=== PATIENT | female | born 1940 | race Two or more races ===

== ENCOUNTER 2016-03-09 19:15 | Inpatient (IN) | payer MEDICARE, OTHER ==
[~2016-03-09] VITALS: Ht 149.9 cm; Wt 59.0 kg
[~2016-03-09 19:15] MED LIST: ATORVASTATIN CA10 MG ORAL; BONIVA150 MG ORAL; CALCIUM500 M2 PO; CATAPRES0.1 MG ORAL; FERROUS SULFAT500 G1 MC; GLIPIZIDE10 MG PO; GLUCOPHAGE500 MG ORAL; HYZAAR 100-12.1 EACH ORAL; JANUVIA25 MG ORAL; NEXIUM40 MG ORAL; POTASSIUM99 M3 PO; SYNTHROID137 MCG ORAL
[2016-03-09 20:59] LABS: BASOPHILS % (AUTO) 1.2 % (0.0-2.0); EOSINOPHILS % (AUTO) 1.8 % (0.0-3.0); LYMPHOCYTES % (AUTO) 18.9 % (20.0-45.0); MEAN CORPUSCULAR HEMOGLOBIN 31.7 PG (27.0-31.0); MEAN CORPUSCULAR HGB CONC 33.2 G/DL (32.0-36.0); MEAN CORPUSCULAR VOLUME 96 FL (80-99); MEAN PLATELET VOLUME 6.5 FL (6.5-10.1); MONOCYTES % (AUTO) 6.5 % (1.0-10.0); NEUTROPHILS % (AUTO) 71.7 % (45.0-75.0); PLATELET COUNT 204 K/UL (150-450); RED BLOOD COUNT 3.67 M/UL (4.20-5.40); RED CELL DISTRIBUTION WIDTH 12.1 % (11.6-14.8); WHITE BLOOD COUNT 8.5 K/UL (4.8-10.8)
[2016-03-09 21:00] LABS: APPEARANCE,URINE CLEAR; KETONES,URINE NEGATIVE (NEGATIVE); LEUKOCYTE ESTERASE ,URINE 1+ (NEGATIVE); NITRITE,URINE NEGATIVE (NEGATIVE); PH,URINE 5 (4.5-8.0); PROTEIN,URINE 2+ (NEGATIVE); UROBILINOGEN,URINE 1 MG/DL (0.0-1.0)
[2016-03-09 21:11] LABS: PROTHROMBIN TIME 10.5 SEC (9.30-11.50)
[2016-03-09 21:12] LABS: ICTOTEST NEGATIVE
[2016-03-09 21:18] LABS: RBC,URINE 0-2 /HPF (0 - 2)
[2016-03-09 21:19] LABS: ALANINE AMINOTRANSFERASE 8 U/L (3-33); ALBUMIN/GLOBULIN RATIO 1.2 (1.0-2.7); ANION GAP 16 (5-15); ASPARTATE AMINO TRANSFERASE 15 U/L (5-40); CALCIUM 9.2 mg/dL (8.6-10.2); CARBON DIOXIDE 25 mEQ/L (20-30); CHLORIDE 99 mEQ/L (98-107); CREATININE 1.5 mg/dL (0.5-0.9); HEMOLYSIS 27; LIPASE 34 U/L (< 60); POTASSIUM 4.3 mEQ/L (3.4-4.9); SODIUM 140 mEQ/L (135-145); TOTAL PROTEIN 6.7 g/dL (6.6-8.7)
[2016-03-09 21:19] LABS: BACTERIA,URINE FEW /HPF; SQUAMOUS EPITHELIAL CELL,UR OCCASIONAL /LPF (NONE/OCC)
[2016-03-09 21:53] VITALS: BP 130/70
[2016-03-09 23:04] VITALS: BP 130/59
--- NOTE | 2016-03-09 23:12 | Emergency Room Report ---
History of Present Illness General Chief Complaint: Gastrointestinal Bleed Source: Patient Present Illness HPI 75-year-old female presents ED complaining of rectal bleeding. States symptoms started today. Noted bright red blood in the toilet. Denies any abdominal pain. Denies any fevers or chills. No aggravating relieving factors. Patient states she has history of diverticulosis. PMD is Dr. De La Torre. Denies any other associated symptoms Allergies: Coded Allergies: PENICILLINS (Verified Allergy, Mild, swelling, 02/28/13) ACETAMINOPHEN (Verified Allergy, Unknown, 03/09/16) CODEINE (Verified Allergy, Unknown, 03/09/16) HYDROCODONE (Verified Allergy, Unknown, 03/09/16) SULFA (SULFONAMIDE ANTIBIOTICS) (Verified Allergy, Unknown, 03/09/16) THIAMINE (VITAMIN B1) (Verified Adverse Reaction, Mild, syncope, 03/09/16) Uncoded Allergies: CODEINA (Allergy, Intermediate, 03/09/16) PROLANZA (Allergy, Intermediate, 03/09/16) SULFA (Allergy, Intermediate, 03/09/16) VICODINE (Allergy, Intermediate, 03/09/16) Patient History Past Medical History: DM, HTN, asthma, other - diverticulitis Past Surgical History: none Pertinent Family History: none Last Menstrual Period: N/A Now: No : 1 Para: 0 Immunizations: UTD Reviewed Nursing Documentation: PMH: Agreed, PSxH: Agreed Nursing Documentation-PMH Hx Cardiac Problems: Yes Hx Hypertension: Yes Hx Asthma: Yes Hx Diabetes: Yes Hx Cancer: No Hx Gastrointestinal Problems: Yes - Rectal Bleeding Hx Neurological Problems: Yes - Peripheral Neuropathy Hx Syncope: Yes Review of Systems All Other Systems: negative except mentioned in HPI Physical Exam Vital Signs Date Time Temp Pulse Resp B/P Pulse Ox O2 Delivery O2 Flow Rate FiO2 03/09/16 19:51 97.9 108 20 149/67 96 Room Air Sp02 EP Interpretation: reviewed, normal General Appearance: no apparent distress, alert, GCS 15, non-toxic Head: normocephalic, atraumatic Eyes: bilateral eye PERRL, bilateral eye normal inspection ENT: hearing grossly normal, normal pharynx, no angioedema, normal voice Neck: full range of motion, supple/symm/no masses Respiratory: chest non-tender, lungs clear, normal breath sounds, speaking full sentences Cardiovascular #1: regular rate, rhythm, no edema Cardiovascular #2: 2+ carotid (R), 2+ carotid (L), 2+ radial (R), 2+ radial (L) , 2+ dorsalis pedis (R), 2+ dorsalis pedis (L) Gastrointestinal: normal bowel sounds, non tender, soft, non-distended, no guarding, no rebound Rectal: deferred Genitourinary: normal inspection, no CVA tenderness Musculoskeletal: back normal, gait/station normal, normal range of motion, non- tender Neurologic: alert, oriented x3, responsive, motor strength/tone normal, sensory intact, speech normal Psychiatric: judgement/insight normal, memory normal, mood/affect normal, no suicidal/homicidal ideation Reflexes: 3+ bicep (R), 3+ bicep (L), 3+ tricep (R), 3+ tricep (L), 3+ knee (R) , 3+ knee (L) Skin: normal color, no rash, warm/dry, well hydrated Lymphatic: no adenopathy Medical Decision Making Diagnostic Impression: Primary Impression: Diverticulosis Qualified Codes: K57.31 - Diverticulosis of large intestine without perforation or abscess with bleeding Additional Impressions: LGI bleed ARF (acute renal failure) Qualified Codes: N17.9 - Acute kidney failure, unspecified ER Course Hospital Course 75-year-old female presents to ED with rectal bleeding. Differential diagnoses include: appendicitis, diverticulitis, SBO, gastroenteritis Clinical course Patient placed on stretcher. surveyor geodetic. After initial history and physical I ordered labs, IV fluids, CT scan Labs - no leukocytosis, Hb/Hct stable. BUN/Cr elevated CT abdomen and pelvis - diverticulosis, no diverticulitis Case discussed with Dr De La Torre and he agreed to accept the patient to his service for further care and support I feel this is a highly complex case requiring extensive working including EKG/ Rhythm strip, Xray/CT/US, Blood/urine lab work, repeat exams while in ED, and administration of strong opiates/narcotics for pain control, admission to hospital or close patient follow up. Diagnosis - divertculosis, LGIB, ARF Patient admitted to floor in serious condition Labs Test 03/09/16 20:10 03/09/16 20:36 White Blood Count 8.5 K/UL (4.8-10.8) Red Blood Count 3.67 M/UL (4.20-5.40) Hemoglobin 11.6 G/DL (12.0-16.0) Hematocrit 35.1 % (37.0-47.0) Mean Corpuscular Volume 96 FL (80-99) Mean Corpuscular Hemoglobin 31.7 PG (27.0-31.0) Mean Corpuscular Hemoglobin Concent 33.2 G/DL (32.0-36.0) Red Cell Distribution Width 12.1 % (11.6-14.8) Platelet Count 204 K/UL (150-450) Mean Platelet Volume 6.5 FL (6.5-10.1) Neutrophils (%) (Auto) 71.7 % (45.0-75.0) Lymphocytes (%) (Auto) 18.9 % (20.0-45.0) Monocytes (%) (Auto) 6.5 % (1.0-10.0) Eosinophils (%) (Auto) 1.8 % (0.0-3.0) Basophils (%) (Auto) 1.2 % (0.0-2.0) Prothrombin Time 10.5 SEC (9.30-11.50) Prothromb Time International Ratio 1.0 (0.9-1.1) Activated Partial Thromboplast Time 25 SEC (23-33) Sodium Level 140 mEQ/L (135-145) Potassium Level 4.3 mEQ/L (3.4-4.9) Chloride Level 99 mEQ/L (98-107) Carbon Dioxide Level 25 mEQ/L (20-30) Anion Gap 16 (5-15) Blood Urea Nitrogen 30 mg/dL (7-23) Creatinine 1.5 mg/dL (0.5-0.9) Estimat Glomerular Filtration Rate mL/min (>60) Glucose Level 279 mg/dL (74-106) Calcium Level 9.2 mg/dL (8.6-10.2) Total Bilirubin 0.3 mg/dL (0.0-1.2) Aspartate Amino Transf (AST/SGOT) 15 U/L (5-40) Alanine Aminotransferase (ALT/SGPT) 8 U/L (3-33) Alkaline Phosphatase 86 U/L (35-104) Total Protein 6.7 g/dL (6.6-8.7) Albumin 3.7 g/dL (3.5-5.2) Globulin 3.0 g/dL Albumin/Globulin Ratio 1.2 (1.0-2.7) Lipase 34 U/L (< 60) Urine Color Yellow Urine Appearance Clear Urine pH 5 (4.5-8.0) Urine Specific [place] 1.015 (1.005-1.035) Urine Protein 2+ (NEGATIVE) Urine Glucose (UA) 3+ (NEGATIVE) Urine Ketones Negative (NEGATIVE) Urine Occult Blood 4+ (NEGATIVE) Urine Nitrite Negative (NEGATIVE) Urine Bilirubin 2+ (NEGATIVE) Urine Ictotest Negative Urine Urobilinogen 1 MG/DL (0.0-1.0) Urine Leukocyte Esterase 1+ (NEGATIVE) Urine RBC 0-2 /HPF (0 - 2) Urine WBC 2-4 /HPF (0 - 2) Urine Squamous Epithelial Cells Occasional /LPF Urine Bacteria Few /HPF (NONE) CT/MRI/US Diagnostic Results CT/MRI/US Diagnostic Results : Imaging Test Ordered: CT A/P Impression diverticulosis of sigmoid colon, no diverticulitis Last Vital Signs Date Time Temp Pulse Resp B/P Pulse Ox O2 Delivery O2 Flow Rate FiO2 03/09/16 23:04 97.6 90 20 130/59 97 Room Air Status: improved Disposition: ADMITTED INPATIENT Condition: Serious Referrals: ARIANNA DE LA TORRE (PCP) PAMELA JACKSON M.D. Mar 09, 2016 23:12
[2016-03-09 23:54] VITALS: BP 128/63
[2016-03-10 00:20] VITALS: BP 145/72
[2016-03-10 04:00] VITALS: BP 153/66
[2016-03-10] MEDS ORDERED: NovoLOG Insulin Flexpen SUBQ SCH (06:30)
[2016-03-10 06:42] LABS: BASOPHILS % (AUTO) 1.2 % (0.0-2.0); EOSINOPHILS % (AUTO) 2.2 % (0.0-3.0); LYMPHOCYTES % (AUTO) 20.5 % (20.0-45.0); MEAN CORPUSCULAR HEMOGLOBIN 31.8 PG (27.0-31.0); MEAN CORPUSCULAR HGB CONC 32.8 G/DL (32.0-36.0); MEAN CORPUSCULAR VOLUME 97 FL (80-99); MEAN PLATELET VOLUME 6.7 FL (6.5-10.1); MONOCYTES % (AUTO) 7.1 % (1.0-10.0); NEUTROPHILS % (AUTO) 69.1 % (45.0-75.0); PLATELET COUNT 165 K/UL (150-450); RED BLOOD COUNT 2.84 M/UL (4.20-5.40); RED CELL DISTRIBUTION WIDTH 11.7 % (11.6-14.8); WHITE BLOOD COUNT 7.7 K/UL (4.8-10.8)
[2016-03-10 06:50] LABS: ALANINE AMINOTRANSFERASE 6 U/L (3-33); ALBUMIN/GLOBULIN RATIO 1.3 (1.0-2.7); ANION GAP 12 (5-15); ASPARTATE AMINO TRANSFERASE 12 U/L (5-40); CALCIUM 8.2 mg/dL (8.6-10.2); CARBON DIOXIDE 27 mEQ/L (20-30); CHLORIDE 103 mEQ/L (98-107); CREATININE 1.3 mg/dL (0.5-0.9); HEMOLYSIS 1; POTASSIUM 4.1 mEQ/L (3.4-4.9); SODIUM 142 mEQ/L (135-145); TOTAL PROTEIN 5.3 g/dL (6.6-8.7)
[2016-03-10 07:16] LABS: HEMOLYSIS 5; IRON 47 ug/dL (37-145); TOTAL IRON BINDING CAPACITY 193 ug/dL (250-400)
[2016-03-10 08:00] VITALS: BP 160/59
--- NOTE | 2016-03-10 08:48 | Diagnostic Imaging Report ---
Indication: ABD PAIN abdominal pain, rectal bleeding, history of diverticulitis Technique: Spiral acquisitions obtained through the abdomen and pelvis. No oral contrast utilized, per emergency room physician request No IV contrast utilized, per referring physician request.. Multiplanar reconstructions were generated. Total dose length product 688 mGycm. CTDIvol(s) 13 mGy Comparison: 07/18/2015 Findings: The appendix is normal. There is extensive colonic diverticulosis. No findings to suggest acute appendicitis are evident. No small bowel distention. No free or loculated intraperitoneal air or fluid is demonstrated. Distal esophagus, stomach, duodenum are unremarkable. Lack of IV contrast limits assessment of the solid organs. The liver, gallbladder, bile ducts., pancreas, spleen, adrenals, kidneys are all unremarkable. There is a 9 x 11 mm artery aneurysm again demonstrated. There is minimal bilateral perinephric fat stranding which is stable. No mesenteric or retroperitoneal mass or adenopathy. The uterus contains multiple calcifications, consistent with old degenerated fibroids. No adnexal mass is demonstrated. The included lung bases demonstrate minimal scarring in the inferior left upper lobe. The bones demonstrate degenerative spondylosis changes. There is no significant interim change Impression: No definite acute abnormality Diverticulosis. 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 High The CT scanner at [facility] is accredited by the [employer] and the scans are performed using protocols designed to limit radiation exposure to as low as reasonably achievable to attain images of sufficient resolution adequate for diagnostic evaluation.
[2016-03-10] MEDS ORDERED: Nulytely 4L ORAL ONE (10:00)
[2016-03-10] MEDS: NovoLOG Insulin Flexpen SUBQ SCH ×3 (11:30→20:52)
--- NOTE | 2016-03-10 11:38 | Consultation ---
DATE OF CONSULTATION: 03/10/2016 GASTROLOGY CONSULTATION: CHIEF COMPLAINT: I was asked to see this patient by Dr. Dex De La Torre for evaluation of lower gastrointestinal bleeding. HISTORY OF PRESENT ILLNESS: The patient is a pleasant 75-year-old woman, who was in her usual state of health until yesterday when she started noticing dark red bowel movements. She has had gastrointestinal bleeding in the past and new pattern and therefore came to the emergency room and was admitted. She has had several bowel movements overnight with the same color. She has had no nausea, vomiting, or abdominal pain. She has had endoscopy or colonoscopy before several times. She thinks the last time was about a year or so at [facility] showing diverticular bleeding. PAST MEDICAL HISTORY: History of hypertension, history of qnm-gkocvkn-fzbysurxh diabetes mellitus, history of hypercholesterolemia, history diverticulosis, and diverticular bleeding. FAMILY HISTORY: Positive for a gastric cancer. SOCIAL HISTORY: The patient does not smoke, drink alcohol, or use drugs. She used . REVIEW OF SYSTEMS: Otherwise negative. PHYSICAL EXAMINATION: GENERAL: This is a pleasant woman seen in her room. HEENT: Normocephalic and atraumatic. Sclerae anicteric. Oropharynx clear. NECK: Supple. CHEST: Clear to auscultation. CARDIOVASCULAR: Revealed a regular rate. ABDOMEN: Soft, nontender, and nondistended. Good bowel sounds. There is no organomegaly. EXTREMITIES: Revealed no edema. NEUROLOGIC: Nonfocal. LABORATORY DATA: Noted. ASSESSMENT: This patient presents with acute gastrointestinal bleeding, which is likely lower in nature. Given the previous history of diverticulosis, diverticular bleeding other possibilities just ulcers would be less likely. The patient has had a significant drop in hematocrit overnight and therefore I will repeat the CBC again today to see if she needs a blood transfusion. the patient should receive GoLYTELY to clear out the colon. She is somewhat reluctant about having another colonoscopy since she has had several times and was told not to have a renewal. However, can be reevaluated once the repeat administered. RECOMMENDATIONS: 1. NPO except medications. 2. Iron pills. 3. Serial CBC. 4. GoLYTELY today. 5. Check outside records. Thank you for asking me to participate in the care of this patient. Gabino Sen M.D. DR: ROSA JOB#: [id number] CC:
[2016-03-10 12:00] VITALS: BP 162/68
[2016-03-10 13:42] LABS: BASOPHILS % (AUTO) 0.9 % (0.0-2.0); EOSINOPHILS % (AUTO) 0.9 % (0.0-3.0); LYMPHOCYTES % (AUTO) 19.1 % (20.0-45.0); MEAN CORPUSCULAR HEMOGLOBIN 31.5 PG (27.0-31.0); MEAN CORPUSCULAR HGB CONC 33.3 G/DL (32.0-36.0); MEAN CORPUSCULAR VOLUME 95 FL (80-99); MEAN PLATELET VOLUME 7.3 FL (6.5-10.1); MONOCYTES % (AUTO) 5.8 % (1.0-10.0); NEUTROPHILS % (AUTO) 73.3 % (45.0-75.0); PLATELET COUNT 197 K/UL (150-450); RED BLOOD COUNT 2.98 M/UL (4.20-5.40); WHITE BLOOD COUNT 8.4 K/UL (4.8-10.8)
--- NOTE | 2016-03-10 15:17 | History and Physical Report ---
DATE OF ADMISSION: 03/09/2016 REASON FOR ADMISSION: Gastrointestinal bleeding. HISTORY OF PRESENT ILLNESS: This is a 75-year-old female with a known history of diverticulosis. She has had prior diverticular bleeds for the past two years on three prior occasions and has been hospitalized. A colonoscopy done approximately 18 months ago confirmed the diagnosis. The patient has required transfusions. She has not required any surgical intervention. In between the episodes, she is symptom free. There is no prior history of diverticulitis. The patient has not had any abdominal pain, nausea, vomiting, fevers, or chills. After eating this afternoon, the patient had an episode of bright red blood per rectum. It was painless. Approximately an hour later, a second episode occurred. A large amounts of blood was in the toilet, the patient came to the emergency room based on her prior history. PAST MEDICAL HISTORY: Degenerative disk disease, lumbosacral radiculopathy, lxl-vzdkuyh-nnplahita diabetes mellitus, diabetic neuropathy, hypertension with hypertensive heart disease, hyperlipidemia. MEDICATIONS: Prior to admission, reviewed and reconciled. ALLERGIES: Multiple and include acetaminophen, codeine, penicillin, sulfa, and thiamine as well as hydrocodone. FAMILY HISTORY: Noncontributory. SOCIAL HISTORY: Negative for smoking, alcohol, or substance abuse. She lives with her . REVIEW OF SYSTEMS: No fevers or chills. No history of retinopathy. No dysuria or frequency. She does have chronic back pain. She has had epidural injections in the past. There is no history of stroke. There is no history of myocardial infarction. Her most recent echocardiogram revealed normal ejection fraction with concentric hypertrophy. There is no history of asthma or blood clots in the legs. Her diabetes is managed with oral therapy. Her most recent A1c was 8.3. She is on anti-lipid therapy. There is no history of thyroid impairment. PHYSICAL EXAMINATION: GENERAL: The patient is well developed, well nourished, no acute distress. VITAL SIGNS: Blood pressure 149/67, pulse 108, respiratory rate 20, afebrile, oxygen saturation 96% on room air. HEENT: Conjunctivae are pink. Sclerae are anicteric. Oropharynx clear. NECK: Supple. Jugular venous pressure normal. LUNGS: Clear. CARDIAC: Regular rhythm and rate. Normal S1 and S2 with a fourth heart sound. ABDOMEN: Soft and nontender. No guarding. No rebound. EXTREMITIES: Good pulses. No edema. NEUROLOGIC: Nonfocal. LABORATORY AND DIAGNOSTIC DATA: White count 8.5, hemoglobin 11.6, BUN 30, creatinine 1.5. Potassium 4.3. Albumin 3.7. Glucose 279. IMPRESSION: 1. Gastrointestinal bleeding likely diverticular. 2. Acute on chronic renal failure due to hypovolemia and possibly acute tubular necrosis. 3. Type 2 diabetes mellitus. 4. Hypertensive heart disease secondary to sinus tachycardia due to acute blood loss. PLAN: NPO. Intravenous fluid, insulin coverage by sliding scale. Serial hemoglobin transfuse if less than 8.5 grams. No anti-platelet therapy or anticoagulants at this time. Check iron panel. Dex De La Torre M.D. DR: Sebastian JOB#: [id number] CC:
[2016-03-10 15:56] LABS: BASOPHILS % (AUTO) 1.2 % (0.0-2.0); EOSINOPHILS % (AUTO) 1.1 % (0.0-3.0); LYMPHOCYTES % (AUTO) 17.5 % (20.0-45.0); MEAN CORPUSCULAR HEMOGLOBIN 31.5 PG (27.0-31.0); MEAN CORPUSCULAR HGB CONC 32.6 G/DL (32.0-36.0); MEAN CORPUSCULAR VOLUME 96 FL (80-99); MEAN PLATELET VOLUME 7.1 FL (6.5-10.1); MONOCYTES % (AUTO) 6.3 % (1.0-10.0); NEUTROPHILS % (AUTO) 73.9 % (45.0-75.0); PLATELET COUNT 172 K/UL (150-450); RED BLOOD COUNT 2.59 M/UL (4.20-5.40); RED CELL DISTRIBUTION WIDTH 12.2 % (11.6-14.8); WHITE BLOOD COUNT 6.3 K/UL (4.8-10.8)
[2016-03-10 16:00] VITALS: BP 162/79
[2016-03-10 20:00] VITALS: BP 132/66
[2016-03-11] VITALS: BP 152/73
[2016-03-11 04:00] VITALS: BP 157/72
[2016-03-11] MEDS: NovoLOG Insulin Flexpen SUBQ SCH ×4 (06:08→21:36)
[2016-03-11 07:16] LABS: MEAN CORPUSCULAR HEMOGLOBIN 32.5 PG (27.0-31.0); MEAN CORPUSCULAR HGB CONC 34.3 G/DL (32.0-36.0); MEAN CORPUSCULAR VOLUME 95 FL (80-99); MEAN PLATELET VOLUME 6.4 FL (6.5-10.1); PLATELET COUNT 158 K/UL (150-450); RED BLOOD COUNT 2.32 M/UL (4.20-5.40); RED CELL DISTRIBUTION WIDTH 12.2 % (11.6-14.8); WHITE BLOOD COUNT 5.7 K/UL (4.8-10.8)
[2016-03-11 07:21] LABS: ANION GAP 11 (5-15); CALCIUM 7.9 mg/dL (8.6-10.2); CARBON DIOXIDE 25 mEQ/L (20-30); CHLORIDE 106 mEQ/L (98-107); HEMOLYSIS 2; POTASSIUM 3.7 mEQ/L (3.4-4.9); SODIUM 142 mEQ/L (135-145)
[2016-03-11 08:09] LABS: INR 1.1 (0.9-1.1); PROTHROMBIN TIME 10.8 SEC (9.30-11.50)
[2016-03-11 08:37] VITALS: BP 188/87
[2016-03-11 09:51] LABS: BAND NEUTROPHILS % (MANUAL) 0 % (0-8); BASOPHILS % (MANUAL) 0 % (0-2); EOSINOPHILS % (MANUAL) 0 % (0-3); HYPOCHROMASIA 1+; LYMPHOCYTES % (MANUAL) 32 % (20-45); NEUTROPHILS % (MANUAL) 64 % (45-75); PLATELET ESTIMATE ADEQUATE; PLATELET MORPHOLOGY NORMAL; TOTAL CELLS COUNTED 100
[2016-03-11 11:45] VITALS: BP 147/76
--- NOTE | 2016-03-11 13:24 | General Progress Note ---
Assessment/Plan Problem List: (1) LGI bleed ICD Codes: K92.2 - Gastrointestinal hemorrhage, unspecified SNOMED: 36158525 (2) Diverticulosis ICD Codes: K57.90 - Diverticulosis of intestine, part unspecified, without perforation or abscess without bleeding SNOMED: 259270639 Qualifiers: Qualified Codes: K57.31 - Diverticulosis of large intestine without perforation or abscess with bleeding (3) hypertension Assessment/Plan transfuse clears fu labs patient rock not want any procedures at this time Subjective ROS Limited/Unobtainable: Yes Allergies: Coded Allergies: PENICILLINS (Verified Allergy, Mild, swelling, 02/28/13) ACETAMINOPHEN (Verified Allergy, Unknown, 03/09/16) CODEINE (Verified Allergy, Unknown, 03/09/16) HYDROCODONE (Verified Allergy, Unknown, 03/09/16) SULFA (SULFONAMIDE ANTIBIOTICS) (Verified Allergy, Unknown, 03/09/16) THIAMINE (VITAMIN B1) (Verified Adverse Reaction, Mild, syncope, 03/09/16) Uncoded Allergies: CODEINA (Allergy, Intermediate, 03/09/16) PROLANZA (Allergy, Intermediate, 03/09/16) SULFA (Allergy, Intermediate, 03/09/16) VICODINE (Allergy, Intermediate, 03/09/16) Subjective no recurrent GIB Objective Last 24 Hour Vital Signs Date Time Temp Pulse Resp B/P Pulse Ox O2 Delivery O2 Flow Rate FiO2 03/11/16 11:45 97.7 81 20 147/76 97 Room Air 03/11/16 08:47 188/87 03/11/16 08:37 97.9 80 20 188/87 96 Room Air 03/11/16 04:00 98.1 89 18 157/72 97 Nasal Cannula 2.0 03/11/16 00:00 97.0 83 20 152/73 97 Nasal Cannula 2.0 03/10/16 20:00 98.8 83 18 132/66 95 Room Air 03/10/16 16:15 162/79 03/10/16 16:00 98.4 89 18 162/79 97 Room Air Intake and Output 03/10/16 03/11/16 19:00 07:00 Intake Total 1150 ml 1100 ml Balance 1150 ml 1100 ml Intake Oral 150 ml IV Total 1000 ml 1100 ml # Voids 4 # Bowel Movements 1 Laboratory Tests 03/10/16 15:14: White Blood Count 6.3, Red Blood Count 2.59L, Hemoglobin 8.2L, Hematocrit 25.0L , Mean Corpuscular Volume 96, Mean Corpuscular Hemoglobin 31.5H, Mean Corpuscular Hemoglobin Concent 32.6, Red Cell Distribution Width 12.2, Platelet Count 172, Mean Platelet Volume 7.1, Neutrophils (%) (Auto) 73.9, Lymphocytes (% ) (Auto) 17.5L, Monocytes (%) (Auto) 6.3, Eosinophils (%) (Auto) 1.1, Basophils (%) (Auto) 1.2 03/11/16 05:30: White Blood Count 5.7, Red Blood Count 2.32L, Hemoglobin 7.5L, Hematocrit 21.9L , Mean Corpuscular Volume 95, Mean Corpuscular Hemoglobin 32.5H, Mean Corpuscular Hemoglobin Concent 34.3, Red Cell Distribution Width 12.2, Platelet Count 158, Mean Platelet Volume 6.4L, Neutrophils (%) (Auto) , Lymphocytes (%) ( Auto) , Monocytes (%) (Auto) , Eosinophils (%) (Auto) , Basophils (%) (Auto) , Differential Total Cells Counted 100, Neutrophils % (Manual) 64, Lymphocytes % ( Manual) 32, Monocytes % (Manual) 4, Eosinophils % (Manual) 0, Basophils % ( Manual) 0, Band Neutrophils 0, Platelet Estimate Adequate, Platelet Morphology Normal, Hypochromasia 1+, Prothrombin Time 10.8, Prothromb Time International Ratio 1.1, Sodium Level 142, Potassium Level 3.7, Chloride Level 106, Carbon Dioxide Level 25, Anion Gap 11, Blood Urea Nitrogen 23, Creatinine 1.0H, Estimat Glomerular Filtration Rate , Glucose Level 208H, Calcium Level 7.9L Height (Feet): 4 Height (Inches): 11.00 Weight (Pounds): 130 General Appearance: alert EENT: normal ENT inspection Neck: supple Cardiovascular: normal rate Respiratory/Chest: decreased breath sounds Abdomen: normal bowel sounds, non tender Extremities: non-tender BONIFACIO BURNETTE Mar 11, 2016 13:24
[2016-03-11 15:48] VITALS: BP 150/75
[2016-03-11 20:00] VITALS: BP 137/71
[2016-03-12] VITALS (7 sets, daily range): BP systolic 135–195; BP diastolic 71–90
--- NOTE | 2016-03-12 01:38 | Progress Note ---
DATE: 03/10/2016 INTERNAL MEDICINE PROGRESS NOTE Late entry for 03/10/2016. SUBJECTIVE: The patient has no pain or abdominal discomfort. No nausea or vomiting. She did have a couple more episodes of bloody stools last evening and this morning. OBJECTIVE: VITAL SIGNS: Blood pressure is 160/59, pulse 80, and respirations 18. NECK: Supple. LUNGS: Clear. CARDIAC: Regular. Normal S1, S2. ABDOMEN: Soft and nontender. No edema. LABORATORY AND DIAGNOSTIC DATA: Hemoglobin is 9 and hematocrit 27.4. Potassium 4.1, BUN 38, and creatinine 1.3. Albumin 3. Iron panel was consistent with chronic disease. IMPRESSION: 1. Lower gastrointestinal bleeding, likely diverticular. 2. Acute on chronic renal insufficiency with prerenal azotemia due to hypoperfusion. 3. Mild protein-calorie malnutrition. 4. Hypertensive heart disease with accelerated blood pressure. 5. Insulin-requiring diabetes mellitus with complications. PLAN: 1. NPO. 2. Intravenous fluids. 3. Titrate antihypertensives. 4. Serial hemoglobin, transfuse if less than 8 g. 5. Consideration for repeat colonoscopy to follow. Dex De La Torre M.D. DR: REJI JOB#: [id number] CC:
--- NOTE | 2016-03-12 01:47 | Progress Note ---
DATE: 03/11/2016 INTERNAL MEDICINE PROGRESS NOTE SUBJECTIVE: The patient has not had any new bleeding. Her hemoglobin has been dropped to 7.6. She denies chest pain or shortness of breath. No abdominal pain noted. OBJECTIVE: VITAL SIGNS: Blood pressure up to 171/93 at time. LUNGS: Bilateral breath sounds. HEART: Regular rhythm and rate. Normal S1, S2. ABDOMEN: Soft. EXTREMITIES: Without edema. LABORATORY RESULTS: Potassium 3.7, BUN 23, and creatinine 1.0. White count 5.7 and hemoglobin 7.5. IMPRESSION: 1. Acute lower gastrointestinal bleeding, presumed diverticular. 2. Anemia due to acute blood loss. 3. Hypertension with hypertensive heart disease and rising blood pressure trend. 4. Insulin-requiring diabetes with complications. PLAN: 1. Transfuse one unit of packed red blood cells. 2. Intravenous Venofer. 3. Continue NPO and close monitoring of gastrointestinal parameters. 4. Maintenance of intravenous fluids. 5. Sublingual clonidine for blood pressure control on a p.r.n. basis for now. 6. Insulin coverage by sliding scale. Dex De La Torre M.D. DR: REJI JOB#: [id number] CC:
[2016-03-12] MEDS: NovoLOG Insulin Flexpen SUBQ SCH ×4 (06:13→21:01)
[2016-03-12 07:20] LABS: BASOPHILS % (AUTO) 1.6 % (0.0-2.0); EOSINOPHILS % (AUTO) 3.1 % (0.0-3.0); LYMPHOCYTES % (AUTO) 23.1 % (20.0-45.0); MEAN CORPUSCULAR HEMOGLOBIN 33.3 PG (27.0-31.0); MEAN CORPUSCULAR HGB CONC 34.4 G/DL (32.0-36.0); MEAN CORPUSCULAR VOLUME 97 FL (80-99); MEAN PLATELET VOLUME 6.8 FL (6.5-10.1); MONOCYTES % (AUTO) 9.4 % (1.0-10.0); NEUTROPHILS % (AUTO) 62.9 % (45.0-75.0); PLATELET COUNT 139 K/UL (150-450); RED BLOOD COUNT 2.73 M/UL (4.20-5.40); RED CELL DISTRIBUTION WIDTH 11.8 % (11.6-14.8); WHITE BLOOD COUNT 6.4 K/UL (4.8-10.8)
--- NOTE | 2016-03-12 11:48 | General Progress Note ---
Assessment/Plan Problem List: (1) LGI bleed ICD Codes: K92.2 - Gastrointestinal hemorrhage, unspecified SNOMED: 01439734 (2) Diverticulosis ICD Codes: K57.90 - Diverticulosis of intestine, part unspecified, without perforation or abscess without bleeding SNOMED: 845292926 Qualifiers: Qualified Codes: K57.31 - Diverticulosis of large intestine without perforation or abscess with bleeding (3) hypertension Assessment/Plan s/p blood transfusion advance diet fu labs patient rock not want any procedures at this time Subjective ROS Limited/Unobtainable: Yes Allergies: Coded Allergies: PENICILLINS (Verified Allergy, Mild, swelling, 02/28/13) ACETAMINOPHEN (Verified Allergy, Unknown, 03/09/16) CODEINE (Verified Allergy, Unknown, 03/09/16) HYDROCODONE (Verified Allergy, Unknown, 03/09/16) SULFA (SULFONAMIDE ANTIBIOTICS) (Verified Allergy, Unknown, 03/09/16) THIAMINE (VITAMIN B1) (Verified Adverse Reaction, Mild, syncope, 03/09/16) Uncoded Allergies: CODEINA (Allergy, Intermediate, 03/09/16) PROLANZA (Allergy, Intermediate, 03/09/16) SULFA (Allergy, Intermediate, 03/09/16) VICODINE (Allergy, Intermediate, 03/09/16) Subjective no recurrent GIB Objective Last 24 Hour Vital Signs Date Time Temp Pulse Resp B/P Pulse Ox O2 Delivery O2 Flow Rate FiO2 03/12/16 08:00 96.2 72 18 153/86 94 Room Air 03/12/16 05:08 192/80 03/12/16 04:45 155/80 03/12/16 04:00 98.2 90 18 192/80 95 Room Air 03/12/16 00:00 97.7 72 18 158/81 96 03/11/16 20:00 97.9 68 18 137/71 98 Room Air 03/11/16 17:39 199/99 03/11/16 15:48 97.9 78 20 150/75 94 Room Air Intake and Output 03/11/16 03/12/16 19:00 07:00 Intake Total 1390 ml 855 ml Balance 1390 ml 855 ml Intake Oral 890 ml IV Total 500 ml 855 ml # Voids 3 Laboratory Tests 03/12/16 04:45: White Blood Count 6.4, Red Blood Count 2.73L, Hemoglobin 9.1L, Hematocrit 26.5L , Mean Corpuscular Volume 97, Mean Corpuscular Hemoglobin 33.3H, Mean Corpuscular Hemoglobin Concent 34.4, Red Cell Distribution Width 11.8, Platelet Count 139L, Mean Platelet Volume 6.8, Neutrophils (%) (Auto) 62.9, Lymphocytes ( %) (Auto) 23.1, Monocytes (%) (Auto) 9.4, Eosinophils (%) (Auto) 3.1H, Basophils (%) (Auto) 1.6 Height (Feet): 4 Height (Inches): 11.00 Weight (Pounds): 130 General Appearance: alert EENT: normal ENT inspection Neck: supple Cardiovascular: normal rate Respiratory/Chest: decreased breath sounds Abdomen: normal bowel sounds, non tender, soft Extremities: non-tender BONIFACIO BURNETTE Mar 12, 2016 11:48
[2016-03-12] MEDS ORDERED: Tubing IV Secondary IV ONE (17:48)
[2016-03-13] VITALS: BP 155/65
[2016-03-13 04:00] VITALS: BP 155/65
[2016-03-13 04:42] LABS: BASOPHILS % (AUTO) 1.1 % (0.0-2.0); EOSINOPHILS % (AUTO) 3.1 % (0.0-3.0); LYMPHOCYTES % (AUTO) 21.1 % (20.0-45.0); MEAN CORPUSCULAR HEMOGLOBIN 31.7 PG (27.0-31.0); MEAN CORPUSCULAR HGB CONC 32.9 G/DL (32.0-36.0); MEAN CORPUSCULAR VOLUME 96 FL (80-99); MEAN PLATELET VOLUME 6.4 FL (6.5-10.1); MONOCYTES % (AUTO) 7.8 % (1.0-10.0); PLATELET COUNT 147 K/UL (150-450); RED BLOOD COUNT 2.89 M/UL (4.20-5.40); RED CELL DISTRIBUTION WIDTH 11.6 % (11.6-14.8); WHITE BLOOD COUNT 6.5 K/UL (4.8-10.8)
[2016-03-13] MEDS: metFORMIN 500mg tab ORAL SCH ×2 (06:30→11:38)
[2016-03-13] MEDS: NovoLOG Insulin Flexpen SUBQ SCH ×2 (06:30→11:42)
--- NOTE | 2016-03-13 06:47 | Progress Note ---
DATE: 03/12/2016 INTERNAL MEDICINE PROGRESS NOTE SUBJECTIVE: The patient has not had any bowel movement for several days. No signs of bleeding noted. No nausea or vomiting. The patient received packed red blood cell transfusion yesterday. OBJECTIVE: VITAL SIGNS: Blood pressure 153/86 to 195/90, heart rate 70, respiratory rate 18, and afebrile. NECK: Supple. LUNGS: Clear. CARDIAC: Regular. Normal S1 and S2 with a fourth heart sound. ABDOMEN: Soft. No tenderness. EXTREMITIES: No edema. LABORATORY DATA: White count 6.4 and hemoglobin 9.1. IMPRESSION: 1. Diverticulosis with gastrointestinal bleeding. 2. Anemia, status post transfusion. 3. Acute on chronic renal failure, recovering. 4. Hypertensive heart disease with accelerated blood pressure. 5. Vwx-poztubk-pjekssiua diabetes mellitus with elevated blood glucose. PLAN: Restart metformin. Advance diet. Adjust IV fluids. Titrate antihypertensives. Serial hemoglobin. Transfuse for hemoglobin less than 8 g. Dex De La Torre M.D. DR: Ryland JOB#: [id number] CC:
[2016-03-13 07:03] LABS: CARBON DIOXIDE 23 mEQ/L (20-30); CREATININE 0.8 mg/dL (0.5-0.9)
[2016-03-13 07:04] LABS: ALANINE AMINOTRANSFERASE 7 U/L (3-33); ALBUMIN/GLOBULIN RATIO 1.2 (1.0-2.7); ANION GAP 15 (5-15); ASPARTATE AMINO TRANSFERASE 19 U/L (5-40); CALCIUM 8.4 mg/dL (8.6-10.2); CHLORIDE 106 mEQ/L (98-107); HEMOLYSIS 3; MAGNESIUM 1.1 mg/dL (1.7-2.5); POTASSIUM 3.3 mEQ/L (3.4-4.9); SODIUM 144 mEQ/L (135-145); TOTAL PROTEIN 5.4 g/dL (6.6-8.7)
[2016-03-13 08:00] VITALS: BP 160/83
[2016-03-13 12:00] VITALS: BP 139/78
--- NOTE | 2016-03-14 00:25 | General Progress Note ---
Assessment/Plan Assessment/Plan Assessment - LGIB - diverticulosis - presumed diverticular bleed - anemia - declined EGD/Colon Recommendations - push po - follow labs - monitor CBC - d/c planning - outpatient f/u Subjective Allergies: Coded Allergies: PENICILLINS (Verified Allergy, Mild, swelling, 02/28/13) ACETAMINOPHEN (Verified Allergy, Unknown, 03/09/16) CODEINE (Verified Allergy, Unknown, 03/09/16) HYDROCODONE (Verified Allergy, Unknown, 03/09/16) SULFA (SULFONAMIDE ANTIBIOTICS) (Verified Allergy, Unknown, 03/09/16) THIAMINE (VITAMIN B1) (Verified Adverse Reaction, Mild, syncope, 03/09/16) Uncoded Allergies: CODEINA (Allergy, Intermediate, 03/09/16) PROLANZA (Allergy, Intermediate, 03/09/16) SULFA (Allergy, Intermediate, 03/09/16) VICODINE (Allergy, Intermediate, 03/09/16) Subjective patient seen earlier today (ie am of 03/13) progress note entered after midnight timestamp patient still declines GI w/u just wants to go home advised to f/u with me as outpt has my card Objective Last 24 Hour Vital Signs Date Time Temp Pulse Resp B/P Pulse Ox O2 Delivery O2 Flow Rate FiO2 03/13/16 12:00 98.5 74 19 139/78 92 Room Air 03/13/16 10:16 160/83 03/13/16 08:00 97.7 92 18 160/83 96 Room Air 03/13/16 04:00 97.9 68 18 155/65 96 Room Air Intake and Output 03/13/16 03/14/16 19:00 07:00 Intake Total 300 ml Balance 300 ml IV Total 300 ml Laboratory Tests 03/13/16 03:15: White Blood Count 6.5, Red Blood Count 2.89L, Hemoglobin 9.2L, Hematocrit 27.9L , Mean Corpuscular Volume 96, Mean Corpuscular Hemoglobin 31.7H, Mean Corpuscular Hemoglobin Concent 32.9, Red Cell Distribution Width 11.6, Platelet Count 147L, Mean Platelet Volume 6.4L, Neutrophils (%) (Auto) 67.0, Lymphocytes (%) (Auto) 21.1, Monocytes (%) (Auto) 7.8, Eosinophils (%) (Auto) 3.1H, Basophils (%) (Auto) 1.1, Sodium Level 144, Potassium Level 3.3L, Chloride Level 106, Carbon Dioxide Level 23, Anion Gap 15, Blood Urea Nitrogen 9, Creatinine 0.8, Estimat Glomerular Filtration Rate , Glucose Level 115H, Calcium Level 8.4L, Magnesium Level 1.1L, Total Bilirubin 0.3, Aspartate Amino Transf (AST/SGOT) 19, Alanine Aminotransferase (ALT/SGPT) 7, Alkaline Phosphatase 58, Total Protein 5.4L, Albumin 3.0L, Globulin 2.4, Albumin/ Globulin Ratio 1.2 Height (Feet): 4 Height (Inches): 11.00 Weight (Pounds): 130 Objective WDWN LW NCAT supple CTA RRR Soft ND NT no edema non focal EFREN COTA Mar 14, 2016 00:25
[2016-03-14 12:29] LABS: OTHERS PATHOLOGIST COMMENT
--- NOTE | 2016-03-14 14:45 | Discharge Summary ---
Discharge Summary Hospital Course Date of Admission Mar 09, 2016 at 20:48 Date of Discharge Mar 13, 2016 at 14:20 Admitting Diagnosis LGIB Reason for Hospitalization: rectal bleeding x 2 HPI Radha Evans is a 75 year old female who was admitted on Mar 09, 2016 at 20:48 for Lower Gastrointestinal Bleed 75-year-old female with a known history of diverticulosis, prior diverticular bleeding in the last 2 years on 3 prior occasions with hospitalization. A colonoscopy done approximately 18 months ago and confirmed the diagnosis. The patient had required transfusions. No surgical interventions, No evidecne of diverticulitis, symptom free between epsidoes. denies abdominal pain, nausea, vomiting, fevers, or chills. prior to presentation to ER had an episode of painless bright red blood per rectum. An hour later, a second episode with a large amounts of blood the patient came to the emergency room for further evaluation in ER afebrile, no leucocytosis, evidence of acute renal failure with creat of 1.5, anemic Consultations GI -dr Sen Hospital Course patient admitted for further management GI followed patient declined EGD and colon ( last done about 18 months ago) per GI - lower GI bleeding presumed to be of diverticular bleeding HH monitored s/p 1 u PRBC, no further bleeding GI prophylaxis IVF renal parameters improved at baseline, creat down to 1.0 BP management with current regimen BS management with oral antiglycemic and SS of insulin , may need further optimization of antiglycemic regimen as outpatient DVT prophylaxis s/p Venofer, on oral iron supplement at home bowel regimen stable for discharge , GI cleared for dc home, fup with PMD and GI as outpatient Discharge Condition Upon Discharge: improving, stable Discharge Disposition Patient was discharged to Home (01) Discharge Diagnoses: (1) Lower GI bleed (2) Diverticulosis (3) History of GI diverticular bleed (4) Eaxcu-hh-ylpiygy renal failure (5) Accelerated hypertension (6) 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 (7) Anemia Discharge Instructions Discharge Instructions Follow up with: PMD Call MD/Return to Hospital if: blood in stool or emesis, dizziness, weakness, SOB, chest pain Services Upon Discharge: day care - blood in stool or emesis Diet: diabetic calorie control, cardiac 2 GM Na, low fat Activity: resume normal activities, as tolerated Special Instructions I have been assigned to complete a D/C Summary on this account. I was not involved in the patient management Radha Barr NP ([place]te[place]) Mar 14, 2016 14:45
== END 2016-03-13 14:20 | disposition home or self-care (01) | DRG 377 ==
LOC: ENRESERVTM → ENRESERVDT → EMR 20:45 → 4W 20:48 → EDBEDREQ 03-10 00:10 → 4W 03-10 01:10
PROC: 30233N1 Transfusion of Nonautologous Red Blood Cells into Peripheral Vein, Percutaneous Approach (ICD-10-PCS; principal; 2016-03-11)
DX: K57.91 Diverticulosis of intestine, part unspecified, without perforation or abscess with bleeding (principal); N17.0 Acute kidney failure with tubular necrosis; G62.9 Polyneuropathy, unspecified; D62 Acute posthemorrhagic anemia; E11.40 Type 2 diabetes mellitus with diabetic neuropathy, unspecified; E44.1 Mild protein-calorie malnutrition; I13.10 Hypertensive heart and chronic kidney disease without heart failure, with stage 1 through stage 4 chronic kidney disease, or unspecified chronic kidney disease; N18.9 Chronic kidney disease, unspecified; M51.17 Intervertebral disc disorders with radiculopathy, lumbosacral region; E86.1 Hypovolemia; Z88.6 Allergy status to analgesic agent; Z88.0 Allergy status to penicillin; Z88.2 Allergy status to sulfonamides; Z88.8 Allergy status to other drugs, medicaments and biological substances
CPT/HCPCS: 36415; 74176; 80048; 80053; 81003; 82962; 83540; 83550; 83690; 83735; 85007; 85025; 85610; 85730; 86850; 86900; 86901; 86920; J1815; J8499

== ENCOUNTER 2017-01-19 14:30 | Outpatient (RCR) | payer MEDICARE, OTHER | END 2017-02-01 | disposition home or self-care (01) | LOC: PTY 14:30 | DX: M48.061 Spinal stenosis, lumbar region without neurogenic claudication (principal); M54.16 Radiculopathy, lumbar region; E11.40 Type 2 diabetes mellitus with diabetic neuropathy, unspecified | CPT/HCPCS: 97110; 97162; G0283; G8981; G8982 ==

== ENCOUNTER 2017-03-15 17:02 | Emergency (ER) | payer MEDICARE, OTHER ==
[~2017-03-15] VITALS: Ht 149.9 cm; Wt 58.1 kg
[2017-03-15 17:20] VITALS: BP 177/76
--- NOTE | 2017-03-15 19:11 | Emergency Room Report ---
History of Present Illness General Chief Complaint: Upper Extremity Injury Source: Medical Record (Maria Dolores Lambert) Present Illness HPI 76-year-old female presents to the emergency department complaining of 10 out of 10 in severity right elbow and right shoulder pain status post mechanical trip and fall at approximately 3 PM this afternoon. Patient states that she felt into a wall. Patient denies hitting her head she denies loss of consciousness. Patient denies taking blood thinning medications her past medical history is only pertinent for high-pressure. She reports pain exacerbation upon palpation and movement of the affected extremity.Denies numbness tingling or loss of sensation or gross motor movements of the extremities, incontinence of bowel or bladder. Denies CP, Palpitations, LOC, AMS , dizziness, Changes in Vision, Sensation, paresthesias, or a sudden severe headache. (Maria Dolores Lambert) Allergies: Coded Allergies: PENICILLINS (Verified Allergy, Mild, swelling, 02/28/13) ACETAMINOPHEN (Verified Allergy, Unknown, 03/09/16) CODEINE (Verified Allergy, Unknown, 03/09/16) HYDROCODONE (Verified Allergy, Unknown, 03/09/16) SULFA (SULFONAMIDE ANTIBIOTICS) (Verified Allergy, Unknown, 03/09/16) THIAMINE (VITAMIN B1) (Verified Adverse Reaction, Mild, syncope, 03/09/16) Patient History Past Medical History: see triage record Past Surgical History: none Pertinent Family History: none Immunizations: UTD Reviewed Nursing Documentation: PMH: Agreed, PSxH: Agreed (Maria Dolores Lambert) Nursing Documentation-PMH Past Medical History: No History, Except For Hx Cardiac Problems: Yes Hx Hypertension: Yes Hx Asthma: Yes Hx Diabetes: Yes Hx Cancer: No Hx Gastrointestinal Problems: Yes - Rectal Bleeding Hx Neurological Problems: Yes Hx Peripheral Neuropathy: Yes Hx Dizziness: Yes Hx Syncope: Yes Hx Weakness: Yes (Maria Dolores Lambert) Review of Systems All Other Systems: negative except mentioned in HPI (Maria Dolores Lambert) Physical Exam Vital Signs Date Time Temp Pulse Resp B/P (MAP) Pulse Ox O2 Delivery O2 Flow Rate FiO2 03/15/17 17:13 97.9 76 18 177/76 99 Room Air Sp02 EP Interpretation: reviewed, normal General Appearance: no apparent distress, alert, GCS 15, non-toxic Head: normocephalic, atraumatic Eyes: bilateral eye normal inspection, bilateral eye PERRL ENT: hearing grossly normal, normal voice Neck: full range of motion Respiratory: chest non-tender, lungs clear, normal breath sounds, speaking full sentences Cardiovascular #1: regular rate, rhythm Gastrointestinal: normal bowel sounds, non tender, soft Rectal: deferred Genitourinary: normal inspection Musculoskeletal: back normal, gait/station normal, normal range of motion, tender - TTP to the lateral and posterior right elbow, unable to ROM due to pain , ttp to the lateral right shoulder unable to ROM due to pain, pt is NVI. some swelling noted to the right elbow, no obvious deformities otherwise, no bruises or open wounds. Neurologic: alert, oriented x3, responsive, motor strength/tone normal, sensory intact, speech normal, grossly normal Psychiatric: judgement/insight normal Skin: normal color, no rash, warm/dry, well hydrated, other - no bruises or open wounds. Lymphatic: no adenopathy (Maria Dolores Lambert) Medical Decision Making PA Attestation Dr. conrad is my supervising Physician whom patient management has been discussed with. (Maria Dolores Lambert.A.) Medicare Attestation The history of Radha Evans has been reviewed and management options for her have been examined and discussed by Maico Barraza. I have personally examined and interviewed the patient. (MAICO BARRAZA M.D.) Diagnostic Impression: Primary Impression: Elbow fracture, right Qualified Codes: S42.401A - Unspecified fracture of lower end of right humerus , initial encounter for closed fracture Additional Impressions: Shoulder contusion Qualified Codes: S40.011A - Contusion of right shoulder, initial encounter Fall Qualified Codes: W19.XXXA - Unspecified fall, initial encounter ER Course 76-year-old female presents to the emergency department complaining of 10 out of 10 in severity right elbow and right shoulder pain status post mechanical trip and fall at approximately 3 PM this afternoon. Patient states that she felt into a wall. Patient denies hitting her head she denies loss of consciousness. Patient denies taking blood thinning medications her past medical history is only pertinent for high-pressure. She reports pain exacerbation upon palpation and movement of the affected extremity.Denies numbness tingling or loss of sensation or gross motor movements of the extremities, incontinence of bowel or bladder. Denies CP, Palpitations, LOC, AMS , dizziness, Changes in Vision, Sensation, paresthesias, or a sudden severe headache. Ddx considered but are not limited to Fracture, dislocation, contusion, Sprain/ Strain/Spasm, head injury just to name a few. Vital signs: are WNL, pt. is afebrile H&PE are most consistent with musculoskeletal injury will perform imaging to r/ o fractures/dislocations. ORDERS: - X-ray s :Patient was noted to have anterior and posterior fat pads displayed on x-ray although therefore we'll treat as positive for fracture. Degenerative changes and osteophytes noted on shoulder x-ray I do not identify obvious acute fracture at this time will splint patient, and contact her if radiologist impression is different from prelim ED read. ED INTERVENTIONS: - Motrin PO ( pt. reports pain medication naive and declines strong opiates ) - long arm Splint applied by non destructive evaluation technician. Pt. remains neurovascularly intact. - Right arm Sling applied by non destructive evaluation technician. Pt. remains neurovascularly intact. DISCHARGE: At this time pt. is stable for d/c to home. Will provide printed patient care instructions, and any necessary prescriptions. Care plan and follow up instructions have been discussed with the patient prior to discharge. (Maria Dolores Lambert) Other X-Ray Diagnostic Results Other X-Ray Diagnostic Results #1: X-Ray ordered: Right Elbow # of Views/Limited Vs Complete: 3 View Indication: Pain EP Interpretation: Yes PA Xray: Interpretation reviewed, by supervising MD, and agrees with findings. Interpretation: no dislocation, no soft tissue swelling, no fractures, nonspecific bowel gas Impression: Other - anterior and posterior fat pads displayed on x-ray although therefore we'll treat as positive for fracture. Electronically Signed by: Maria Dolores Lambert PA-C Other X-Ray Diagnostic Results #2: X-Ray ordered: Right Shoulder # of Views/Limited Vs Complete: 3 View Indication: Pain EP Interpretation: Yes PA Xray: Interpretation reviewed, by supervising MD, and agrees with findings. Interpretation: no dislocation, no soft tissue swelling, no fractures Impression: Other - Degenerative changes and osteophytes noted on shoulder x -ray I do not identify obvious acute fracture at this time will splint patient (Maria Dolores Lambert) Last Vital Signs Date Time Temp Pulse Resp B/P (MAP) Pulse Ox O2 Delivery O2 Flow Rate FiO2 03/15/17 17:20 97.9 18 177/76 99 Room Air 03/15/17 17:13 76 (Maria Dolores Lambert) Disposition: HOME, SELF-CARE Condition: Stable Scripts Ibuprofen* (MOTRIN*) 600 Mg Tablet 600 MG ORAL THREE TIMES A DAY, #30 TAB 0 Refills Prov: Maria Dolores Lambert 03/15/17 Referrals: ARIANNA MARTINEZ (PCP) Patient Instructions: Contusion, Shoulder Pain, [id number] Additional Instructions: Take medications as directed. Follow up with a Primary Care Provider in 3-5 days for [facility] referral/eval, even if your symptoms have resolved. --Please review list of primary care clinics, if you do not already have a primary care provider Return sooner to ED if new symptoms occur, or current symptoms become worse. - Please note that this Emergency Department Report was dictated using [employer] technology software, occasionally this can lead to erroneous entry secondary to interpretation by the dictation equipment. Maria Dolores Lambert Mar 15, 2017 19:11 MAICO BARRAZA M.D. Mar 25, 2017 06:57
[2017-03-15 19:14] VITALS: BP 156/59
[2017-03-15] MEDS ORDERED: IBUPROFEN600 MG ORAL (19:14)
[2017-03-15 19:36] VITALS: BP 156/59
--- NOTE | 2017-03-16 12:01 | Diagnostic Imaging Report ---
Indication: Pain status post full Technique: XRAY Shoulder Compl R Comparison: None Findings: There is an acute, mildly displaced fracture through the greater tuberosity of the humerus. There is mild degenerative change of the AC joint. Right lung is clear. No radiopaque foreign body seen. Impression: Acute, mildly displaced fracture through the greater tuberosity This is discrepant from the preliminary interpretation by the treating ER clinician as documented in the electronic medical record. Findings discussed with Dr. Cline in the ER on 11:50 AM on 03/16/2017.
--- NOTE | 2017-03-16 12:05 | Diagnostic Imaging Report ---
Indication: Pain status post injury Technique: XRAY Elbow Min 3v R Comparison: None Findings: Limited evaluation due to suboptimal positioning. No definite fracture identified. There may be a small elbow joint effusion anteriorly. No radiopaque foreign body seen. Impression: Limited exam due to suboptimal positioning. Question small elbow joint effusion anteriorly. This raises concern for radiographically occult radial head fracture. Repeat exam recommended for better evaluation as clinically indicated.
== END 2017-03-15 19:36 | disposition home or self-care (01) ==
LOC: EMR 17:50
DX: S42.251A Displaced fracture of greater tuberosity of right humerus, initial encounter for closed fracture (principal); S40.011A Contusion of right shoulder, initial encounter; W01.0XXA Fall on same level from slipping, tripping and stumbling without subsequent striking against object, initial encounter; Y92.89 Other specified places as the place of occurrence of the external cause; Z88.0 Allergy status to penicillin; Z88.6 Allergy status to analgesic agent; Z88.2 Allergy status to sulfonamides; I10 Essential (primary) hypertension; E11.9 Type 2 diabetes mellitus without complications; J45.909 Unspecified asthma, uncomplicated
CPT/HCPCS: 99284

== ENCOUNTER 2017-08-14 11:32 | Inpatient (IN) | payer MEDICARE, OTHER ==
[~2017-08-14] VITALS: Ht 132.1 cm; Wt 54.1 kg
[~2017-08-14 11:32] MED LIST changes: +IBUPROFEN600 MG ORAL
--- NOTE | 2017-08-14 12:16 | Emergency Room Report ---
History of Present Illness General Chief Complaint: General Complaint Source: Patient Present Illness HPI [id number] with 4x bloody/melanotic stool since last night. No associated abd pain, nausea/vomiting, diarrhea. Per PMD, history of diverticulosis. patient not sure when last colonscopuy was. She is unsure if she requred transfusion previously. Otherwise denies chest pain, shortness of breath, urinary complaints , headache, fevers or chills. Allergies: Coded Allergies: PENICILLINS (Verified Allergy, Unknown, 08/14/17) Patient History Past Medical History: none Past Surgical History: none Pertinent Family History: none Social History: Denies: smoking, alcohol use, drug use Last Menstrual Period: n Now: No Immunizations: UTD Reviewed Nursing Documentation: PMH: Agreed; PSxH: Agreed Nursing Documentation-PMH Hx Hypertension: Yes Review of Systems All Other Systems: negative except mentioned in HPI Physical Exam Vital Signs Date Time Temp Pulse Resp B/P (MAP) Pulse Ox O2 Delivery O2 Flow Rate FiO2 08/14/17 11:37 97.9 115 16 143/76 96 Room Air 97.9 Sp02 EP Interpretation: reviewed, normal General Appearance: normal inspection, well appearing, no apparent distress, alert, GCS 15, non-toxic Head: normocephalic, atraumatic Eyes: bilateral eye PERRL, bilateral eye EOMI ENT: normal ENT inspection, hearing grossly normal, normal pharynx, no angioedema, normal voice, TMs + canals normal, uvula midline, moist mucus membranes Neck: normal inspection, full range of motion, supple, thyroid normal, no meningismus, no bony tend Respiratory: normal inspection, lungs clear, normal breath sounds, no rhonchi, no respiratory distress, no retraction, no accessory muscle use, no wheezing, speaking full sentences Cardiovascular #1: regular rate, rhythm, no edema, no JVD, normal capillary refill Gastrointestinal: normal inspection, normal bowel sounds, non tender, soft, no mass, no peritonitis, non-distended, no guarding, no hernia, no pulsatile mass Genitourinary: no CVA tenderness Musculoskeletal: normal inspection, back normal, normal range of motion, no calf tenderness, pelvis stable, Kanwal's Sign negative Neurologic: normal inspection, alert, oriented x3, responsive, furniture rental consultant III-XII nml as tested, motor strength/tone normal, cerebellar normal, normal gait, speech normal Psychiatric: normal inspection, judgement/insight normal, mood/affect normal, no suicidal/homicidal ideation, no delusions Skin: normal inspection, normal color, no rash Lymphatic: normal inspection, no adenopathy Medical Decision Making Diagnostic Impression: Primary Impression: Rectal bleed Additional Impressions: CKD (chronic kidney disease) Qualified Codes: N18.9 - Chronic kidney disease, unspecified Hyperglycemia ER Course VSS, afebrile Hemodynamically stable Abdomen non-focal H&H stable No leukocytosis to suggest infectious process CT: apparent wall thicking onf hepatic flexure of colon, ?mass I reached out to Dr. De La Torre, recommends admission to covering Dr Gonzalez I consutled Dr Hernandez from general surgery for possibility of mass Endorsed at 145pm admission med/surg bed EKG Diagnostic Results Rate: normal Rhythm: NSR ST Segments: no acute changes ASA given to the pt in ED: No Rhythm Strip Diag. Results EP Interpretation: yes Rate: 90 Rhythm: NSR, no PVC's, no ectopy Last Vital Signs Date Time Temp Pulse Resp B/P (MAP) Pulse Ox O2 Delivery O2 Flow Rate FiO2 08/14/17 11:37 97.9 115 16 143/76 96 Room Air 97.9 Status: improved Disposition: ADMITTED INPATIENT ELIDA LAUREN M.D. Aug 14, 2017 12:16
[2017-08-14] MEDS ORDERED: Isovue-300 100ml vial INJ PRN (12:30)
[2017-08-14 12:32] LABS: ANION GAP 9 mmol/L (5-15); BLOOD UREA NITROGEN 27 mg/dL (7-18); CALCIUM 9.2 MG/DL (8.5-10.1); CARBON DIOXIDE 27 MMOL/L (21-32); CHLORIDE 103 MMOL/L (98-107); CREATININE 1.5 MG/DL (0.55-1.30); POTASSIUM 3.8 MMOL/L (3.5-5.1); SODIUM 139 MMOL/L (136-145)
[2017-08-14 12:35] LABS: BASOPHILS % (AUTO) 1.3 % (0.0-2.0); EOSINOPHILS % (AUTO) 3.1 % (0.0-3.0); HEMATOCRIT 33.5 % (37.0-47.0); HEMOGLOBIN 11.5 G/DL (12.0-16.0); LYMPHOCYTES % (AUTO) 23.2 % (20.0-45.0); MEAN CORPUSCULAR VOLUME 92 FL (80-99); MONOCYTES % (AUTO) 5.2 % (1.0-10.0); NEUTROPHILS % (AUTO) 67.1 % (45.0-75.0); PLATELET COUNT 225 K/UL (150-450); RED BLOOD COUNT 3.64 M/UL (4.20-5.40); RED CELL DISTRIBUTION WIDTH 11.3 % (11.6-14.8); WHITE BLOOD COUNT 7.5 K/UL (4.8-10.8)
[2017-08-14 12:39] LABS: ALANINE AMINOTRANSFERASE 13 U/L (12-78); ALBUMIN 3.4 G/DL (3.4-5.0); ALKALINE PHOSPHATASE 90 U/L (46-116); ASPARTATE AMINO TRANSFERASE 18 U/L (15-37); BILIRUBIN,TOTAL 0.5 MG/DL (0.2-1.0)
[2017-08-14 12:40] VITALS: BP_SYST 113; BP_SYST 150; BP_DIAS 69; BP_DIAS 70
[2017-08-14] MEDS ORDERED: UNOBMED (13:05)
--- NOTE | 2017-08-14 13:39 | Diagnostic Imaging Report ---
Indication: 77-year-old female with 4 episodes of bloody melanotic stools since last night Technique: Spiral acquisitions obtained through the abdomen and pelvis. No oral contrast utilized, per emergency room physician request No IV contrast utilized, per referring physician request.. Multiplanar reconstructions were generated. Total dose length product 565.77 mGycm. CTDIvol(s) 11.19 mGy. Dose reduction achieved using automated exposure control Comparison: None Findings: Lack of enteric contrast limits assessment of the GI tract. The appendix is normal. In the region of the hepatic flexure of the colon, there is a fairly long segment where no luminal contents are visible, and this could indicate wall thickening. No inflammation of the surrounding fat demonstrated. There is fairly extensive colonic diverticulosis. No evidence of diverticulitis. No small bowel distention. No free or loculated intraperitoneal air or fluid. The distal esophagus, stomach, duodenum are all unremarkable. Lack of IV contrast limits assessment of the solid organs. The liver, gallbladder, bile ducts, pancreas are unremarkable. The spleen demonstrates a subcentimeter upper pole low-attenuation lesion. There is a small accessory splenule. 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 The adrenals are unremarkable. The kidneys are somewhat atrophic, otherwise unremarkable. No retroperitoneal or mesenteric mass or adenopathy. The uterus demonstrates multiple calcifications. No pelvic adenopathy. The included lung bases demonstrate some atelectasis, as well as reticulonodular changes in the inferior right middle lobe. The heart is mildly enlarged. There is a small amount of pericardial thickening or fluid. The bones demonstrate degenerative spondylosis changes and mild lumbar scoliotic performed Impression: Apparent wall thickening of the hepatic flexure of the colon. This could be artifactual, but if real could indicate the presence of a mass, and colonoscopy should be considered, particularly in view of the stated clinical history of GI bleeding. 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 Uterine calcifications, presumably old calcified fibroids Mild cardiomegaly Minimal pericardial thickening or fluid Subcentimeter splenic lesion, probably a small cyst Other findings as noted, including degenerative spondylosis, scoliosis, basilar pulmonary atelectatic changes and reticular nodular opacities The CT scanner at [facility] is accredited by the [employer] and the scans are performed using protocols designed to limit radiation exposure to as low as reasonably achievable to attain images of sufficient resolution adequate for diagnostic evaluation.
[2017-08-14] MEDS ORDERED: Pantoprazole Inj IVP ONE (14:00)
[2017-08-14 14:30] VITALS: BP 153/95
[2017-08-14 15:25] VITALS: BP 147/79
[2017-08-14 16:19] VITALS: BP 126/58
--- NOTE | 2017-08-14 18:21 | General Progress Note ---
Assessment/Plan Assessment/Plan Assessment - GIB - Anemia - DM - HTN - Hypercholesterolemia Recommendations - NPO - IVF - GI prep - EGD/Colon in am Thank you Gabino Sen MD Subjective Allergies: Coded Allergies: PENICILLINS (Verified Allergy, Unknown, 08/14/17) Objective Last 24 Hour Vital Signs Date Time Temp Pulse Resp B/P (MAP) Pulse Ox O2 Delivery O2 Flow Rate FiO2 08/14/17 16:19 97.5 92 18 126/58 96 Room Air 97.5 08/14/17 15:55 97.9 85 23 153/95 98 Room Air 97.9 08/14/17 15:25 97.9 84 16 147/79 97 Room Air 97.9 08/14/17 14:30 97.9 85 23 153/95 98 Room Air 97.9 08/14/17 12:40 97.9 77 16 150/69 97 Room Air 97.9 08/14/17 11:37 97.9 115 16 143/76 96 Room Air 97.9 Laboratory Tests 08/14/17 12:02: White Blood Count 7.5, Red Blood Count 3.64L, Hemoglobin 11.5L, Hematocrit 33.5L , Mean Corpuscular Volume 92, Mean Corpuscular Hemoglobin 31.6H, Mean Corpuscular Hemoglobin Concent 34.4, Red Cell Distribution Width 11.3L, Platelet Count 225, Mean Platelet Volume 6.8, Neutrophils (%) (Auto) 67.1, Lymphocytes (%) (Auto) 23.2, Monocytes (%) (Auto) 5.2, Eosinophils (%) (Auto) 3.1H, Basophils (%) (Auto) 1.3, Prothrombin Time 10.4, Prothromb Time International Ratio 1.0, Sodium Level 139, Potassium Level 3.8, Chloride Level 103, Carbon Dioxide Level 27, Anion Gap 9, Blood Urea Nitrogen 27H, Creatinine 1.5H, Estimat Glomerular Filtration Rate , Glucose Level 217H, Calcium Level 9.2 , Total Bilirubin 0.5, Aspartate Amino Transf (AST/SGOT) 18, Alanine Aminotransferase (ALT/SGPT) 13, Alkaline Phosphatase 90, Total Protein 6.9, Albumin 3.4, Globulin 3.5, Albumin/Globulin Ratio 1.0, Lipase 80 Height (Feet): 4 Height (Inches): 11.00 Weight (Pounds): 120 Gabino Sen MD Aug 14, 2017 18:21
[2017-08-14] MEDS ORDERED: Nulytely 4L ORAL ONE (19:30)
[2017-08-14] MEDS ORDERED: Bisacodyl EC 5mg tab ORAL ONE (19:30)
[2017-08-14] MEDS: D5NS 1,000 ML IV SCH (20:33)
[2017-08-14 21:00] VITALS: BP 157/85
[2017-08-14 21:59] LABS: BASOPHILS % (AUTO) 0.8 % (0.0-2.0); HEMATOCRIT 28.1 % (37.0-47.0); HEMOGLOBIN 9.6 G/DL (12.0-16.0); LYMPHOCYTES % (AUTO) 23.4 % (20.0-45.0); MEAN CORPUSCULAR VOLUME 91 FL (80-99); MONOCYTES % (AUTO) 6.8 % (1.0-10.0); PLATELET COUNT 186 K/UL (150-450); RED BLOOD COUNT 3.07 M/UL (4.20-5.40); RED CELL DISTRIBUTION WIDTH 11.2 % (11.6-14.8)
--- NOTE | 2017-08-14 23:15 | Consultation ---
DATE OF CONSULTATION: 08/14/2017 GASTROENTEROLOGY CONSULTATION CONSULTING PHYSICIAN: Gabino Sen M.D. CHIEF COMPLAINT: I was asked to see this patient by Dr. Ariel Gonzalez for evaluation of gastrointestinal bleeding. HISTORY OF PRESENT ILLNESS: The patient is a pleasant 77-year-old woman, who comes to the hospital with a 1-day history of dark red bleeding. The patient states that she has had endoscopy and colonoscopies before, although she thinks the last one may have been at least two years ago by Dr. Oz Dickerson. No records are available at this hospital. A CT scan of the abdomen and pelvis was done in the emergency room showing the possible narrowing in the hepatic flexure. The patient has complained of some mild abdominal discomfort, but there has been no nausea or vomiting. PAST MEDICAL HISTORY: History of diabetes, hypercholesterolemia, hypertension, and degenerative joint disease. PAST SURGICAL HISTORY: Status post right shoulder surgery and breast lumpectomy. MEDICATIONS: See the chart list for details. FAMILY HISTORY: Positive for colon cancer. SOCIAL HISTORY: The patient does not smoke or drink alcohol. REVIEW OF SYSTEMS: Otherwise, negative. PHYSICAL EXAMINATION: GENERAL: A pleasant woman, seen in her room with her at bedside. HEENT: Normocephalic and atraumatic. Sclerae anicteric. Oropharynx clear. NECK: Supple. CHEST: Clear to auscultation. CARDIOVASCULAR: Revealed a regular rate. ABDOMEN: Soft. Good bowel sounds. There is no organomegaly. EXTREMITIES: Revealed no edema. LABORATORY AND DIAGNOSTIC DATA: Laboratory data were noted. ASSESSMENT: This patient presents with a gastrointestinal bleeding of unclear etiology. The patient describes the bleeding as dark stools, perhaps dark red stools. Etiology could be either upper or lower, but perhaps more likely lower. The finding of the narrowing in hepatic flexure is concerning. It should be evaluated during colonoscopy. The indications, risks, alternatives, and possible complications of endoscopy and colonoscopy were explained to the patient and informed consent was obtained. RECOMMENDATIONS: 1. Keep the patient NPO. 2. IV fluids. 3. GI tract preparation. 4. Endoscopy and colonoscopy tomorrow. Thank you for asking me to participate in the care of this patient. Gabino Sen M.D. DR: VENTURA JOB#: [id number] CC:
[2017-08-15] VITALS (18 sets, daily range): BP systolic 107–213; BP diastolic 56–114
--- NOTE | 2017-08-15 04:45 | Consultation ---
DATE OF CONSULTATION: 08/14/2017 CARDIOLOGY CONSULT CONSULTING PHYSICIAN: Dex De La Torre M.D. REQUESTING PHYSICIAN: Ariel Gonzalez M.D. REASON FOR CONSULTATION: Cardiovascular evaluation for panendoscopy. HISTORY OF PRESENT ILLNESS: This 77-year-old female has a known history of diverticulosis and has had 3 or 4 hospitalizations with GI bleeding over the past few years. All have been managed conservatively. She has had 2 prior colonoscopies, most recently 3 years ago at [facility] with no significant findings either than diverticulosis. The patient came to the emergency room today with recurring gastrointestinal bleeding consistent with her prior episodes of diverticulosis. She has no abdominal pain and denied dizziness or chest pain. She did have a CAT scan in the emergency room that was notable for some narrowing at the hepatic flexure. The patient is admitted for further care and panendoscopy planned. PAST MEDICAL HISTORY: Hypertension with hypertensive heart disease, osteoarthritis, degenerative disk disease, lumbosacral stenosis, type 2 diabetes mellitus, vitamin D deficiency, hyperlipidemia, history of retinopathy, and status post benign breast biopsy. MEDICATIONS: Reviewed and reconciled. FAMILY HISTORY: Notable for colon cancer. SOCIAL HISTORY: Negative for smoking, alcohol, or substance abuse. REVIEW OF SYSTEMS: An outpatient echocardiogram revealed normal ejection fraction, concentric hypertrophy, and no significant valve disease. There is no history of blood clotting. There is no history of asthma or DVT. There is no history of flow-limiting coronary disease. Prior myocardial perfusion scan has been negative for flow-limiting coronary disease. There is no history of cardiac arrhythmias. Her diabetes treatment is with oral therapy. She is on anti-lipid drugs. There is no history of seizure, stroke, or thyroid impairment. PHYSICAL EXAMINATION: VITAL SIGNS: Blood pressure 157/85, heart rate 96, respiratory rate 17, and afebrile. HEENT: Normocephalic and atraumatic. Conjunctivae pink. Sclerae are anicteric. Oropharynx clear. Mucous membranes moist. NECK: Supple. Jugular venous pressure normal. No bruits. LUNGS: Clear. No breast masses. CARDIAC: Regular rhythm and rate. Normal S1, S2 with no murmur, rub, or gallop. ABDOMEN: Soft, doughy, and nontender. No guarding or rebound. EXTREMITIES: Good pulses. No edema. NEUROLOGIC: Nonfocal. LABORATORY DATA: Reviewed. EKG pending. IMPRESSION: 1. Acute gastrointestinal bleeding likely due to diverticulosis. 2. Possible colon stricture at the region of the hepatic flexure. 3. Type 2 diabetes mellitus. 4. Hypertensive heart disease with labile blood pressure. 5. Degenerative disk disease. 6. Anemia. PLAN: 1. NPO. 2. No anti-platelet therapy. 3. Hydration by IV route. 4. Serial hemoglobin. 5. Proceed with panendoscopy without anticipated increase in perioperative cardiovascular risk. 6. Optimization of blood pressure control will follow over the next 12 hours during bowel prep with topical and sublingual antihypertensive drugs. Dex De La Torre M.D. DR: WILLARD JOB#: [id number] CC:
[2017-08-15] MEDS: D5NS 1,000 ML IV SCH ×2 (06:32→20:34)
--- NOTE | 2017-08-15 06:55 | Anethesia Preoperative Eval ---
Anesthesia Pre-op PMH/ROS General Date of Evaluation: Aug 15, 2017 Time of Evaluation: 06:52 Anesthesiologist: caitlyn ASA Score: ASA 4 Mallampati Score Class I : Soft palate, uvula, fauces, pillars visible Class II: Soft palate, uvula, fauces visible Class III: Soft palate, base of uvula visible Class IV: Only hard plate visible Mallampati Classification: Class II Surgeon: dalia Diagnosis: gi bleed Surgical Procedure: egd/colonoscopy Anesthesia History: none Family History: no anesthesia problems Allergies: Coded Allergies: PENICILLINS (Verified Allergy, Unknown, 08/14/17) Medications: see eMAR Past Medical History Cardiovascular: Reports: HTN Gastrointestinal/Genitourinary: Reports: CRI, other - rectal bleed, Neurologic/Psychiatric: Reports: depression/anxiety Endocrine: Reports: DM Anesthesia Pre-op Phys. Exam Physician Exam Last Vital Signs Date Time Temp Pulse Resp B/P (MAP) Pulse Ox O2 Delivery O2 Flow Rate FiO2 08/15/17 05:21 84 168/82 08/15/17 03:59 96.8 18 95 Room Air 96.8 Constitutional: NAD Neurologic: CN 2-12 intact Cardiovascular: RRR Respiratory: CTA Gastrointestinal: S/NT/ND Airway Exam Mallampati Score: Class II MO: limited Neck: short TMD: 2fb ROM: limited Anesthesia Pre-op A/P Labs Hematology Test 08/14/17 12:02 08/14/17 21:32 White Blood Count 7.5 K/UL (4.8-10.8) 9.0 K/UL (4.8-10.8) Red Blood Count 3.64 M/UL (4.20-5.40) L 3.07 M/UL (4.20-5.40) L Hemoglobin 11.5 G/DL (12.0-16.0) L 9.6 G/DL (12.0-16.0) L Hematocrit 33.5 % (37.0-47.0) L 28.1 % (37.0-47.0) L Mean Corpuscular Volume 92 FL (80-99) 91 FL (80-99) Mean Corpuscular Hemoglobin 31.6 PG (27.0-31.0) H 31.3 PG (27.0-31.0) H Mean Corpuscular Hemoglobin Concent 34.4 G/DL (32.0-36.0) 34.3 G/DL (32.0-36.0) Red Cell Distribution Width 11.3 % (11.6-14.8) L 11.2 % (11.6-14.8) L Platelet Count 225 K/UL (150-450) 186 K/UL (150-450) Mean Platelet Volume 6.8 FL (6.5-10.1) 5.2 FL (6.5-10.1) L Neutrophils (%) (Auto) 67.1 % (45.0-75.0) 67.0 % (45.0-75.0) Lymphocytes (%) (Auto) 23.2 % (20.0-45.0) 23.4 % (20.0-45.0) Monocytes (%) (Auto) 5.2 % (1.0-10.0) 6.8 % (1.0-10.0) Eosinophils (%) (Auto) 3.1 % (0.0-3.0) H 2.0 % (0.0-3.0) Basophils (%) (Auto) 1.3 % (0.0-2.0) 0.8 % (0.0-2.0) Coagulation Test 08/14/17 12:02 Prothrombin Time 10.4 SEC (9.30-11.50) Prothromb Time International Ratio 1.0 (0.9-1.1) Chemistry Test 08/14/17 12:02 Sodium Level 139 MMOL/L (136-145) Potassium Level 3.8 MMOL/L (3.5-5.1) Chloride Level 103 MMOL/L (98-107) Carbon Dioxide Level 27 MMOL/L (21-32) Anion Gap 9 mmol/L (5-15) Blood Urea Nitrogen 27 mg/dL (7-18) H Creatinine 1.5 MG/DL (0.55-1.30) H Estimat Glomerular Filtration Rate mL/min (>60) Glucose Level 217 MG/DL (74-106) H Calcium Level 9.2 MG/DL (8.5-10.1) Total Bilirubin 0.5 MG/DL (0.2-1.0) Aspartate Amino Transf (AST/SGOT) 18 U/L (15-37) Alanine Aminotransferase (ALT/SGPT) 13 U/L (12-78) Alkaline Phosphatase 90 U/L (46-116) Total Protein 6.9 G/DL (6.4-8.2) Albumin 3.4 G/DL (3.4-5.0) Globulin 3.5 g/dL Albumin/Globulin Ratio 1.0 (1.0-2.7) Lipase 80 U/L (73-393) Risk Assessment & Plan Assessment: [email or web address] Plan: mac Status Change Before Surgery: No Pre-Antibiotics Drug: Britany Junior MD Aug 15, 2017 06:55
[2017-08-15] MEDS ORDERED: Atropine Inj 1mg/10ml Syr IV PRN (07:00)
[2017-08-15] MEDS ORDERED: DiphenhydrAMINE 50mg/ml Inj IVP PRN (07:00)
[2017-08-15] MEDS ORDERED: Midazolam 2mg/2ml Inj IVP PRN (07:00)
[2017-08-15] MEDS ORDERED: fentaNYL 100 mcg/2 mL IV PRN (07:00)
[2017-08-15] MEDS ORDERED: Midazolam 2mg/2ml Inj ONE (08:00)
[2017-08-15] MEDS ORDERED: Propofol 200mg/20ml IV ONE (08:00)
[2017-08-15] MEDS ORDERED: Lidocaine 1% MPF 10mg/ml 5ml ONE (08:00)
[2017-08-15] MEDS ORDERED: Labetalol 5mg/ml 20ml vial IV ONE (08:00)
[2017-08-15] MEDS ORDERED: NS 500ML IVPB ONE (08:20)
--- NOTE | 2017-08-15 08:33 | Pre-Procedure Note/Attestation ---
Pre-Procedure Note/Attestation Complete Prior to Procedure Planned Procedure: not applicable Procedure Narrative: EGD/Colon Indications for Procedure Pre-Operative Diagnosis: GIB Attestation I attest that I discussed the nature of the procedure; its benefits; risks and complications; and alternatives (and the risks and benefits of such alternatives ), prior to the procedure, with the patient (or the patient's legal car sales representative). I attest that, if there was a reasonable possibility of needing a blood transfusion, the patient (or the patient's legal car sales representative) was given the [facility] standardized written summary, pursuant to the Rayray Bronson Blood Safety Act ([place] Health and Safety Code # 1645, as amended). I attest that I re-evaluated the patient just prior to the surgery and that there has been no change in the patient's H&P, except as documented below: Gabino Sen MD Aug 15, 2017 08:33
--- NOTE | 2017-08-15 08:38 | General Progress Note ---
Assessment/Plan Assessment/Plan Assessment - GIB - ? hepatic flexure narrowing in colon, seen on CT - Anemia - DM - HTN - Hypercholesterolemia Recommendations - NPO - IVF - BP control - EGD/Colon today - colonoscopy visualization may be limited Subjective Allergies: Coded Allergies: PENICILLINS (Verified Allergy, Unknown, 08/14/17) Subjective Patient seen on floor and subsequently in GI lab BP high - 220/113 advised can proceed with procedure if BP is somewhat better controlled d/w anesthesia - BP better after some labetolol and versed - 168/85 (++) rectal bleeding overnight patient only took 1/3 of golytely prescribed Objective Last 24 Hour Vital Signs Date Time Temp Pulse Resp B/P (MAP) Pulse Ox O2 Delivery O2 Flow Rate FiO2 08/15/17 05:21 84 168/82 08/15/17 03:59 96.8 82 18 194/114 95 Room Air 96.8 08/15/17 02:08 80 153/72 97 Room Air 08/15/17 01:18 170/98 08/15/17 00:17 97.5 95 19 171/100 94 Room Air 97.5 08/14/17 23:41 Room Air 08/14/17 21:00 98.2 96 17 157/85 94 98.2 08/14/17 16:19 97.5 92 18 126/58 96 Room Air 97.5 08/14/17 15:55 97.9 85 23 153/95 98 Room Air 97.9 08/14/17 15:25 97.9 84 16 147/79 97 Room Air 97.9 08/14/17 14:30 97.9 85 23 153/95 98 Room Air 97.9 08/14/17 12:40 97.9 77 16 150/69 97 Room Air 97.9 08/14/17 11:37 97.9 115 16 143/76 96 Room Air 97.9 Intake and Output 08/14/17 08/15/17 19:00 07:00 Intake Total 750 ml Balance 750 ml Intake IV Total 750 ml # Voids 5 # Bowel Movements 3 Laboratory Tests 08/14/17 12:02: White Blood Count 7.5, Red Blood Count 3.64L, Hemoglobin 11.5L, Hematocrit 33.5L , Mean Corpuscular Volume 92, Mean Corpuscular Hemoglobin 31.6H, Mean Corpuscular Hemoglobin Concent 34.4, Red Cell Distribution Width 11.3L, Platelet Count 225, Mean Platelet Volume 6.8, Neutrophils (%) (Auto) 67.1, Lymphocytes (%) (Auto) 23.2, Monocytes (%) (Auto) 5.2, Eosinophils (%) (Auto) 3.1H, Basophils (%) (Auto) 1.3, Prothrombin Time 10.4, Prothromb Time International Ratio 1.0, Sodium Level 139, Potassium Level 3.8, Chloride Level 103, Carbon Dioxide Level 27, Anion Gap 9, Blood Urea Nitrogen 27H, Creatinine 1.5H, Estimat Glomerular Filtration Rate , Glucose Level 217H, Calcium Level 9.2 , Total Bilirubin 0.5, Aspartate Amino Transf (AST/SGOT) 18, Alanine Aminotransferase (ALT/SGPT) 13, Alkaline Phosphatase 90, Total Protein 6.9, Albumin 3.4, Globulin 3.5, Albumin/Globulin Ratio 1.0, Lipase 80 08/14/17 21:32: White Blood Count 9.0, Red Blood Count 3.07L, Hemoglobin 9.6L, Hematocrit 28.1L , Mean Corpuscular Volume 91, Mean Corpuscular Hemoglobin 31.3H, Mean Corpuscular Hemoglobin Concent 34.3, Red Cell Distribution Width 11.2L, Platelet Count 186, Mean Platelet Volume 5.2L, Neutrophils (%) (Auto) 67.0, Lymphocytes (%) (Auto) 23.4, Monocytes (%) (Auto) 6.8, Eosinophils (%) (Auto) 2.0, Basophils (%) (Auto) 0.8 Height (Feet): 4 Height (Inches): 4.00 Weight (Pounds): 119 Objective WDWN LW NCAT supple CTA RRR Soft ND NT no edema non focal Gabino Sen MD Aug 15, 2017 08:38
--- NOTE | 2017-08-15 08:50 | Endoscopy Procedure Note ---
Endoscopy Procedure Note General Indication for Procedure: GIB Procedures Performed: EGD, colonoscopy, other - gastric snare polypectomy, gastric endoclip Operative Findings/Diagnosis: 1 cm semi-ped gastric polyp, 3 large sessile colon polyp, tics, rhoids Specimen: yes Pt Tolerated Procedure Well: Yes Estimated Blood Loss: none Anesthesia Anesthesiologist: Radha Anesthesia: MAC Medications Medication Given: see anesthesia record Inserted Devices Implant(s) used?: No Quality Quality of Bowel Preparation: Good Did scope reach the cecum?: Yes Was there any complications?: No GI Core Measures 50 yrs or older w/o bx or poly: No 10yrs. F/U not recommended: No If not recommended, why?: Above average risk 10 yrs. F/U needed: No Gabino Sen MD Aug 15, 2017 08:50
[2017-08-15 08:55] LABS: BASOPHILS % (AUTO) 1.3 % (0.0-2.0); EOSINOPHILS % (AUTO) 2.3 % (0.0-3.0); HEMATOCRIT 29.7 % (37.0-47.0); HEMOGLOBIN 10.1 G/DL (12.0-16.0); LYMPHOCYTES % (AUTO) 25.7 % (20.0-45.0); MEAN CORPUSCULAR VOLUME 93 FL (80-99); MONOCYTES % (AUTO) 7.3 % (1.0-10.0); NEUTROPHILS % (AUTO) 63.4 % (45.0-75.0); PLATELET COUNT 197 K/UL (150-450); RED CELL DISTRIBUTION WIDTH 11.9 % (11.6-14.8); WHITE BLOOD COUNT 8.4 K/UL (4.8-10.8)
--- NOTE | 2017-08-15 09:41 | Brief Operative Note ---
Immediate Post Operative Note Operative Note Chief Complaint: GIB Pre-op Diagnosis: GIB Procedure: egd/snare colon/ Bx Post-op Diagnosis: gastric polyp Tics, polyps Surgeon: dalia Anesthesiologist: Elijah Amin Anesthesia: moderate sedation Specimen: yes Complications: none Condition: stable Fluids: Recorded Estimated Blood Loss: none Drains: none Implant(s) used?: No Gabino Sen MD Aug 15, 2017 09:41
[2017-08-15 09:42] LABS: ALANINE AMINOTRANSFERASE 15 U/L (12-78); ALBUMIN 3.4 G/DL (3.4-5.0); ALKALINE PHOSPHATASE 84 U/L (46-116); ANION GAP 12 mmol/L (5-15); ASPARTATE AMINO TRANSFERASE 22 U/L (15-37); BILIRUBIN,TOTAL 0.5 MG/DL (0.2-1.0); BLOOD UREA NITROGEN 23 mg/dL (7-18); CALCIUM 9.2 MG/DL (8.5-10.1); CARBON DIOXIDE 25 MMOL/L (21-32); CHLORIDE 104 MMOL/L (98-107); CREATININE 1.3 MG/DL (0.55-1.30); POTASSIUM 3.5 MMOL/L (3.5-5.1); SODIUM 141 MMOL/L (136-145)
--- NOTE | 2017-08-15 10:07 | Immediate Post-Op Evaluation ---
Immediate Post-Op Evalulation Immediate Post-Op Evalulation Procedure: egd/colonoscopy/bx Date of Evaluation: Aug 15, 2017 Time of Evaluation: 09:55 IV Fluids: 250ml 0.9ns Blood Products: none Estimated Blood Loss: negligible Blood Pressure Systolic: 212 Blood Pressure Diastolic: 95 Pulse Rate: 79 Respiratory Rate: 18 O2 Sat by Pulse Oximetry: 100 Temperature (Fahrenheit): 98.3 Pain Score (1-10): 0 Nausea: No Vomiting: No Complications none Patient Status: awake, reacts, patent Hydration Status: adequate Drug: Britany Junior MD Aug 15, 2017 10:07
--- NOTE | 2017-08-15 10:10 | 48 Hour Post Anesthesia Eval ---
Post Anesthesia Evaluation Procedure: egd/colonoscopy/bx Date of Evaluation: Aug 15, 2017 Time of Evaluation: 10:08 Blood Pressure Systolic: 170 0: 83 Pulse Rate: 79 Respiratory Rate: 18 Temperature (Fahrenheit): 98.3 O2 Sat by Pulse Oximetry: 97 Airway: patent Nausea: No Vomiting: No Pain Intensity: 0 Hydration Status: adequate Cardiopulmonary Status: stable Mental Status/LOC: patient returned to baseline Post-Anesthesia Complications: none Follow-up care needed: N/A Britany Mendez MD Aug 15, 2017 10:10
--- NOTE | 2017-08-15 10:15 | History and Physical Report ---
DATE OF ADMISSION: 08/14/2017 CHIEF COMPLAINT: GI bleed. HISTORY OF PRESENT ILLNESS: The patient is a pleasant 77-year-old female. She has a prior history of GI bleed secondary to diverticulosis. She presented with complaints of bright red blood per rectum for several days. She denies any abdominal pain. She has had no fevers or chills. Denies any melena. On evaluation in the emergency room, the patient's hemoglobin was 11.5, platelets were normal. Coags were also normal. The patient is now admitted secondary to GI bleed. She is otherwise without complaints. PAST MEDICAL HISTORY: As above and includes a history of hypertensive heart disease, osteoarthritis, chronic lower back pain, diabetes, vitamin D deficiency, hyperlipidemia, and history of diabetic retinopathy. CURRENT MEDICATIONS: Reconciled and reviewed. ALLERGIES: None. FAMILY HISTORY: None. SOCIAL HISTORY: Negative for tobacco, ethanol, or drugs. REVIEW OF SYSTEMS: GENERAL: No fevers or chills. HEENT: No headaches or visual changes. CARDIOPULMONARY: No chest pain or shortness of breath. GASTROINTESTINAL: Positive bright red blood per rectum. No melena. No hematemesis. GENITOURINARY: No urgency or frequency. MUSCULOSKELETAL: No joint pain or swelling. NEUROLOGIC: No evidence of seizures. PHYSICAL EXAMINATION: VITAL SIGNS: Temperature 96.8, pulse 82, respirations 18, and blood pressure 116/82. GENERAL: The patient is well-developed female, in no apparent distress. NECK: Supple. There is no jugular venous distention. HEART: Regular rate and rhythm. LUNGS: Clear. ABDOMEN: Soft, nontender, and nondistended. EXTREMITIES: Without clubbing, cyanosis, or edema. LABORATORY DATA: White count 7, hemoglobin 11, platelet count of 225. Coags normal. Sodium 139, BUN 27, and creatinine 1.5. ASSESSMENT: This is a pleasant female with a history of hypertensive heart disease, diabetes, diverticulosis, chronic lower back pain admitted with gastrointestinal bleed suspect secondary to diverticulosis. PLAN: IV hydration and p.o. IV proton pump inhibitor. GI consultation. Cardiology clearance. Continue outpatient cardiac and diabetic regimen. We will monitor the patient's blood sugars. Ariel Uomoto, M.D. DR: TD JOB#: [id number] CC:
[2017-08-15] MEDS: Pantoprazole Inj IVP SCH (12:00)
[2017-08-15 15:53] LABS: BASOPHILS % (AUTO) 0.6 % (0.0-2.0); EOSINOPHILS % (AUTO) 0.3 % (0.0-3.0); HEMATOCRIT 27.4 % (37.0-47.0); MEAN CORPUSCULAR VOLUME 93 FL (80-99); MONOCYTES % (AUTO) 5.5 % (1.0-10.0); NEUTROPHILS % (AUTO) 84.6 % (45.0-75.0); PLATELET COUNT 194 K/UL (150-450); RED BLOOD COUNT 2.93 M/UL (4.20-5.40); WHITE BLOOD COUNT 9.2 K/UL (4.8-10.8)
--- NOTE | 2017-08-15 16:57 | Consultation ---
History of Present Illness General Date patient seen: Aug 15, 2017 Chief Complaint: General Complaint Reason for Consultation: gi bleed Present Illness HPI 77F with multiple medical comorbidities as noted below presented to ED with complaints of bleeding with BM's. states she was okay and day of admission noted some blood with her stools. otherwise well. had similar episodes a few years ago and had colonoscopy but cannot recall findings. no n/v/f/c. in ED had CT scan which demonstrated possible hepatic flexure mass. patient admitted and surgery called to evaluate for possible mass. patient seen, chart reviewed , patient examined currently no bleeding noted Allergies: Coded Allergies: PENICILLINS (Verified Allergy, Mild, swelling, 02/28/13) ACETAMINOPHEN (Verified Allergy, Unknown, 03/09/16) CODEINE (Verified Allergy, Unknown, 03/09/16) HYDROCODONE (Verified Allergy, Unknown, 03/09/16) SULFA (SULFONAMIDE ANTIBIOTICS) (Verified Allergy, Unknown, 03/09/16) THIAMINE (VITAMIN B1) (Verified Adverse Reaction, Mild, syncope, 03/09/16) Medication History Scheduled Atorvastatin Calcium* (Lipitor*), 20 MG ORAL BEDTIME, (Reported) Clonidine Hcl* (Catapres*), 0.1 MG ORAL EVERY 8 HOURS, (Reported) Esomeprazole Magnesium (Nexium), 40 MG ORAL DAILY, (Reported) Glipizide (Glipizide), 5 MG PO DAILY, (Reported) Ibandronate (Boniva), 150 MG ORAL Q30D, (Reported) Ibuprofen* (Motrin*), 600 MG ORAL THREE TIMES A DAY Levothyroxine Sodium (Synthroid), 88 MCG ORAL DAILY, (Reported) Losartan/Hydrochlorothiazide 100-12.5 Tablet (Hyzaar 100-12.5 Tablet), 1 TAB ORAL DAILY, (Reported) Metformin Hcl* (Glucophage*), 1,000 MG ORAL DAILY, (Reported) Sitagliptin* (Januvia*), 25 MG ORAL DAILY, (Reported) Scheduled PRN Potassium Gluconate (Potassium), 8 MG PO for Nausea & Vomiting, (Reported) Miscellaneous Medications Calcium Carbonate (Calcium), 500 MG PO, (Reported) Ferrous Sulfate, Dried (Ferrous Sulfate), 325 GM MC, (Reported) Unable to Obtain Medications (Unable To Obtain Meds), (Reported) Patient History History Provided By: Patient, Family Member, Medical Record Healthcare decision maker Resuscitation status Full Code Advanced Directive on File No Past Medical/Surgical History Past Medical/Surgical History: (1) Gastrointestinal hemorrhage (2) hypertension (3) Anemia (4) Diverticulosis (5) Lower GI bleed (6) Accelerated hypertension (7) Gtnyt-lv-owdiuvi renal failure (8) History of GI diverticular bleed (9) 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 (10) Hyperglycemia (11) CKD (chronic kidney disease) (12) Rectal bleed (13) GI bleed Review of Systems All Other Systems: negative except mentioned in HPI Physical Exam General Appearance: no apparent distress Lines, tubes and drains: peripheral HEENT: normocephalic Neck: supple Respiratory/Chest: lungs clear, normal breath sounds, no respiratory distress, no accessory muscle use Cardiovascular/Chest: normal peripheral pulses Abdomen: normal bowel sounds, non tender, soft, no organomegaly, no mass Skin Exam: normal pigmentation Neurologic: alert, oriented x 3 Last 24 Hour Vital Signs Date Time Temp Pulse Resp B/P (MAP) Pulse Ox O2 Delivery O2 Flow Rate FiO2 08/15/17 16:00 97.0 84 19 149/80 98 Room Air 97.0 08/15/17 12:00 98.2 93 20 138/70 100 Room Air 98.2 08/15/17 10:43 98.6 77 18 113/56 98 Room Air 98.6 08/15/17 10:37 73 18 107/61 98 Room Air 08/15/17 10:22 70 18 138/68 98 Room Air 08/15/17 10:15 83 18 170/83 100 Simple Mask 5 08/15/17 10:10 208.9 79 18 97 08/15/17 10:07 208.9 79 18 100 08/15/17 10:04 79 18 193/87 100 Simple Mask 5 08/15/17 10:01 212/95 08/15/17 10:00 78 18 212/95 100 Simple Mask 5 08/15/17 09:53 79 18 201/97 100 Simple Mask 5 08/15/17 09:48 76 18 206/97 100 Simple Mask 5 08/15/17 09:43 98.3 79 18 212/95 Simple Mask 5 98.3 08/15/17 08:00 98.7 102 18 213/100 98.7 08/15/17 05:21 84 168/82 08/15/17 03:59 96.8 82 18 194/114 95 Room Air 96.8 08/15/17 02:08 80 153/72 97 Room Air 08/15/17 01:18 170/98 08/15/17 00:17 97.5 95 19 171/100 94 Room Air 97.5 08/14/17 23:41 Room Air 08/14/17 21:00 98.2 96 17 157/85 94 98.2 Intake and Output 08/14/17 08/15/17 19:00 07:00 Intake Total 750 ml Balance 750 ml Intake IV Total 750 ml # Voids 5 # Bowel Movements 3 Laboratory Tests Test 08/14/17 21:32 08/15/17 08:15 08/15/17 14:20 White Blood Count 9.0 K/UL (4.8-10.8) 8.4 K/UL (4.8-10.8) 9.2 K/UL (4.8-10.8) Red Blood Count 3.07 M/UL (4.20-5.40) L 3.20 M/UL (4.20-5.40) L 2.93 M/UL (4.20-5.40) L Hemoglobin 9.6 G/DL (12.0-16.0) L 10.1 G/DL (12.0-16.0) L 9.0 G/DL (12.0-16.0) L Hematocrit 28.1 % (37.0-47.0) L 29.7 % (37.0-47.0) L 27.4 % (37.0-47.0) L Mean Corpuscular Volume 91 FL (80-99) 93 FL (80-99) 93 FL (80-99) Mean Corpuscular Hemoglobin 31.3 PG (27.0-31.0) H 31.4 PG (27.0-31.0) H 30.9 PG (27.0-31.0) Mean Corpuscular Hemoglobin Concent 34.3 G/DL (32.0-36.0) 33.8 G/DL (32.0-36.0) 33.0 G/DL (32.0-36.0) Red Cell Distribution Width 11.2 % (11.6-14.8) L 11.9 % (11.6-14.8) 12.0 % (11.6-14.8) Platelet Count 186 K/UL (150-450) 197 K/UL (150-450) 194 K/UL (150-450) Mean Platelet Volume 5.2 FL (6.5-10.1) L 5.8 FL (6.5-10.1) L 7.1 FL (6.5-10.1) Neutrophils (%) (Auto) 67.0 % (45.0-75.0) 63.4 % (45.0-75.0) 84.6 % (45.0-75.0) H Lymphocytes (%) (Auto) 23.4 % (20.0-45.0) 25.7 % (20.0-45.0) 9.0 % (20.0-45.0) L Monocytes (%) (Auto) 6.8 % (1.0-10.0) 7.3 % (1.0-10.0) 5.5 % (1.0-10.0) Eosinophils (%) (Auto) 2.0 % (0.0-3.0) 2.3 % (0.0-3.0) 0.3 % (0.0-3.0) Basophils (%) (Auto) 0.8 % (0.0-2.0) 1.3 % (0.0-2.0) 0.6 % (0.0-2.0) Sodium Level 141 MMOL/L (136-145) Potassium Level 3.5 MMOL/L (3.5-5.1) Chloride Level 104 MMOL/L (98-107) Carbon Dioxide Level 25 MMOL/L (21-32) Anion Gap 12 mmol/L (5-15) Blood Urea Nitrogen 23 mg/dL (7-18) H Creatinine 1.3 MG/DL (0.55-1.30) Estimat Glomerular Filtration Rate mL/min (>60) Glucose Level 230 MG/DL (74-106) H Calcium Level 9.2 MG/DL (8.5-10.1) Total Bilirubin 0.5 MG/DL (0.2-1.0) Aspartate Amino Transf (AST/SGOT) 22 U/L (15-37) Alanine Aminotransferase (ALT/SGPT) 15 U/L (12-78) Alkaline Phosphatase 84 U/L (46-116) Total Protein 6.8 G/DL (6.4-8.2) Albumin 3.4 G/DL (3.4-5.0) Globulin 3.4 g/dL Albumin/Globulin Ratio 1.0 (1.0-2.7) Height (Feet): 4 Height (Inches): 4.00 Weight (Pounds): 119 Medications Current Medications Medications (Trade) Dose Ordered Sig/Geena Route PRN Reason Start Time Stop Time Status Last Admin Dose Admin Dextrose/Sodium Chloride 1,000 ml @ 75 mls/hr [id number] IV 08/14/17 17:45 09/13/17 17:44 08/14/17 20:33 Iopamidol (Isovue-300 100ml) 100 ml NOW PRN INJ Radiology Procedure 08/14/17 12:30 Pantoprazole (Protonix) 40 mg DAILY IVP 08/15/17 09:00 09/14/17 08:59 08/15/17 12:00 Shaquille Cheatham Aug 15, 2017 16:57
[2017-08-15] MEDS: NovoLOG Insulin Flexpen SUBQ SCH (20:35)
--- NOTE | 2017-08-15 21:00 | Procedure Note ---
DATE OF PROCEDURE: 08/15/2017 GASTROENTEROLOGY PROCEDURE PROCEDURE: Upper gastrointestinal endoscopy with snare polypectomy and Endoclip placement as well as colonoscopy with biopsy and Ale ink injection. SURGEON: Gabino Sen M.D. ANESTHESIA: Please see the separate anesthesiologist notes for details. PRE-ENDOSCOPIC DIAGNOSIS: Acute gastrointestinal bleeding. POST-ENDOSCOPIC DIAGNOSES: 1. Pedunculated gastric polyp measuring close to 1 cm, status post hot snare polypectomy followed by Endoclip placement for prophylaxis measure, even bleeding. 2. Severe sigmoid diverticulosis and mild colonic diverticulosis elsewhere extending to near the cecum. 3. No active bleeding was seen either in the upper or the lower gastrointestinal tract including 10 cm terminal ileum. 4. Diminutive polyp in the cecum, which was biopsied. 5. Three elongated flat polyps seen measuring approximately 2 to 3 cm in length and about 1 cm in width. These were identified, two in the ascending colon and one in the rectum. All were biopsied, but none were removed at this time due to the diagnosis of acute gastrointestinal bleeding. 6. Status post Ale ink injection in the distal ascending colon distal to the site of the two ascending colon polyps, which were not removed. DESCRIPTION OF PROCEDURE: The procedure, its risks, indications, alternatives, and possible complications including, but not limited to bleeding, infection, perforation, , and anesthesia complications were explained to the patient and informed consent was obtained. The patient was then sedated in the left lateral decubitus position. A diagnostic upper endoscope was introduced through the oropharynx and advanced to the duodenum. It was then gradually withdrawn and then the colonoscope was introduced through the rectum and advanced to the terminal ileum. It was then gradually withdrawn. Findings and procedures were all listed above. No narrowing was seen to correspond with the CT finding in the hepatic flexure. Retroflexed view of the rectum also showed some mild internal hemorrhoids. The colonoscope was removed and the patient was sent to recovery in good condition. COMPLICATIONS: None. ASSESSMENT: This patient's gastrointestinal bleeding is presumed to be diverticular in nature and it has resolved. Treatment for that will be conservative at this time. Oral diet will be restarted and the patient will be observed. Due to the size and the nature of the flat polyp seen, they were not removed during this session since the patient is admitted for acute gastrointestinal bleeding and is at risk for recurrence. Once the patient is stabilized, she can have another colonoscopy as an outpatient in the next few months to have these 3 remaining large flat polyps removed. This could be arranged at [facility]. Thank you for asking me to participate in the care of this patient. Gabino Sen M.D. DR: JONI JOB#: [id number] CC:
[2017-08-15 22:14] LABS: BASOPHILS % (AUTO) 0.7 % (0.0-2.0); EOSINOPHILS % (AUTO) 1.4 % (0.0-3.0); HEMATOCRIT 27.7 % (37.0-47.0); HEMOGLOBIN 9.1 G/DL (12.0-16.0); LYMPHOCYTES % (AUTO) 17.6 % (20.0-45.0); MEAN CORPUSCULAR VOLUME 93 FL (80-99); MONOCYTES % (AUTO) 6.9 % (1.0-10.0); NEUTROPHILS % (AUTO) 73.4 % (45.0-75.0); PLATELET COUNT 183 K/UL (150-450); RED BLOOD COUNT 2.99 M/UL (4.20-5.40); RED CELL DISTRIBUTION WIDTH 11.9 % (11.6-14.8); WHITE BLOOD COUNT 9.8 K/UL (4.8-10.8)
--- NOTE | 2017-08-15 22:59 | Progress Note ---
DATE: 08/15/2017 CARDIOLOGY PROGRESS NOTE SUBJECTIVE: The patient is status post colonoscopy. Findings including polyps, no obstructing mass seen. The patient has not had any new bleeding. PHYSICAL EXAMINATION: VITAL SIGNS: Blood pressure 139/80, pulse 84, respiratory rate 19. NECK: Supple. LUNGS: Clear. CARDIAC: Regular. Normal S1 and S2. ABDOMEN: Soft, slightly distended. No tenderness or edema. IMPRESSION: 1. Diverticular bleed. 2. Colon polyps. 3. Hypertensive heart disease. 4. Non-insulin requiring diabetes mellitus. 5. Diastolic dysfunction with no signs of acute congestive heart failure. PLAN: 1. Advance diet. 2. Monitor hemoglobin. 3. Monitor for recurrent bleeding. 4. Titrate antihypertensives. 5. Insulin coverage by sliding scale. 6. No current plans for surgery indicated. Dex De La Torre M.D. DR: Sebastian JOB#: [id number] CC:
[2017-08-16] VITALS (8 sets, daily range): BP systolic 124–164; BP diastolic 61–104
[2017-08-16] MEDS: NovoLOG Insulin Flexpen SUBQ SCH ×4 (06:07→20:51)
--- NOTE | 2017-08-16 07:16 | General Progress Note ---
Assessment/Plan Problem List: (1) Hyperglycemia ICD Codes: R73.9 - Hyperglycemia, unspecified SNOMED: 70375318 (2) CKD (chronic kidney disease) ICD Codes: N18.9 - Chronic kidney disease, unspecified SNOMED: 936101868 Qualifiers: (3) Rectal bleed ICD Codes: K62.5 - Hemorrhage of anus and rectum SNOMED: 23392931 (4) Gastrointestinal hemorrhage ICD Codes: K92.2 - Gastrointestinal hemorrhage, unspecified SNOMED: 93598258 (5) Anemia ICD Codes: D64.9 - Anemia, unspecified SNOMED: 486892799 (6) Diverticulosis ICD Codes: K57.90 - Diverticulosis of intestine, part unspecified, without perforation or abscess without bleeding SNOMED: 498436619 (7) GI bleed ICD Codes: K92.2 - Gastrointestinal hemorrhage, unspecified SNOMED: 80961933 (8) Lower GI bleed ICD Codes: K92.2 - Gastrointestinal hemorrhage, unspecified SNOMED: 24797733 (9) Accelerated hypertension ICD Codes: I10 - Essential (primary) hypertension SNOMED: 23133526 (10) Wulyj-go-iwxscnq renal failure ICD Codes: N17.9 - Acute kidney failure, unspecified; N18.9 - Chronic kidney disease, unspecified SNOMED: 809491454 Status: stable, progressing Assessment/Plan follow up labs mobilize pt/ot eval Subjective ROS Limited/Unobtainable: No Constitutional: Reports: malaise, weakness HEENT: Reports: no symptoms Cardiovascular: Reports: no symptoms Respiratory: Reports: no symptoms Gastrointestinal/Abdominal: Reports: abdominal pain Genitourinary: Reports: no symptoms Neurologic/Psychiatric: Reports: no symptoms Endocrine: Reports: no symptoms Hematologic/Lymphatic: Reports: anemia Allergies: Coded Allergies: PENICILLINS (Verified Allergy, Mild, swelling, 02/28/13) ACETAMINOPHEN (Verified Allergy, Unknown, 03/09/16) CODEINE (Verified Allergy, Unknown, 03/09/16) HYDROCODONE (Verified Allergy, Unknown, 03/09/16) SULFA (SULFONAMIDE ANTIBIOTICS) (Verified Allergy, Unknown, 03/09/16) THIAMINE (VITAMIN B1) (Verified Adverse Reaction, Mild, syncope, 03/09/16) All Systems: reviewed and negative except above Subjective c/o abd pain and feeling "weak." no fever or chills. no chest pain no sob. did not sleep well. Objective Last 24 Hour Vital Signs Date Time Temp Pulse Resp B/P (MAP) Pulse Ox O2 Delivery O2 Flow Rate FiO2 08/16/17 04:00 98.3 80 20 138/82 98 Room Air 98.3 08/16/17 01:16 Room Air 08/16/17 00:59 99.1 88 18 124/61 98 Room Air 99.1 08/15/17 20:00 Room Air 08/15/17 20:00 98.9 84 20 131/77 95 Room Air 98.9 08/15/17 16:00 97.0 84 19 149/80 98 Room Air 97.0 08/15/17 12:00 98.2 93 20 138/70 100 Room Air 98.2 08/15/17 10:43 98.6 77 18 113/56 98 Room Air 98.6 08/15/17 10:37 73 18 107/61 98 Room Air 08/15/17 10:22 70 18 138/68 98 Room Air 08/15/17 10:15 83 18 170/83 100 Simple Mask 5 08/15/17 10:10 208.9 79 18 97 08/15/17 10:07 208.9 79 18 100 08/15/17 10:04 79 18 193/87 100 Simple Mask 5 08/15/17 10:01 212/95 08/15/17 10:00 78 18 212/95 100 Simple Mask 5 08/15/17 09:53 79 18 201/97 100 Simple Mask 5 08/15/17 09:48 76 18 206/97 100 Simple Mask 5 08/15/17 09:43 98.3 79 18 212/95 Simple Mask 5 98.3 08/15/17 08:00 98.7 102 18 213/100 98.7 Intake and Output 08/15/17 08/16/17 19:00 07:00 Intake Total 425 ml 990 ml Balance 425 ml 990 ml Intake Oral 240 ml IV Total 425 ml 750 ml # Voids 2 4 # Bowel Movements 1 Laboratory Tests 08/15/17 08:15: White Blood Count 8.4, Red Blood Count 3.20L, Hemoglobin 10.1L, Hematocrit 29.7L , Mean Corpuscular Volume 93, Mean Corpuscular Hemoglobin 31.4H, Mean Corpuscular Hemoglobin Concent 33.8, Red Cell Distribution Width 11.9, Platelet Count 197, Mean Platelet Volume 5.8L, Neutrophils (%) (Auto) 63.4, Lymphocytes ( %) (Auto) 25.7, Monocytes (%) (Auto) 7.3, Eosinophils (%) (Auto) 2.3, Basophils (%) (Auto) 1.3, Sodium Level 141, Potassium Level 3.5, Chloride Level 104, Carbon Dioxide Level 25, Anion Gap 12, Blood Urea Nitrogen 23H, Creatinine 1.3, Estimat Glomerular Filtration Rate , Glucose Level 230H, Calcium Level 9.2, Total Bilirubin 0.5, Aspartate Amino Transf (AST/SGOT) 22, Alanine Aminotransferase (ALT/SGPT) 15, Alkaline Phosphatase 84, Total Protein 6.8, Albumin 3.4, Globulin 3.4, Albumin/Globulin Ratio 1.0 08/15/17 14:20: White Blood Count 9.2, Red Blood Count 2.93L, Hemoglobin 9.0L, Hematocrit 27.4L , Mean Corpuscular Volume 93, Mean Corpuscular Hemoglobin 30.9, Mean Corpuscular Hemoglobin Concent 33.0, Red Cell Distribution Width 12.0, Platelet Count 194, Mean Platelet Volume 7.1, Neutrophils (%) (Auto) 84.6H, Lymphocytes ( %) (Auto) 9.0L, Monocytes (%) (Auto) 5.5, Eosinophils (%) (Auto) 0.3, Basophils (%) (Auto) 0.6 08/15/17 21:55: White Blood Count 9.8, Red Blood Count 2.99L, Hemoglobin 9.1L, Hematocrit 27.7L , Mean Corpuscular Volume 93, Mean Corpuscular Hemoglobin 30.4, Mean Corpuscular Hemoglobin Concent 32.8, Red Cell Distribution Width 11.9, Platelet Count 183, Mean Platelet Volume 6.4L, Neutrophils (%) (Auto) 73.4, Lymphocytes ( %) (Auto) 17.6L, Monocytes (%) (Auto) 6.9, Eosinophils (%) (Auto) 1.4, Basophils (%) (Auto) 0.7 Height (Feet): 4 Height (Inches): 4.00 Weight (Pounds): 119 General Appearance: WD/WN, alert Neck: supple Cardiovascular: normal peripheral pulses, normal rate, regular rhythm Respiratory/Chest: chest wall non-tender, lungs clear, normal breath sounds, no respiratory distress Abdomen: normal bowel sounds, non tender, soft, no organomegaly Edema: no edema noted Arm (L), no edema noted Arm (R), no edema noted Leg (L), no edema noted Leg (R), no edema noted Pedal (L), no edema noted Pedal (R), no edema noted 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
[2017-08-16] MEDS: Pantoprazole Inj IVP SCH (09:00)
[2017-08-16 09:11] LABS: BASOPHILS % (AUTO) 0.8 % (0.0-2.0); EOSINOPHILS % (AUTO) 1.8 % (0.0-3.0); HEMATOCRIT 28.4 % (37.0-47.0); HEMOGLOBIN 9.3 G/DL (12.0-16.0); LYMPHOCYTES % (AUTO) 18.8 % (20.0-45.0); MEAN CORPUSCULAR VOLUME 93 FL (80-99); MONOCYTES % (AUTO) 9.7 % (1.0-10.0); PLATELET COUNT 207 K/UL (150-450); RED BLOOD COUNT 3.06 M/UL (4.20-5.40); RED CELL DISTRIBUTION WIDTH 11.6 % (11.6-14.8)
[2017-08-16] MEDS: D5NS 1,000 ML IV SCH ×2 (09:45→19:53)
[2017-08-16] MEDS: Hyzaar 12.5mg/50mg tab ORAL SCH (09:51)
--- NOTE | 2017-08-16 10:51 | General Surgery Progress Note ---
General Surgery-Progress Note Subjective Additional Comments no acute events. no active bleeding. doing well. Objective Last 24 Hour Vital Signs Date Time Temp Pulse Resp B/P (MAP) Pulse Ox O2 Delivery O2 Flow Rate FiO2 08/16/17 09:51 164/104 08/16/17 09:51 164/104 08/16/17 09:49 98.2 93 20 164/104 100 Room Air 98.2 08/16/17 04:00 98.3 80 20 138/82 98 Room Air 98.3 08/16/17 01:16 Room Air 08/16/17 00:59 99.1 88 18 124/61 98 Room Air 99.1 08/15/17 20:00 Room Air 08/15/17 20:00 98.9 84 20 131/77 95 Room Air 98.9 08/15/17 16:00 97.0 84 19 149/80 98 Room Air 97.0 08/15/17 12:00 98.2 93 20 138/70 100 Room Air 98.2 I&O Intake and Output 08/15/17 08/16/17 19:00 07:00 Intake Total 425 ml 990 ml Balance 425 ml 990 ml Intake Oral 240 ml IV Total 425 ml 750 ml # Voids 2 4 # Bowel Movements 1 Drains: none Cardiovascular: RSR Respiratory: clear Abdomen: soft, flat, non-tender, other Extremities: no edema, no tenderness, no cyanosis Laboratory Tests Test 08/15/17 14:20 08/15/17 21:55 08/16/17 08:50 White Blood Count 9.2 K/UL (4.8-10.8) 9.8 K/UL (4.8-10.8) 10.0 K/UL (4.8-10.8) Red Blood Count 2.93 M/UL (4.20-5.40) L 2.99 M/UL (4.20-5.40) L 3.06 M/UL (4.20-5.40) L Hemoglobin 9.0 G/DL (12.0-16.0) L 9.1 G/DL (12.0-16.0) L 9.3 G/DL (12.0-16.0) L Hematocrit 27.4 % (37.0-47.0) L 27.7 % (37.0-47.0) L 28.4 % (37.0-47.0) L Mean Corpuscular Volume 93 FL (80-99) 93 FL (80-99) 93 FL (80-99) Mean Corpuscular Hemoglobin 30.9 PG (27.0-31.0) 30.4 PG (27.0-31.0) 30.5 PG (27.0-31.0) Mean Corpuscular Hemoglobin Concent 33.0 G/DL (32.0-36.0) 32.8 G/DL (32.0-36.0) 32.8 G/DL (32.0-36.0) Red Cell Distribution Width 12.0 % (11.6-14.8) 11.9 % (11.6-14.8) 11.6 % (11.6-14.8) Platelet Count 194 K/UL (150-450) 183 K/UL (150-450) 207 K/UL (150-450) Mean Platelet Volume 7.1 FL (6.5-10.1) 6.4 FL (6.5-10.1) L 7.0 FL (6.5-10.1) Neutrophils (%) (Auto) 84.6 % (45.0-75.0) H 73.4 % (45.0-75.0) 69.0 % (45.0-75.0) Lymphocytes (%) (Auto) 9.0 % (20.0-45.0) L 17.6 % (20.0-45.0) L 18.8 % (20.0-45.0) L Monocytes (%) (Auto) 5.5 % (1.0-10.0) 6.9 % (1.0-10.0) 9.7 % (1.0-10.0) Eosinophils (%) (Auto) 0.3 % (0.0-3.0) 1.4 % (0.0-3.0) 1.8 % (0.0-3.0) Basophils (%) (Auto) 0.6 % (0.0-2.0) 0.7 % (0.0-2.0) 0.8 % (0.0-2.0) Plan Problems: (1) Lower GI bleed Assessment & Plan: 77F lower GI bleed. Colonoscopy with polyps but no mass which was considered given CT findings. currently stable and well no acute surgical intervention indicated at this time will follow with recs thank you Shaquille Cheatham Aug 16, 2017 10:51
--- NOTE | 2017-08-16 15:16 | Cardiology Report ---
APPROVED REPORT EKG Measurement Heart [id number] Normal sinus rhythm Right superior axis deviation Abnormal ECG
--- NOTE | 2017-08-16 20:10 | General Progress Note ---
Assessment/Plan Assessment/Plan Assessment - GIB - diverticular and resolved - no e/o hepatic flexure narrowing on colonoscopy exam - 3 large colon polyps still need removal - Anemia - DM - HTN - Hypercholesterolemia Recommendations - po as tolerated - f/u path - patient to arrange for completion colonoscopy at [facility] Subjective Allergies: Coded Allergies: PENICILLINS (Verified Allergy, Mild, swelling, 02/28/13) ACETAMINOPHEN (Verified Allergy, Unknown, 03/09/16) CODEINE (Verified Allergy, Unknown, 03/09/16) HYDROCODONE (Verified Allergy, Unknown, 03/09/16) SULFA (SULFONAMIDE ANTIBIOTICS) (Verified Allergy, Unknown, 03/09/16) THIAMINE (VITAMIN B1) (Verified Adverse Reaction, Mild, syncope, 03/09/16) Subjective feels OK no further rectal bleeding d/w patient re 3 large polyps in situ advised she needs repeat colon for completion polypectomy advised it is her responsibility to schedule this with the advanced endoscopy team at [facility] advised re indication to remove colonic polyps Objective Last 24 Hour Vital Signs Date Time Temp Pulse Resp B/P (MAP) Pulse Ox O2 Delivery O2 Flow Rate FiO2 08/16/17 16:00 98.1 87 18 143/72 98 Room Air 98.1 08/16/17 12:00 98.7 95 20 155/84 95 Room Air 98.7 08/16/17 10:20 149/77 08/16/17 09:51 164/104 08/16/17 09:51 164/104 08/16/17 09:49 98.2 93 20 164/104 100 Room Air 98.2 08/16/17 08:00 98.3 90 20 142/86 99 Room Air 98.3 08/16/17 04:00 98.3 80 20 138/82 98 Room Air 98.3 08/16/17 01:16 Room Air 08/16/17 00:59 99.1 88 18 124/61 98 Room Air 99.1 Intake and Output 08/15/17 08/16/17 19:00 07:00 Intake Total 425 ml 990 ml Balance 425 ml 990 ml Intake Oral 240 ml IV Total 425 ml 750 ml # Voids 2 4 # Bowel Movements 1 Laboratory Tests 08/15/17 21:55: White Blood Count 9.8, Red Blood Count 2.99L, Hemoglobin 9.1L, Hematocrit 27.7L , Mean Corpuscular Volume 93, Mean Corpuscular Hemoglobin 30.4, Mean Corpuscular Hemoglobin Concent 32.8, Red Cell Distribution Width 11.9, Platelet Count 183, Mean Platelet Volume 6.4L, Neutrophils (%) (Auto) 73.4, Lymphocytes ( %) (Auto) 17.6L, Monocytes (%) (Auto) 6.9, Eosinophils (%) (Auto) 1.4, Basophils (%) (Auto) 0.7 08/16/17 08:50: White Blood Count 10.0, Red Blood Count 3.06L, Hemoglobin 9.3L, Hematocrit 28.4L , Mean Corpuscular Volume 93, Mean Corpuscular Hemoglobin 30.5, Mean Corpuscular Hemoglobin Concent 32.8, Red Cell Distribution Width 11.6, Platelet Count 207, Mean Platelet Volume 7.0, Neutrophils (%) (Auto) 69.0, Lymphocytes (% ) (Auto) 18.8L, Monocytes (%) (Auto) 9.7, Eosinophils (%) (Auto) 1.8, Basophils (%) (Auto) 0.8 Height (Feet): 4 Height (Inches): 4.00 Weight (Pounds): 119 Objective WDWN LW NCAT supple CTA RRR Soft ND NT no edema non focal Gabino Sen MD Aug 16, 2017 20:10
[2017-08-17] VITALS (7 sets, daily range): BP systolic 135–199; BP diastolic 63–88
[2017-08-17] MEDS: NovoLOG Insulin Flexpen SUBQ SCH ×4 (06:51→21:11)
[2017-08-17] MEDS: Hyzaar 12.5mg/50mg tab ORAL SCH (09:00)
[2017-08-17] MEDS: Pantoprazole Inj IVP SCH (09:01)
--- NOTE | 2017-08-17 09:22 | General Progress Note ---
Assessment/Plan Problem List: (1) Hyperglycemia ICD Codes: R73.9 - Hyperglycemia, unspecified SNOMED: 77822352 (2) CKD (chronic kidney disease) ICD Codes: N18.9 - Chronic kidney disease, unspecified SNOMED: 845216279 Qualifiers: (3) Rectal bleed ICD Codes: K62.5 - Hemorrhage of anus and rectum SNOMED: 18600743 (4) Gastrointestinal hemorrhage ICD Codes: K92.2 - Gastrointestinal hemorrhage, unspecified SNOMED: 21123264 (5) Anemia ICD Codes: D64.9 - Anemia, unspecified SNOMED: 642578048 (6) Diverticulosis ICD Codes: K57.90 - Diverticulosis of intestine, part unspecified, without perforation or abscess without bleeding SNOMED: 330072457 (7) GI bleed ICD Codes: K92.2 - Gastrointestinal hemorrhage, unspecified SNOMED: 60082723 (8) Lower GI bleed ICD Codes: K92.2 - Gastrointestinal hemorrhage, unspecified SNOMED: 82854572 (9) Accelerated hypertension ICD Codes: I10 - Essential (primary) hypertension SNOMED: 07038439 (10) [id number] renal failure ICD Codes: N17.9 - Acute kidney failure, unspecified; N18.9 - Chronic kidney disease, unspecified SNOMED: 459942029 Status: stable Assessment/Plan follow up labs mobilize pt/ot eval refer to snf Subjective ROS Limited/Unobtainable: No Constitutional: Reports: malaise, weakness HEENT: Reports: no symptoms Cardiovascular: Reports: no symptoms Respiratory: Reports: no symptoms Gastrointestinal/Abdominal: Reports: blood in stool Genitourinary: Reports: no symptoms Neurologic/Psychiatric: Reports: no symptoms Endocrine: Reports: no symptoms Hematologic/Lymphatic: Reports: anemia Allergies: Coded Allergies: PENICILLINS (Verified Allergy, Mild, swelling, 02/28/13) ACETAMINOPHEN (Verified Allergy, Unknown, 03/09/16) CODEINE (Verified Allergy, Unknown, 03/09/16) HYDROCODONE (Verified Allergy, Unknown, 03/09/16) SULFA (SULFONAMIDE ANTIBIOTICS) (Verified Allergy, Unknown, 03/09/16) THIAMINE (VITAMIN B1) (Verified Adverse Reaction, Mild, syncope, 03/09/16) All Systems: reviewed and negative except above Subjective feels weak. no cp/sob. too weak to go home. no bleeding. Objective Last 24 Hour Vital Signs Date Time Temp Pulse Resp B/P (MAP) Pulse Ox O2 Delivery O2 Flow Rate FiO2 08/17/17 09:00 135/70 08/17/17 08:13 97.9 83 18 135/70 96 97.9 08/17/17 04:33 199/81 08/17/17 04:00 98.5 73 20 199/81 96 Room Air 98.5 08/17/17 00:00 98.8 20 150/68 98 Room Air 98.8 08/16/17 20:00 98.6 90 20 137/76 98 Room Air 98.6 08/16/17 16:00 98.1 87 18 143/72 98 Room Air 98.1 08/16/17 12:00 98.7 95 20 155/84 95 Room Air 98.7 08/16/17 10:20 149/77 08/16/17 09:51 164/104 08/16/17 09:51 164/104 08/16/17 09:49 98.2 93 20 164/104 100 Room Air 98.2 Intake and Output 08/16/17 08/17/17 19:00 07:00 Intake Total 75 ml 870 ml Balance 75 ml 870 ml Intake Oral 120 ml IV Total 75 ml 750 ml # Voids 6 2 Height (Feet): 4 Height (Inches): 4.00 Weight (Pounds): 119 Objective General Appearance: WD/WN, alert Neck: supple Cardiovascular: normal peripheral pulses, normal rate, regular rhythm Respiratory/Chest: chest wall non-tender, lungs clear, normal breath sounds, no respiratory distress Abdomen: normal bowel sounds, non tender, soft, no organomegaly Edema: no edema noted Arm (L), no edema noted Arm (R), no edema noted Leg (L), no edema noted Leg (R), no edema noted Pedal (L), no edema noted Pedal (R), no edema noted Generalized Neurologic: [employer] athletic [employer] II-XII grossly normal, alert, oriented x 3 Ariel Gonzalez MD Aug 17, 2017 09:22
[2017-08-17] MEDS ORDERED: Isovue-300 100ml vial INJ PRN (10:15)
[2017-08-17] MEDS: D5NS 1,000 ML IV SCH (11:00)
--- NOTE | 2017-08-17 12:11 | General Surgery Progress Note ---
General Surgery-Progress Note Subjective Symptoms: improved, tolerating diet, passing flatus Objective Last 24 Hour Vital Signs Date Time Temp Pulse Resp B/P (MAP) Pulse Ox O2 Delivery O2 Flow Rate FiO2 08/17/17 11:30 97.9 70 18 148/63 98 97.9 08/17/17 09:00 135/70 08/17/17 08:13 97.9 83 18 135/70 96 97.9 08/17/17 04:33 199/81 08/17/17 04:00 98.5 73 20 199/81 96 Room Air 98.5 08/17/17 00:00 98.8 20 150/68 98 Room Air 98.8 08/16/17 20:00 98.6 90 20 137/76 98 Room Air 98.6 08/16/17 16:00 98.1 87 18 143/72 98 Room Air 98.1 I&O Intake and Output 08/16/17 08/17/17 19:00 07:00 Intake Total 75 ml 870 ml Balance 75 ml 870 ml Intake Oral 120 ml IV Total 75 ml 750 ml # Voids 6 2 Cardiovascular: RSR Respiratory: clear Abdomen: soft, flat, non-tender, present bowel sounds Extremities: no edema, no tenderness Plan Problems: (1) Lower GI bleed Assessment & Plan: 77F lower GI bleed. Colonoscopy with polyps but no mass which was considered given CT findings. currently stable and well no acute surgical intervention indicated at this time okay to d/c from surgical standpoint will follow with recs thank you Shaquille Cheatham Aug 17, 2017 12:11
--- NOTE | 2017-08-17 19:38 | General Progress Note ---
Assessment/Plan Assessment/Plan Assessment - GIB - diverticular and resolved - no e/o hepatic flexure narrowing on colonoscopy exam - 3 large colon polyps still need removal - Anemia - DM - HTN - Hypercholesterolemia Recommendations - po as tolerated - f/u path - patient to arrange for completion colonoscopy at [facility] Subjective Allergies: Coded Allergies: PENICILLINS (Verified Allergy, Mild, swelling, 02/28/13) ACETAMINOPHEN (Verified Allergy, Unknown, 03/09/16) CODEINE (Verified Allergy, Unknown, 03/09/16) HYDROCODONE (Verified Allergy, Unknown, 03/09/16) SULFA (SULFONAMIDE ANTIBIOTICS) (Verified Allergy, Unknown, 03/09/16) THIAMINE (VITAMIN B1) (Verified Adverse Reaction, Mild, syncope, 03/09/16) Subjective feels OK no further rectal bleeding again, d/w patient re 3 large polyps in situ advised she needs repeat colon for completion polypectomy advised it is her responsibility to schedule this with the advanced endoscopy team at [facility] advised re indication to remove colonic polyps Objective Last 24 Hour Vital Signs Date Time Temp Pulse Resp B/P (MAP) Pulse Ox O2 Delivery O2 Flow Rate FiO2 08/17/17 17:55 85 155/88 08/17/17 16:58 160/73 08/17/17 15:56 97.6 73 20 160/73 95 97.6 08/17/17 11:30 97.9 70 18 148/63 98 97.9 08/17/17 09:00 135/70 08/17/17 08:13 97.9 83 18 135/70 96 97.9 08/17/17 04:33 199/81 08/17/17 04:00 98.5 73 20 199/81 96 Room Air 98.5 08/17/17 00:00 98.8 20 150/68 98 Room Air 98.8 08/16/17 20:00 98.6 90 20 137/76 98 Room Air 98.6 Intake and Output 08/16/17 08/17/17 19:00 07:00 Intake Total 75 ml 870 ml Balance 75 ml 870 ml Intake Oral 120 ml IV Total 75 ml 750 ml # Voids 6 2 Height (Feet): 4 Height (Inches): 4.00 Weight (Pounds): 119 Objective WDWN LW NCAT supple CTA RRR Soft ND NT no edema non focal Gabino Sen MD Aug 17, 2017 19:38
[2017-08-18] VITALS: BP 132/65
[2017-08-18] MEDS: D5NS 1,000 ML IV SCH ×2 (00:20→13:40)
[2017-08-18 04:00] VITALS: BP 134/68
[2017-08-18] MEDS: NovoLOG Insulin Flexpen SUBQ SCH ×3 (08:11→17:11)
[2017-08-18 08:32] VITALS: BP 167/69
[2017-08-18] MEDS: Hyzaar 12.5mg/50mg tab ORAL SCH (08:39)
[2017-08-18] MEDS ORDERED: Pantoprazole Inj IVP SCH (09:00)
--- NOTE | 2017-08-18 09:29 | Diagnostic Imaging Report ---
EXAM: XR Left Hip With Pelvis When Performed, 1 View CLINICAL HISTORY: PAIN TECHNIQUE: Frontal view of the left hip, with pelvis when performed. COMPARISON: CT abdomen and pelvis 03/09/16 FINDINGS: Bones/joints: Osteopenic. No acute fracture. No dislocation. Soft tissues: Calcification adjacent to the superior iliac wing likely the buttocks soft tissue calcification seen on CT. Vasculature: Atherosclerotic vascular disease. IMPRESSION: No acute fracture or malalignment.
[2017-08-18 12:00] VITALS: BP 162/79
--- NOTE | 2017-08-18 12:56 | General Progress Note ---
Assessment/Plan Assessment/Plan Assessment - GIB - diverticular and resolved - no e/o hepatic flexure narrowing on colonoscopy exam - 3 large colon polyps still need removal (5 tubular adenomas on path) - Anemia - DM - HTN - Hypercholesterolemia Recommendations - po as tolerated - f/u path - patient to arrange for completion colonoscopy at [facility] Subjective Allergies: Coded Allergies: PENICILLINS (Verified Allergy, Mild, swelling, 02/28/13) ACETAMINOPHEN (Verified Allergy, Unknown, 03/09/16) CODEINE (Verified Allergy, Unknown, 03/09/16) HYDROCODONE (Verified Allergy, Unknown, 03/09/16) SULFA (SULFONAMIDE ANTIBIOTICS) (Verified Allergy, Unknown, 03/09/16) THIAMINE (VITAMIN B1) (Verified Adverse Reaction, Mild, syncope, 03/09/16) Subjective feels OK no further rectal bleeding No BM yet Objective Last 24 Hour Vital Signs Date Time Temp Pulse Resp B/P (MAP) Pulse Ox O2 Delivery O2 Flow Rate FiO2 08/18/17 08:39 167/69 08/18/17 08:32 97.3 76 18 167/69 99 Room Air 97.3 08/18/17 04:00 97.9 83 17 134/68 98 Room Air 97.9 08/18/17 00:00 98.1 71 18 132/65 98 Room Air 98.1 08/17/17 20:00 98.6 75 19 156/67 95 Room Air 98.6 08/17/17 17:55 85 155/88 08/17/17 16:58 160/73 08/17/17 15:56 97.6 73 20 160/73 95 97.6 Intake and Output 08/17/17 08/18/17 19:00 07:00 Intake Total 720 ml 750 ml Balance 720 ml 750 ml Intake Oral 720 ml IV Total 750 ml # Voids 3 4 Height (Feet): 4 Height (Inches): 4.00 Weight (Pounds): 119 Objective WDWN LW NCAT supple CTA RRR Soft ND NT no edema non focal Gabino Sen MD Aug 18, 2017 12:56
--- NOTE | 2017-08-18 12:56 | General Surgery Progress Note ---
General Surgery-Progress Note Subjective Symptoms: improved, pain absent, tolerating diet, passing flatus, BM Objective Last 24 Hour Vital Signs Date Time Temp Pulse Resp B/P (MAP) Pulse Ox O2 Delivery O2 Flow Rate FiO2 08/18/17 08:39 167/69 08/18/17 08:32 97.3 76 18 167/69 99 Room Air 97.3 08/18/17 04:00 97.9 83 17 134/68 98 Room Air 97.9 08/18/17 00:00 98.1 71 18 132/65 98 Room Air 98.1 08/17/17 20:00 98.6 75 19 156/67 95 Room Air 98.6 08/17/17 17:55 85 155/88 08/17/17 16:58 160/73 08/17/17 15:56 97.6 73 20 160/73 95 97.6 I&O Intake and Output 08/17/17 08/18/17 19:00 07:00 Intake Total 720 ml 750 ml Balance 720 ml 750 ml Intake Oral 720 ml IV Total 750 ml # Voids 3 4 Cardiovascular: RSR Respiratory: clear Abdomen: soft, flat, non-tender, present bowel sounds Extremities: no edema, no tenderness Plan Problems: (1) Lower GI bleed Assessment & Plan: 77F lower GI bleed. Colonoscopy with polyps but no mass which was considered given CT findings. currently stable and well no acute surgical intervention indicated at this time okay to d/c from surgical standpoint will follow with recs thank you Shaquille Cheatham Aug 18, 2017 12:56
[2017-08-18] MEDS ORDERED: HYZAAR 50-12.51 EACH ORAL (14:53)
[2017-08-18] MEDS ORDERED: PANTOPRAZOLE SO20 MG ORAL (14:54)
[2017-08-18] MEDS ORDERED: CATAPRES0.1 MG ORAL (14:56)
[2017-08-18 16:00] VITALS: BP 122/82
--- NOTE | 2017-08-18 16:45 | Discharge Summary ---
DATE OF ADMISSION: 08/14/2017 DATE OF DISCHARGE: 08/18/2017 ADMISSION DIAGNOSES: 1. GI bleed. 2. Hypertension. 3. Chronic lower back pain. 4. Diabetes. DISCHARGE DIAGNOSES: 1. GI bleed. 2. Hypertension. 3. Chronic lower back pain. 4. Diabetes. HOSPITAL COURSE: The patient is a pleasant female admitted with complaints of GI bleed. Her hemoglobin remained relatively stable. She underwent endoscopy that was unremarkable except for diverticulosis. She has had prior episodes of diverticular bleed. It was felt that most likely this was the source. The patient on discharge was stable, was too weak to go home and requested a short-term assisted facility. She was discharged there in stable condition and she will be followed up there. DISCHARGE MEDICATIONS: Please see discharge medication list for discharge medications. DIET: Cardiac diet. ACTIVITIES: Ad-nika. FOLLOWUP: The patient will follow up in one to two days at assisted facility. Ariel Gonzalez M.D. DR: Enio JOB#: [id number] CC:
== END 2017-08-18 19:38 | DRG 378 ==
LOC: EMR 12:43 → 4W 13:12 → MERGE 13:12 → EDBEDREQ 15:05
PROC: 0DBK8ZX Excision of Ascending Colon, Via Natural or Artificial Opening Endoscopic, Diagnostic (ICD-10-PCS; principal; 2017-08-15 08:39)
PROC: 0W3P8ZZ Control Bleeding in Gastrointestinal Tract, Via Natural or Artificial Opening Endoscopic (ICD-10-PCS; principal; 2017-08-15 08:39)
PROC: 0DBP8ZX Excision of Rectum, Via Natural or Artificial Opening Endoscopic, Diagnostic (ICD-10-PCS; principal; 2017-08-15 08:39)
PROC: 0DBH8ZX Excision of Cecum, Via Natural or Artificial Opening Endoscopic, Diagnostic (ICD-10-PCS; principal; 2017-08-15 08:39)
PROC: 0DB68ZZ Excision of Stomach, Via Natural or Artificial Opening Endoscopic (ICD-10-PCS; principal; 2017-08-15 08:39)
DX: K57.31 Diverticulosis of large intestine without perforation or abscess with bleeding (principal); I50.32 Chronic diastolic (congestive) heart failure; N17.9 Acute kidney failure, unspecified; I13.0 Hypertensive heart and chronic kidney disease with heart failure and stage 1 through stage 4 chronic kidney disease, or unspecified chronic kidney disease; K63.5 Polyp of colon; D64.9 Anemia, unspecified; N18.9 Chronic kidney disease, unspecified; G89.29 Other chronic pain; M54.9 Dorsalgia, unspecified; E78.00 Pure hypercholesterolemia, unspecified; Z88.6 Allergy status to analgesic agent; Z88.0 Allergy status to penicillin; Z88.2 Allergy status to sulfonamides; Z88.8 Allergy status to other drugs, medicaments and biological substances; K31.7 Polyp of stomach and duodenum; E11.65 Type 2 diabetes mellitus with hyperglycemia; E11.22 Type 2 diabetes mellitus with diabetic chronic kidney disease
CPT/HCPCS: 36415; 73502; 74176; 80053; 82962; 83690; 85025; 85610; 86850; 86900; 86901; 93005; 94003; 94150; 99285; J1815; J2250

== ENCOUNTER 2017-10-29 20:51 | Emergency (ER) | payer MEDICARE, OTHER ==
[~2017-10-29] VITALS: Ht 152.4 cm; Wt 61.2 kg
[~2017-10-29 20:51] MED LIST changes: +HYZAAR 50-12.51 EACH ORAL; +PANTOPRAZOLE SO20 MG ORAL; +UNOBMED
--- NOTE | 2017-10-29 21:25 | Emergency Room Report ---
History of Present Illness General Chief Complaint: Multiple Trauma/Fall Source: Patient, Medical Record Present Illness HPI Patient presents with complaints of pain to the left side of her head left elbow and shoulder Patient reports that she was being treated by physical therapist She reports that she did not feel be strap around her was placed And essentially had a fall to her left side Denies any lapse of consciousness Denies any chest pain denies any back or neck pain Denies any abdominal pain Patient has extensive recent history of tendon and right upper arm surgery Otherwise denies any neuropathy Allergies: Coded Allergies: PENICILLINS (Verified Allergy, Mild, swelling, 02/28/13) ACETAMINOPHEN (Verified Allergy, Unknown, 03/09/16) CODEINE (Verified Allergy, Unknown, 03/09/16) HYDROCODONE (Verified Allergy, Unknown, 03/09/16) SULFA (SULFONAMIDE ANTIBIOTICS) (Verified Allergy, Unknown, 03/09/16) THIAMINE (VITAMIN B1) (Verified Adverse Reaction, Mild, syncope, 03/09/16) Patient History Past Medical History: see triage record Pertinent Family History: none Reviewed Nursing Documentation: PMH: Agreed; PSxH: Agreed Nursing Documentation-PMH Hx Cardiac Problems: Yes Hx Hypertension: Yes Hx Asthma: Yes Hx Diabetes: Yes Hx Cancer: No Hx Gastrointestinal Problems: Yes - Rectal Bleeding Hx Neurological Problems: Yes Hx Peripheral Neuropathy: Yes Hx Dizziness: Yes Hx Syncope: Yes Hx Weakness: Yes Review of Systems All Other Systems: negative except mentioned in HPI Physical Exam Vital Signs Date Time Temp Pulse Resp B/P (MAP) Pulse Ox O2 Delivery O2 Flow Rate FiO2 10/29/17 20:45 97.8 88 16 133/97 95 Room Air 97.9 Sp02 EP Interpretation: reviewed, normal General Appearance: well appearing, no apparent distress Head: normocephalic, atraumatic - I cannot appreciate any obvious hematoma Eyes: bilateral eye PERRL, bilateral eye EOMI ENT: normal pharynx Neck: supple Respiratory: lungs clear, normal breath sounds Cardiovascular #1: regular rate, rhythm, no edema Gastrointestinal: non tender, soft Genitourinary: no CVA tenderness Musculoskeletal: other - Patient has discomfort on palpation of the left proximal humerus, there was a small area of bruise noted, elbow is freely mobile the left side, no limitation no obvious swelling, pelvic rock showed some mild discomfort, CT and L spines were nontender Neurologic: alert, oriented x3, responsive Skin: other - As above, patient also has small abrasion contusion to the left knee anteriorly just at the proximal anterior tibial region Lymphatic: no adenopathy Medical Decision Making Diagnostic Impression: Primary Impression: Fall Additional Impressions: Contusion Abrasion ER Course Patient's imaging studies did not reveal any obvious acute fractures With shoulder injuries ligamental pathology cannot be fully ruled out Otherwise patient resting comfortably throughout her stay in the ER On repeat evaluation case was discussed with primary physician Patient was discussed regarding her disposition, and was given option of being observed overnight given the multiple complaints However reports that she feels better and would like to go back to the nursing facility EKG Diagnostic Results Rate: normal Rhythm: NSR ST Segments: no acute changes Rhythm Strip Diag. Results Rate: 67 Rhythm: NSR, no PVC's, no ectopy Chest X-Ray Diagnostic Results Chest X-Ray Diagnostic Results : Chest X-Ray Ordered: Yes # of Views/Limited/Complete: 1 View Indication: Chest Pain EP Interpretation: Yes Interpretation: no consolidation, no effusion, no pneumothorax Impression: No acute disease Electronically Signed by: Eduardo Martinez DO Other X-Ray Diagnostic Results Other X-Ray Diagnostic Results #1: X-Ray ordered: Left shoulder # of Views/Limited Vs Complete: 3 View Indication: Pain EP Interpretation: Yes Interpretation: no dislocation, no soft tissue swelling, no fractures Impression: No acute disease Electronically Signed by: Eduardo Martinez DO Other X-Ray Diagnostic Results #2: X-Ray ordered: Left knee # of Views/Limited Vs Complete: 3 View Indication: Pain EP Interpretation: Yes Interpretation: no dislocation, no soft tissue swelling, no fractures Impression: No acute disease Electronically Signed by: Eduardo Martinez DO CT/MRI/US Diagnostic Results CT/MRI/US Diagnostic Results : Impression CT head no acute disease CT pelvic no acute disease Last Vital Signs Date Time Temp Pulse Resp B/P (MAP) Pulse Ox O2 Delivery O2 Flow Rate FiO2 10/29/17 20:45 97.8 88 16 133/97 95 Room Air 97.9 Status: improved Disposition: XFER SNF Condition: Improved Referrals: Dex De La Torre MD (PCP) Additional Instructions: Patient is provided with the discharge instructions notified to follow up with primary doctor in the next 2-3 days otherwise return to the er with any worsening symptoms. Please note that this report is being documented using [employer] technology. This can lead to erroneous entry secondary to incorrect interpretation by the dictating instrument. Eduardo Martinez DO Oct 29, 2017 21:25
[2017-10-29] MEDS ORDERED: TRAMADOL HCL50 MG ORAL (21:33)
[2017-10-29] MEDS ORDERED: NOVOLOG100 UNIT/3 SUBQ (21:33)
[2017-10-29] MEDS ORDERED: PROCHLORPERAZINE5 MG ORAL (21:33)
[2017-10-29 23:15] VITALS: BP 122/77
--- NOTE | 2017-10-30 12:11 | Diagnostic Imaging Report ---
Indication: Head pain, status post fall, hit head Technique: spiral acquisitions obtained through the brain. Angled axial and coronal 5 x 5 mm slices were reconstructed. No IV contrast utilized. Radiation dose was minimized using automated exposure control Total dose length product 1404.24 mGycm. CTDIvol(s) 70.38 mGy Comparison: MRI brain dated 06/17/2014 FINDINGS: No acute hemorrhage or edema. No mass effect or midline shift. There is age-related enlargement of the ventricles and extra axial CSF spaces. There is periventricular deep white matter ischemic change. Normal arenas-white differentiation. Visualized orbits are unremarkable. Visualized sinuses are unremarkable. Intact calvarium. IMPRESSION: Chronic and age-related changes. Negative for acute intracranial bleed or mass effect The CT scanner at [facility] is accredited by the [employer] and the scans are performed using protocols designed to limit radiation exposure to as low as reasonably achievable to attain images of sufficient resolution adequate for diagnostic evaluation
--- NOTE | 2017-10-30 12:12 | Diagnostic Imaging Report ---
Indication: Trauma, pain, status post fall Technique: 3 views of the left knee Comparison: None Findings: No acute fractures. No dislocations. No suprapatellar effusion. The joint spaces are preserved. There are vascular calcifications. The bones are osteoporotic Impression: No acute process
--- NOTE | 2017-10-30 12:13 | Diagnostic Imaging Report ---
Indication: Trauma, pain, status post fall Technique: 3 views of the left shoulder Comparison: none Findings: No acute fractures. No dislocations. The joint spaces are preserved Impression: Negative
--- NOTE | 2017-10-30 12:15 | Diagnostic Imaging Report ---
Indication: Chest pain, trauma Technique: One view of the chest Comparison: 02/28/2013 Findings: Interim right shoulder reverse arthroplasty. Lungs and pleural spaces are clear. The heart is borderline enlarged with a left ventricular hypertrophy configuration. Aorta is tortuous and calcified. Impression: No acute process
--- NOTE | 2017-10-30 12:18 | Diagnostic Imaging Report ---
Indication: Trauma, pain, status post fall Technique: Noncontrast spiral acquisitions obtained through the pelvis. Multiplanar reconstructions generated. Total dose length product 407.73 mGycm. CTDIvol(s) 13.45 mGy. Dose reduction achieved using automated exposure control Comparison: none Findings: There is slight skin thickening and infiltration of the subcutaneous fat of the left hip region, could represent posttraumatic soft tissue contusion. No acute fractures. No dislocations. There are degenerative changes of the sacroiliac joints. There are mild degenerative proliferative changes of the bilateral hips. Calcifications within the uterus presumably represent old degenerated fibroids. There are extensive colonic diverticula. There are degenerative changes of the lumbosacral junction. Impression: No acute bony trauma Possible mild left hip soft tissue contusion Mild degenerative changes, as described Other findings as noted, including colonic diverticulosis, old degenerated calcified uterine fibroids The CT scanner at [facility] is accredited by the [employer] and the scans are performed using protocols designed to limit radiation exposure to as low as reasonably achievable to attain images of sufficient resolution adequate for diagnostic evaluation.
== END 2017-10-29 23:12 ==
LOC: EDBD 20:51 → EMR 21:19
DX: S50.02XA Contusion of left elbow, initial encounter (principal); W18.39XA Other fall on same level, initial encounter; Y93.89 Activity, other specified; Y92.89 Other specified places as the place of occurrence of the external cause; S80.212A Abrasion, left knee, initial encounter; S80.211A Abrasion, right knee, initial encounter; E11.9 Type 2 diabetes mellitus without complications; I10 Essential (primary) hypertension; J45.909 Unspecified asthma, uncomplicated; Z86.79 Personal history of other diseases of the circulatory system; Z88.0 Allergy status to penicillin; Z88.6 Allergy status to analgesic agent; Z88.2 Allergy status to sulfonamides; Z88.8 Allergy status to other drugs, medicaments and biological substances
CPT/HCPCS: 70450; 71045; 72192; 99284

== ENCOUNTER 2019-03-06 05:44 | Inpatient (IN) | payer MEDICARE, OTHER ==
[~2019-03-06] VITALS: Ht 157.5 cm; Wt 60.3 kg
[2019-03-06] VITALS (8 sets, daily range): BP systolic 110–173; BP diastolic 56–87
[~2019-03-06 05:44] MED LIST changes: +NOVOLOG100 UNIT/3 SUBQ; +PROCHLORPERAZINE5 MG ORAL; +TRAMADOL HCL50 MG ORAL
[2019-03-06 06:25] LABS: EOSINOPHILS % (AUTO) 3.5 % (0.0-3.0); HEMATOCRIT 29.7 % (37.0-47.0); HEMOGLOBIN 9.9 G/DL (12.0-16.0); LYMPHOCYTES % (AUTO) 23.9 % (20.0-45.0); MEAN CORPUSCULAR VOLUME 96 FL (80-99); MONOCYTES % (AUTO) 7.5 % (1.0-10.0); PLATELET COUNT 229 K/UL (150-450); RED BLOOD COUNT 3.09 M/UL (4.20-5.40); RED CELL DISTRIBUTION WIDTH 11.4 % (11.6-14.8); WHITE BLOOD COUNT 7.7 K/UL (4.8-10.8)
--- NOTE | 2019-03-06 06:29 | Emergency Room Report ---
History of Present Illness General Chief Complaint: Gastrointestinal Bleed Source: Patient Present Illness HPI Disclaimer: Please note that this report is being documented using DRAGON technology. This can lead to erroneous entry secondary to incorrect interpretation by the dictating instrument. HPI: 78-year-old female history of diverticulitis and colon polyps presents for evaluation of rectal bleeding. Bright red bleeding per rectum reported since last night. She is able to sleep through the night however this morning woke up with gross hematochezia while having a bowel movement. She also reports loose stools. Denies abdominal pain, discomfort, nausea, vomiting, fever, chills, chest pain, shortness of breath. She denies lightheadedness, dizziness or syncope. States she has had rectal bleeding before from diverticulosis and has had multiple polyps removed. Has not had any rectal bleeding in several years. She takes aspirin but no other anticoagulants or other antiplatelets. PMH: Hypertension, hyperlipidemia, diabetes, CKD, diverticulosis, colon polyps PSH: Polypectomy Allergies: Codeine, hydrocodone, penicillins, sulfa, Tylenol reported Social Hx: Denies alcohol, tobacco or drug abuse Allergies: Coded Allergies: PENICILLINS (Verified Allergy, Mild, swelling, 02/28/13) ACETAMINOPHEN (Verified Allergy, Unknown, 03/09/16) CODEINE (Verified Allergy, Unknown, 03/09/16) HYDROCODONE (Verified Allergy, Unknown, 03/09/16) SULFA (SULFONAMIDE ANTIBIOTICS) (Verified Allergy, Unknown, 03/09/16) THIAMINE (VITAMIN B1) (Verified Adverse Reaction, Mild, syncope, 03/09/16) Nursing Documentation-PMH Hx Cardiac Problems: Yes Hx Hypertension: Yes Hx Asthma: Yes Hx Diabetes: Yes Hx Cancer: No Hx Gastrointestinal Problems: Yes - Rectal Bleeding Hx Neurological Problems: Yes Hx Peripheral Neuropathy: Yes Hx Dizziness: Yes Hx Syncope: Yes Hx Weakness: Yes Review of Systems All Other Systems: negative except mentioned in HPI Physical Exam Vital Signs Date Time Temp Pulse Resp B/P (MAP) Pulse Ox O2 Delivery O2 Flow Rate FiO2 03/06/19 05:50 97.9 95 18 132/87 (102) 97 Room Air General: Awake and alert, no acute distress HEENT: NC/AT. EOMI. Cardiovascular: RRR. S1 and S2 normal. No murmur appreciated Resp: Normal work of breathing. No cough, wheezing or crackles appreciated Abdomen: Abdomen is soft, nondistended. Nontender, no rebound, no masses Rectal: No external or internal hemorrhoids palpable. Melena and bright red blood in rectal vault. No masses palpable. Skin: Intact. No abrasions, laceration or rash over the exposed skin MSK: Normal tone and bulk. Moving all extremities. No obvious deformity. Neuro: Awake and alert. Mentating appropriately. Medical Decision Making Diagnostic Impression: Primary Impression: GI bleed Additional Impression: [id number] renal failure ER Course Is a 78-year-old female with a history of polyps and diverticulosis presenting for evaluation of bright red blood per rectum. Differential includes was not limited to polyps, diverticular bleed, anal fissure, hemorrhoid, perforation, abscess, inflammatory bowel disease, colon/rectal mass. Given the patient's history of diverticulosis and polyps these are the most likely culprits. She arrives with stable vital signs, denies abdominal pain otherwise well- appearing. Will check CBC, screening labs, send type and screen in preparation for possible transfusion if needed. Laboratory Tests Test 03/06/19 06:00 White Blood Count 7.7 K/UL (4.8-10.8) Red Blood Count 3.09 M/UL (4.20-5.40) L Hemoglobin 9.9 G/DL (12.0-16.0) L Hematocrit 29.7 % (37.0-47.0) L Mean Corpuscular Volume 96 FL (80-99) Mean Corpuscular Hemoglobin 32.1 PG (27.0-31.0) H Mean Corpuscular Hemoglobin Concent 33.4 G/DL (32.0-36.0) Red Cell Distribution Width 11.4 % (11.6-14.8) L Platelet Count 229 K/UL (150-450) Mean Platelet Volume 5.8 FL (6.5-10.1) L Neutrophils (%) (Auto) 64.0 % (45.0-75.0) Lymphocytes (%) (Auto) 23.9 % (20.0-45.0) Monocytes (%) (Auto) 7.5 % (1.0-10.0) Eosinophils (%) (Auto) 3.5 % (0.0-3.0) H Basophils (%) (Auto) 1.0 % (0.0-2.0) Prothrombin Time 10.3 SEC (9.30-11.50) Prothrombin Time INR 1.0 (0.9-1.1) PTT 27 SEC (23-33) Sodium Level 142 MMOL/L (136-145) Potassium Level 4.5 MMOL/L (3.5-5.1) Chloride Level 106 MMOL/L (98-107) Carbon Dioxide Level 23 MMOL/L (21-32) Anion Gap 13 mmol/L (5-15) Blood Urea Nitrogen 65 mg/dL (7-18) H Creatinine 2.1 MG/DL (0.55-1.30) H Estimate Glomerular Filtration Rate mL/min (>60) Glucose Level 173 MG/DL (74-106) H Calcium Level 8.3 MG/DL (8.5-10.1) L Total Bilirubin 0.2 MG/DL (0.2-1.0) Aspartate Amino Transferase (AST) 14 U/L (15-37) L Alanine Aminotransferase (ALT) 14 U/L (12-78) Alkaline Phosphatase 95 U/L (46-116) Total Protein 6.6 G/DL (6.4-8.2) Albumin 3.2 G/DL (3.4-5.0) L Globulin 3.4 g/dL Albumin/Globulin Ratio 0.9 (1.0-2.7) L Reevaluation Time: 06:57 Last Vital Signs Date Time Temp Pulse Resp B/P (MAP) Pulse Ox O2 Delivery O2 Flow Rate FiO2 03/06/19 06:07 97.9 95 18 132/87 97 Room Air Reevaluation Impression Patient's labs do show anemia with a hemoglobin 9.9 that was within the patient' s previous laboratory results. Does not require transfusion at this time. BUN and creatinine are elevated at 68 and 2.1 respectively which is outside of the patient's normal show an acute kidney injury. Receiving IV fluids. Patient will be admitted for further work-up of GI bleed and acute kidney injury. Will admit to Dr. De La Torre who is her primary physician Disposition: ADMITTED INPATIENT Condition: Serious Referrals: Dex De La Torre MD (PCP) David Mixon MD Mar 06, 2019 06:29
[2019-03-06 06:49] LABS: ANION GAP 13 mmol/L (5-15); BLOOD UREA NITROGEN 65 mg/dL (7-18); CALCIUM 8.3 MG/DL (8.5-10.1); CARBON DIOXIDE 23 MMOL/L (21-32); CHLORIDE 106 MMOL/L (98-107); CREATININE 2.1 MG/DL (0.55-1.30); POTASSIUM 4.5 MMOL/L (3.5-5.1); SODIUM 142 MMOL/L (136-145)
[2019-03-06 06:54] LABS: ALANINE AMINOTRANSFERASE 14 U/L (12-78); ALBUMIN 3.2 G/DL (3.4-5.0); ALBUMIN/GLOBULIN RATIO 0.9 (1.0-2.7); ALKALINE PHOSPHATASE 95 U/L (46-116); ASPARTATE AMINO TRANSFERASE 14 U/L (15-37); BILIRUBIN,TOTAL 0.2 MG/DL (0.2-1.0)
--- NOTE | 2019-03-06 12:10 | General Progress Note ---
Assessment/Plan Assessment/Plan: GI CONSULT Assessment - Rectal bleeding overnight, likely recurrent diverticular bleeding - s/p EGD/Colon 08/20 --> severe diverticulosis and few colon polyps (not yet removed) - failed to f/u with me, despite in-house and outpatient reminders - current bleeding seems limited - no plans for repeat colonoscopy, unless continues to bleed Recommendations - clears - PO laxatives to clear old blood - monitor CBC and rectal bleeding - outpatient evaluation for colonoscopy with polypectomy Thank you P MD Mckinley Subjective Allergies: Coded Allergies: PENICILLINS (Verified Allergy, Mild, swelling, 02/28/13) ACETAMINOPHEN (Verified Allergy, Unknown, 03/09/16) CODEINE (Verified Allergy, Unknown, 03/09/16) HYDROCODONE (Verified Allergy, Unknown, 03/09/16) SULFA (SULFONAMIDE ANTIBIOTICS) (Verified Allergy, Unknown, 03/09/16) THIAMINE (VITAMIN B1) (Verified Adverse Reaction, Mild, syncope, 03/09/16) Objective Last 24 Hour Vital Signs Date Time Temp Pulse Resp B/P (MAP) Pulse Ox O2 Delivery O2 Flow Rate FiO2 03/06/19 10:38 Room Air 03/06/19 10:09 98.0 58 16 100/60 98 Room Air 03/06/19 09:57 16 110/60 98 Room Air 03/06/19 07:40 69 15 123/56 98 Room Air 03/06/19 06:07 97.9 95 18 132/87 97 Room Air 03/06/19 06:00 95 18 Room Air 03/06/19 05:50 97.9 95 18 132/87 (102) 97 Room Air Laboratory Tests 03/06/19 06:00: White Blood Count 7.7, Red Blood Count 3.09L, Hemoglobin 9.9L, Hematocrit 29.7L , Mean Corpuscular Volume 96, Mean Corpuscular Hemoglobin 32.1H, Mean Corpuscular Hemoglobin Concent 33.4, Red Cell Distribution Width 11.4L, Platelet Count 229, Mean Platelet Volume 5.8L, Neutrophils (%) (Auto) 64.0, Lymphocytes (%) (Auto) 23.9, Monocytes (%) (Auto) 7.5, Eosinophils (%) (Auto) 3.5H, Basophils (%) (Auto) 1.0, Prothrombin Time 10.3, Prothromb Time International Ratio 1.0, Activated Partial Thromboplast Time 27, Sodium Level 142, Potassium Level 4.5, Chloride Level 106, Carbon Dioxide Level 23, Anion Gap 13, Blood Urea Nitrogen 65H, Creatinine 2.1H, Estimat Glomerular Filtration Rate , Glucose Level 173H, Calcium Level 8.3L, Total Bilirubin 0.2, Aspartate Amino Transf (AST/SGOT) 14L, Alanine Aminotransferase (ALT/SGPT) 14, Alkaline Phosphatase 95, Total Protein 6.6, Albumin 3.2L, Globulin 3.4, Albumin/Globulin Ratio 0.9L Height (Feet): 5 Height (Inches): 2.00 Weight (Pounds): 134 Gabino Sen MD Mar 06, 2019 12:10
[2019-03-06] MEDS ORDERED: Sorbitol Solution UD 30ml ORAL SCH (12:15)
[2019-03-06] MEDS: Pantoprazole Inj IVP SCH ×2 (12:54→21:15)
[2019-03-06 17:15] LABS: BASOPHILS % (AUTO) 0.9 % (0.0-2.0); EOSINOPHILS % (AUTO) 3.1 % (0.0-3.0); LYMPHOCYTES % (AUTO) 27.7 % (20.0-45.0); MEAN CORPUSCULAR VOLUME 94 FL (80-99); MONOCYTES % (AUTO) 6.9 % (1.0-10.0); NEUTROPHILS % (AUTO) 61.4 % (45.0-75.0); PLATELET COUNT 252 K/UL (150-450); RED BLOOD COUNT 3.09 M/UL (4.20-5.40); RED CELL DISTRIBUTION WIDTH 10.2 % (11.6-14.8); WHITE BLOOD COUNT 8.3 K/UL (4.8-10.8)
[2019-03-06] MEDS: Tums 500mg ORAL SCH (17:34)
[2019-03-06] MEDS: Atorvastatin 20mg tab ORAL SCH (21:15)
[2019-03-07] VITALS: BP 119/58
[2019-03-07 04:00] VITALS: BP 134/67
[2019-03-07 06:25] LABS: HEMATOCRIT 23.6 % (37.0-47.0); HEMOGLOBIN 7.9 G/DL (12.0-16.0); MEAN CORPUSCULAR VOLUME 96 FL (80-99); PLATELET COUNT 188 K/UL (150-450); RED BLOOD COUNT 2.46 M/UL (4.20-5.40); RED CELL DISTRIBUTION WIDTH 11.4 % (11.6-14.8)
--- NOTE | 2019-03-07 07:10 | General Progress Note ---
Assessment/Plan Problem List: (1) CKD (chronic kidney disease) stage 2, GFR 60-89 ml/min ICD Codes: N18.2 - Chronic kidney disease, stage 2 (mild) SNOMED: 119937509 (2) Gastrointestinal hemorrhage ICD Codes: K92.2 - Gastrointestinal hemorrhage, unspecified SNOMED: 24337187 Status: stable Assessment/Plan: transfuse PPI renal eval hold aspirin Subjective ROS Limited/Unobtainable: No Constitutional: Reports: malaise, weakness HEENT: Reports: no symptoms Cardiovascular: Reports: no symptoms Respiratory: Reports: no symptoms Gastrointestinal/Abdominal: Reports: rectal bleeding Genitourinary: Reports: no symptoms Neurologic/Psychiatric: Reports: no symptoms Endocrine: Reports: no symptoms Hematologic/Lymphatic: Reports: anemia Allergies: Coded Allergies: PENICILLINS (Verified Allergy, Mild, swelling, 02/28/13) ACETAMINOPHEN (Verified Allergy, Unknown, 03/09/16) CODEINE (Verified Allergy, Unknown, 03/09/16) HYDROCODONE (Verified Allergy, Unknown, 03/09/16) SULFA (SULFONAMIDE ANTIBIOTICS) (Verified Allergy, Unknown, 03/09/16) THIAMINE (VITAMIN B1) (Verified Adverse Reaction, Mild, syncope, 03/09/16) All Systems: reviewed and negative except above Subjective decreased rectal bleeding. last episode last night. no cp/sob. Objective Last 24 Hour Vital Signs Date Time Temp Pulse Resp B/P (MAP) Pulse Ox O2 Delivery O2 Flow Rate FiO2 03/07/19 05:39 134/67 03/07/19 04:00 98.4 67 16 134/67 (89) 96 03/07/19 00:00 97.7 60 14 119/58 (78) 95 03/06/19 22:06 150/69 03/06/19 21:00 Room Air 03/06/19 20:00 97.6 74 16 150/69 (96) 96 03/06/19 20:00 97.6 74 16 150/69 (96) 96 03/06/19 18:44 78 151/75 (100) 03/06/19 17:34 173/76 03/06/19 16:00 97.7 74 20 173/76 (108) 97 03/06/19 13:55 151/68 03/06/19 13:53 97.7 75 20 151/68 (95) 98 03/06/19 10:38 Room Air 03/06/19 10:30 97.8 67 18 159/73 (101) 95 03/06/19 10:09 98.0 58 16 100/60 98 Room Air 03/06/19 09:57 16 110/60 98 Room Air 03/06/19 07:40 69 15 123/56 98 Room Air Intake and Output 03/06/19 03/07/19 19:00 07:00 Intake Total 750 ml 1405 ml Balance 750 ml 1405 ml Intake Oral 300 ml 580 ml IV Total 450 ml 825 ml # Voids 2 # Bowel Movements 3 Laboratory Tests 03/06/19 17:00: White Blood Count 8.3, Red Blood Count 3.09L, Hemoglobin 10.0L, Hematocrit 29.0L , Mean Corpuscular Volume 94, Mean Corpuscular Hemoglobin 32.2H, Mean Corpuscular Hemoglobin Concent 34.4, Red Cell Distribution Width 10.2L, Platelet Count 252, Mean Platelet Volume 5.6L, Neutrophils (%) (Auto) 61.4, Lymphocytes (%) (Auto) 27.7, Monocytes (%) (Auto) 6.9, Eosinophils (%) (Auto) 3.1H, Basophils (%) (Auto) 0.9 03/07/19 05:30: White Blood Count 5.0, Red Blood Count 2.46L, Hemoglobin 7.9L, Hematocrit 23.6L , Mean Corpuscular Volume 96, Mean Corpuscular Hemoglobin 32.2H, Mean Corpuscular Hemoglobin Concent 33.4, Red Cell Distribution Width 11.4L, Platelet Count 188, Mean Platelet Volume 5.6L, Neutrophils (%) (Auto) , Lymphocytes (%) (Auto) , Monocytes (%) (Auto) , Eosinophils (%) (Auto) , Basophils (%) (Auto) , Neutrophils % (Manual) [Pending], Lymphocytes % (Manual) [Pending], Platelet Estimate [Pending], Platelet Morphology [Pending] Height (Feet): 5 Height (Inches): 2.00 Weight (Pounds): 134 General Appearance: WD/WN, alert Neck: supple Cardiovascular: normal rate, regular rhythm Respiratory/Chest: chest wall non-tender, lungs clear, normal breath sounds Abdomen: normal bowel sounds, non tender, soft, no organomegaly Edema: no edema noted Arm (L), no edema noted Arm (R), no edema noted Leg (L), no edema noted Leg (R), no edema noted Pedal (L), no edema noted Pedal (R), no edema noted Generalized Neurologic: chairman and ceo II-XII grossly normal, no motor/sensory deficits, alert Ariel Gonzalez MD Mar 07, 2019 07:10
[2019-03-07 08:00] VITALS: BP 128/56
[2019-03-07] MEDS ORDERED: metFORMIN 500mg tab ORAL SCH (09:00)
[2019-03-07] MEDS: Pantoprazole Inj IVP SCH ×2 (09:09→21:55)
[2019-03-07] MEDS: sitaGLIPtin 25mg tab ORAL SCH (09:09)
[2019-03-07] MEDS: Tums 500mg ORAL SCH ×2 (09:09→18:01)
[2019-03-07] MEDS: Hyzaar 50-12.5mg tab ORAL SCH (09:09)
[2019-03-07 12:00] VITALS: BP 130/61
--- NOTE | 2019-03-07 14:45 | History and Physical Report ---
DATE OF ADMISSION: 03/06/2019 CHIEF COMPLAINT: Rectal bleeding. HISTORY OF PRESENT ILLNESS: The patient is a pleasant 78-year-old female. She has a history of hypertension, diabetes, osteoarthritis, hypothyroidism. She has a prior history of diverticulosis and GI bleed. She presented with complaints of 1 day of progressive for bright red blood per rectum. According to the patient, the day prior to admission, she had an episode of large volume bright red blood per rectum. She denies any abdominal pain or dizziness. She does take aspirin twice a day. She had a second episode late in the evening that prompted her to come to the emergency room. On evaluation there, her vital signs were stable. Hemoglobin was 10. In light of the bleeding, she is now admitted for further evaluation and care. PAST MEDICAL HISTORY: As above. PAST SURGICAL HISTORY: None. CURRENT MEDICATIONS: Reconciled and reviewed. ALLERGIES: Include Tylenol, codeine, hydrocodone, penicillin, sulfa, thiamine. FAMILY HISTORY: Noncontributory. SOCIAL HISTORY: Negative for tobacco, ethanol, or drugs. REVIEW OF SYSTEMS: GENERAL: No fevers or chills. HEENT: No headaches or visual changes. CARDIOPULMONARY: No chest pain or shortness of breath. GASTROINTESTINAL: Positive bright red blood per rectum. GENITOURINARY: No urgency or frequency. MUSCULOSKELETAL: No joint pain or swelling. NEUROLOGIC: No evidence of any seizures. PHYSICAL EXAMINATION: VITAL SIGNS: Temperature 98 degrees, pulse 58, respirations 16, blood pressure 100/60. GENERAL: The patient is well developed, no apparent distress. HEART: Regular rate and rhythm. LUNGS: Clear. ABDOMEN: Soft, nontender, and nondistended. EXTREMITIES: Without clubbing, cyanosis, or edema. PERTINENT DATA: Hemoglobin 9.9. Creatinine 2. Coags were normal. ASSESSMENT: This is a pleasant female with history of diverticulosis, hypertension, diabetes, osteoarthritis, hypothyroidism admitted with complaints of rectal bleeding secondary to diverticulosis. PLAN: 1. Admit to medical-surgical bed. 2. Serial CBCs will be drawn. 3. The patient will be kept on a clear liquid diet. 4. She will receive IV proton pump inhibitors. 5. Cardiology and GI consultations will be obtained. Ariel Gonzalez M.D. DR: PRAVIN JOB#: [id number] CC:
--- NOTE | 2019-03-07 15:00 | Consultation ---
DATE OF CONSULTATION: 03/06/2019 GASTROENTEROLOGY CONSULTATION CONSULTING PHYSICIAN: Gabino Sen M.D. CHIEF COMPLAINT: I was asked to see this patient by Dr. Ariel Gonzalez for evaluation of gastrointestinal bleeding. HISTORY OF PRESENT ILLNESS: The patient is a pleasant 78-year-old woman, who comes into the hospital due to rectal bleeding. She states that she had 1 bowel movement that had a large amount of blood in the toilet, but subsequent bowel movement only had a streak of blood. The patient had a previous admission in August of 2017 where she was admitted with one-day history of dark red blood bleeding. She was evaluated and subsequently underwent an endoscopy and colonoscopy. The endoscopy showed a gastric polyp, which was removed with a snare polypectomy and gastric Endoclip was placed. The colonoscopy showed 3 large sessile polyps in the colon in the ascending side as well as diverticulosis and hemorrhoids. The diverticulosis was pretty severe and the cause of the bleeding. Because of acute bleeding, the colonic polyps were not removed, but the patient was advised that she should follow up as an outpatient for the colonoscopy with mucosal resection. This advice was followed up with an outpatient phone call, which was documented in September where the patient was called and once again advised to follow up with GI as an outpatient for set up of a colonoscopy. However, the patient did not show and was lost to followup until today. At this point, the patient denies any abdominal pain. Has had no further rectal bleeding since admission. She denies any vomiting. PAST MEDICAL HISTORY: Remarkable for history of diabetes, hypercholesterolemia, hypertension, degenerative joint disease. PAST SURGICAL HISTORY: Status post right shoulder surgery as well as breast lumpectomy. MEDICATIONS: See the chart list for details. FAMILY HISTORY: Positive for colon cancer. SOCIAL HISTORY: The patient does not smoke or drink alcohol. REVIEW OF SYSTEMS: Otherwise negative. PHYSICAL EXAMINATION: GENERAL: This is a pleasant woman, seen in her room. HEENT: Normocephalic and atraumatic. Sclerae anicteric. Oropharynx clear. NECK: Supple. CHEST: Clear to auscultation. CARDIOVASCULAR: Revealed a regular rate. ABDOMEN: Soft. Good bowel sounds. There is no organomegaly. EXTREMITIES: Revealed no edema. LABORATORY DATA: Noted. ASSESSMENT: This patient presents with recurrent rectal bleeding, which is likely due to recurrent diverticular bleeding. The patient's magnitude of bleeding appears to be small and self-limited and possibly resolved by now. As such, repeat colonoscopy is not likely to add much information. She does however have a known history of colonic polyps, which would not be ideally removed under these circumstances, but later in a month or so once the bleeding is resolved. The patient was once again strongly advised to follow up with me as an outpatient after the current discharge to be scheduled for elective outpatient colonoscopy with endoscopic mucosal resection of the colonic polyps. RECOMMENDATIONS: 1. Clear liquid diet. 2. Follow up CBC. 3. Laxative to lavage old blood out. 4. Outpatient colonoscopy. The patient was given my card. Thank you for asking me to participate in the care of this patient. Gabino Sen M.D. DR: ANIKET JOB#: [id number] CC:
[2019-03-07 16:00] VITALS: BP 124/57
--- NOTE | 2019-03-07 17:37 | General Progress Note ---
Assessment/Plan Status: stable Assessment/Plan: Assessment - Rectal bleeding, likely recurrent diverticular bleeding - appears to be resolving - s/p EGD/Colon 08/20 --> severe diverticulosis and few colon polyps (not yet removed) - current bleeding seems limited - no plans for repeat colonoscopy, unless continues to bleed Recommendations - clears - PO laxatives to clear old blood - monitor CBC and rectal bleeding - outpatient colonoscopy with polypectomy - monitor H&H Subjective Allergies: Coded Allergies: PENICILLINS (Verified Allergy, Mild, swelling, 02/28/13) ACETAMINOPHEN (Verified Allergy, Unknown, 03/09/16) CODEINE (Verified Allergy, Unknown, 03/09/16) HYDROCODONE (Verified Allergy, Unknown, 03/09/16) SULFA (SULFONAMIDE ANTIBIOTICS) (Verified Allergy, Unknown, 03/09/16) THIAMINE (VITAMIN B1) (Verified Adverse Reaction, Mild, syncope, 03/09/16) Subjective above noted had 3 BM last night no BM during the day H&H lower Objective Last 24 Hour Vital Signs Date Time Temp Pulse Resp B/P (MAP) Pulse Ox O2 Delivery O2 Flow Rate FiO2 03/07/19 16:00 97.9 59 14 124/57 (79) 94 03/07/19 14:27 147/72 03/07/19 12:00 98.2 62 14 130/61 (84) 92 03/07/19 09:09 128/56 03/07/19 09:00 Room Air 03/07/19 08:00 98.4 60 15 128/56 (80) 96 03/07/19 05:39 134/67 03/07/19 04:00 98.4 67 16 134/67 (89) 96 03/07/19 00:00 97.7 60 14 119/58 (78) 95 03/06/19 22:06 150/69 03/06/19 21:00 Room Air 03/06/19 20:00 97.6 74 16 150/69 (96) 96 03/06/19 20:00 97.6 74 16 150/69 (96) 96 03/06/19 18:44 78 151/75 (100) Intake and Output 03/06/19 03/07/19 19:00 07:00 Intake Total 750 ml 1480 ml Balance 750 ml 1480 ml Intake Oral 300 ml 580 ml IV Total 450 ml 900 ml # Voids 2 # Bowel Movements 3 Laboratory Tests 03/07/19 05:30: White Blood Count 5.0, Red Blood Count 2.46L, Hemoglobin 7.9L, Hematocrit 23.6L , Mean Corpuscular Volume 96, Mean Corpuscular Hemoglobin 32.2H, Mean Corpuscular Hemoglobin Concent 33.4, Red Cell Distribution Width 11.4L, Platelet Count 188, Mean Platelet Volume 5.6L, Neutrophils (%) (Auto) , Lymphocytes (%) (Auto) , Monocytes (%) (Auto) , Eosinophils (%) (Auto) , Basophils (%) (Auto) , Differential Total Cells Counted 100, Neutrophils % ( Manual) 73, Lymphocytes % (Manual) 17L, Monocytes % (Manual) 7, Eosinophils % ( Manual) 3, Basophils % (Manual) 0, Band Neutrophils 0, Platelet Estimate Adequate, Platelet Morphology Normal, Hypochromasia 1+ Height (Feet): 5 Height (Inches): 2.00 Weight (Pounds): 134 Gabino Sen MD Mar 07, 2019 17:37
[2019-03-07] MEDS ORDERED: Sorbitol Solution UD 30ml ORAL SCH (17:45)
[2019-03-07 19:30] LABS: BASOPHILS % (AUTO) 1.5 % (0.0-2.0); HEMATOCRIT 30.3 % (37.0-47.0); HEMOGLOBIN 10.6 G/DL (12.0-16.0); LYMPHOCYTES % (AUTO) 21.9 % (20.0-45.0); MEAN CORPUSCULAR VOLUME 93 FL (80-99); MONOCYTES % (AUTO) 6.9 % (1.0-10.0); NEUTROPHILS % (AUTO) 65.6 % (45.0-75.0); PLATELET COUNT 178 K/UL (150-450); RED BLOOD COUNT 3.25 M/UL (4.20-5.40); RED CELL DISTRIBUTION WIDTH 10.3 % (11.6-14.8); WHITE BLOOD COUNT 6.5 K/UL (4.8-10.8)
[2019-03-07 20:00] VITALS: BP 172/82
[2019-03-07] MEDS ORDERED: Tubing IV Blood Pump IV ONE (21:23)
[2019-03-07] MEDS ORDERED: NS 275ml ONE (21:23)
[2019-03-07] MEDS: Atorvastatin 20mg tab ORAL SCH (21:54)
[2019-03-08] VITALS (7 sets, daily range): BP systolic 121–180; BP diastolic 68–85
[2019-03-08 05:50] LABS: BASOPHILS % (AUTO) 1.3 % (0.0-2.0); EOSINOPHILS % (AUTO) 5.4 % (0.0-3.0); HEMATOCRIT 29.5 % (37.0-47.0); HEMOGLOBIN 9.9 G/DL (12.0-16.0); LYMPHOCYTES % (AUTO) 28.2 % (20.0-45.0); MEAN CORPUSCULAR VOLUME 94 FL (80-99); MONOCYTES % (AUTO) 8.3 % (1.0-10.0); NEUTROPHILS % (AUTO) 56.8 % (45.0-75.0); PLATELET COUNT 186 K/UL (150-450); RED BLOOD COUNT 3.13 M/UL (4.20-5.40); RED CELL DISTRIBUTION WIDTH 11.7 % (11.6-14.8); WHITE BLOOD COUNT 5.6 K/UL (4.8-10.8)
[2019-03-08] MEDS: sitaGLIPtin 25mg tab ORAL SCH (10:04)
[2019-03-08] MEDS: Tums 500mg ORAL SCH ×2 (10:04→17:37)
[2019-03-08] MEDS: Hyzaar 50-12.5mg tab ORAL SCH (10:04)
[2019-03-08] MEDS: Pantoprazole Inj IVP SCH ×2 (10:05→20:59)
--- NOTE | 2019-03-08 15:18 | General Progress Note ---
Assessment/Plan Problem List: (1) CKD (chronic kidney disease) stage 2, GFR 60-89 ml/min ICD Codes: N18.2 - Chronic kidney disease, stage 2 (mild) SNOMED: 705546029 (2) Gastrointestinal hemorrhage ICD Codes: K92.2 - Gastrointestinal hemorrhage, unspecified SNOMED: 32747767 Status: stable Assessment/Plan: transfuse prn PPI renal eval hold aspirin gi follow up Subjective ROS Limited/Unobtainable: No Constitutional: Reports: malaise, weakness HEENT: Reports: no symptoms Cardiovascular: Reports: no symptoms Respiratory: Reports: no symptoms Gastrointestinal/Abdominal: Reports: rectal bleeding Genitourinary: Reports: no symptoms Neurologic/Psychiatric: Reports: no symptoms Endocrine: Reports: no symptoms Hematologic/Lymphatic: Reports: anemia Allergies: Coded Allergies: PENICILLINS (Verified Allergy, Mild, swelling, 02/28/13) ACETAMINOPHEN (Verified Allergy, Unknown, 03/09/16) CODEINE (Verified Allergy, Unknown, 03/09/16) HYDROCODONE (Verified Allergy, Unknown, 03/09/16) SULFA (SULFONAMIDE ANTIBIOTICS) (Verified Allergy, Unknown, 03/09/16) THIAMINE (VITAMIN B1) (Verified Adverse Reaction, Mild, syncope, 03/09/16) All Systems: reviewed and negative except above Subjective decreased rectal bleeding. last episode last night. no cp/sob. s/p 1 unit. bp up. labs reviewed Objective Last 24 Hour Vital Signs Date Time Temp Pulse Resp B/P (MAP) Pulse Ox O2 Delivery O2 Flow Rate FiO2 03/08/19 13:46 163/83 03/08/19 11:51 97.6 62 20 180/80 (113) 97 62 03/08/19 10:04 132/71 03/08/19 09:00 Room Air 03/08/19 08:00 98.7 73 21 121/82 (95) 95 73 03/08/19 06:00 135/68 (90) 03/08/19 05:31 168/78 03/08/19 04:00 96.8 68 14 168/78 (108) 97 03/08/19 00:00 98.2 62 14 155/71 (99) 97 03/07/19 21:55 172/82 03/07/19 21:00 Room Air 03/07/19 20:00 98.2 64 16 172/82 (112) 97 03/07/19 16:00 97.9 59 14 124/57 (79) 94 Intake and Output 03/07/19 03/08/19 19:00 07:00 Intake Total 375 ml 1500 ml Balance 375 ml 1500 ml Intake Oral 600 ml IV Total 375 ml 900 ml # Voids 3 2 # Bowel Movements 5 Laboratory Tests 03/07/19 18:20: White Blood Count 6.5, Red Blood Count 3.25L, Hemoglobin 10.6#L, Hematocrit 30.3L, Mean Corpuscular Volume 93, Mean Corpuscular Hemoglobin 32.7H, Mean Corpuscular Hemoglobin Concent 35.0, Red Cell Distribution Width 10.3L, Platelet Count 178, Mean Platelet Volume 6.0L, Neutrophils (%) (Auto) 65.6, Lymphocytes (%) (Auto) 21.9, Monocytes (%) (Auto) 6.9, Eosinophils (%) (Auto) 4.0H, Basophils (%) (Auto) 1.5 03/08/19 05:10: White Blood Count 5.6, Red Blood Count 3.13L, Hemoglobin 9.9L, Hematocrit 29.5L , Mean Corpuscular Volume 94, Mean Corpuscular Hemoglobin 31.7H, Mean Corpuscular Hemoglobin Concent 33.6, Red Cell Distribution Width 11.7, Platelet Count 186, Mean Platelet Volume 5.3L, Neutrophils (%) (Auto) 56.8, Lymphocytes ( %) (Auto) 28.2, Monocytes (%) (Auto) 8.3, Eosinophils (%) (Auto) 5.4H, Basophils (%) (Auto) 1.3 Height (Feet): 5 Height (Inches): 2.00 Weight (Pounds): 134 General Appearance: WD/WN, alert Neck: supple Cardiovascular: normal peripheral pulses, normal rate, regular rhythm Respiratory/Chest: chest wall non-tender, lungs clear, normal breath sounds, no respiratory distress, no accessory muscle use, respiratory distress Edema: no edema noted Arm (L), no edema noted Arm (R), no edema noted Leg (L), no edema noted Leg (R), no edema noted Pedal (L), no edema noted Pedal (R), no edema noted Generalized Neurologic: alert, oriented x 3, responsive Uomoto,Ariel M. MD Mar 08, 2019 15:18
[2019-03-08] MEDS: Atorvastatin 20mg tab ORAL SCH (20:38)
--- NOTE | 2019-03-08 20:43 | General Progress Note ---
Assessment/Plan Status: stable Assessment/Plan: Assessment - Rectal bleeding, likely recurrent diverticular bleeding - resolved - s/p EGD/Colon 08/20 --> severe diverticulosis and few colon polyps (not yet removed) - current bleeding seems limited - no plans for repeat colonoscopy, unless continues to bleed Recommendations - advance diet - monitor for rectal bleeding - outpatient colonoscopy with polypectomy - monitor H&H Subjective Allergies: Coded Allergies: PENICILLINS (Verified Allergy, Mild, swelling, 02/28/13) ACETAMINOPHEN (Verified Allergy, Unknown, 03/09/16) CODEINE (Verified Allergy, Unknown, 03/09/16) HYDROCODONE (Verified Allergy, Unknown, 03/09/16) SULFA (SULFONAMIDE ANTIBIOTICS) (Verified Allergy, Unknown, 03/09/16) THIAMINE (VITAMIN B1) (Verified Adverse Reaction, Mild, syncope, 03/09/16) Subjective above noted some loose, non bloody BM wants to advance diet Objective Last 24 Hour Vital Signs Date Time Temp Pulse Resp B/P (MAP) Pulse Ox O2 Delivery O2 Flow Rate FiO2 03/08/19 20:00 98.7 59 20 165/73 (103) 95 59 03/08/19 16:00 99.3 85 20 136/85 (102) 95 85 03/08/19 13:46 163/83 03/08/19 11:51 97.6 62 20 180/80 (113) 97 62 03/08/19 10:04 132/71 03/08/19 09:00 Room Air 03/08/19 08:00 98.7 73 21 121/82 (95) 95 73 03/08/19 06:00 135/68 (90) 03/08/19 05:31 168/78 03/08/19 04:00 96.8 68 14 168/78 (108) 97 03/08/19 00:00 98.2 62 14 155/71 (99) 97 03/07/19 21:55 172/82 03/07/19 21:00 Room Air Intake and Output 03/07/19 03/08/19 19:00 07:00 Intake Total 375 ml 1500 ml Balance 375 ml 1500 ml Intake Oral 600 ml IV Total 375 ml 900 ml # Voids 3 2 # Bowel Movements 5 Laboratory Tests 03/08/19 05:10: White Blood Count 5.6, Red Blood Count 3.13L, Hemoglobin 9.9L, Hematocrit 29.5L , Mean Corpuscular Volume 94, Mean Corpuscular Hemoglobin 31.7H, Mean Corpuscular Hemoglobin Concent 33.6, Red Cell Distribution Width 11.7, Platelet Count 186, Mean Platelet Volume 5.3L, Neutrophils (%) (Auto) 56.8, Lymphocytes ( %) (Auto) 28.2, Monocytes (%) (Auto) 8.3, Eosinophils (%) (Auto) 5.4H, Basophils (%) (Auto) 1.3 Height (Feet): 5 Height (Inches): 2.00 Weight (Pounds): 134 Gabino Sen MD Mar 08, 2019 20:43
[2019-03-09] VITALS: BP 174/70
[2019-03-09 04:00] VITALS: BP 179/74
[2019-03-09 05:58] LABS: BASOPHILS % (AUTO) 1.1 % (0.0-2.0); EOSINOPHILS % (AUTO) 5.2 % (0.0-3.0); HEMATOCRIT 27.4 % (37.0-47.0); HEMOGLOBIN 9.3 G/DL (12.0-16.0); LYMPHOCYTES % (AUTO) 27.7 % (20.0-45.0); MEAN CORPUSCULAR VOLUME 95 FL (80-99); MONOCYTES % (AUTO) 10.1 % (1.0-10.0); PLATELET COUNT 174 K/UL (150-450); RED BLOOD COUNT 2.89 M/UL (4.20-5.40); RED CELL DISTRIBUTION WIDTH 11.4 % (11.6-14.8); WHITE BLOOD COUNT 5.7 K/UL (4.8-10.8)
[2019-03-09 08:00] VITALS: BP 155/68
[2019-03-09] MEDS: Pantoprazole Inj IVP SCH ×2 (08:53→21:01)
[2019-03-09] MEDS: Hyzaar 50-12.5mg tab ORAL SCH (08:53)
[2019-03-09] MEDS: sitaGLIPtin 25mg tab ORAL SCH (08:53)
[2019-03-09] MEDS: Tums 500mg ORAL SCH ×2 (08:53→18:13)
--- NOTE | 2019-03-09 09:02 | General Progress Note ---
Assessment/Plan Problem List: (1) CKD (chronic kidney disease) stage 2, GFR 60-89 ml/min ICD Codes: N18.2 - Chronic kidney disease, stage 2 (mild) SNOMED: 258598228 (2) Gastrointestinal hemorrhage ICD Codes: K92.2 - Gastrointestinal hemorrhage, unspecified SNOMED: 86367830 Status: stable Assessment/Plan: transfuse prn PPI hold aspirin monitor labs added norvasc gi follow up Subjective ROS Limited/Unobtainable: No Constitutional: Reports: malaise, weakness HEENT: Reports: no symptoms Cardiovascular: Reports: no symptoms Respiratory: Reports: no symptoms Gastrointestinal/Abdominal: Reports: abdominal pain, blood in stool Genitourinary: Reports: no symptoms Neurologic/Psychiatric: Reports: no symptoms Endocrine: Reports: no symptoms Hematologic/Lymphatic: Reports: anemia Allergies: Coded Allergies: PENICILLINS (Verified Allergy, Mild, swelling, 02/28/13) ACETAMINOPHEN (Verified Allergy, Unknown, 03/09/16) CODEINE (Verified Allergy, Unknown, 03/09/16) HYDROCODONE (Verified Allergy, Unknown, 03/09/16) SULFA (SULFONAMIDE ANTIBIOTICS) (Verified Allergy, Unknown, 03/09/16) THIAMINE (VITAMIN B1) (Verified Adverse Reaction, Mild, syncope, 03/09/16) All Systems: reviewed and negative except above Subjective no gross bleeding. c/o abd pain and anorexia. Objective Last 24 Hour Vital Signs Date Time Temp Pulse Resp B/P (MAP) Pulse Ox O2 Delivery O2 Flow Rate FiO2 03/09/19 08:53 155/75 03/09/19 05:36 179/74 03/09/19 04:00 98.3 62 19 179/74 (109) 95 62 03/09/19 00:00 98.4 56 20 174/70 (104) 96 56 03/08/19 22:16 190/75 03/08/19 21:00 Room Air 03/08/19 20:00 98.7 59 20 165/73 (103) 95 59 03/08/19 16:00 99.3 85 20 136/85 (102) 95 85 03/08/19 13:46 163/83 03/08/19 11:51 97.6 62 20 180/80 (113) 97 62 03/08/19 10:04 132/71 Intake and Output 03/08/19 03/09/19 19:00 07:00 Intake Total 1635 ml 1005 ml Balance 1635 ml 1005 ml Intake Oral 960 ml 480 ml IV Total 675 ml 525 ml # Voids 5 3 # Bowel Movements 2 Laboratory Tests 03/09/19 05:10: White Blood Count 5.7, Red Blood Count 2.89L, Hemoglobin 9.3L, Hematocrit 27.4L , Mean Corpuscular Volume 95, Mean Corpuscular Hemoglobin 32.3H, Mean Corpuscular Hemoglobin Concent 34.1, Red Cell Distribution Width 11.4L, Platelet Count 174, Mean Platelet Volume 5.8L, Neutrophils (%) (Auto) 56.0, Lymphocytes (%) (Auto) 27.7, Monocytes (%) (Auto) 10.1H, Eosinophils (%) (Auto) 5.2H, Basophils (%) (Auto) 1.1 Height (Feet): 5 Height (Inches): 2.00 Weight (Pounds): 134 Objective General Appearance: WD/WN, alert Neck: supple Cardiovascular: normal peripheral pulses, normal rate, regular rhythm Respiratory/Chest: chest wall non-tender, lungs clear, normal breath sounds, no respiratory distress, no accessory muscle use, respiratory distress Edema: no edema noted Arm (L), no edema noted Arm (R), no edema noted Leg (L), no edema noted Leg (R), no edema noted Pedal (L), no edema noted Pedal (R), no edema noted Generalized Neurologic: alert, oriented x 3, responsive Ariel Gonzalez MD Mar 09, 2019 09:02
[2019-03-09 12:00] VITALS: BP 163/83
--- NOTE | 2019-03-09 15:44 | General Progress Note ---
Assessment/Plan Status: stable Assessment/Plan: Assessment - Rectal bleeding, likely recurrent diverticular bleeding - resolved - s/p EGD/Colon 08/20 --> severe diverticulosis and few colon polyps (not yet removed) - current bleeding seems limited - no plans for repeat colonoscopy, unless continues to bleed Recommendations - solids PO - monitor for rectal bleeding - outpatient colonoscopy with polypectomy - monitor H&H - possible d/c tomorrow if stable Subjective Allergies: Coded Allergies: PENICILLINS (Verified Allergy, Mild, swelling, 02/28/13) ACETAMINOPHEN (Verified Allergy, Unknown, 03/09/16) CODEINE (Verified Allergy, Unknown, 03/09/16) HYDROCODONE (Verified Allergy, Unknown, 03/09/16) SULFA (SULFONAMIDE ANTIBIOTICS) (Verified Allergy, Unknown, 03/09/16) THIAMINE (VITAMIN B1) (Verified Adverse Reaction, Mild, syncope, 03/09/16) Subjective above noted no further rectal bleeding H&H noted Objective Last 24 Hour Vital Signs Date Time Temp Pulse Resp B/P (MAP) Pulse Ox O2 Delivery O2 Flow Rate FiO2 03/09/19 13:14 169/85 03/09/19 12:00 98.2 85 16 163/83 (109) 97 03/09/19 12:00 98.1 85 18 163/83 (109) 99 85 03/09/19 10:39 81 155/71 03/09/19 09:00 Room Air 03/09/19 08:53 155/75 03/09/19 08:00 98.2 85 16 155/68 (97) 99 03/09/19 05:36 179/74 03/09/19 04:00 98.3 62 19 179/74 (109) 95 62 03/09/19 00:00 98.4 56 20 174/70 (104) 96 56 03/08/19 22:16 190/75 03/08/19 21:00 Room Air 03/08/19 20:00 98.7 59 20 165/73 (103) 95 59 03/08/19 16:00 99.3 85 20 136/85 (102) 95 85 Intake and Output 03/08/19 03/09/19 19:00 07:00 Intake Total 1635 ml 1005 ml Balance 1635 ml 1005 ml Intake Oral 960 ml 480 ml IV Total 675 ml 525 ml # Voids 5 3 # Bowel Movements 2 Laboratory Tests 03/09/19 05:10: White Blood Count 5.7, Red Blood Count 2.89L, Hemoglobin 9.3L, Hematocrit 27.4L , Mean Corpuscular Volume 95, Mean Corpuscular Hemoglobin 32.3H, Mean Corpuscular Hemoglobin Concent 34.1, Red Cell Distribution Width 11.4L, Platelet Count 174, Mean Platelet Volume 5.8L, Neutrophils (%) (Auto) 56.0, Lymphocytes (%) (Auto) 27.7, Monocytes (%) (Auto) 10.1H, Eosinophils (%) (Auto) 5.2H, Basophils (%) (Auto) 1.1 Height (Feet): 5 Height (Inches): 2.00 Weight (Pounds): 134 Gabino Sen MD Mar 09, 2019 15:44
[2019-03-09 16:00] VITALS: BP 144/74
[2019-03-09 20:00] VITALS: BP 152/78
[2019-03-09 20:34] LABS: APPEARANCE,URINE CLEAR; BILIRUBIN, URINE NEGATIVE (NEGATIVE); COLOR,URINE PALE YELLOW; GLUCOSE, URINE (UA) 4+ (NEGATIVE); KETONES,URINE NEGATIVE (NEGATIVE); LEUKOCYTE ESTERASE ,URINE NEGATIVE (NEGATIVE); NITRITE,URINE NEGATIVE (NEGATIVE); PH,URINE 6 (4.5-8.0); PROTEIN,URINE 1+ (NEGATIVE); UROBILINOGEN,URINE NORMAL MG/DL (0.0-1.0)
[2019-03-09] MEDS: Atorvastatin 20mg tab ORAL SCH (21:02)
[2019-03-10 00:59] VITALS: BP 175/76
--- NOTE | 2019-03-10 03:15 | Progress Note ---
DATE: 03/09/2019 CARDIOLOGY PROGRESS NOTE SUBJECTIVE: The patient has no chest pain or shortness of breath. No new bleeding from GI tract noted. She has not had a packed red blood cell transfusion since 03/07/2019. OBJECTIVE: VITAL SIGNS: Blood pressure remains elevated at 179/74, heart rate 62, respiratory rate 19, afebrile. NECK: Supple. Jugular venous pressure normal. LUNGS: Clear. CARDIAC: Regular. Normal S1, S2 with a fourth heart sound. ABDOMEN: Soft. EXTREMITIES: Trace edema. LABORATORY DATA: White count 5.7, hemoglobin 9.3. IMPRESSION: 1. GI bleed, likely diverticular. 2. Hypertensive heart disease with rising blood pressure trend. 3. Type 2 diabetes mellitus with complications. 4. Acute on chronic kidney injury. PLAN: 1. Continue hydration. 2. Recheck chemistry panel. 3. Agree with addition of amlodipine. 4. Avoid anti-platelet and anticoagulant. 5. Continue clonidine p.r.n. for blood pressure spikes. 6. Discontinue thiazide diuretic for now. Dex De La Torre M.D. DR: ALBA JOB#: [id number] CC:
--- NOTE | 2019-03-10 03:15 | Consultation ---
DATE OF CONSULTATION: 03/08/2019 CARDIOLOGY CONSULTATION CONSULTING PHYSICIAN: Dex De La Torre M.D. REFERRING PHYSICIAN: Ariel Gonzalez M.D. REASON FOR CONSULTATION: Uncontrolled hypertension. HISTORY OF PRESENT ILLNESS: This is a 78-year-old female. She was admitted to the hospital on March 06 with rectal bleeding, which has subsided since she has been on a liquid diet. She has not had any chest pain or shortness of breath. Her blood pressure parameters have been labile. PAST MEDICAL HISTORY: Hypertension, degenerative disk disease, lumbosacral stenosis, osteoarthritis, type 2 diabetes mellitus, chronic kidney disease, diabetic neuropathy, diverticulosis, colonic polyposis, and hypothyroidism. ALLERGIES: Include codeine, penicillin, sulfa, hydrocodone, and acetaminophen. FAMILY HISTORY: Noncontributory. SOCIAL HISTORY: Negative for smoking, alcohol, or substance abuse. MEDICATIONS: Prior to admission, reviewed and reconciled. REVIEW OF SYSTEMS: An outpatient echocardiogram revealed normal ejection fraction, concentric hypertrophy, diastolic relaxation abnormality, no significant valvular pathology, and mild degenerative valve disease. There is no history of flow-limiting coronary artery disease. There is no history of abnormal blood clotting. There is no history of COPD or positive PPD. PHYSICAL EXAMINATION: VITAL SIGNS: Blood pressure ranging from 121/82 to 190/75, heart rate 59 to 85, and respiratory rate 20. Afebrile. NECK: Jugular venous pressure normal. LUNGS: Clear. CARDIAC: Regular, normal S1, S2 with a fourth heart sound. ABDOMEN: Soft and nontender. EXTREMITIES: No clubbing, cyanosis, or edema. NEUROLOGIC: Nonfocal. LABORATORY DATA: Hemoglobin today 9.9 following transfusion. BUN 65, creatinine 2.1 on admission. Urinalysis with 4+ glucose, otherwise 1+ protein. IMPRESSION: 1. Gastrointestinal bleeding, likely diverticular. 2. Anemia, status post transfusion. 3. Hypertensive heart disease with labile blood pressure. 4. Type 2 diabetes mellitus with hyperglycemia. 5. Acute on chronic kidney injury. PLAN: 1. Monitor hemoglobin. 2. Cautiously hydrate. 3. P.r.n. antihypertensives. 4. Continue additional antihypertensives for consistently elevated blood pressure readings. 5. DVT prophylaxis with SCDs. 6. No anti-platelet or anticoagulation therapy at this time. Dex De La Torre M.D. DR: ELENA JOB#: [id number] CC:
[2019-03-10 04:59] VITALS: BP 177/93
[2019-03-10 06:11] LABS: ALANINE AMINOTRANSFERASE 16 U/L (12-78); ALBUMIN 2.7 G/DL (3.4-5.0); ALBUMIN/GLOBULIN RATIO 0.8 (1.0-2.7); ALKALINE PHOSPHATASE 102 U/L (46-116); ANION GAP 5 mmol/L (5-15); ASPARTATE AMINO TRANSFERASE 19 U/L (15-37); BILIRUBIN,TOTAL 0.4 MG/DL (0.2-1.0); BLOOD UREA NITROGEN 16 mg/dL (7-18); CALCIUM 8.4 MG/DL (8.5-10.1); CARBON DIOXIDE 31 MMOL/L (21-32); CHLORIDE 108 MMOL/L (98-107); CREATININE 1.3 MG/DL (0.55-1.30); POTASSIUM 3.9 MMOL/L (3.5-5.1); SODIUM 144 MMOL/L (136-145)
[2019-03-10 06:12] LABS: BASOPHILS % (AUTO) 1.2 % (0.0-2.0); EOSINOPHILS % (AUTO) 4.8 % (0.0-3.0); HEMATOCRIT 29.2 % (37.0-47.0); HEMOGLOBIN 9.8 G/DL (12.0-16.0); LYMPHOCYTES % (AUTO) 19.2 % (20.0-45.0); MEAN CORPUSCULAR VOLUME 94 FL (80-99); MONOCYTES % (AUTO) 8.8 % (1.0-10.0); NEUTROPHILS % (AUTO) 65.9 % (45.0-75.0); PLATELET COUNT 168 K/UL (150-450); RED BLOOD COUNT 3.09 M/UL (4.20-5.40); RED CELL DISTRIBUTION WIDTH 11.5 % (11.6-14.8); WHITE BLOOD COUNT 6.8 K/UL (4.8-10.8)
[2019-03-10 08:00] VITALS: BP 185/82
[2019-03-10] MEDS: Losartan 50mg tab ORAL SCH (08:49)
[2019-03-10] MEDS: sitaGLIPtin 25mg tab ORAL SCH (08:49)
[2019-03-10] MEDS: Tums 500mg ORAL SCH ×2 (08:49→17:08)
[2019-03-10] MEDS: Pantoprazole Inj IVP SCH ×2 (08:50→21:22)
[2019-03-10 12:00] VITALS: BP 194/86
[2019-03-10 16:00] VITALS: BP 136/62
[2019-03-10] MEDS: HydrALAZINE 50mg tab ORAL SCH (17:09)
--- NOTE | 2019-03-10 17:17 | General Progress Note ---
Assessment/Plan Problem List: (1) CKD (chronic kidney disease) stage 2, GFR 60-89 ml/min ICD Codes: N18.2 - Chronic kidney disease, stage 2 (mild) SNOMED: 814936889 (2) Gastrointestinal hemorrhage ICD Codes: K92.2 - Gastrointestinal hemorrhage, unspecified SNOMED: 67270817 Status: stable Assessment/Plan: transfuse prn PPI hold aspirin monitor labs titrate bp rx gi follow up replace lytes Subjective ROS Limited/Unobtainable: No Constitutional: Reports: malaise, weakness HEENT: Reports: no symptoms Cardiovascular: Reports: no symptoms Respiratory: Reports: no symptoms Gastrointestinal/Abdominal: Reports: blood in stool Genitourinary: Reports: no symptoms Neurologic/Psychiatric: Reports: no symptoms Endocrine: Reports: no symptoms Hematologic/Lymphatic: Reports: no symptoms Allergies: Coded Allergies: PENICILLINS (Verified Allergy, Mild, swelling, 02/28/13) ACETAMINOPHEN (Verified Allergy, Unknown, 03/09/16) CODEINE (Verified Allergy, Unknown, 03/09/16) HYDROCODONE (Verified Allergy, Unknown, 03/09/16) SULFA (SULFONAMIDE ANTIBIOTICS) (Verified Allergy, Unknown, 03/09/16) THIAMINE (VITAMIN B1) (Verified Adverse Reaction, Mild, syncope, 03/09/16) All Systems: reviewed and negative except above Subjective no gross bleeding. c/o abd pain and anorexia. h/h stable Objective Last 24 Hour Vital Signs Date Time Temp Pulse Resp B/P (MAP) Pulse Ox O2 Delivery O2 Flow Rate FiO2 03/10/19 17:09 134/62 03/10/19 17:09 63 134/62 03/10/19 16:00 98.0 60 15 136/62 (86) 95 03/10/19 12:00 98.2 59 15 194/86 (122) 95 03/10/19 11:19 194/86 03/10/19 09:00 Room Air 03/10/19 08:49 185/82 03/10/19 08:49 64 185/82 03/10/19 08:00 98.4 64 14 185/82 (116) 95 03/10/19 05:38 177/93 03/10/19 04:59 98.7 75 16 177/93 (121) 96 03/10/19 01:05 175/76 03/10/19 00:59 98.9 62 17 175/76 (109) 96 03/09/19 21:02 152/78 03/09/19 21:00 Room Air 03/09/19 20:00 98.8 64 16 152/78 (102) 94 Intake and Output 03/09/19 03/10/19 19:00 07:00 Intake Total 240 ml 400 ml Balance 240 ml 400 ml Intake Oral 240 ml 400 ml # Voids 5 Laboratory Tests 03/09/19 19:30: Urine Color Pale yellow, Urine Appearance Clear, Urine pH 6, Urine Specific [place] 1.005, Urine Protein 1+H, Urine Glucose (UA) 4+H, Urine Ketones Negative , Urine Blood Negative, Urine Nitrite Negative, Urine Bilirubin Negative, Urine Urobilinogen Normal, Urine Leukocyte Esterase Negative, Urine RBC 0, Urine WBC 0 -2, Urine Squamous Epithelial Cells Few, Urine Bacteria Occasional, Urine Mucus FewH, Urine Random Creatinine [Pending], Urine Random Microalbumin [Pending], Urine Microalbumin/Creatinine Ratio [Pending] 03/10/19 05:15: White Blood Count 6.8, Red Blood Count 3.09L, Hemoglobin 9.8L, Hematocrit 29.2L , Mean Corpuscular Volume 94, Mean Corpuscular Hemoglobin 31.7H, Mean Corpuscular Hemoglobin Concent 33.5, Red Cell Distribution Width 11.5L, Platelet Count 168, Mean Platelet Volume 5.7L, Neutrophils (%) (Auto) 65.9, Lymphocytes (%) (Auto) 19.2L, Monocytes (%) (Auto) 8.8, Eosinophils (%) (Auto) 4.8H, Basophils (%) (Auto) 1.2, Sodium Level 144, Potassium Level 3.9, Chloride Level 108H, Carbon Dioxide Level 31, Anion Gap 5, Blood Urea Nitrogen 16, Creatinine 1.3, Estimat Glomerular Filtration Rate , Glucose Level 278H, Calcium Level 8.4L, Magnesium Level 1.4L, Total Bilirubin 0.4, Aspartate Amino Transf (AST/SGOT) 19, Alanine Aminotransferase (ALT/SGPT) 16, Alkaline Phosphatase 102, Total Protein 6.1L, Albumin 2.7L, Globulin 3.4, Albumin/ Globulin Ratio 0.8L Height (Feet): 5 Height (Inches): 2.00 Weight (Pounds): 134 Objective General Appearance: WD/WN, alert Neck: supple Cardiovascular: normal peripheral pulses, normal rate, regular rhythm Respiratory/Chest: chest wall non-tender, lungs clear, normal breath sounds, no respiratory distress, no accessory muscle use, respiratory distress Edema: no edema noted Arm (L), no edema noted Arm (R), no edema noted Leg (L), no edema noted Leg (R), no edema noted Pedal (L), no edema noted Pedal (R), no edema noted Generalized Neurologic: alert, oriented x 3, responsive Ariel Gonzalez MD Mar 10, 2019 17:17
--- NOTE | 2019-03-10 19:15 | Consultation ---
DATE OF CONSULTATION: 03/10/2019 NEPHROLOGY CONSULTATION CONSULTING PHYSICIAN: Steve Mitchell M.D. REFERRING PHYSICIAN: Ariel Gonzalez M.D. REASON FOR CONSULTATION: Abnormal renal function, acute kidney injury. HISTORY OF PRESENT ILLNESS: The patient presented on 03/06/2019 with rectal bleeding. She has had this apparently in the past and had history of polypectomies and diverticular disease. There was no abdominal pain. The patient has a long history of diabetes more than 20 years. No definite history of diabetic retinopathy or neuropathy. On 03/06/2018, she presented with a BUN of 65 and creatinine 2.1 and normal electrolytes. Her albumin is 3.2. She has now had GI evaluation during this admission and polypectomy. ALLERGIES: Questionable to Tylenol, codeine, hydrocodone, penicillin, sulfa, and thiamine. MEDICATIONS: Reviewed on the computer and include atorvastatin, calcium carbonate, clonidine, Nexium, ferrous sulfate, glipizide, Boniva, ibuprofen, Synthroid, losartan, hydrochlorothiazide, metformin, Protonix, potassium, prochlorperazine, tramadol, Januvia. SURGERIES: Only for colonic polyps. Rectum. HABITS: She is a nondrinker and nonsmoker. SYSTEM REVIEW: HEAD, EYES, EARS, NOSE, AND THROAT: She wears eye glasses. No known diabetic retinopathy. Hearing is good. ENDOCRINE: Long-standing diabetes. PULMONARY: No asthma or TB. CARDIAC: No angina or MO. There is a history of hypertension. GASTROINTESTINAL: GI bleeding evaluation on this admission. GENITOURINARY: No dysuria, hematuria, or kidney stones. MUSCULOSKELETAL: She has some mild generalized arthritis. NEUROLOGIC: No CVA or syncope. PHYSICAL EXAMINATION: VITAL SIGNS: Blood pressure 194/86, repeat 136/62, temperature 98.2, pulse 59. HEAD, EYES, EARS, NOSE, AND THROAT: Sclerae are nonicteric. Ocular motions intact in all directions. Oral mucosa is moist. NECK: No adenopathy or thyroid enlargement. LUNGS: Clear. HEART: Regular rhythm. No murmur. ABDOMEN: Soft without organomegaly or masses. EXTREMITIES: No edema, cyanosis, or clubbing. PERTINENT LABORATORIES: Repeat BUN 16 and creatinine 1.3 after hydration. Albumin is 2.7 after hydration. Urinalysis showed 1+ protein on admission. Microalbumin is pending. IMPRESSION: 1. Acute kidney injury secondary to dehydration. 2. Mild proteinuria, likely diabetic nephropathy. 3. Blood pressure, poorly controlled. PLAN: I would continue on ERIKA and ARB and titrate blood pressure gradually and at this time, I increased her amlodipine from 5 to 10 mg daily and possibly addition of hydralazine. We will watch her closely in view of her comorbidities. Thank you so much for allowing me to participate in the care of this patient. Steve Mitchell M.D. DR: CELESTINO JOB#: [id number] CC:
[2019-03-10 20:00] VITALS: BP 134/64
--- NOTE | 2019-03-10 20:50 | General Progress Note ---
Assessment/Plan Status: stable Assessment/Plan: Assessment - Rectal bleeding, likely recurrent diverticular bleeding - resolved - s/p EGD/Colon 08/20 --> severe diverticulosis and few colon polyps (not yet removed) - current bleeding seems limited - no plans for repeat colonoscopy, unless continues to bleed Recommendations - solids PO - monitor for rectal bleeding - outpatient colonoscopy with polypectomy - monitor H&H - d/c planning Subjective Allergies: Coded Allergies: PENICILLINS (Verified Allergy, Mild, swelling, 02/28/13) ACETAMINOPHEN (Verified Allergy, Unknown, 03/09/16) CODEINE (Verified Allergy, Unknown, 03/09/16) HYDROCODONE (Verified Allergy, Unknown, 03/09/16) SULFA (SULFONAMIDE ANTIBIOTICS) (Verified Allergy, Unknown, 03/09/16) THIAMINE (VITAMIN B1) (Verified Adverse Reaction, Mild, syncope, 03/09/16) Subjective above noted no further rectal bleeding H&H noted tolerating PO Objective Last 24 Hour Vital Signs Date Time Temp Pulse Resp B/P (MAP) Pulse Ox O2 Delivery O2 Flow Rate FiO2 03/10/19 17:09 134/62 03/10/19 17:09 63 134/62 03/10/19 16:00 98.0 60 15 136/62 (86) 95 03/10/19 12:00 98.2 59 15 194/86 (122) 95 03/10/19 11:19 194/86 03/10/19 09:00 Room Air 03/10/19 08:49 185/82 03/10/19 08:49 64 185/82 03/10/19 08:00 98.4 64 14 185/82 (116) 95 03/10/19 05:38 177/93 03/10/19 04:59 98.7 75 16 177/93 (121) 96 03/10/19 01:05 175/76 03/10/19 00:59 98.9 62 17 175/76 (109) 96 03/09/19 21:02 152/78 03/09/19 21:00 Room Air Intake and Output 03/09/19 03/10/19 19:00 07:00 Intake Total 240 ml 400 ml Balance 240 ml 400 ml Intake Oral 240 ml 400 ml # Voids 5 Laboratory Tests 03/10/19 05:15: White Blood Count 6.8, Red Blood Count 3.09L, Hemoglobin 9.8L, Hematocrit 29.2L , Mean Corpuscular Volume 94, Mean Corpuscular Hemoglobin 31.7H, Mean Corpuscular Hemoglobin Concent 33.5, Red Cell Distribution Width 11.5L, Platelet Count 168, Mean Platelet Volume 5.7L, Neutrophils (%) (Auto) 65.9, Lymphocytes (%) (Auto) 19.2L, Monocytes (%) (Auto) 8.8, Eosinophils (%) (Auto) 4.8H, Basophils (%) (Auto) 1.2, Sodium Level 144, Potassium Level 3.9, Chloride Level 108H, Carbon Dioxide Level 31, Anion Gap 5, Blood Urea Nitrogen 16, Creatinine 1.3, Estimat Glomerular Filtration Rate , Glucose Level 278H, Calcium Level 8.4L, Magnesium Level 1.4L, Total Bilirubin 0.4, Aspartate Amino Transf (AST/SGOT) 19, Alanine Aminotransferase (ALT/SGPT) 16, Alkaline Phosphatase 102, Total Protein 6.1L, Albumin 2.7L, Globulin 3.4, Albumin/ Globulin Ratio 0.8L Height (Feet): 5 Height (Inches): 2.00 Weight (Pounds): 134 Gabino Sen MD Mar 10, 2019 20:50
[2019-03-10] MEDS: Atorvastatin 20mg tab ORAL SCH (21:21)
--- NOTE | 2019-03-10 21:45 | Progress Note ---
DATE: 03/10/2019 CARDIOLOGY PROGRESS NOTE SUBJECTIVE: Feeling better now. Renal function has improved. No new bleeding. OBJECTIVE: VITAL SIGNS: Blood pressure 194/86, now 136/62, pulse 60, , afebrile. LUNGS: Clear. CARDIAC: Regular. Normal S1, S2 with a fourth heart sound. ABDOMEN: Soft. EXTREMITIES: No edema. LABORATORY DATA: White count 6.8, hemoglobin 9.8. Potassium 3.9, magnesium 1.4. BUN 16, creatinine 1.3. Albumin 2.7. IMPRESSION: 1. GI bleeding, likely diverticular. 2. Anemia, status post transfusion, now stable. 3. Hypomagnesemia. 4. Type 2 diabetes mellitus with hyperglycemia. 5. Hypertensive heart disease with labile blood pressure. PLAN: 1. IV magnesium. 2. Serial hemoglobin. 3. No anti-platelet drugs. 4. Titrate antihypertensives. 5. thiazide diuretic. 6. Advance diabetic regimen. Dex De La Torre M.D. DR: WILVER JOB#: [id number] CC:
[2019-03-11] VITALS (7 sets, daily range): BP systolic 112–132; BP diastolic 52–64
[2019-03-11 05:51] LABS: EOSINOPHILS % (AUTO) 4.2 % (0.0-3.0); HEMATOCRIT 27.9 % (37.0-47.0); HEMOGLOBIN 9.7 G/DL (12.0-16.0); MEAN CORPUSCULAR VOLUME 94 FL (80-99); MONOCYTES % (AUTO) 8.7 % (1.0-10.0); PLATELET COUNT 195 K/UL (150-450); RED BLOOD COUNT 2.97 M/UL (4.20-5.40); WHITE BLOOD COUNT 6.8 K/UL (4.8-10.8)
[2019-03-11] MEDS: metFORMIN 500mg tab ORAL SCH ×2 (05:52→11:35)
[2019-03-11 06:18] LABS: ANION GAP 7 mmol/L (5-15); BLOOD UREA NITROGEN 29 mg/dL (7-18); CALCIUM 8.4 MG/DL (8.5-10.1); CARBON DIOXIDE 28 MMOL/L (21-32); CHLORIDE 104 MMOL/L (98-107); CREATININE 1.5 MG/DL (0.55-1.30); POTASSIUM 3.8 MMOL/L (3.5-5.1); SODIUM 139 MMOL/L (136-145)
--- NOTE | 2019-03-11 06:58 | General Progress Note ---
Assessment/Plan Problem List: (1) CKD (chronic kidney disease) stage 2, GFR 60-89 ml/min ICD Codes: N18.2 - Chronic kidney disease, stage 2 (mild) SNOMED: 617081540 (2) Gastrointestinal hemorrhage ICD Codes: K92.2 - Gastrointestinal hemorrhage, unspecified SNOMED: 74292968 Status: stable Assessment/Plan: transfuse prn PPI hold aspirin monitor labs titrate bp rx gi follow up replace lytes bowel regime Subjective ROS Limited/Unobtainable: No Constitutional: Reports: malaise, weakness HEENT: Reports: no symptoms Cardiovascular: Reports: no symptoms Respiratory: Reports: no symptoms Gastrointestinal/Abdominal: Reports: rectal bleeding Genitourinary: Reports: no symptoms Neurologic/Psychiatric: Reports: no symptoms Endocrine: Reports: no symptoms Hematologic/Lymphatic: Reports: anemia Allergies: Coded Allergies: PENICILLINS (Verified Allergy, Mild, swelling, 02/28/13) ACETAMINOPHEN (Verified Allergy, Unknown, 03/09/16) CODEINE (Verified Allergy, Unknown, 03/09/16) HYDROCODONE (Verified Allergy, Unknown, 03/09/16) SULFA (SULFONAMIDE ANTIBIOTICS) (Verified Allergy, Unknown, 03/09/16) THIAMINE (VITAMIN B1) (Verified Adverse Reaction, Mild, syncope, 03/09/16) All Systems: reviewed and negative except above Subjective no gross bleeding. c/o abd pain and anorexia. h/h stable no BMs for several days now. tolerating po Objective Last 24 Hour Vital Signs Date Time Temp Pulse Resp B/P (MAP) Pulse Ox O2 Delivery O2 Flow Rate FiO2 03/11/19 05:52 132/61 03/11/19 04:00 97.2 63 16 132/61 (84) 96 03/11/19 00:00 97.0 70 16 114/60 (78) 95 03/10/19 21:22 134/64 03/10/19 21:00 Room Air 03/10/19 20:00 97.8 73 16 134/64 (87) 96 03/10/19 17:09 134/62 03/10/19 17:09 63 134/62 03/10/19 16:00 98.0 60 15 136/62 (86) 95 03/10/19 12:00 98.2 59 15 194/86 (122) 95 03/10/19 11:19 194/86 03/10/19 09:00 Room Air 03/10/19 08:49 185/82 03/10/19 08:49 64 185/82 03/10/19 08:00 98.4 64 14 185/82 (116) 95 Intake and Output 03/10/19 03/11/19 19:00 07:00 Intake Total 420 ml Balance 420 ml Intake Oral 420 ml # Voids 3 4 Laboratory Tests 03/11/19 05:10: White Blood Count 6.8, Red Blood Count 2.97L, Hemoglobin 9.7L, Hematocrit 27.9L , Mean Corpuscular Volume 94, Mean Corpuscular Hemoglobin 32.6H, Mean Corpuscular Hemoglobin Concent 34.7, Red Cell Distribution Width 11.0L, Platelet Count 195, Mean Platelet Volume 5.8L, Neutrophils (%) (Auto) 66.0, Lymphocytes (%) (Auto) 20.0, Monocytes (%) (Auto) 8.7, Eosinophils (%) (Auto) 4.2H, Basophils (%) (Auto) 1.0, Sodium Level 139, Potassium Level 3.8, Chloride Level 104, Carbon Dioxide Level 28, Anion Gap 7, Blood Urea Nitrogen 29H, Creatinine 1.5H, Estimat Glomerular Filtration Rate , Glucose Level 295H, Calcium Level 8.4L Height (Feet): 5 Height (Inches): 2.00 Weight (Pounds): 134 Objective General Appearance: WD/WN, alert Neck: supple Cardiovascular: normal peripheral pulses, normal rate, regular rhythm Respiratory/Chest: chest wall non-tender, lungs clear, normal breath sounds, no respiratory distress, no accessory muscle use, respiratory distress Edema: no edema noted Arm (L), no edema noted Arm (R), no edema noted Leg (L), no edema noted Leg (R), no edema noted Pedal (L), no edema noted Pedal (R), no edema noted Generalized Neurologic: alert, oriented x 3, responsive Ariel Gonzalez MD Mar 11, 2019 06:58
[2019-03-11] MEDS ORDERED: Milk of Magnesia 30ml Ud ORAL PRN (07:00)
[2019-03-11] MEDS: Pantoprazole Inj IVP SCH ×2 (08:31→20:28)
[2019-03-11] MEDS: Losartan 50mg tab ORAL SCH (08:32)
[2019-03-11] MEDS: Docusate 100mg cap ORAL SCH ×2 (08:32→17:48)
[2019-03-11] MEDS: Tums 500mg ORAL SCH ×2 (08:32→17:49)
[2019-03-11] MEDS: HydrALAZINE 50mg tab ORAL SCH ×2 (08:34→17:48)
[2019-03-11] MEDS ORDERED: sitaGLIPtin 50mg tab ORAL SCH (09:00)
--- NOTE | 2019-03-11 18:48 | Nephrology Progress Note ---
Assessment/Plan Problem List: (1) Hypomagnesemia (2) Dehydration (3) History of GI diverticular bleed (4) Bright red blood per rectum (5) [id number]-ga-[id number] renal failure (6) CKD (chronic kidney disease) stage 2, GFR 60-89 ml/min (7) Gastrointestinal hemorrhage Plan GI eval, replace Mg, keep hydrated Subjective Constitutional: Reports: weakness HEENT: Reports: no symptoms Genitourinary: Reports: no symptoms Neurologic/Psychiatric: Reports: no symptoms Objective Objective Last 24 Hour Vital Signs Date Time Temp Pulse Resp B/P (MAP) Pulse Ox O2 Delivery O2 Flow Rate FiO2 03/11/19 17:48 133/63 03/11/19 17:48 87 133/63 03/11/19 16:00 98.4 74 18 119/59 (79) 95 03/11/19 13:54 77 112/54 (73) 03/11/19 13:54 112/54 03/11/19 12:00 98.3 66 18 122/52 (75) 95 03/11/19 09:05 Room Air 03/11/19 08:34 132/64 03/11/19 08:32 69 132/64 03/11/19 08:32 132/64 03/11/19 08:00 97.8 69 18 132/64 (86) 95 03/11/19 05:52 132/61 03/11/19 04:00 97.2 63 16 132/61 (84) 96 03/11/19 00:00 97.0 70 16 114/60 (78) 95 03/10/19 21:22 134/64 03/10/19 21:00 Room Air 03/10/19 20:00 97.8 73 16 134/64 (87) 96 Intake and Output 03/10/19 03/11/19 19:00 07:00 Intake Total 420 ml Balance 420 ml Intake Oral 420 ml # Voids 3 4 Laboratory Tests 03/11/19 05:10: White Blood Count 6.8, Red Blood Count 2.97L, Hemoglobin 9.7L, Hematocrit 27.9L , Mean Corpuscular Volume 94, Mean Corpuscular Hemoglobin 32.6H, Mean Corpuscular Hemoglobin Concent 34.7, Red Cell Distribution Width 11.0L, Platelet Count 195, Mean Platelet Volume 5.8L, Neutrophils (%) (Auto) 66.0, Lymphocytes (%) (Auto) 20.0, Monocytes (%) (Auto) 8.7, Eosinophils (%) (Auto) 4.2H, Basophils (%) (Auto) 1.0, Sodium Level 139, Potassium Level 3.8, Chloride Level 104, Carbon Dioxide Level 28, Anion Gap 7, Blood Urea Nitrogen 29H, Creatinine 1.5H, Estimat Glomerular Filtration Rate , Glucose Level 295H, Calcium Level 8.4L Height (Feet): 5 Height (Inches): 2.00 Weight (Pounds): 134 General Appearance: no apparent distress, alert EENT: normal ENT inspection Neck: normal alignment Cardiovascular: normal rate Respiratory/Chest: lungs clear Abdomen: non tender Extremities: no edema 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
[2019-03-11] MEDS: Atorvastatin 20mg tab ORAL SCH (20:28)
--- NOTE | 2019-03-11 21:23 | General Progress Note ---
Assessment/Plan Status: stable Assessment/Plan: Assessment - Rectal bleeding, likely recurrent diverticular bleeding - resolved - s/p EGD/Colon 08/20 --> severe diverticulosis and few colon polyps (not yet removed) - current bleeding seems limited - no plans for repeat colonoscopy, unless continues to bleed Recommendations - solids PO - monitor for rectal bleeding - outpatient colonoscopy with polypectomy - monitor H&H - d/c planning Subjective Allergies: Coded Allergies: PENICILLINS (Verified Allergy, Mild, swelling, 02/28/13) ACETAMINOPHEN (Verified Allergy, Unknown, 03/09/16) CODEINE (Verified Allergy, Unknown, 03/09/16) HYDROCODONE (Verified Allergy, Unknown, 03/09/16) SULFA (SULFONAMIDE ANTIBIOTICS) (Verified Allergy, Unknown, 03/09/16) THIAMINE (VITAMIN B1) (Verified Adverse Reaction, Mild, syncope, 03/09/16) Subjective above noted no further rectal bleeding H&H noted tolerating PO Objective Last 24 Hour Vital Signs Date Time Temp Pulse Resp B/P (MAP) Pulse Ox O2 Delivery O2 Flow Rate FiO2 03/11/19 20:00 98.2 88 16 127/53 (77) 95 03/11/19 17:48 133/63 03/11/19 17:48 87 133/63 03/11/19 16:00 98.4 74 18 119/59 (79) 95 03/11/19 13:54 77 112/54 (73) 03/11/19 13:54 112/54 03/11/19 12:00 98.3 66 18 122/52 (75) 95 03/11/19 09:05 Room Air 03/11/19 08:34 132/64 03/11/19 08:32 69 132/64 03/11/19 08:32 132/64 03/11/19 08:00 97.8 69 18 132/64 (86) 95 03/11/19 05:52 132/61 03/11/19 04:00 97.2 63 16 132/61 (84) 96 03/11/19 00:00 97.0 70 16 114/60 (78) 95 Intake and Output 03/10/19 03/11/19 19:00 07:00 Intake Total 420 ml Balance 420 ml Intake Oral 420 ml # Voids 3 4 Laboratory Tests 03/11/19 05:10: White Blood Count 6.8, Red Blood Count 2.97L, Hemoglobin 9.7L, Hematocrit 27.9L , Mean Corpuscular Volume 94, Mean Corpuscular Hemoglobin 32.6H, Mean Corpuscular Hemoglobin Concent 34.7, Red Cell Distribution Width 11.0L, Platelet Count 195, Mean Platelet Volume 5.8L, Neutrophils (%) (Auto) 66.0, Lymphocytes (%) (Auto) 20.0, Monocytes (%) (Auto) 8.7, Eosinophils (%) (Auto) 4.2H, Basophils (%) (Auto) 1.0, Sodium Level 139, Potassium Level 3.8, Chloride Level 104, Carbon Dioxide Level 28, Anion Gap 7, Blood Urea Nitrogen 29H, Creatinine 1.5H, Estimat Glomerular Filtration Rate , Glucose Level 295H, Calcium Level 8.4L Height (Feet): 5 Height (Inches): 2.00 Weight (Pounds): 134 Gabino Sen MD Mar 11, 2019 21:23
[2019-03-12] VITALS: BP 133/59
[2019-03-12 04:00] VITALS: BP 129/61
--- NOTE | 2019-03-12 04:00 | Progress Note ---
DATE: 03/11/2019 CARDIOLOGY PROGRESS NOTE SUBJECTIVE: Tolerating diet. No new bleeding. Blood pressure parameters now stabilized. No shortness of breath. PHYSICAL EXAMINATION: VITAL SIGNS: Blood pressure 132/63, pulse 87, and respiratory rate 18. LUNGS: Clear. CARDIAC: Regular. ABDOMEN: Soft. EXTREMITIES: No edema. LABORATORY DATA: Hemoglobin 9.7. IMPRESSION: 1. No recurring GI bleeding, likely diverticular in etiology. 2. Improved renal function following hydration. 3. Anemia, status post transfusion. 4. Hypertensive heart disease, now with controlled blood pressure. 5. Hypomagnesemia, status post replacement therapy. PLAN: 1. Maintain adequate hydration. 2. No resumption of thiazide diuretic. 3. Outpatient followup regarding blood counts. 4. Magnesium replacement. Dex De La Torre M.D. DR: STACEY JOB#: [id number] CC:
[2019-03-12 05:30] LABS: BASOPHILS % (AUTO) 0.8 % (0.0-2.0); EOSINOPHILS % (AUTO) 3.9 % (0.0-3.0); HEMATOCRIT 29.2 % (37.0-47.0); HEMOGLOBIN 9.8 G/DL (12.0-16.0); LYMPHOCYTES % (AUTO) 15.5 % (20.0-45.0); MEAN CORPUSCULAR VOLUME 94 FL (80-99); MONOCYTES % (AUTO) 8.8 % (1.0-10.0); PLATELET COUNT 216 K/UL (150-450); RED BLOOD COUNT 3.09 M/UL (4.20-5.40); RED CELL DISTRIBUTION WIDTH 11.6 % (11.6-14.8); WHITE BLOOD COUNT 7.6 K/UL (4.8-10.8)
[2019-03-12 05:39] LABS: ANION GAP 7 mmol/L (5-15); BLOOD UREA NITROGEN 28 mg/dL (7-18); CALCIUM 8.5 MG/DL (8.5-10.1); CARBON DIOXIDE 28 MMOL/L (21-32); CHLORIDE 107 MMOL/L (98-107); CREATININE 1.7 MG/DL (0.55-1.30); SODIUM 142 MMOL/L (136-145)
[2019-03-12 08:00] VITALS: BP 136/72
[2019-03-12] MEDS: Tums 500mg ORAL SCH (08:32)
[2019-03-12] MEDS: Docusate 100mg cap ORAL SCH (08:33)
[2019-03-12] MEDS: Losartan 50mg tab ORAL SCH (08:33)
[2019-03-12] MEDS: HydrALAZINE 50mg tab ORAL SCH (08:33)
[2019-03-12] MEDS: Pantoprazole Inj IVP SCH (08:34)
[2019-03-12] MEDS: Magnesium Oxide 400mg tab ORAL SCH ×2 (08:34→13:14)
[2019-03-12] MEDS ORDERED: sitaGLIPtin 25mg tab ORAL SCH (09:00)
[2019-03-12 12:00] VITALS: BP 145/72
--- NOTE | 2019-03-12 20:50 | General Progress Note ---
Assessment/Plan Status: stable Assessment/Plan: Assessment - Rectal bleeding, likely recurrent diverticular bleeding - resolved - s/p EGD/Colon 08/20 --> severe diverticulosis and few colon polyps (not yet removed) - current bleeding seems limited - no plans for repeat colonoscopy, unless continues to bleed Recommendations - solids PO - monitor for rectal bleeding - outpatient colonoscopy with polypectomy - monitor H&H - d/c planning Subjective Allergies: Coded Allergies: PENICILLINS (Verified Allergy, Mild, swelling, 02/28/13) ACETAMINOPHEN (Verified Allergy, Unknown, 03/09/16) CODEINE (Verified Allergy, Unknown, 03/09/16) HYDROCODONE (Verified Allergy, Unknown, 03/09/16) SULFA (SULFONAMIDE ANTIBIOTICS) (Verified Allergy, Unknown, 03/09/16) THIAMINE (VITAMIN B1) (Verified Adverse Reaction, Mild, syncope, 03/09/16) Subjective above noted no further rectal bleeding H&H noted tolerating PO for discharge today advised to see me in 3 weeks advised still has polyps in situ that need removal patient acknowledged she has my business card advised will not get reminders Objective Last 24 Hour Vital Signs Date Time Temp Pulse Resp B/P (MAP) Pulse Ox O2 Delivery O2 Flow Rate FiO2 03/12/19 12:00 97.7 76 19 145/72 (96) 97 03/12/19 09:00 Room Air 03/12/19 08:34 80 136/72 03/12/19 08:33 136/72 03/12/19 08:33 136/72 03/12/19 08:00 97.2 86 20 136/72 (93) 97 03/12/19 05:33 129/61 03/12/19 04:00 98.8 76 17 129/61 (83) 95 03/12/19 00:00 98.7 82 18 133/59 (83) 94 03/11/19 21:22 128/60 03/11/19 21:00 Room Air Intake and Output 03/11/19 03/12/19 19:00 07:00 Intake Total 910 ml 480 ml Balance 910 ml 480 ml Intake Oral 910 ml 480 ml # Voids 3 5 Laboratory Tests 03/12/19 05:05: White Blood Count 7.6, Red Blood Count 3.09L, Hemoglobin 9.8L, Hematocrit 29.2L , Mean Corpuscular Volume 94, Mean Corpuscular Hemoglobin 31.8H, Mean Corpuscular Hemoglobin Concent 33.7, Red Cell Distribution Width 11.6, Platelet Count 216, Mean Platelet Volume 5.9L, Neutrophils (%) (Auto) 71.0, Lymphocytes ( %) (Auto) 15.5L, Monocytes (%) (Auto) 8.8, Eosinophils (%) (Auto) 3.9H, Basophils (%) (Auto) 0.8, Sodium Level 142, Potassium Level 4.0, Chloride Level 107, Carbon Dioxide Level 28, Anion Gap 7, Blood Urea Nitrogen 28H, Creatinine 1.7H, Estimat Glomerular Filtration Rate , Glucose Level 287H, Calcium Level 8.5 , Magnesium Level 2.0 Height (Feet): 5 Height (Inches): 2.00 Weight (Pounds): 133 Gabino Sen MD Mar 12, 2019 20:50
--- NOTE | 2019-03-12 22:15 | Discharge Summary ---
DATE OF ADMISSION: 03/06/2019 DATE OF DISCHARGE: 03/12/2019 ADMISSION DIAGNOSES: 1. Gastrointestinal bleed. 2. History of diverticulosis. 3. Hypertension. 4. Chronic kidney disease. 5. Osteoarthritis. DISCHARGE DIAGNOSES: 1. Gastrointestinal bleed. 2. History of diverticulosis. 3. Hypertension. 4. Chronic kidney disease. 5. Osteoarthritis. HOSPITAL COURSE: The patient is a pleasant female admitted with complaints of rectal bleeding. She has an extensive past history that includes a history of recurrent gastrointestinal bleed and diverticulosis. She was monitored. She did require transfusion. She otherwise remained stable. GI consultation was obtained and because her bleeding had ceased, invasive endoscopy was deferred. The patient's hospital course was complicated by some dizziness and constipation. She was cleared by physical therapy. She a bowel regimen. On discharge, she was stable. She will go home with home health and follow up in one to two weeks. She has been instructed to return for any bleeding. DISCHARGE MEDICATIONS: Please see discharge medication list for discharge medications. DIET: Cardiac diet. ACTIVITIES: Ad-nika. FOLLOWUP: The patient will follow up in one to two weeks in the office. Ariel Gonzalez M.D. DR: ANGELIA JOB#: [id number] CC:
--- NOTE | 2019-03-13 04:00 | Progress Note ---
DATE: 03/12/2019 SUBJECTIVE: No new bleeding. Tolerating diet. Blood pressure improved. No shortness of breath. Glucose stabilizing. OBJECTIVE: VITAL SIGNS: Blood pressure 145/72, pulse 76, and respiratory rate 19. LUNGS: Clear. CARDIAC: Regular normal S1 and S2 with a fourth heart sound. ABDOMEN: Soft. EXTREMITIES: No edema. IMPRESSION: 1. Diverticular bleed, resolved. 2. Anemia, status post transfusions, stable. 3. Hypertensive heart disease now with controlled blood pressure following episode of hypertensive urgency. 4. Diastolic dysfunction with no signs of acute congestive heart failure. 5. Type 2 diabetes mellitus with controlled blood glucose. PLAN: 1. Outpatient followup. 2. Discharge cardiovascular regimen reviewed and reconciled with the patient. 3. Diet discussed for diverticulosis, diabetes, and hypertension. Dex De La Torre M.D. DR: ALFONSO JOB#: [id number] CC:
== END 2019-03-12 13:30 | disposition home or self-care (01) | DRG 378 ==
LOC: EMR 06:05 → EDBEDREQ 07:54 → 3E 09:59
PROC: 30233N1 Transfusion of Nonautologous Red Blood Cells into Peripheral Vein, Percutaneous Approach (ICD-10-PCS; principal; 2019-03-07)
DX: K57.91 Diverticulosis of intestine, part unspecified, without perforation or abscess with bleeding (principal); N17.9 Acute kidney failure, unspecified; I12.9 Hypertensive chronic kidney disease with stage 1 through stage 4 chronic kidney disease, or unspecified chronic kidney disease; N18.2 Chronic kidney disease, stage 2 (mild); M19.90 Unspecified osteoarthritis, unspecified site; Z88.6 Allergy status to analgesic agent; Z88.0 Allergy status to penicillin; Z88.2 Allergy status to sulfonamides; Z88.8 Allergy status to other drugs, medicaments and biological substances; E11.22 Type 2 diabetes mellitus with diabetic chronic kidney disease; K63.5 Polyp of colon; E11.65 Type 2 diabetes mellitus with hyperglycemia; Z79.84 Long term (current) use of oral hypoglycemic drugs; E86.0 Dehydration
CPT/HCPCS: 36415; 80048; 80053; 81001; 82043; 82962; 83735; 85007; 85025; 85610; 85730; 86850; 86900; 86901; 86920; 96360; 99285; J7030

== ENCOUNTER 2020-02-24 15:35 | Inpatient (IN) | payer MEDICARE, OTHER ==
[~2020-02-24] VITALS: Ht 157.5 cm; Wt 40.8 kg
[~2020-02-24 15:35] MED LIST changes: +ASPIRIN81 MG ORAL; +CLONIDINE HCL0.1 MG ORAL; +COZAAR25 MG ORAL; +COZAAR50 MG ORAL; +FUROSEMIDE20 M1 ORAL; +GLIPIZIDE XL10 MG ORAL; +GLIPIZIDE5 MG ORAL; +IBUPROFEN200 MG ORAL; +JANUVIA50 MG ORAL; +LEVOTHYROXINE75 MCG ORAL; +LIPITOR20 MG ORAL; +METFORMIN HCL500 M1 ORAL; +NORVASC5 MG ORAL; +NOVOLOG100 UNITS1 SUBQ; +SYNTHROID100 MCG ORAL
--- NOTE | 2020-02-24 15:49 | Emergency Room Report ---
History of Present Illness General Chief Complaint: To Be Triaged Present Illness HPI 79 yo F with a history of hypertension, diabetes, prior history of GI bleed, hypothyroidism, and osteoporosis, here with generalized weakness and mechanical fall. Patient was in [place] last week and says that 3 days ago she suffered a mechanical fall while using the restroom. She went immediately to emergency department where she was found to have a fracture of the left wrist. CT head at that time was unremarkable. Patient was feeling well and was discharged home. However the patient and her daughter at the bedside say that over the past several days she has become more confused and lethargic and has been vomiting multiple times per day nonbilious nonbloody. Patient's daughter says "it looks like she has dementia. She does not recognize me anymore." Patient appears uncomfortable and is groaning in bed but is awake and alert answering questions albeit slowly. She has a generalized headache. Denies vision changes, focal numbness or weakness, chest pain, palpitation, shortness of breath, back pain, abdominal pain, diarrhea, dysuria. Allergies: Coded Allergies: PENICILLINS (Verified Allergy, Mild, swelling, 02/28/13) ACETAMINOPHEN (Verified Allergy, Unknown, 03/09/16) CODEINE (Verified Allergy, Unknown, 03/09/16) HYDROCODONE (Verified Allergy, Unknown, 03/09/16) SULFA (SULFONAMIDE ANTIBIOTICS) (Verified Allergy, Unknown, 03/09/16) THIAMINE (VITAMIN B1) (Verified Adverse Reaction, Mild, syncope, 03/09/16) COVID-19 Screening Contact w/high risk pt: No Recent Travel to affected area: No Experienced COVID-19 symptoms?: No Nursing Documentation-PMH Hx Cardiac Problems: Yes Hx Hypertension: Yes Hx Asthma: Yes Hx Diabetes: Yes Hx Cancer: No Hx Gastrointestinal Problems: Yes - rectal bleeding Hx Neurological Problems: Yes Hx Peripheral Neuropathy: Yes Hx Dizziness: Yes Hx Syncope: Yes Hx Weakness: Yes Review of Systems All Other Systems: negative except mentioned in HPI Physical Exam Sp02 EP Interpretation: reviewed, normal General Appearance: alert, non-toxic, moderate distress, other - Appears uncomfortable, complaining of nausea Head: normocephalic, atraumatic Eyes: bilateral eye normal inspection, bilateral eye PERRL ENT: hearing grossly normal, normal pharynx, no angioedema, normal voice Neck: full range of motion, supple/symm/no masses Respiratory: chest non-tender, lungs clear, normal breath sounds, speaking full sentences, other - Lungs are clear and patient in no respiratory distress, howev er she has oxygen saturation of 89% on room air Cardiovascular #1: regular rate, rhythm, no edema Cardiovascular #2: 2+ carotid (R), 2+ carotid (L), 2+ radial (R), 2+ radial (L), 2+ dorsalis pedis (R), 2+ dorsalis pedis (L) Gastrointestinal: normal bowel sounds, non tender, soft, non-distended, no guarding, no rebound Rectal: deferred Genitourinary: normal inspection, no CVA tenderness Musculoskeletal: back normal, normal range of motion, calf tenderness, gait/station normal, non-tender, other - Left upper extremity in sugar tong splint and a sling. Patient's fingers exposed with normal capillary refill, neurovascularly intact Neurologic: alert, motor strength/tone normal, oriented x3, sensory intact, responsive, speech normal Psychiatric: judgement/insight normal, memory normal, mood/affect normal, no suicidal/homicidal ideation Lymphatic: no adenopathy Medical Decision Making Diagnostic Impression: Primary Impression: NSTEMI (non-ST elevated myocardial infarction) Additional Impressions: LUCY (acute kidney injury) Hypertensive urgency Head injury Wrist fracture, left AMS (altered mental status) ER Course Procedure: XRAY Chest 1v Indication: Shortness of breath Technique: One view of the chest Comparison: 09/10/2019 Findings: Inspiration is suboptimal. Lungs and pleural spaces are clear except for minimal right infrahilar atelectasis. Heart size is normal. There is a right shoulder prosthesis. Findings are unchanged Impression: No acute process EKG: NSR, no ischemia, intervals WNL. No ectopy. Left axis deviation. Rhythm strip: patient monitored for arrhythmias - no malignant dysrhythmias, runs of PVCs, nor pauses noted X-ray left wrist: Overlying cast. Comminuted and displaced distal left ulnar and radial fractures CT head: No acute intracranial traumatic process or calvarial fracture. Chronic appearing generalized atrophy Laboratory Tests Test 02/24/20 16:19 White Blood Count 6.7 K/UL (4.8-10.8) Red Blood Count 4.16 M/UL (4.20-5.40) L Hemoglobin 13.2 G/DL (12.0-16.0) Hematocrit 38.3 % (37.0-47.0) Mean Corpuscular Volume 92 FL (80-99) Mean Corpuscular Hemoglobin 31.7 PG (27.0-31.0) H Mean Corpuscular Hemoglobin Concent 34.5 G/DL (32.0-36.0) Red Cell Distribution Width 13.3 % (11.6-14.8) Platelet Count 224 K/UL (150-450) Mean Platelet Volume 7.4 FL (6.5-10.1) Neutrophils (%) (Auto) 71.6 % (45.0-75.0) Lymphocytes (%) (Auto) 16.6 % (20.0-45.0) L Monocytes (%) (Auto) 9.4 % (1.0-10.0) Eosinophils (%) (Auto) 1.4 % (0.0-3.0) Basophils (%) (Auto) 0.9 % (0.0-2.0) Sodium Level 132 MMOL/L (136-145) L Potassium Level 3.9 MMOL/L (3.5-5.1) Chloride Level 96 MMOL/L (98-107) L Carbon Dioxide Level 31 MMOL/L (21-32) Anion Gap 5 mmol/L (5-15) Blood Urea Nitrogen 51 mg/dL (7-18) H Creatinine 2.8 MG/DL (0.55-1.30) H Estimated Glomerular Filtration Rate 16.3 mL/min (>60) Glucose Level 366 MG/DL (74-106) H Calcium Level 8.9 MG/DL (8.5-10.1) Total Bilirubin 0.6 MG/DL (0.2-1.0) Aspartate Amino Transferase (AST) 16 U/L (15-37) Alanine Aminotransferase (ALT) 14 U/L (12-78) Alkaline Phosphatase 118 U/L (46-116) H Troponin I 0.240 ng/mL (0.000-0.056) Pro-B-Type Natriuretic Peptide 1186 pg/mL (0-125) H Total Protein 7.4 G/DL (6.4-8.2) Albumin 3.2 G/DL (3.4-5.0) L Globulin 4.2 g/dL Albumin/Globulin Ratio 0.8 (1.0-2.7) L 79-year-old female here with generalized weakness, vomiting for 2 days. Patient had head injury 3 days ago when she had a mechanical fall. At that time she immediately went to an outside emergency department in [place] where she had a head CT that was negative. She did however suffer a left wrist fracture and was placed in a splint. She was neurovascular intact today. She was awake and alert but answering questions slowly. She did appear uncomfortable and was complaining of nausea. She was given Zofran with good resolution of her symptoms. Given 30 cc/kg fluid bolus and said that she felt much better. CBC unremarkable. CMP did reveal an acute kidney injury with creatinine of 2.8. Troponin elevated at 0.28. Patient does have a chronically elevated troponin but review of past medical history showed that her usual troponin is around 0.1. She was given aspirin in the emergency department. Initial blood pressure was highly elevated at 205/105. She was given labetalol and clonidine in the emergency department with good resolution of her hypertension. Currently awaiting results of Covid swab and urinalysis. Chest x-ray was unremarkable. CT head was normal. Patient to be admitted to telemetry. Britton Duenas M.D. Feb 24, 2020 15:49
[2020-02-24 16:28] VITALS: BP 205/100
[2020-02-24 16:37] LABS: BASOPHILS % (AUTO) 0.9 % (0.0-2.0); EOSINOPHILS % (AUTO) 1.4 % (0.0-3.0); HEMATOCRIT 38.3 % (37.0-47.0); HEMOGLOBIN 13.2 G/DL (12.0-16.0); LYMPHOCYTES % (AUTO) 16.6 % (20.0-45.0); MEAN CORPUSCULAR VOLUME 92 FL (80-99); MONOCYTES % (AUTO) 9.4 % (1.0-10.0); NEUTROPHILS % (AUTO) 71.6 % (45.0-75.0); PLATELET COUNT 224 K/UL (150-450); RED BLOOD COUNT 4.16 M/UL (4.20-5.40); RED CELL DISTRIBUTION WIDTH 13.3 % (11.6-14.8); WHITE BLOOD COUNT 6.7 K/UL (4.8-10.8)
[2020-02-24 16:49] LABS: CALCIUM 8.9 MG/DL (8.5-10.1); CREATININE 2.8 MG/DL (0.55-1.30); POTASSIUM 3.9 MMOL/L (3.5-5.1)
[2020-02-24 17:00] LABS: ALBUMIN 3.2 G/DL (3.4-5.0); ALBUMIN/GLOBULIN RATIO 0.8 (1.0-2.7); BILIRUBIN,TOTAL 0.6 MG/DL (0.2-1.0)
--- NOTE | 2020-02-24 17:15 | Diagnostic Imaging Report ---
Indication: Shortness of breath Technique: One view of the chest Comparison: 09/10/2019 Findings: Inspiration is suboptimal. Lungs and pleural spaces are clear except for minimal right infrahilar atelectasis. Heart size is normal. There is a right shoulder prosthesis. Findings are unchanged Impression: No acute process
[2020-02-24] MEDS ORDERED: Aspirin Baby 81mg ORAL ONE (18:00)
[2020-02-24] MEDS ORDERED: Labetalol 5mg/ml 20ml vial IV ONE (18:00)
--- NOTE | 2020-02-24 18:14 | Diagnostic Imaging Report ---
EXAM: CT Head Without Intravenous Contrast CLINICAL HISTORY: PAIN Notes: 79 yo F with a history of hypertension, diabetes, prior history of GI bleed, hypothyroidism, and osteoporosis, here with generalized weakness and mechanical fall. TECHNIQUE: Axial computed tomography images of the head/brain without intravenous contrast. CTDI is 53.4 mGy and DLP is 965.4 mGy-cm. One or more of the following dose reduction techniques were used: automated exposure control, adjustment of the mA and/or kV according to patient size, use of iterative reconstruction technique. COMPARISON: 10/29/2017. FINDINGS: Brain: No acute hemorrhage, evidence of edema or mass-effect. Chronic atrophy with periventricular small vessel ischemic changes. Ventricles: No acute ventriculomegaly. Bones/joints: Unremarkable. No acute fracture. Soft tissues: Unremarkable. Sinuses: Polypoid sphenoid sinus disease and partially visualized left ethmoid and maxillary sinus disease. Mastoid air cells: No mastoid effusion. IMPRESSION: 1. No acute intracranial traumatic process or calvarial fracture. 2. Chronic appearing generalized atrophy with periventricular small vessel ischemic changes. 3. Paranasal sinus disease, as above.
--- NOTE | 2020-02-24 18:34 | Diagnostic Imaging Report ---
EXAM: XR Left Wrist, 2 Views CLINICAL HISTORY: FALL TECHNIQUE: Frontal and lateral views of the left wrist. COMPARISON: No relevant prior studies available. Findings/impression: Evaluation limited secondary to overlying cast. Comminuted and displaced distal left ulnar and radial fractures. Radiocarpal alignment appears intact. Evaluation for subtle carpal fractures limited. Soft tissue edema of the left wrist is noted.
[2020-02-24 20:17] VITALS: BP 204/87
[2020-02-24 22:00] VITALS: BP 122/74
[2020-02-24 22:36] VITALS: BP 124/61
[2020-02-25] VITALS: BP 123/55
--- NOTE | 2020-02-25 02:30 | Consultation ---
DATE OF CONSULTATION: 02/24/2020 CARDIOLOGY CONSULTATION CONSULTING PHYSICIAN: Dex De La Torre M.D. REQUESTING PHYSICIAN: Ariel Gonzalez M.D. REASON: Elevated troponin. HISTORY OF PRESENT ILLNESS: The patient is a 79-year-old female with history of hypertension and type 2 diabetes, who has been under my cardiac care for almost 25 years. Several weeks ago, she traveled by car to her stepdaughter's home in [place] with her . She apparently became increasingly confused there. It is unclear whether she had all her medications. She suffered several falls. She has started having more memory lapses and did not even recognize her . Stepdaughter said that it seemed like she developed dementia over a short period of time. The patient denies any specific complaints and is aware of being ill, but is unable to delineate further. The patient apparently fractured her left wrist with a fall and has a cast in place from [place]. MEDICATIONS: Prior to admission are reviewed and reconciled. ALLERGIES: Listed as penicillin, acetaminophen, codeine, sulfa, and thiamine. PAST MEDICAL HISTORY: Type 2 diabetes mellitus, hyperlipidemia, chronic kidney disease, hypertensive heart disease, degenerative disk disease, lumbosacral stenosis, cervical radiculopathy, diverticulosis with history of GI bleeding, hypothyroidism, hyperlipidemia, pernicious anemia with B12 deficiency. FAMILY HISTORY: Noncontributory. SOCIAL HISTORY: Negative for smoking, alcohol, or substance abuse. She lives with her independently. REVIEW OF SYSTEMS: 10-point review of systems, no fevers or chills. No COVID-19 exposures. Echocardiogram last month revealed normal ejection fraction with concentric hypertrophy. Her renal function and glucose control had deteriorated significantly over the past 2 months. She was taken off metformin a month ago due to an elevated creatinine above 2.5. She has been more forgetful than usual, but not to the degree described by her [id number] for the past week. The patient has had several days of vomiting bilious material. PHYSICAL EXAMINATION: GENERAL: Awake, alert, responsive, but slow, recognizes me without difficulty. VITAL SIGNS: Blood pressure 204/87 initially, now 122/74, heart rate 68, respiratory rate 18, afebrile, oxygen saturation 100% on 2 liters. HEENT: Conjunctivae pink. Arcus senilis. Oropharynx clear. Mucous membranes dry. NECK: Supple. Jugular venous pressure normal. LUNGS: Clear. CARDIAC: Chest wall with mild kyphosis. No breast masses. CARDIAC: Regular rhythm and rate. Normal S1, S2 with a fourth heart sound. ABDOMEN: Soft. Mildly tender. No guarding or rebound. EXTREMITIES: No edema. NEUROLOGIC: Nonfocal with global cognitive deficit. LABORATORY DATA: Sodium 132, potassium 3.9, bicarb 31, BUN 51, creatinine 2.8, glucose 366. Troponin 0.240. Natriuretic peptide 1186. Albumin 3.2. White count 6.7, hemoglobin 13.2. IMPRESSION: 1. Metabolic encephalopathy. 2. Acute on chronic renal failure. 3. Hypovolemia and dehydration. 4. Vomiting, etiology unclear. No signs of acute GI pathology. 5. Acute myocardial ischemia and possible nut-AC-lhhuxmjkd myocardial infarction. 6. Hypertensive urgency, correcting. 7. Type 2 diabetes mellitus. 8. Recent fall with head injury and possible concussion. 9. Left wrist fracture. PLAN: 1. Saline hydration. 2. Avoid tight blood pressure control. 3. Anti-platelet and anti-lipid therapy. 4. Insulin coverage by sliding scale. 5. Beta-blockade as tolerated by blood pressure and heart rate parameters. 6. Consider further CUSTOMIZER imaging. Dex De La Torre M.D. DR: REJI JOB#: [id number] CC:
[2020-02-25 04:00] VITALS: BP 140/59
[2020-02-25] MEDS: NovoLOG Insulin Flexpen SUBQ SCH ×4 (05:52→21:00)
[2020-02-25] MEDS: GlipiZIDE 5mg tab ORAL SCH ×2 (05:54→16:28)
[2020-02-25] MEDS ORDERED: NovoLOG Insulin Flexpen SUBQ SCH (06:30)
[2020-02-25 07:39] LABS: ALANINE AMINOTRANSFERASE 11 U/L (12-78); ALBUMIN 2.5 G/DL (3.4-5.0); ALBUMIN/GLOBULIN RATIO 0.7 (1.0-2.7); ALKALINE PHOSPHATASE 92 U/L (46-116); ANION GAP 5 mmol/L (5-15); ASPARTATE AMINO TRANSFERASE 14 U/L (15-37); BILIRUBIN,TOTAL 0.5 MG/DL (0.2-1.0); BLOOD UREA NITROGEN 47 mg/dL (7-18); CALCIUM 8.1 MG/DL (8.5-10.1); CARBON DIOXIDE 29 MMOL/L (21-32); CHLORIDE 104 MMOL/L (98-107); CHOLESTEROL 179 MG/DL (< 200); CREATININE 2.1 MG/DL (0.55-1.30); HDL CHOLESTEROL 57 MG/DL (40-60); POTASSIUM 3.6 MMOL/L (3.5-5.1); SODIUM 138 MMOL/L (136-145); TRIGLYCERIDES 99 MG/DL (30-150)
[2020-02-25 08:00] VITALS: BP 130/71
[2020-02-25] MEDS: Aspirin Baby 81mg ORAL SCH (08:14)
[2020-02-25] MEDS: Heparin 5000 units/ml inj SUBQ SCH ×2 (08:20→21:46)
--- NOTE | 2020-02-25 09:15 | History and Physical Report ---
DATE OF ADMISSION: 02/24/2020 CHIEF COMPLAINT: Altered mental status, left wrist fracture, acute renal failure. HISTORY OF PRESENT ILLNESS: The patient is a 79-year-old female, well known to me. She has a history of GI bleed, hypertensive heart disease, diabetes, hypothyroidism, and hyperlipidemia. She was brought in by family members with complaints of confusion, weakness, nausea, and vomiting for several days. The patient recently had gone on a trip where she apparently sustained a mechanical fall. She suffered a wrist fracture. Over the last four days, she has had poor p.o. intake, intermittent episodes of nausea and vomiting. On evaluation in the emergency room, she was noted to be in acute renal failure with a creatinine of 2.8. Her x-ray of the wrist showed a comminuted and displaced left ulnar and radial fracture. CT scan of the head showed chronic periventricular small-vessel changes. The patient is now admitted for further evaluation and care. PAST MEDICAL HISTORY: As above. PAST SURGICAL HISTORY: Includes prior endoscopy. CURRENT MEDICATIONS: Reconciled and reviewed. ALLERGIES: None. FAMILY HISTORY: None. SOCIAL HISTORY: There is no known history of tobacco, ethanol, or drugs. REVIEW OF SYSTEMS: GENERAL: No fevers or chills. HEENT: No headaches or visual changes. CARDIOPULMONARY: No chest pain or shortness of breath. GASTROINTESTINAL: No nausea or vomiting. GENITOURINARY: No urgency or frequency. MUSCULOSKELETAL: No joint pain or swelling. NEUROLOGIC: No evidence of seizures. PHYSICAL EXAMINATION: VITAL SIGNS: Temperature 97.5, pulse 62, respirations 18, and blood pressure 140/59. GENERAL: The patient is well developed, in no apparent distress. She is awake, alert, and oriented x3. HEENT: Head is normocephalic and atraumatic. Sclerae are anicteric. Oropharynx is clear. Mucous membranes are moist. NECK: Supple. HEART: Regular rate and rhythm. LUNGS: Clear. ABDOMEN: Soft, nontender, nondistended. EXTREMITIES: Without clubbing, cyanosis, or edema. The left arm is in a sling. LABORATORY DATA: Sodium 132, BUN 51, creatinine was 2.8. Troponin 0.24. Natriuretic peptide level was 1200. White count was 6. ASSESSMENT: This is a 79-year-old female with multiple medical problems including history of hypertension, diabetes, gastrointestinal bleed, and hypothyroidism, admitted with complaints of altered mental status, likely secondary to toxic metabolic encephalopathy due to acute renal failure. PLAN: 1. Aggressive fluid resuscitation. 2. Monitor volume status and electrolytes. 3. Cardiology consultation regarding elevated troponin. 4. Continue antiplatelet therapy. 5. We will check a UA. 6. Monitor blood sugars. 7. Orthopedics consultation. 8. DVT and stress ulcer prophylaxes. Ariel Gonzalez M.D. DR: IRIS JOB#: [id number] CC:
[2020-02-25 12:00] VITALS: BP 158/96
[2020-02-25 16:00] VITALS: BP 146/72
[2020-02-25 20:00] VITALS: BP 157/86
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
[2020-02-26] VITALS: BP 135/85
[2020-02-26 04:00] VITALS: BP 140/82
[2020-02-26] MEDS: GlipiZIDE 5mg tab ORAL SCH ×2 (05:49→16:25)
[2020-02-26] MEDS: NovoLOG Insulin Flexpen SUBQ SCH ×4 (05:50→21:30)
[2020-02-26 07:17] LABS: CALCIUM 8.2 MG/DL (8.5-10.1); CREATININE 1.5 MG/DL (0.55-1.30); POTASSIUM 3.3 MMOL/L (3.5-5.1)
[2020-02-26 08:00] VITALS: BP 208/99
[2020-02-26] MEDS: Aspirin Baby 81mg ORAL SCH (08:48)
[2020-02-26] MEDS: Heparin 5000 units/ml inj SUBQ SCH ×2 (08:52→21:29)
--- NOTE | 2020-02-26 11:23 | General Progress Note ---
Subjective ROS Limited/Unobtainable: No Constitutional: Reports: malaise, weakness HEENT: Reports: no symptoms Cardiovascular: Reports: no symptoms Respiratory: Reports: no symptoms Gastrointestinal/Abdominal: Reports: no symptoms Genitourinary: Reports: no symptoms Neurologic/Psychiatric: Reports: no symptoms Endocrine: Reports: no symptoms Hematologic/Lymphatic: Reports: no symptoms Allergies: Coded Allergies: PENICILLINS (Verified Allergy, Mild, swelling, 02/28/13) ACETAMINOPHEN (Verified Allergy, Unknown, 03/09/16) CODEINE (Verified Allergy, Unknown, 03/09/16) HYDROCODONE (Verified Allergy, Unknown, 03/09/16) SULFA (SULFONAMIDE ANTIBIOTICS) (Verified Allergy, Unknown, 03/09/16) THIAMINE (VITAMIN B1) (Verified Adverse Reaction, Mild, syncope, 03/09/16) All Systems: reviewed and negative except above Subjective no complaints. no chest pain or sob. on ivf. renal fxn and lytes improving. Objective Last 24 Hour Vital Signs Date Time Temp Pulse Resp B/P (MAP) Pulse Ox O2 Delivery O2 Flow Rate FiO2 02/26/20 09:00 Nasal Cannula 2.0 02/26/20 08:49 66 208/99 02/26/20 08:49 208/99 02/26/20 08:00 97.5 66 18 208/99 (135) 97 02/26/20 08:00 71 02/26/20 04:00 57 02/26/20 04:00 97.4 63 17 140/82 (101) 99 02/26/20 00:00 97.9 65 18 135/85 (102) 99 02/26/20 00:00 62 02/25/20 21:44 67 157/86 02/25/20 21:00 Nasal Cannula 2.0 02/25/20 20:00 66 02/25/20 20:00 97.5 67 17 157/86 (109) 100 02/25/20 16:41 71 02/25/20 16:01 154/86 02/25/20 16:00 97.6 70 20 146/72 (96) 98 02/25/20 12:00 96.8 66 18 158/96 (116) 99 02/25/20 12:00 71 Intake and Output 02/25/20 02/26/20 19:00 07:00 Intake Total 1160 ml 800 ml Balance 1160 ml 800 ml Intake Oral 60 ml IV Total 1100 ml 800 ml # Voids 1 2 Laboratory Tests 02/25/20 11:22: POC Whole Blood Glucose 190H 02/25/20 16:28: POC Whole Blood Glucose 184H 02/26/20 06:01: Sodium Level 139, Potassium Level 3.3L, Chloride Level 105, Carbon Dioxide Level 25, Anion Gap 9, Blood Urea Nitrogen 37H, Creatinine 1.5H, Estimat Glomerular Filtration Rate 33.5, Glucose Level 108#H, Calcium Level 8.2L, Magnesium Level 2.2, Troponin I 0.221H Height (Feet): 5 Height (Inches): 2.00 Weight (Pounds): 90 General Appearance: WD/WN, alert, confused Neck: supple Cardiovascular: normal rate Respiratory/Chest: lungs clear, normal breath sounds Abdomen: normal bowel sounds, non tender, soft, no organomegaly Edema: no edema noted Leg (L), no edema noted Leg (R) Neurologic: alert, responsive Assessment/Plan Problem List: (1) NSTEMI (non-ST elevated myocardial infarction) ICD Codes: I21.4 - Non-ST elevation (NSTEMI) myocardial infarction SNOMED: 14327118 (2) AMS (altered mental status) ICD Codes: R41.82 - Altered mental status, unspecified SNOMED: 419852065 (3) Hypertensive urgency ICD Codes: I16.0 - Hypertensive urgency SNOMED: 278138051 (4) LUCY (acute kidney injury) ICD Codes: N17.9 - Acute kidney failure, unspecified SNOMED: 13181481, 9273433 Status: stable Assessment/Plan: decrease ivf monitor volume status BP rx antiplt rx monitor bs pt/ot Ariel Galvan MD Feb 26, 2020 11:23
[2020-02-26 12:00] VITALS: BP 168/88
--- NOTE | 2020-02-26 13:57 | Consultation ---
History of Present Illness General Date patient seen: Feb 26, 2020 Reason for Hospitalization: Vomiting Present Illness HPI This is a 79-year-old female known to me from prior who presents with complaints of nausea vomiting intermittent abdominal discomfort recent fall family states she has been feeling weak and brought her in for evaluation. Admitted further care and management elevated troponin abnormal labs identified to have a left arm cast considerations for head injury given recent fall and mild bruising surgery called to evaluate assist with care patient seen, patient evaluated, chart reviewed patient states she is currently feeling well. Is not very hungry. Wants more Jell-O than she was other foods. States that Jell-O is fairly sustainable for her health. Allergies: Coded Allergies: PENICILLINS (Verified Allergy, Mild, swelling, 02/28/13) ACETAMINOPHEN (Verified Allergy, Unknown, 03/09/16) CODEINE (Verified Allergy, Unknown, 03/09/16) HYDROCODONE (Verified Allergy, Unknown, 03/09/16) SULFA (SULFONAMIDE ANTIBIOTICS) (Verified Allergy, Unknown, 03/09/16) THIAMINE (VITAMIN B1) (Verified Adverse Reaction, Mild, syncope, 03/09/16) COVID-19 Screening Contact w/high risk pt: No Recent Travel to affected area: No Experienced COVID-19 symptoms?: Yes Coronavirus symptoms experienc: Nausea/Vomiting Medication History Scheduled Amlodipine Besylate (Norvasc), 5 MG ORAL BID Aspirin* (Aspirin*), 81 MG ORAL DAILY Atorvastatin Calcium* (Lipitor*), 20 MG ORAL BEDTIME, (Reported) Atorvastatin Calcium* (Lipitor*), 20 MG ORAL BEDTIME Clonidine Hcl* (Catapres*), 0.1 MG ORAL EVERY 8 HOURS, (Reported) Esomeprazole Magnesium (Nexium), 40 MG ORAL DAILY, (Reported) Glipizide (Glipizide), 5 MG PO DAILY, (Reported) Glipizide* (Glipizide*), 5 MG ORAL BIAC Ibandronate (Boniva), 150 MG ORAL Q30D, (Reported) Ibuprofen (Motrin), 600 MG ORAL THREE TIMES A DAY Insulin Aspart (Novolog Flexpen), 0 UNITS SUBQ BEFORE MEALS AND HS Insulin Aspart* (Novolog*), 0 SUBQ PRE BFAST AND DINNER, (Reported) Levothyroxine Sodium (Synthroid), 88 MCG ORAL DAILY, (Reported) Levothyroxine Sodium* (Synthroid*), 100 MCG ORAL DAILY@0630 Losartan Potassium* (Cozaar*), Unknown Dose ORAL DAILY, (Reported) Losartan Potassium* (Cozaar*), 100 MG ORAL DAILY Losartan/Hydrochlorothiazide 100-12.5 Tablet (Hyzaar 100-12.5 Tablet), 1 TAB ORAL DAILY, (Reported) Losartan/Hydrochlorothiazide 50-12.5 Tablet* (Hyzaar 50-12.5 Tablet*), 1 TAB ORAL DAILY, (Reported) Metformin Hcl* (Glucophage*), 1,000 MG ORAL DAILY, (Reported) Pantoprazole (Pantoprazole), 40 MG ORAL DAILY, (Reported) Prochlorperazine Maleate* (Compazine*), 5 MG ORAL Q6H, (Reported) Sitagliptin (Januvia*), 50 MG ORAL ACBREAKFAST Sitagliptin* (Januvia*), 25 MG ORAL DAILY, (Reported) Scheduled PRN Clonidine Hcl (Clonidine Hcl), 0.1 MG ORAL Q4H PRN Clonidine Hcl* (Catapres*), 0.1 MG ORAL EVERY 4 HOURS PRN for For High Blood P ressure, (Reported) Ibuprofen (Ibuprofen*), 400 MG ORAL Q6H PRN Potassium Gluconate (Potassium), 8 MG PO for Nausea & Vomiting, (Reported) Tramadol Hcl* (Ultram*), 50 MG ORAL Q6H PRN for For Pain, (Reported) Tramadol Hcl* (Ultram*), 50 MG ORAL Q6H PRN Miscellaneous Medications Atorvastatin Calcium* (Lipitor*), Unknown Dose ORAL, (Reported) Calcium Carbonate (Calcium), 500 MG PO, (Reported) Clonidine Hcl* (Catapres*), Unknown Dose ORAL, (Reported) Ferrous Sulfate, Dried (Ferrous Sulfate), 325 GM MC, (Reported) Furosemide* (Lasix*), Unknown Dose ORAL, (Reported) Glipizide (Glipizide), Unknown Dose ORAL, (Reported) Levothyroxine Sodium* (Synthorid*), Unknown Dose ORAL, (Reported) Metformin Hcl* (Metformin Hcl*), Unknown Dose ORAL, (Reported) Unable to Obtain Medications (Unable To Obtain Meds), (Reported) Patient History History Provided By: Patient, Medical Record, PMD Healthcare decision maker Resuscitation status Advanced Directive on File Past Medical/Surgical History Past Medical/Surgical History: (1) Anemia (2) Diverticulosis (3) Lower GI bleed (4) Accelerated hypertension (5) 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 (6) hypertension (7) Contusion (8) Abrasion (9) Fall (10) hypertension (11) Bright red blood per rectum (12) Tpzjp-ez-ednxody renal failure (13) GI bleed (14) Dehydration (15) Hypomagnesemia (16) Gastrointestinal hemorrhage (17) CKD (chronic kidney disease) stage 2, GFR 60-89 ml/min (18) History of GI diverticular bleed (19) Head injury (20) Wrist fracture, left (21) LUCY (acute kidney injury) (22) Hypertensive urgency (23) AMS (altered mental status) (24) Vomiting (25) NSTEMI (non-ST elevated myocardial infarction) Review of Systems Review of Symptoms General ROS: no weight loss or fever Psychological ROS: no depression or mood changes, no memory loss Ophthalmic ROS: no visual changes or eye irritation ENT ROS: no nasal congestion, hearing loss, dizziness Allergy and Immunology ROS: no allergic symptoms or urticaria Hematological and Lymphatic ROS: no swollen glands, unusual bleeding or bruising Endocrine ROS: no polyuria, polydipsia, weight changes, temperature intolerance Respiratory ROS: no cough, shortness of breath, or wheezing Cardiovascular ROS: no chest pain or dyspnea on exertion Gastrointestinal ROS: denies abdominal pain, bright red blood in stool. Musculoskeletal ROS: no myalgias or arthralgias Neurological ROS: no TIA or stroke symptoms Dermatological ROS: no new or changing skin lesions, rashes or pruritis Physical Exam Physical Exam General appearance: alert, cooperative, no distress, appears stated age Head: Normocephalic, without obvious abnormality, atraumatic Eyes: conjunctivae/corneas clear. PERRL, EOM's intact. Fundi benign Throat: Lips, mucosa, and tongue normal. Teeth and gums normal Neck: supple, symmetrical, trachea midline, no adenopathy, thyroid: not enlarged, symmetric, no tenderness/mass/nodules, no carotid bruit and no JVD Lungs: clear to auscultation bilaterally Heart: regular rate and rhythm, S1, S2 normal, no murmur, click, rub or gallop Abdomen: soft, non-tender. Bowel sounds normal. No masses, no organomegaly Extremities: extremities see below Pulses: 2+ and symmetric Skin: Skin color, texture, turgor normal. No rashes or lesions Neurologic: Grossly normal Last 24 Hour Vital Signs Date Time Temp Pulse Resp B/P (MAP) Pulse Ox O2 Delivery O2 Flow Rate FiO2 02/26/20 12:00 97.2 68 18 168/88 (114) 100 02/26/20 09:00 Nasal Cannula 2.0 02/26/20 08:49 66 208/99 02/26/20 08:49 208/99 02/26/20 08:00 97.5 66 18 208/99 (135) 97 02/26/20 08:00 71 02/26/20 04:00 57 02/26/20 04:00 97.4 63 17 140/82 (101) 99 02/26/20 00:00 97.9 65 18 135/85 (102) 99 02/26/20 00:00 62 02/25/20 21:44 67 157/86 02/25/20 21:00 Nasal Cannula 2.0 02/25/20 20:00 66 02/25/20 20:00 97.5 67 17 157/86 (109) 100 02/25/20 16:41 71 02/25/20 16:01 154/86 02/25/20 16:00 97.6 70 20 146/72 (96) 98 Intake and Output 02/25/20 02/26/20 19:00 07:00 Intake Total 1160 ml 800 ml Balance 1160 ml 800 ml Intake Oral 60 ml IV Total 1100 ml 800 ml # Voids 1 2 Laboratory Tests Test 02/25/20 16:28 02/26/20 06:01 POC Whole Blood Glucose 184 MG/DL (74-106) H Sodium Level 139 MMOL/L (136-145) Potassium Level 3.3 MMOL/L (3.5-5.1) L Chloride Level 105 MMOL/L (98-107) Carbon Dioxide Level 25 MMOL/L (21-32) Anion Gap 9 mmol/L (5-15) Blood Urea Nitrogen 37 mg/dL (7-18) H Creatinine 1.5 MG/DL (0.55-1.30) H Estimat Glomerular Filtration Rate 33.5 mL/min (>60) Glucose Level 108 MG/DL (74-106) #H Calcium Level 8.2 MG/DL (8.5-10.1) L Magnesium Level 2.2 MG/DL (1.8-2.4) Troponin I 0.221 ng/mL (0.000-0.056) Height (Feet): 5 Height (Inches): 2.00 Weight (Pounds): 90 Medications Current Medications Medications (Trade) Dose Ordered Sig/Geena Route PRN Reason Start Time Stop Time Status Last Admin Dose Admin Aspirin (ASA) 81 mg DAILY ORAL 02/25/20 09:00 04/10/20 08:59 02/26/20 08:48 Atorvastatin Calcium (Lipitor) 10 mg BEDTIME ORAL 02/25/20 21:00 05/25/20 20:59 02/25/20 21:44 Carvedilol (Coreg) 3.125 mg EVERY 12 HOURS ORAL 02/25/20 09:00 03/26/20 08:59 02/26/20 08:49 Clonidine HCl (Catapres Tab) 0.1 mg Q4H PRN ORAL SBP above 150 02/25/20 01:15 05/25/20 01:14 02/26/20 08:49 Dextrose (Dextrose 50%) 25 ml Q30M PRN IV Hypoglycemia 02/25/20 01:15 05/25/20 01:14 Dextrose (Dextrose 50%) 50 ml Q30M PRN IV Hypoglycemia 02/25/20 01:15 05/25/20 01:14 Glipizide (Glucotrol) 5 mg BIAC ORAL 02/25/20 06:30 03/26/20 06:29 02/26/20 05:49 Heparin Sodium (Porcine) (Heparin 5000 units/ml) 5,000 units EVERY 12 HOURS SUBQ 02/25/20 09:00 04/10/20 08:59 02/26/20 08:52 Ibuprofen (Advil) 400 mg TID PRN ORAL For Pain 02/25/20 00:15 03/26/20 00:14 02/26/20 08:51 Insulin Aspart (NovoLOG) BEFORE MEALS AND HS SUBQ 02/25/20 06:30 05/25/20 06:29 02/26/20 11:29 Levothyroxine Sodium (Synthroid) 100 mcg DAILY@0630 ORAL 02/25/20 06:30 03/26/20 06:29 02/26/20 05:49 Ondansetron HCl (Zofran) 4 mg Q6H PRN IVP Nausea & Vomiting 02/25/20 18:45 03/26/20 18:44 02/25/20 21:46 Sodium Chloride 1,000 ml @ 50 mls/hr Q20H IV 02/25/20 00:00 03/26/20 00:00 02/26/20 06:42 Assessment/Plan Problem List: (1) Head injury Assessment & Plan: ct negative aaox3 no complaints no lateralizing signs Brain: No acute hemorrhage, evidence of edema or mass-effect. Chronic atrophy with periventricular small vessel ischemic changes. Ventricles: No acute ventriculomegaly. Bones/joints: Unremarkable. No acute fracture. Soft tissues: Unremarkable. Sinuses: Polypoid sphenoid sinus disease and partially visualized left ethmoid and maxillary sinus disease. Mastoid air cells: No mastoid effusion. IMPRESSION: 1. No acute intracranial traumatic process or calvarial fracture. 2. Chronic appearing generalized atrophy with periventricular small vessel ischemic changes. 3. Paranasal sinus disease, as above. ICD Codes: S09.90XA - Unspecified injury of head, initial encounter SNOMED: 43500188 (2) Wrist fracture, left Assessment & Plan: Comminuted and displaced distal left ulnar and radial fractures. Radiocarpal alignment appears intact. Evaluation for subtle carpal fractures limited. Soft tissue edema of the left wrist is noted. ortho eval pending min pain splint okay no drainage sling okay cont current care plan ICD Codes: S62.102A - Fracture of unspecified carpal bone, left wrist, initial encounter for closed fracture SNOMED: 040950735, 938969781 (3) LUCY (acute kidney injury) ICD Codes: N17.9 - Acute kidney failure, unspecified SNOMED: 42270628, 7377884 (4) Hypertensive urgency ICD Codes: I16.0 - Hypertensive urgency SNOMED: 829413724 (5) AMS (altered mental status) ICD Codes: R41.82 - Altered mental status, unspecified SNOMED: 289525134 (6) Vomiting Assessment & Plan: nausea emesis s/p fall ct okay no brain bleed ?related to meds / bp trop elevated okay for diet as tolerated will monitor with exam ICD Codes: R11.10 - Vomiting, unspecified SNOMED: 702467378 (7) NSTEMI (non-ST elevated myocardial infarction) ICD Codes: I21.4 - Non-ST elevation (NSTEMI) myocardial infarction SNOMED: 69405964 (8) Dehydration ICD Codes: E86.0 - Dehydration SNOMED: 19516581 (9) Hypomagnesemia ICD Codes: E83.42 - Hypomagnesemia SNOMED: 636132372 (10) Gastrointestinal hemorrhage ICD Codes: K92.2 - Gastrointestinal hemorrhage, unspecified SNOMED: 36269851 (11) Anemia ICD Codes: D64.9 - Anemia, unspecified SNOMED: 264524009 (12) Contusion ICD Codes: T14.8XXA - Other injury of unspecified body region, initial encounter SNOMED: 356596648 (13) Diverticulosis ICD Codes: K57.90 - Diverticulosis of intestine, part unspecified, without perforation or abscess without bleeding SNOMED: 459200633 (14) Bright red blood per rectum ICD Codes: K62.5 - Hemorrhage of anus and rectum SNOMED: 81398248 (15) Abrasion ICD Codes: T14.8XXA - Other injury of unspecified body region, initial encou nter SNOMED: 611768763 (16) Fall ICD Codes: W19.XXXA - Unspecified fall, initial encounter SNOMED: 5149129, 269914946 (17) GI bleed ICD Codes: K92.2 - Gastrointestinal hemorrhage, unspecified SNOMED: 90291513 (18) Lower GI bleed ICD Codes: K92.2 - Gastrointestinal hemorrhage, unspecified SNOMED: 79673740 (19) Accelerated hypertension ICD Codes: I10 - Essential (primary) hypertension SNOMED: 78043818 (20) CKD (chronic kidney disease) stage 2, GFR 60-89 ml/min ICD Codes: N18.2 - Chronic kidney disease, stage 2 (mild) SNOMED: 384668955 (21) Nkmtu-hs-rxckwti renal failure ICD Codes: N17.9 - Acute kidney failure, unspecified; N18.9 - Chronic kidney disease, unspecified SNOMED: 951116765 (22) History of GI diverticular bleed ICD Codes: Z87.19 - Personal history of other diseases of the digestive system SNOMED: 819698972 (23) 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 ICD Codes: E11.9 - Type 2 diabetes mellitus without complications; Z79.4 - buttermaker helper (current) use of insulin SNOMED: 87419701, 452803564 (24) hypertension (25) hypertension Shaquille Cheatham Feb 26, 2020 13:57
[2020-02-26 15:59] VITALS: BP 144/77
--- NOTE | 2020-02-26 17:02 | Cardiology Progress Note ---
Subjective DATE OF SERVICE: Feb 26, 2020 Brighter today. C/O headache. No CP or SOB. Appetite slightly better. Objective Last 24 Hour Vital Signs Date Time Temp Pulse Resp B/P (MAP) Pulse Ox O2 Delivery O2 Flow Rate FiO2 02/26/20 15:59 97.7 63 18 144/77 (99) 100 02/26/20 12:00 60 02/26/20 12:00 97.2 68 18 168/88 (114) 100 02/26/20 09:00 Nasal Cannula 2.0 02/26/20 08:49 66 208/99 02/26/20 08:49 208/99 02/26/20 08:00 97.5 66 18 208/99 (135) 97 02/26/20 08:00 71 02/26/20 04:00 57 02/26/20 04:00 97.4 63 17 140/82 (101) 99 02/26/20 00:00 97.9 65 18 135/85 (102) 99 02/26/20 00:00 62 02/25/20 21:44 67 157/86 02/25/20 21:00 Nasal Cannula 2.0 02/25/20 20:00 66 02/25/20 20:00 97.5 67 17 157/86 (109) 100 ROS: unchanged from my evaluation of 02/24/20. HEENT: normal ENT inspection RHYTHM: NSR LUNGS: lungs clear bilaterally CARDIAC: normal rate, regular rhythm, normal S1 and S2, gallop/S4 ABDOMEN: normal bowel sounds, non tender, no organomegaly EXTREMITIES: normal range of motion, no calf tenderness, No edema, other - left UE in cast Laboratory Tests Test 02/26/20 06:01 Sodium Level 139 MMOL/L (136-145) Potassium Level 3.3 MMOL/L (3.5-5.1) L Chloride Level 105 MMOL/L (98-107) Carbon Dioxide Level 25 MMOL/L (21-32) Anion Gap 9 mmol/L (5-15) Blood Urea Nitrogen 37 mg/dL (7-18) H Creatinine 1.5 MG/DL (0.55-1.30) H Estimat Glomerular Filtration Rate 33.5 mL/min (>60) Glucose Level 108 MG/DL (74-106) #H Calcium Level 8.2 MG/DL (8.5-10.1) L Magnesium Level 2.2 MG/DL (1.8-2.4) Troponin I 0.221 ng/mL (0.000-0.056) Microbiology Date/Time Source Procedure Growth Status 02/24/20 19:25 Nasopharynx SARS-CoV-2 RdRp Gene Assay - Final Complete Assessment/Plan Assessment/Plan Blunt head trauma with probable concussion. Acute coronary syndrome/possible NSTEMI Metabolic encephalopathy Dehydration/hypovolemia NIDDM with hyperglycemia Vascular dementia Hypertension/HHD Unsteady gait Acute renal failure Hypokalemia Left UE fx IVF hydration; suppl K+ DC telemetry PT/OT Antiplatelet and antilipid rx DVT prophyl Insulin cov'g by SS Will need SNF Dex De La Torre MD Feb 26, 2020 17:02
[2020-02-26 20:00] VITALS: BP 178/87
[2020-02-27] VITALS: BP 155/80
[2020-02-27 04:00] VITALS: BP 165/80
[2020-02-27] MEDS: GlipiZIDE 5mg tab ORAL SCH ×2 (06:08→17:19)
[2020-02-27] MEDS: NovoLOG Insulin Flexpen SUBQ SCH ×4 (06:08→22:07)
[2020-02-27 06:49] LABS: INR 0.9 (0.9-1.1)
[2020-02-27 06:54] LABS: BASOPHILS % (AUTO) 0.7 % (0.0-2.0); EOSINOPHILS % (AUTO) 3.9 % (0.0-3.0); HEMATOCRIT 32.4 % (37.0-47.0); LYMPHOCYTES % (AUTO) 14.7 % (20.0-45.0); MEAN CORPUSCULAR VOLUME 93 FL (80-99); MONOCYTES % (AUTO) 8.8 % (1.0-10.0); NEUTROPHILS % (AUTO) 71.9 % (45.0-75.0); PLATELET COUNT 146 K/UL (150-450); RED CELL DISTRIBUTION WIDTH 12.8 % (11.6-14.8); WHITE BLOOD COUNT 5.6 K/UL (4.8-10.8)
[2020-02-27 07:46] LABS: ALBUMIN 2.4 G/DL (3.4-5.0); ALBUMIN/GLOBULIN RATIO 0.7 (1.0-2.7); BILIRUBIN,TOTAL 0.7 MG/DL (0.2-1.0); CALCIUM 8.5 MG/DL (8.5-10.1); CREATININE 1.5 MG/DL (0.55-1.30)
[2020-02-27 08:00] VITALS: BP 172/74
[2020-02-27] MEDS: Aspirin Baby 81mg ORAL SCH (08:24)
[2020-02-27] MEDS: Heparin 5000 units/ml inj SUBQ SCH ×2 (08:27→22:04)
--- NOTE | 2020-02-27 11:26 | Surgery Progress Note ---
Surgery Progress Note Subjective Additional Comments stable comfortable no acute events Objective Last 24 Hour Vital Signs Date Time Temp Pulse Resp B/P (MAP) Pulse Ox O2 Delivery O2 Flow Rate FiO2 02/27/20 09:45 172/74 02/27/20 09:00 Nasal Cannula 2.0 02/27/20 08:25 61 172/81 02/27/20 08:00 58 02/27/20 08:00 96.8 61 17 172/74 (106) 100 02/27/20 05:24 167/80 02/27/20 04:00 97.5 65 17 165/80 (108) 97 02/27/20 04:00 59 02/27/20 00:00 97.7 65 18 155/80 (105) 98 02/26/20 21:32 178/87 02/26/20 21:28 69 178/87 02/26/20 21:00 Nasal Cannula 2.0 02/26/20 20:00 97.9 69 17 178/87 (117) 98 02/26/20 20:00 73 02/26/20 16:00 70 02/26/20 15:59 97.7 63 18 144/77 (99) 100 02/26/20 12:00 60 02/26/20 12:00 97.2 68 18 168/88 (114) 100 I&O Intake and Output 02/26/20 02/27/20 19:00 07:00 Intake Total 480 ml 60 ml Balance 480 ml 60 ml Intake Oral 480 ml 60 ml # Voids 2 2 Dressing: dry Wound: clean Cardiovascular: RSR Respiratory: clear Abdomen: soft, flat, non-tender, present bowel sounds Extremities: no edema, no tenderness, no cyanosis, pulses, other Laboratory Tests Test 02/26/20 11:27 02/26/20 16:10 02/26/20 20:58 02/27/20 05:38 POC Whole Blood Glucose 159 MG/DL (74-106) H 209 MG/DL (74-106) H 185 MG/DL (74-106) H White Blood Count 5.6 K/UL (4.8-10.8) Red Blood Count 3.50 M/UL (4.20-5.40) L Hemoglobin 11.0 G/DL (12.0-16.0) L Hematocrit 32.4 % (37.0-47.0) L Mean Corpuscular Volume 93 FL (80-99) Mean Corpuscular Hemoglobin 31.4 PG (27.0-31.0) H Mean Corpuscular Hemoglobin Concent 33.9 G/DL (32.0-36.0) Red Cell Distribution Width 12.8 % (11.6-14.8) Platelet Count 146 K/UL (150-450) L Mean Platelet Volume 7.4 FL (6.5-10.1) Neutrophils (%) (Auto) 71.9 % (45.0-75.0) Lymphocytes (%) (Auto) 14.7 % (20.0-45.0) L Monocytes (%) (Auto) 8.8 % (1.0-10.0) Eosinophils (%) (Auto) 3.9 % (0.0-3.0) H Basophils (%) (Auto) 0.7 % (0.0-2.0) Erythrocyte Sedimentation Rate 66 MM/HR (0-30) H Prothrombin Time 10.4 SEC (9.30-11.50) Prothromb Time International Ratio 0.9 (0.9-1.1) Activated Partial Thromboplast Time 25 SEC (23-33) Sodium Level 138 MMOL/L (136-145) Potassium Level 4.0 MMOL/L (3.5-5.1) Chloride Level 106 MMOL/L (98-107) Carbon Dioxide Level 22 MMOL/L (21-32) Anion Gap 10 mmol/L (5-15) Blood Urea Nitrogen 31 mg/dL (7-18) H Creatinine 1.5 MG/DL (0.55-1.30) H Estimat Glomerular Filtration Rate 33.5 mL/min (>60) Glucose Level 132 MG/DL (74-106) H Calcium Level 8.5 MG/DL (8.5-10.1) Total Bilirubin 0.7 MG/DL (0.2-1.0) Aspartate Amino Transf (AST/SGOT) 17 U/L (15-37) Alanine Aminotransferase (ALT/SGPT) 9 U/L (12-78) L Alkaline Phosphatase 91 U/L (46-116) C-Reactive Protein, Quantitative 0.9 mg/dL (0.00-0.90) Total Protein 6.0 G/DL (6.4-8.2) L Albumin 2.4 G/DL (3.4-5.0) L Globulin 3.6 g/dL Albumin/Globulin Ratio 0.7 (1.0-2.7) L Amylase Level 41 U/L (25-115) Lipase 84 U/L (73-393) Test 02/27/20 06:04 POC Whole Blood Glucose 134 MG/DL (74-106) H Plan Problems: (1) Head injury Assessment & Plan: ct negative aaox3 no complaints no lateralizing signs Brain: No acute hemorrhage, evidence of edema or mass-effect. Chronic atrophy with periventricular small vessel ischemic changes. Ventricles: No acute ventriculomegaly. Bones/joints: Unremarkable. No acute fracture. Soft tissues: Unremarkable. Sinuses: Polypoid sphenoid sinus disease and partially visualized left ethmoid and maxillary sinus disease. Mastoid air cells: No mastoid effusion. IMPRESSION: 1. No acute intracranial traumatic process or calvarial fracture. 2. Chronic appearing generalized atrophy with periventricular small vessel ischemic changes. 3. Paranasal sinus disease, as above. (2) Wrist fracture, left Assessment & Plan: Comminuted and displaced distal left ulnar and radial fractures. Radiocarpal alignment appears intact. Evaluation for subtle carpal fractures limited. Soft tissue edema of the left wrist is noted. ortho eval pending min pain splint okay no drainage sling okay cont current care plan (3) LUCY (acute kidney injury) (4) Hypertensive urgency (5) AMS (altered mental status) (6) Vomiting Assessment & Plan: nausea emesis s/p fall ct okay no brain bleed ?related to meds / bp trop elevated okay for diet as tolerated will monitor with exam (7) NSTEMI (non-ST elevated myocardial infarction) (8) Dehydration (9) Hypomagnesemia (10) Gastrointestinal hemorrhage (11) Anemia (12) Contusion (13) Diverticulosis (14) Bright red blood per rectum (15) Abrasion (16) Fall (17) GI bleed (18) Lower GI bleed (19) Accelerated hypertension (20) CKD (chronic kidney disease) stage 2, GFR 60-89 ml/min (21) Juncv-xq-iowmoef renal failure (22) History of GI diverticular bleed (23) 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 (24) hypertension (25) hypertension Shaquille Cheatham Feb 27, 2020 11:26
[2020-02-27 12:00] VITALS: BP 127/66
[2020-02-27 16:00] VITALS: BP 125/65
[2020-02-27 20:00] VITALS: BP 181/87
[2020-02-28] VITALS: BP 161/83
--- NOTE | 2020-02-28 01:59 | Cardiology Progress Note ---
Subjective DATE OF SERVICE: Feb 27, 2020 Fully alert. Crying because her isn't present "did he " C/O headache. No CP or SOB. Appetite slightly better. Objective Last 24 Hour Vital Signs Date Time Temp Pulse Resp B/P (MAP) Pulse Ox O2 Delivery O2 Flow Rate FiO2 02/28/20 00:01 161/83 02/28/20 00:00 98.5 71 18 161/83 (109) 96 02/27/20 22:00 67 180/80 02/27/20 20:00 98.1 64 18 181/87 (118) 96 02/27/20 16:00 98.6 61 16 125/65 (85) 96 02/27/20 12:00 97.8 58 17 127/66 (86) 97 02/27/20 09:45 172/74 02/27/20 09:00 Nasal Cannula 2.0 02/27/20 08:25 61 172/81 02/27/20 08:00 58 02/27/20 08:00 96.8 61 17 172/74 (106) 100 02/27/20 05:24 167/80 02/27/20 04:00 97.5 65 17 165/80 (108) 97 02/27/20 04:00 59 ROS: unchanged from my evaluation of 02/24/20. HEENT: normal ENT inspection RHYTHM: NSR LUNGS: lungs clear bilaterally CARDIAC: normal rate, regular rhythm, normal S1 and S2, gallop/S4 ABDOMEN: normal bowel sounds, non tender, no organomegaly EXTREMITIES: normal range of motion, no calf tenderness, No edema, other - LUE cast Laboratory Tests Test 02/27/20 05:38 02/27/20 06:04 02/27/20 11:33 02/27/20 17:14 White Blood Count 5.6 K/UL (4.8-10.8) Red Blood Count 3.50 M/UL (4.20-5.40) L Hemoglobin 11.0 G/DL (12.0-16.0) L Hematocrit 32.4 % (37.0-47.0) L Mean Corpuscular Volume 93 FL (80-99) Mean Corpuscular Hemoglobin 31.4 PG (27.0-31.0) H Mean Corpuscular Hemoglobin Concent 33.9 G/DL (32.0-36.0) Red Cell Distribution Width 12.8 % (11.6-14.8) Platelet Count 146 K/UL (150-450) L Mean Platelet Volume 7.4 FL (6.5-10.1) Neutrophils (%) (Auto) 71.9 % (45.0-75.0) Lymphocytes (%) (Auto) 14.7 % (20.0-45.0) L Monocytes (%) (Auto) 8.8 % (1.0-10.0) Eosinophils (%) (Auto) 3.9 % (0.0-3.0) H Basophils (%) (Auto) 0.7 % (0.0-2.0) Erythrocyte Sedimentation Rate 66 MM/HR (0-30) H Prothrombin Time 10.4 SEC (9.30-11.50) Prothromb Time International Ratio 0.9 (0.9-1.1) Activated Partial Thromboplast Time 25 SEC (23-33) Sodium Level 138 MMOL/L (136-145) Potassium Level 4.0 MMOL/L (3.5-5.1) Chloride Level 106 MMOL/L (98-107) Carbon Dioxide Level 22 MMOL/L (21-32) Anion Gap 10 mmol/L (5-15) Blood Urea Nitrogen 31 mg/dL (7-18) H Creatinine 1.5 MG/DL (0.55-1.30) H Estimat Glomerular Filtration Rate 33.5 mL/min (>60) Glucose Level 132 MG/DL (74-106) H Calcium Level 8.5 MG/DL (8.5-10.1) Total Bilirubin 0.7 MG/DL (0.2-1.0) Aspartate Amino Transf (AST/SGOT) 17 U/L (15-37) Alanine Aminotransferase (ALT/SGPT) 9 U/L (12-78) L Alkaline Phosphatase 91 U/L (46-116) C-Reactive Protein, Quantitative 0.9 mg/dL (0.00-0.90) Total Protein 6.0 G/DL (6.4-8.2) L Albumin 2.4 G/DL (3.4-5.0) L Globulin 3.6 g/dL Albumin/Globulin Ratio 0.7 (1.0-2.7) L Amylase Level 41 U/L (25-115) Lipase 84 U/L (73-393) POC Whole Blood Glucose 134 MG/DL (74-106) H 191 MG/DL (74-106) H 258 MG/DL (74-106) H Test 02/27/20 21:54 POC Whole Blood Glucose 253 MG/DL (74-106) H Assessment/Plan Assessment/Plan Blunt head trauma with probable concussion. Acute coronary syndrome/possible NSTEMI Metabolic encephalopathy Dehydration/hypovolemia NIDDM with hyperglycemia Vascular dementia Hypertension/HHD Unsteady gait Acute renal failure LUE fracture IVF hydration PT/OT Antiplatelet and antilipid rx DVT prophyl Insulin cov'g by SS Will try to contact family Will need SNF Dex De La Torre MD Feb 28, 2020 01:59
[2020-02-28 04:30] VITALS: BP 181/90
[2020-02-28] MEDS: GlipiZIDE 5mg tab ORAL SCH ×2 (06:16→16:39)
[2020-02-28] MEDS: NovoLOG Insulin Flexpen SUBQ SCH ×4 (06:26→20:39)
[2020-02-28 06:33] LABS: BASOPHILS % (AUTO) 1.1 % (0.0-2.0); EOSINOPHILS % (AUTO) 6.8 % (0.0-3.0); HEMATOCRIT 29.2 % (37.0-47.0); HEMOGLOBIN 10.3 G/DL (12.0-16.0); LYMPHOCYTES % (AUTO) 20.8 % (20.0-45.0); MEAN CORPUSCULAR VOLUME 92 FL (80-99); MONOCYTES % (AUTO) 8.8 % (1.0-10.0); NEUTROPHILS % (AUTO) 62.6 % (45.0-75.0); PLATELET COUNT 151 K/UL (150-450); RED BLOOD COUNT 3.18 M/UL (4.20-5.40); RED CELL DISTRIBUTION WIDTH 13.3 % (11.6-14.8); WHITE BLOOD COUNT 4.9 K/UL (4.8-10.8)
[2020-02-28 07:02] LABS: ALBUMIN 2.1 G/DL (3.4-5.0); ALBUMIN/GLOBULIN RATIO 0.6 (1.0-2.7); BILIRUBIN,TOTAL 0.4 MG/DL (0.2-1.0); CREATININE 1.6 MG/DL (0.55-1.30); POTASSIUM 3.8 MMOL/L (3.5-5.1)
[2020-02-28 08:00] VITALS: BP 161/83
[2020-02-28] MEDS: Aspirin Baby 81mg ORAL SCH (08:24)
[2020-02-28] MEDS: Heparin 5000 units/ml inj SUBQ SCH ×2 (08:33→20:38)
[2020-02-28 12:00] VITALS: BP 161/76
--- NOTE | 2020-02-28 14:01 | Surgery Progress Note ---
Surgery Progress Note Subjective Symptoms: improved, tolerating diet, passing flatus, BM Objective Last 24 Hour Vital Signs Date Time Temp Pulse Resp B/P (MAP) Pulse Ox O2 Delivery O2 Flow Rate FiO2 02/28/20 12:00 97.9 68 18 161/76 (104) 98 02/28/20 09:00 Room Air 02/28/20 08:24 60 161/83 02/28/20 08:00 98.0 60 18 161/83 (109) 98 02/28/20 05:16 181/90 02/28/20 04:30 97.6 67 18 181/90 (120) 97 02/28/20 00:01 161/83 02/28/20 00:00 98.5 71 18 161/83 (109) 96 02/27/20 22:00 67 180/80 02/27/20 21:00 Room Air 02/27/20 20:00 98.1 64 18 181/87 (118) 96 02/27/20 16:00 98.6 61 16 125/65 (85) 96 I&O Intake and Output 02/27/20 02/28/20 19:00 07:00 Intake Total 200 ml 850 ml Balance 200 ml 850 ml Intake Oral 200 ml 250 ml IV Total 600 ml # Voids 1 5 Dressing: saturated Cardiovascular: RSR Respiratory: decreased breath sounds Abdomen: soft, non-tender, present bowel sounds Extremities: no tenderness, no cyanosis Laboratory Tests Test 02/27/20 17:14 02/27/20 21:54 02/28/20 05:30 02/28/20 05:40 POC Whole Blood Glucose 258 MG/DL (74-106) H 253 MG/DL (74-106) H 174 MG/DL (74-106) H White Blood Count 4.9 K/UL (4.8-10.8) Red Blood Count 3.18 M/UL (4.20-5.40) L Hemoglobin 10.3 G/DL (12.0-16.0) L Hematocrit 29.2 % (37.0-47.0) L Mean Corpuscular Volume 92 FL (80-99) Mean Corpuscular Hemoglobin 32.2 PG (27.0-31.0) H Mean Corpuscular Hemoglobin Concent 35.1 G/DL (32.0-36.0) Red Cell Distribution Width 13.3 % (11.6-14.8) Platelet Count 151 K/UL (150-450) Mean Platelet Volume 7.1 FL (6.5-10.1) Neutrophils (%) (Auto) 62.6 % (45.0-75.0) Lymphocytes (%) (Auto) 20.8 % (20.0-45.0) Monocytes (%) (Auto) 8.8 % (1.0-10.0) Eosinophils (%) (Auto) 6.8 % (0.0-3.0) H Basophils (%) (Auto) 1.1 % (0.0-2.0) Sodium Level 134 MMOL/L (136-145) L Potassium Level 3.8 MMOL/L (3.5-5.1) Chloride Level 106 MMOL/L (98-107) Carbon Dioxide Level 23 MMOL/L (21-32) Anion Gap 6 mmol/L (5-15) Blood Urea Nitrogen 31 mg/dL (7-18) H Creatinine 1.6 MG/DL (0.55-1.30) H Estimat Glomerular Filtration Rate 31.1 mL/min (>60) Glucose Level 182 MG/DL (74-106) H Calcium Level 8.0 MG/DL (8.5-10.1) L Total Bilirubin 0.4 MG/DL (0.2-1.0) Aspartate Amino Transf (AST/SGOT) 18 U/L (15-37) Alanine Aminotransferase (ALT/SGPT) 10 U/L (12-78) L Alkaline Phosphatase 85 U/L (46-116) Total Protein 5.5 G/DL (6.4-8.2) L Albumin 2.1 G/DL (3.4-5.0) L Globulin 3.4 g/dL Albumin/Globulin Ratio 0.6 (1.0-2.7) L Test 02/28/20 11:40 POC Whole Blood Glucose 214 MG/DL (74-106) H Plan Problems: (1) Head injury Assessment & Plan: ct negative aaox3 no complaints no lateralizing signs Brain: No acute hemorrhage, evidence of edema or mass-effect. Chronic atrophy with periventricular small vessel ischemic changes. Ventricles: No acute ventriculomegaly. Bones/joints: Unremarkable. No acute fracture. Soft tissues: Unremarkable. Sinuses: Polypoid sphenoid sinus disease and partially visualized left ethmoid and maxillary sinus disease. Mastoid air cells: No mastoid effusion. IMPRESSION: 1. No acute intracranial traumatic process or calvarial fracture. 2. Chronic appearing generalized atrophy with periventricular small vessel ischemic changes. 3. Paranasal sinus disease, as above. (2) Wrist fracture, left Assessment & Plan: Comminuted and displaced distal left ulnar and radial fractures. Radiocarpal alignment appears intact. Evaluation for subtle carpal fractures limited. Soft tissue edema of the left wrist is noted. ortho eval pending min pain splint okay no drainage sling okay cont current care plan (3) LUCY (acute kidney injury) (4) Hypertensive urgency (5) AMS (altered mental status) (6) Vomiting Assessment & Plan: nausea emesis s/p fall ct okay no brain bleed ?related to meds / bp trop elevated okay for diet as tolerated will monitor with exam (7) NSTEMI (non-ST elevated myocardial infarction) (8) Dehydration (9) Hypomagnesemia (10) Gastrointestinal hemorrhage (11) Anemia (12) Contusion (13) Diverticulosis (14) Bright red blood per rectum (15) Abrasion (16) Fall (17) GI bleed (18) Lower GI bleed (19) Accelerated hypertension (20) CKD (chronic kidney disease) stage 2, GFR 60-89 ml/min (21) [id number]-[id number] renal failure (22) History of GI diverticular bleed (23) 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 (24) hypertension (25) hypertension Shaquille Cheatham Feb 28, 2020 14:01
[2020-02-28 16:00] VITALS: BP 165/77
--- NOTE | 2020-02-28 19:54 | Cardiology Progress Note ---
Subjective DATE OF SERVICE: Feb 28, 2020 Fully alert. Spoke to her today. Feels better. No CP or SOB. BP trending up. Appetite slightly better. Objective Last 24 Hour Vital Signs Date Time Temp Pulse Resp B/P (MAP) Pulse Ox O2 Delivery O2 Flow Rate FiO2 02/28/20 16:39 165/77 02/28/20 16:00 98.7 67 20 165/77 (106) 98 02/28/20 12:00 97.9 68 18 161/76 (104) 98 02/28/20 09:00 Room Air 02/28/20 08:24 60 161/83 02/28/20 08:00 98.0 60 18 161/83 (109) 98 02/28/20 05:16 181/90 02/28/20 04:30 97.6 67 18 181/90 (120) 97 02/28/20 00:01 161/83 02/28/20 00:00 98.5 71 18 161/83 (109) 96 02/27/20 22:00 67 180/80 02/27/20 21:00 Room Air 02/27/20 20:00 98.1 64 18 181/87 (118) 96 ROS: unchanged from my evaluation of 02/24/20. HEENT: normal ENT inspection RHYTHM: NSR LUNGS: lungs clear bilaterally CARDIAC: normal rate, regular rhythm, normal S1 and S2, gallop/S4 ABDOMEN: normal bowel sounds, non tender, no organomegaly EXTREMITIES: normal range of motion, no calf tenderness, No edema, other - LUE cast Laboratory Tests Test 02/27/20 21:54 02/28/20 05:30 02/28/20 05:40 02/28/20 11:40 POC Whole Blood Glucose 253 MG/DL (74-106) H 174 MG/DL (74-106) H 214 MG/DL (74-106) H White Blood Count 4.9 K/UL (4.8-10.8) Red Blood Count 3.18 M/UL (4.20-5.40) L Hemoglobin 10.3 G/DL (12.0-16.0) L Hematocrit 29.2 % (37.0-47.0) L Mean Corpuscular Volume 92 FL (80-99) Mean Corpuscular Hemoglobin 32.2 PG (27.0-31.0) H Mean Corpuscular Hemoglobin Concent 35.1 G/DL (32.0-36.0) Red Cell Distribution Width 13.3 % (11.6-14.8) Platelet Count 151 K/UL (150-450) Mean Platelet Volume 7.1 FL (6.5-10.1) Neutrophils (%) (Auto) 62.6 % (45.0-75.0) Lymphocytes (%) (Auto) 20.8 % (20.0-45.0) Monocytes (%) (Auto) 8.8 % (1.0-10.0) Eosinophils (%) (Auto) 6.8 % (0.0-3.0) H Basophils (%) (Auto) 1.1 % (0.0-2.0) Sodium Level 134 MMOL/L (136-145) L Potassium Level 3.8 MMOL/L (3.5-5.1) Chloride Level 106 MMOL/L (98-107) Carbon Dioxide Level 23 MMOL/L (21-32) Anion Gap 6 mmol/L (5-15) Blood Urea Nitrogen 31 mg/dL (7-18) H Creatinine 1.6 MG/DL (0.55-1.30) H Estimat Glomerular Filtration Rate 31.1 mL/min (>60) Glucose Level 182 MG/DL (74-106) H Calcium Level 8.0 MG/DL (8.5-10.1) L Total Bilirubin 0.4 MG/DL (0.2-1.0) Aspartate Amino Transf (AST/SGOT) 18 U/L (15-37) Alanine Aminotransferase (ALT/SGPT) 10 U/L (12-78) L Alkaline Phosphatase 85 U/L (46-116) Total Protein 5.5 G/DL (6.4-8.2) L Albumin 2.1 G/DL (3.4-5.0) L Globulin 3.4 g/dL Albumin/Globulin Ratio 0.6 (1.0-2.7) L Test 02/28/20 16:38 POC Whole Blood Glucose 174 MG/DL (74-106) H Assessment/Plan Assessment/Plan Blunt head trauma with probable concussion. Acute coronary syndrome/possible NSTEMI Metabolic encephalopathy Dehydration/hypovolemia NIDDM with hyperglycemia Vascular dementia Hypertension/HHD with rising BP range Unsteady gait Acute renal failure LUE fracture IVF hydration decreased rate PT/OT Antiplatelet and antilipid rx DVT prophyl Insulin cov'g by SS; glipizide advanced. AntiHTN meds advanced Will need SNF Dex De La Torre MD Feb 28, 2020 19:54
[2020-02-28 20:00] VITALS: BP 174/81
[2020-02-29] VITALS: BP 152/65
[2020-02-29 04:00] VITALS: BP 162/70
[2020-02-29] MEDS: GlipiZIDE 5mg tab ORAL SCH ×3 (05:53→18:10)
[2020-02-29] MEDS: NovoLOG Insulin Flexpen SUBQ SCH ×4 (05:54→21:00)
[2020-02-29 08:00] VITALS: BP 145/71
[2020-02-29] MEDS: Aspirin Baby 81mg ORAL SCH (10:09)
[2020-02-29] MEDS: Heparin 5000 units/ml inj SUBQ SCH ×2 (10:11→21:08)
[2020-02-29 12:00] VITALS: BP 155/87
[2020-02-29 16:00] VITALS: BP 168/82
--- NOTE | 2020-02-29 18:12 | Surgery Progress Note ---
Surgery Progress Note Subjective Symptoms: improved, tolerating diet, passing flatus, BM, pain decreased Objective Last 24 Hour Vital Signs Date Time Temp Pulse Resp B/P (MAP) Pulse Ox O2 Delivery O2 Flow Rate FiO2 02/29/20 16:00 98.9 73 18 168/82 (110) 95 02/29/20 12:00 97.8 73 18 155/87 (109) 95 02/29/20 10:09 60 145/71 02/29/20 10:08 60 145/71 02/29/20 09:00 Room Air 02/29/20 08:00 97.8 60 18 145/71 (95) 98 02/29/20 04:57 162/70 02/29/20 04:00 97.9 63 18 162/70 (100) 99 02/29/20 00:00 98.3 60 17 152/65 (94) 97 02/28/20 21:00 Room Air 02/28/20 20:37 75 174/81 02/28/20 20:00 97.7 75 18 174/81 (112) 100 I&O Intake and Output 02/28/20 02/29/20 19:00 07:00 Intake Total 800 ml 600 ml Balance 800 ml 600 ml Intake Oral 800 ml 200 ml IV Total 400 ml # Voids 2 Dressing: dry Cardiovascular: RSR Respiratory: clear Abdomen: soft, non-tender, present bowel sounds Extremities: no edema, no tenderness, no cyanosis Laboratory Tests Test 02/28/20 20:33 02/29/20 05:51 02/29/20 12:23 02/29/20 16:58 POC Whole Blood Glucose Pending Pending 188 MG/DL (74-106) H 164 MG/DL (74-106) H Plan Problems: (1) Head injury Assessment & Plan: ct negative aaox3 no complaints no lateralizing signs Brain: No acute hemorrhage, evidence of edema or mass-effect. Chronic atrophy with periventricular small vessel ischemic changes. Ventricles: No acute ventriculomegaly. Bones/joints: Unremarkable. No acute fracture. Soft tissues: Unremarkable. Sinuses: Polypoid sphenoid sinus disease and partially visualized left ethmoid and maxillary sinus disease. Mastoid air cells: No mastoid effusion. IMPRESSION: 1. No acute intracranial traumatic process or calvarial fracture. 2. Chronic appearing generalized atrophy with periventricular small vessel ischemic changes. 3. Paranasal sinus disease, as above. (2) Wrist fracture, left Assessment & Plan: Comminuted and displaced distal left ulnar and radial fractures. Radiocarpal alignment appears intact. Evaluation for subtle carpal fractures limited. Soft tissue edema of the left wrist is noted. ortho eval pending min pain splint okay no drainage sling okay cont current care plan (3) LUCY (acute kidney injury) (4) Hypertensive urgency (5) AMS (altered mental status) (6) Vomiting Assessment & Plan: nausea emesis s/p fall ct okay no brain bleed ?related to meds / bp trop elevated okay for diet as tolerated will monitor with exam (7) NSTEMI (non-ST elevated myocardial infarction) (8) Dehydration (9) Hypomagnesemia (10) Gastrointestinal hemorrhage (11) Anemia (12) Contusion (13) Diverticulosis (14) Bright red blood per rectum (15) Abrasion (16) Fall (17) GI bleed (18) Lower GI bleed (19) Accelerated hypertension (20) CKD (chronic kidney disease) stage 2, GFR 60-89 ml/min (21) [id number] renal failure (22) History of GI diverticular bleed (23) 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 (24) hypertension (25) hypertension Shaquille Cheatham Feb 29, 2020 18:12
[2020-02-29 20:00] VITALS: BP 191/101
[2020-03-01] VITALS (7 sets, daily range): BP systolic 134–187; BP diastolic 71–96
--- NOTE | 2020-03-01 01:29 | Cardiology Progress Note ---
Subjective DATE OF SERVICE: Feb 29, 2020 Fully alert. Spoke to her yesterday - but still forgets, and worries that he . Feels better. No CP or SOB. BP still with occasional spikes. Appetite slightly better. Objective Last 24 Hour Vital Signs Date Time Temp Pulse Resp B/P (MAP) Pulse Ox O2 Delivery O2 Flow Rate FiO2 02/29/20 23:46 178/96 02/29/20 21:13 83 191/101 02/29/20 16:00 98.9 73 18 168/82 (110) 95 02/29/20 12:00 97.8 73 18 155/87 (109) 95 02/29/20 10:09 60 145/71 02/29/20 10:08 60 145/71 02/29/20 09:00 Room Air 02/29/20 08:00 97.8 60 18 145/71 (95) 98 02/29/20 04:57 162/70 02/29/20 04:00 97.9 63 18 162/70 (100) 99 ROS: unchanged from my evaluation of 02/24/20. HEENT: normal ENT inspection RHYTHM: NSR LUNGS: lungs clear bilaterally CARDIAC: normal rate, regular rhythm, normal S1 and S2, gallop/S4 ABDOMEN: normal bowel sounds, non tender, no organomegaly EXTREMITIES: normal range of motion, no calf tenderness, No edema, other - LUE cast Laboratory Tests Test 02/29/20 05:51 02/29/20 12:23 02/29/20 16:58 02/29/20 21:06 POC Whole Blood Glucose Pending 188 MG/DL (74-106) H 164 MG/DL (74-106) H Pending Assessment/Plan Assessment/Plan Blunt head trauma with probable concussion. Acute coronary syndrome/possible NSTEMI Metabolic encephalopathy Dehydration/hypovolemia NIDDM with hyperglycemia Vascular dementia Hypertension/HHD with rising BP range Unsteady gait Acute renal failure LUE fracture IVF hydration decreased rate PT/OT Antiplatelet and antilipid rx DVT prophyl Insulin cov'g by SS; glipizide advanced. AntiHTN meds advanced Will need SNF Dex De La Torre MD Mar 01, 2020 01:29
[2020-03-01] MEDS: GlipiZIDE 5mg tab ORAL SCH ×3 (05:52→17:42)
[2020-03-01] MEDS: NovoLOG Insulin Flexpen SUBQ SCH ×4 (05:52→22:09)
[2020-03-01 07:40] LABS: BASOPHILS % (AUTO) 1.5 % (0.0-2.0); HEMATOCRIT 30.9 % (37.0-47.0); HEMOGLOBIN 10.4 G/DL (12.0-16.0); LYMPHOCYTES % (AUTO) 24.5 % (20.0-45.0); MEAN CORPUSCULAR VOLUME 94 FL (80-99); PLATELET COUNT 172 K/UL (150-450); RED BLOOD COUNT 3.31 M/UL (4.20-5.40); RED CELL DISTRIBUTION WIDTH 13.3 % (11.6-14.8); WHITE BLOOD COUNT 4.4 K/UL (4.8-10.8)
[2020-03-01 08:06] LABS: ALBUMIN 2.2 G/DL (3.4-5.0); ALBUMIN/GLOBULIN RATIO 0.6 (1.0-2.7); BILIRUBIN,TOTAL 0.5 MG/DL (0.2-1.0); CALCIUM 8.5 MG/DL (8.5-10.1); CREATININE 1.3 MG/DL (0.55-1.30); POTASSIUM 3.7 MMOL/L (3.5-5.1)
[2020-03-01] MEDS: Aspirin Baby 81mg ORAL SCH (08:33)
[2020-03-01] MEDS: Heparin 5000 units/ml inj SUBQ SCH ×2 (08:35→20:40)
--- NOTE | 2020-03-01 17:25 | Surgery Progress Note ---
Surgery Progress Note Subjective Additional Comments improved d/c planning informed of husbands location Objective Last 24 Hour Vital Signs Date Time Temp Pulse Resp B/P (MAP) Pulse Ox O2 Delivery O2 Flow Rate FiO2 03/01/20 16:13 187/92 03/01/20 16:00 98.5 81 20 187/92 (123) 95 03/01/20 12:00 98.5 68 20 167/85 (112) 97 03/01/20 08:34 70 161/94 03/01/20 08:33 70 161/94 03/01/20 08:33 161/94 03/01/20 08:00 97.8 70 18 161/94 (116) 97 03/01/20 04:00 97.5 68 17 134/71 (92) 97 03/01/20 00:00 97.5 74 18 178/96 (123) 97 02/29/20 23:46 178/96 02/29/20 21:13 83 191/101 02/29/20 21:00 Room Air 02/29/20 20:00 98.1 83 17 191/101 (131) 100 I&O Intake and Output 02/29/20 03/01/20 19:00 07:00 Intake Total 250 ml 750 ml Balance 250 ml 750 ml Intake Oral 250 ml 200 ml IV Total 550 ml # Voids 2 3 Cardiovascular: RSR Respiratory: clear Abdomen: soft, non-tender, present bowel sounds, non-distended Extremities: no edema, no tenderness, no cyanosis, other Laboratory Tests Test 02/29/20 21:06 03/01/20 05:10 03/01/20 05:52 03/01/20 11:59 POC Whole Blood Glucose Pending Pending 154 MG/DL (74-106) H White Blood Count 4.4 K/UL (4.8-10.8) L Red Blood Count 3.31 M/UL (4.20-5.40) L Hemoglobin 10.4 G/DL (12.0-16.0) L Hematocrit 30.9 % (37.0-47.0) L Mean Corpuscular Volume 94 FL (80-99) Mean Corpuscular Hemoglobin 31.5 PG (27.0-31.0) H Mean Corpuscular Hemoglobin Concent 33.7 G/DL (32.0-36.0) Red Cell Distribution Width 13.3 % (11.6-14.8) Platelet Count 172 K/UL (150-450) Mean Platelet Volume 7.2 FL (6.5-10.1) Neutrophils (%) (Auto) 56.0 % (45.0-75.0) Lymphocytes (%) (Auto) 24.5 % (20.0-45.0) Monocytes (%) (Auto) 12.0 % (1.0-10.0) H Eosinophils (%) (Auto) 6.0 % (0.0-3.0) H Basophils (%) (Auto) 1.5 % (0.0-2.0) Sodium Level 140 MMOL/L (136-145) Potassium Level 3.7 MMOL/L (3.5-5.1) Chloride Level 109 MMOL/L (98-107) H Carbon Dioxide Level 22 MMOL/L (21-32) Anion Gap 9 mmol/L (5-15) Blood Urea Nitrogen 24 mg/dL (7-18) H Creatinine 1.3 MG/DL (0.55-1.30) Estimat Glomerular Filtration Rate 39.5 mL/min (>60) Glucose Level 104 MG/DL (74-106) Calcium Level 8.5 MG/DL (8.5-10.1) Total Bilirubin 0.5 MG/DL (0.2-1.0) Aspartate Amino Transf (AST/SGOT) 20 U/L (15-37) Alanine Aminotransferase (ALT/SGPT) 13 U/L (12-78) Alkaline Phosphatase 82 U/L (46-116) Total Protein 5.7 G/DL (6.4-8.2) L Albumin 2.2 G/DL (3.4-5.0) L Globulin 3.5 g/dL Albumin/Globulin Ratio 0.6 (1.0-2.7) L Test 03/01/20 16:38 POC Whole Blood Glucose 164 MG/DL (74-106) H Plan Problems: (1) Head injury Assessment & Plan: ct negative aaox3 no complaints no lateralizing signs Brain: No acute hemorrhage, evidence of edema or mass-effect. Chronic atrophy with periventricular small vessel ischemic changes. Ventricles: No acute ventriculomegaly. Bones/joints: Unremarkable. No acute fracture. Soft tissues: Unremarkable. Sinuses: Polypoid sphenoid sinus disease and partially visualized left ethmoid and maxillary sinus disease. Mastoid air cells: No mastoid effusion. IMPRESSION: 1. No acute intracranial traumatic process or calvarial fracture. 2. Chronic appearing generalized atrophy with periventricular small vessel ischemic changes. 3. Paranasal sinus disease, as above. (2) Wrist fracture, left Assessment & Plan: Comminuted and displaced distal left ulnar and radial fractures. Radiocarpal alignment appears intact. Evaluation for subtle carpal fractures limited. Soft tissue edema of the left wrist is noted. ortho eval pending min pain splint okay no drainage sling okay cont current care plan (3) LUCY (acute kidney injury) (4) Hypertensive urgency (5) AMS (altered mental status) (6) Vomiting Assessment & Plan: nausea emesis s/p fall ct okay no brain bleed ?related to meds / bp trop elevated okay for diet as tolerated will monitor with exam DAILY ESTIMATED NEEDS: Needs based on Diabetes/ 48kg abw 25-30 kcals/kg 7205-8107 total kcals 1-1.5 g protein/kg 48-72 g total protein 25-30 mL/kg 9427-1689 total fluid mLs NUTRITION DIAGNOSIS: Altered nutrition related lab values R/T diabetes as evidenced by elev BG's (104-182), elev POC glu (110-164). CURRENT DIET: [facility] MED RECOMMEND: [facility] LOW/ LOW NA DIET (texture per [facility]UL[facility]) ADDITIONAL RECOMMENDATIONS: * Standing wt as able for accurate CBW * A1C for eval of glycemic control * Glucerna BID w/ continued 50% intake (7) NSTEMI (non-ST elevated myocardial infarction) (8) Dehydration (9) Hypomagnesemia (10) Gastrointestinal hemorrhage (11) Anemia (12) Contusion (13) Diverticulosis (14) Bright red blood per rectum (15) Abrasion (16) Fall (17) GI bleed (18) Lower GI bleed (19) Accelerated hypertension (20) CKD (chronic kidney disease) stage 2, GFR 60-89 ml/min (21) [id number] renal failure (22) History of GI diverticular bleed (23) 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 (24) hypertension (25) hypertension Shaquille Cheatham Mar 01, 2020 17:25
[2020-03-02] VITALS: BP 156/77
--- NOTE | 2020-03-02 02:47 | Cardiology Progress Note ---
Subjective DATE OF SERVICE: Mar 01, 2020 Fully alert. No CP or SOB. BP still with occasional spikes. Appetite slightly better. Objective Last 24 Hour Vital Signs Date Time Temp Pulse Resp B/P (MAP) Pulse Ox O2 Delivery O2 Flow Rate FiO2 03/02/20 01:40 156/77 03/01/20 20:39 73 170/86 03/01/20 20:00 99.0 73 18 170/86 (114) 97 03/01/20 18:30 83 168/83 (111) 03/01/20 16:13 187/92 03/01/20 16:00 98.5 81 20 187/92 (123) 95 03/01/20 12:00 98.5 68 20 167/85 (112) 97 03/01/20 09:00 Room Air 03/01/20 08:34 70 161/94 03/01/20 08:33 70 161/94 03/01/20 08:33 161/94 03/01/20 08:00 97.8 70 18 161/94 (116) 97 03/01/20 04:00 97.5 68 17 134/71 (92) 97 ROS: unchanged from my evaluation of 02/24/20. HEENT: normal ENT inspection RHYTHM: NSR LUNGS: lungs clear bilaterally CARDIAC: normal rate, regular rhythm, normal S1 and S2, gallop/S4 ABDOMEN: normal bowel sounds, non tender, no organomegaly EXTREMITIES: normal range of motion, no calf tenderness, No edema, other - LUE cast Laboratory Tests Test 03/01/20 05:10 03/01/20 05:52 03/01/20 11:59 03/01/20 16:38 White Blood Count 4.4 K/UL (4.8-10.8) L Red Blood Count 3.31 M/UL (4.20-5.40) L Hemoglobin 10.4 G/DL (12.0-16.0) L Hematocrit 30.9 % (37.0-47.0) L Mean Corpuscular Volume 94 FL (80-99) Mean Corpuscular Hemoglobin 31.5 PG (27.0-31.0) H Mean Corpuscular Hemoglobin Concent 33.7 G/DL (32.0-36.0) Red Cell Distribution Width 13.3 % (11.6-14.8) Platelet Count 172 K/UL (150-450) Mean Platelet Volume 7.2 FL (6.5-10.1) Neutrophils (%) (Auto) 56.0 % (45.0-75.0) Lymphocytes (%) (Auto) 24.5 % (20.0-45.0) Monocytes (%) (Auto) 12.0 % (1.0-10.0) H Eosinophils (%) (Auto) 6.0 % (0.0-3.0) H Basophils (%) (Auto) 1.5 % (0.0-2.0) Sodium Level 140 MMOL/L (136-145) Potassium Level 3.7 MMOL/L (3.5-5.1) Chloride Level 109 MMOL/L (98-107) H Carbon Dioxide Level 22 MMOL/L (21-32) Anion Gap 9 mmol/L (5-15) Blood Urea Nitrogen 24 mg/dL (7-18) H Creatinine 1.3 MG/DL (0.55-1.30) Estimat Glomerular Filtration Rate 39.5 mL/min (>60) Glucose Level 104 MG/DL (74-106) Calcium Level 8.5 MG/DL (8.5-10.1) Total Bilirubin 0.5 MG/DL (0.2-1.0) Aspartate Amino Transf (AST/SGOT) 20 U/L (15-37) Alanine Aminotransferase (ALT/SGPT) 13 U/L (12-78) Alkaline Phosphatase 82 U/L (46-116) Total Protein 5.7 G/DL (6.4-8.2) L Albumin 2.2 G/DL (3.4-5.0) L Globulin 3.5 g/dL Albumin/Globulin Ratio 0.6 (1.0-2.7) L POC Whole Blood Glucose Pending 154 MG/DL (74-106) H 164 MG/DL (74-106) H Test 03/01/20 22:03 POC Whole Blood Glucose 165 MG/DL (74-106) H Assessment/Plan Assessment/Plan Blunt head trauma with probable concussion. Acute coronary syndrome/possible NSTEMI Metabolic encephalopathy Dehydration/hypovolemia NIDDM with hyperglycemia Vascular dementia Hypertension/HHD with rising BP range Unsteady gait Acute renal failure LUE fracture IVF hydration discont'd PT/OT Antiplatelet and antilipid rx DVT prophyl Insulin cov'g by SS; glipizide advanced. AntiHTN meds advanced Will need [facility] Dex De La Torre MD Mar 02, 2020 02:47
[2020-03-02 04:00] VITALS: BP 193/92
[2020-03-02] MEDS: GlipiZIDE 5mg tab ORAL SCH ×3 (05:31→17:01)
[2020-03-02] MEDS: NovoLOG Insulin Flexpen SUBQ SCH ×4 (06:38→21:16)
[2020-03-02 08:00] VITALS: BP 143/100
[2020-03-02] MEDS: Losartan 50mg tab ORAL SCH (10:39)
[2020-03-02] MEDS: Aspirin Baby 81mg ORAL SCH (10:40)
[2020-03-02] MEDS: Heparin 5000 units/ml inj SUBQ SCH ×2 (10:41→21:04)
[2020-03-02 12:00] VITALS: BP 168/77
--- NOTE | 2020-03-02 14:35 | Surgery Progress Note ---
Surgery Progress Note Subjective Symptoms: improved, tolerating diet, passing flatus Objective Last 24 Hour Vital Signs Date Time Temp Pulse Resp B/P (MAP) Pulse Ox O2 Delivery O2 Flow Rate FiO2 03/02/20 12:00 98.5 72 18 168/77 (107) 96 03/02/20 10:40 76 143/100 03/02/20 10:39 143/100 03/02/20 08:00 98.5 76 18 143/100 (114) 97 03/02/20 05:31 74 192/92 03/02/20 04:00 98.1 72 16 193/92 (125) 98 03/02/20 01:40 156/77 03/02/20 00:00 98.1 76 17 156/77 (103) 95 03/01/20 21:00 Room Air 03/01/20 20:39 73 170/86 03/01/20 20:00 99.0 73 18 170/86 (114) 97 03/01/20 18:30 83 168/83 (111) 03/01/20 16:13 187/92 03/01/20 16:00 98.5 81 20 187/92 (123) 95 I&O Intake and Output 03/01/20 03/02/20 19:00 07:00 Intake Total 1000 ml 240 ml Output Total 800 ml Balance 200 ml 240 ml Intake Oral 400 ml 240 ml IV Total 600 ml Output Urine Total 800 ml # Voids 3 Dressing: dry Wound: clean Cardiovascular: RSR Respiratory: clear Abdomen: soft, non-tender, present bowel sounds Extremities: no tenderness, no cyanosis Laboratory Tests Test 03/01/20 16:38 03/01/20 22:03 03/02/20 05:21 03/02/20 12:34 POC Whole Blood Glucose 164 MG/DL (74-106) H 165 MG/DL (74-106) H Pending 204 MG/DL (74-106) H Plan Problems: (1) Head injury Assessment & Plan: ct negative aaox3 no complaints no lateralizing signs Brain: No acute hemorrhage, evidence of edema or mass-effect. Chronic atrophy with periventricular small vessel ischemic changes. Ventricles: No acute ventriculomegaly. Bones/joints: Unremarkable. No acute fracture. Soft tissues: Unremarkable. Sinuses: Polypoid sphenoid sinus disease and partially visualized left ethmoid and maxillary sinus disease. Mastoid air cells: No mastoid effusion. IMPRESSION: 1. No acute intracranial traumatic process or calvarial fracture. 2. Chronic appearing generalized atrophy with periventricular small vessel ischemic changes. 3. Paranasal sinus disease, as above. (2) Wrist fracture, left Assessment & Plan: Comminuted and displaced distal left ulnar and radial fractures. Radiocarpal alignment appears intact. Evaluation for subtle carpal fractures limited. Soft tissue edema of the left wrist is noted. ortho eval pending min pain splint okay no drainage sling okay cont current care plan (3) LUCY (acute kidney injury) (4) Hypertensive urgency (5) AMS (altered mental status) (6) Vomiting Assessment & Plan: nausea emesis s/p fall ct okay no brain bleed ?related to meds / bp trop elevated okay for diet as tolerated will monitor with exam DAILY ESTIMATED NEEDS: Needs based on Diabetes/ 48kg abw 25-30 kcals/kg 6093-0498 total kcals 1-1.5 g protein/kg 48-72 g total protein 25-30 mL/kg 6254-1973 total fluid mLs NUTRITION DIAGNOSIS: Altered nutrition related lab values R/T diabetes as evidenced by elev BG's (104-182), elev POC glu (110-164). CURRENT DIET: [facility] MED [facility] LOW/ LOW NA DIET (texture per [employer]) ADDITIONAL RECOMMENDATIONS: * Standing wt as able for accurate CBW * A1C for eval of glycemic control * Glucerna BID w/ continued 50% intake (7) NSTEMI (non-ST elevated myocardial infarction) (8) Dehydration (9) Hypomagnesemia (10) Gastrointestinal hemorrhage (11) Anemia (12) Contusion (13) Diverticulosis (14) Bright red blood per rectum (15) Abrasion (16) Fall (17) GI bleed (18) Lower GI bleed (19) Accelerated hypertension (20) CKD (chronic kidney disease) stage 2, GFR 60-89 ml/min (21) Vuntm-cf-wjnltxn renal failure (22) History of GI diverticular bleed (23) 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 (24) hypertension (25) hypertension Shaquille Cheatham Mar 02, 2020 14:35
[2020-03-02 16:00] VITALS: BP 176/85
[2020-03-02 20:00] VITALS: BP 194/97
--- NOTE | 2020-03-02 22:54 | Cardiology Progress Note ---
Subjective DATE OF SERVICE: Mar 02, 2020 Fully alert. No CP or SOB. BP now with frequent spikes. Appetite continues to improve. Objective Last 24 Hour Vital Signs Date Time Temp Pulse Resp B/P (MAP) Pulse Ox O2 Delivery O2 Flow Rate FiO2 03/02/20 21:04 79 194/97 03/02/20 20:00 98.1 79 18 194/97 (129) 96 03/02/20 16:00 98.7 73 18 176/85 (115) 96 03/02/20 12:00 98.5 72 18 168/77 (107) 96 03/02/20 10:40 76 143/100 03/02/20 10:39 143/100 03/02/20 09:00 Room Air 03/02/20 08:00 98.5 76 18 143/100 (114) 97 03/02/20 05:31 74 192/92 03/02/20 04:00 98.1 72 16 193/92 (125) 98 03/02/20 01:40 156/77 03/02/20 00:00 98.1 76 17 156/77 (103) 95 ROS: unchanged from my evaluation of 02/24/20. HEENT: normal ENT inspection RHYTHM: NSR LUNGS: lungs clear bilaterally CARDIAC: normal rate, regular rhythm, normal S1 and S2, gallop/S4 ABDOMEN: normal bowel sounds, non tender, no organomegaly EXTREMITIES: normal range of motion, no calf tenderness, No edema, other - LUE cast Laboratory Tests Test 03/02/20 05:21 03/02/20 12:34 03/02/20 16:49 03/02/20 21:06 POC Whole Blood Glucose Pending 204 MG/DL (74-106) H 181 MG/DL (74-106) H Pending Assessment/Plan Assessment/Plan Blunt head trauma with probable concussion. Acute coronary syndrome/possible NSTEMI Metabolic encephalopathy Dehydration/hypovolemia NIDDM with hyperglycemia Vascular dementia Hypertension/HHD with rising BP range Unsteady gait Acute renal failure LUE fracture IVF hydration discont'd PT/OT Antiplatelet and antilipid rx DVT prophyl Insulin cov'g by SS; glipizide advanced. AntiHTN meds advanced Will need SNF - trying to find any bed during the pandemic Dex De La Torre MD Mar 02, 2020 22:54
[2020-03-03] VITALS (7 sets, daily range): BP systolic 145–172; BP diastolic 74–84
[2020-03-03] MEDS: GlipiZIDE 5mg tab ORAL SCH ×3 (06:29→16:51)
[2020-03-03] MEDS: NovoLOG Insulin Flexpen SUBQ SCH ×4 (06:31→21:21)
[2020-03-03] MEDS: Aspirin Baby 81mg ORAL SCH (09:19)
[2020-03-03] MEDS: Losartan 50mg tab ORAL SCH (09:20)
[2020-03-03] MEDS: Heparin 5000 units/ml inj SUBQ SCH ×2 (09:22→21:20)
[2020-03-03] MEDS: Carvedilol 6.25mg Tab ORAL SCH ×2 (09:22→21:17)
--- NOTE | 2020-03-03 17:43 | Surgery Progress Note ---
Surgery Progress Note Subjective Additional Comments ill appearing no acute events labs noted micro reviewed Objective Last 24 Hour Vital Signs Date Time Temp Pulse Resp B/P (MAP) Pulse Ox O2 Delivery O2 Flow Rate FiO2 03/03/20 16:51 160/83 03/03/20 16:00 97.9 67 18 160/83 (108) 97 03/03/20 11:53 98.0 67 18 148/76 (100) 98 03/03/20 09:22 62 156/78 03/03/20 09:20 62 156/78 03/03/20 09:20 156/78 03/03/20 09:00 Room Air 03/03/20 08:00 98.0 62 20 156/78 (104) 97 03/03/20 05:26 171/84 03/03/20 04:00 97.8 66 18 171/84 (113) 95 03/03/20 00:25 172/82 03/03/20 00:00 98.3 74 18 172/82 (112) 97 03/02/20 21:04 79 194/97 03/02/20 21:00 Room Air 03/02/20 20:00 98.1 79 18 194/97 (129) 96 I&O Intake and Output 03/02/20 03/03/20 19:00 07:00 Intake Total 300 ml 400 ml Balance 300 ml 400 ml Intake Oral 300 ml 400 ml # Voids 2 1 Dressing: dry Wound: clean Cardiovascular: RSR Respiratory: clear Abdomen: soft, non-tender, present bowel sounds Extremities: no tenderness, no cyanosis Laboratory Tests Test 03/02/20 21:06 03/03/20 06:27 03/03/20 11:36 03/03/20 16:44 POC Whole Blood Glucose Pending 165 MG/DL (74-106) H 298 MG/DL (74-106) H 215 MG/DL (74-106) H Plan Problems: (1) Head injury Assessment & Plan: ct negative aaox3 no complaints no lateralizing signs Brain: No acute hemorrhage, evidence of edema or mass-effect. Chronic atrophy with periventricular small vessel ischemic changes. Ventricles: No acute ventriculomegaly. Bones/joints: Unremarkable. No acute fracture. Soft tissues: Unremarkable. Sinuses: Polypoid sphenoid sinus disease and partially visualized left ethmoid and maxillary sinus disease. Mastoid air cells: No mastoid effusion. IMPRESSION: 1. No acute intracranial traumatic process or calvarial fracture. 2. Chronic appearing generalized atrophy with periventricular small vessel ischemic changes. 3. Paranasal sinus disease, as above. (2) Wrist fracture, left Assessment & Plan: Comminuted and displaced distal left ulnar and radial fractures. Radiocarpal alignment appears intact. Evaluation for subtle carpal fractures limited. Soft tissue edema of the left wrist is noted. ortho eval pending min pain splint okay no drainage sling okay cont current care plan (3) LUCY (acute kidney injury) (4) Hypertensive urgency (5) AMS (altered mental status) (6) Vomiting Assessment & Plan: nausea emesis s/p fall ct okay no brain bleed ?related to meds / bp trop elevated okay for diet as tolerated will monitor with exam DAILY ESTIMATED NEEDS: Needs based on Diabetes/ 48kg abw 25-30 kcals/kg 1905-4165 total kcals 1-1.5 g protein/kg 48-72 g total protein 25-30 mL/kg 1396-5556 total fluid mLs NUTRITION DIAGNOSIS: Altered nutrition related lab values R/T diabetes as evidenced by elev BG's (104-182), elev POC glu (110-164). CURRENT DIET: [facility] MED RECOMMEND: [facility] LOW/ LOW NA DIET (texture per [facility]) ADDITIONAL RECOMMENDATIONS: * Standing wt as able for accurate CBW * A1C for eval of glycemic control * Glucerna BID w/ continued 50% intake (7) NSTEMI (non-ST elevated myocardial infarction) (8) Dehydration (9) Hypomagnesemia (10) Gastrointestinal hemorrhage (11) Anemia (12) Contusion (13) Diverticulosis (14) Bright red blood per rectum (15) Abrasion (16) Fall (17) GI bleed (18) Lower GI bleed (19) Accelerated hypertension (20) CKD (chronic kidney disease) stage 2, GFR 60-89 ml/min (21) Atdtm-qy-tavzhby renal failure (22) History of GI diverticular bleed (23) 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 (24) hypertension (25) hypertension Shaquille Cheatham Mar 03, 2020 17:43
--- NOTE | 2020-03-03 20:23 | General Progress Note ---
Subjective ROS Limited/Unobtainable: No Constitutional: Reports: malaise, weakness HEENT: Reports: no symptoms Cardiovascular: Reports: no symptoms Respiratory: Reports: no symptoms Gastrointestinal/Abdominal: Reports: no symptoms Genitourinary: Reports: no symptoms Neurologic/Psychiatric: Reports: anxiety Endocrine: Reports: no symptoms Hematologic/Lymphatic: Reports: anemia Allergies: Coded Allergies: PENICILLINS (Verified Allergy, Mild, swelling, 02/28/13) ACETAMINOPHEN (Verified Allergy, Unknown, 03/09/16) CODEINE (Verified Allergy, Unknown, 03/09/16) HYDROCODONE (Verified Allergy, Unknown, 03/09/16) SULFA (SULFONAMIDE ANTIBIOTICS) (Verified Allergy, Unknown, 03/09/16) THIAMINE (VITAMIN B1) (Verified Adverse Reaction, Mild, syncope, 03/09/16) All Systems: reviewed and negative except above Subjective no events. w/o complaints. no fever or chills. no sob. mild left arm pain. ?confused Objective Last 24 Hour Vital Signs Date Time Temp Pulse Resp B/P (MAP) Pulse Ox O2 Delivery O2 Flow Rate FiO2 03/03/20 18:14 145/78 (100) 03/03/20 16:51 160/83 03/03/20 16:00 97.9 67 18 160/83 (108) 97 03/03/20 11:53 98.0 67 18 148/76 (100) 98 03/03/20 09:22 62 156/78 03/03/20 09:20 62 156/78 03/03/20 09:20 156/78 03/03/20 09:00 Room Air 03/03/20 08:00 98.0 62 20 156/78 (104) 97 03/03/20 05:26 171/84 03/03/20 04:00 97.8 66 18 171/84 (113) 95 03/03/20 00:25 172/82 03/03/20 00:00 98.3 74 18 172/82 (112) 97 03/02/20 21:04 79 194/97 03/02/20 21:00 Room Air Intake and Output 03/02/20 03/03/20 19:00 07:00 Intake Total 300 ml 400 ml Balance 300 ml 400 ml Intake Oral 300 ml 400 ml # Voids 2 1 Laboratory Tests 03/02/20 21:06: POC Whole Blood Glucose [Pending] 03/03/20 06:27: POC Whole Blood Glucose 165H 03/03/20 11:36: POC Whole Blood Glucose 298H 03/03/20 16:44: POC Whole Blood Glucose 215H Height (Feet): 5 Height (Inches): 2.00 Weight (Pounds): 90 General Appearance: WD/WN, alert, confused EENT: normal ENT inspection Neck: normal alignment, supple Cardiovascular: normal rate, regular rhythm Respiratory/Chest: chest wall non-tender, lungs clear, normal breath sounds, no respiratory distress, no accessory muscle use Abdomen: normal bowel sounds, non tender, soft, no organomegaly Edema: no edema noted Leg (L), no edema noted Leg (R) Assessment/Plan Problem List: (1) NSTEMI (non-ST elevated myocardial infarction) ICD Codes: I21.4 - Non-ST elevation (NSTEMI) myocardial infarction SNOMED: 27778809 (2) AMS (altered mental status) ICD Codes: R41.82 - Altered mental status, unspecified SNOMED: 072919395 (3) Hypertensive urgency ICD Codes: I16.0 - Hypertensive urgency SNOMED: 804448967 (4) LUCY (acute kidney injury) ICD Codes: N17.9 - Acute kidney failure, unspecified SNOMED: 77086113, 8526720 (5) Closed TBI (traumatic brain injury) ICD Codes: S06.9X9A - Unspecified intracranial injury with loss of consciousness of unspecified duration, initial encounter SNOMED: 6660066 (6) Concussion ICD Codes: S06.0X9A - Concussion with loss of consciousness of unspecified duration, initial encounter SNOMED: 313188511 Status: stable Assessment/Plan: cont antiplt rx cont bp meds may need to titrate up bp meds BP may be exacerbated by pain monitor BS glipizide rx pt/ot left arm sling ortho follow up await snf bed Ariel Gonzalez MD Mar 03, 2020 20:23
[2020-03-04] VITALS: BP 171/75
[2020-03-04 04:00] VITALS: BP 156/83
[2020-03-04] MEDS: GlipiZIDE 5mg tab ORAL SCH ×3 (06:22→16:54)
[2020-03-04] MEDS: NovoLOG Insulin Flexpen SUBQ SCH ×3 (06:23→16:56)
[2020-03-04 07:56] LABS: BASOPHILS % (AUTO) 0.7 % (0.0-2.0); EOSINOPHILS % (AUTO) 6.3 % (0.0-3.0); HEMATOCRIT 34.4 % (37.0-47.0); HEMOGLOBIN 10.7 G/DL (12.0-16.0); LYMPHOCYTES % (AUTO) 26.2 % (20.0-45.0); MEAN CORPUSCULAR VOLUME 100 FL (80-99); MONOCYTES % (AUTO) 10.5 % (1.0-10.0); NEUTROPHILS % (AUTO) 56.4 % (45.0-75.0); PLATELET COUNT 178 K/UL (150-450); RED BLOOD COUNT 3.44 M/UL (4.20-5.40); RED CELL DISTRIBUTION WIDTH 13.6 % (11.6-14.8); WHITE BLOOD COUNT 5.5 K/UL (4.8-10.8)
[2020-03-04 08:00] VITALS: BP 161/88
[2020-03-04 08:04] LABS: ALBUMIN 2.4 G/DL (3.4-5.0); ALBUMIN/GLOBULIN RATIO 0.7 (1.0-2.7); BILIRUBIN,TOTAL 0.3 MG/DL (0.2-1.0); CALCIUM 8.5 MG/DL (8.5-10.1); CREATININE 1.5 MG/DL (0.55-1.30); POTASSIUM 4.4 MMOL/L (3.5-5.1)
[2020-03-04] MEDS: Carvedilol 6.25mg Tab ORAL SCH (08:57)
[2020-03-04] MEDS: Losartan 50mg tab ORAL SCH (08:57)
[2020-03-04] MEDS: Aspirin Baby 81mg ORAL SCH (08:58)
[2020-03-04] MEDS: Heparin 5000 units/ml inj SUBQ SCH (08:59)
[2020-03-04 12:00] VITALS: BP 177/90
[2020-03-04 13:53] VITALS: BP 131/72
--- NOTE | 2020-03-04 14:14 | Surgery Progress Note ---
Surgery Progress Note Subjective Symptoms: improved, tolerating diet, passing flatus, BM, pain decreased Objective Last 24 Hour Vital Signs Date Time Temp Pulse Resp B/P (MAP) Pulse Ox O2 Delivery O2 Flow Rate FiO2 03/04/20 13:53 65 131/72 (91) 03/04/20 12:26 177/90 03/04/20 12:00 97.6 66 18 177/90 (119) 96 03/04/20 09:00 Room Air 03/04/20 08:57 72 161/88 03/04/20 08:57 72 161/88 03/04/20 08:57 161/88 03/04/20 08:00 97.5 72 18 161/88 (112) 97 03/04/20 04:21 156/83 03/04/20 04:00 97.6 63 18 156/83 (107) 98 03/04/20 00:10 171/75 03/04/20 00:00 97.8 69 18 171/75 (107) 97 03/03/20 21:17 71 145/74 03/03/20 21:00 Room Air 03/03/20 20:00 98.2 71 18 145/74 (97) 97 03/03/20 18:14 145/78 (100) 03/03/20 16:51 160/83 03/03/20 16:00 97.9 67 18 160/83 (108) 97 I&O Intake and Output 03/03/20 03/04/20 19:00 07:00 Intake Total 360 ml 350 ml Balance 360 ml 350 ml Intake Oral 360 ml 350 ml # Voids 2 5 Dressing: dry Wound: clean Cardiovascular: RSR Respiratory: clear Abdomen: soft, non-tender, present bowel sounds, non-distended Extremities: no edema, no tenderness, no cyanosis, pulses, other Laboratory Tests Test 03/03/20 16:44 03/03/20 21:18 03/04/20 04:55 03/04/20 06:20 POC Whole Blood Glucose 215 MG/DL (74-106) H 214 MG/DL (74-106) H 209 MG/DL (74-106) H White Blood Count 5.5 K/UL (4.8-10.8) Red Blood Count 3.44 M/UL (4.20-5.40) L Hemoglobin 10.7 G/DL (12.0-16.0) L Hematocrit 34.4 % (37.0-47.0) L Mean Corpuscular Volume 100 FL (80-99) H Mean Corpuscular Hemoglobin 31.1 PG (27.0-31.0) H Mean Corpuscular Hemoglobin Concent 31.1 G/DL (32.0-36.0) L Red Cell Distribution Width 13.6 % (11.6-14.8) Platelet Count 178 K/UL (150-450) Mean Platelet Volume 5.8 FL (6.5-10.1) L Neutrophils (%) (Auto) 56.4 % (45.0-75.0) Lymphocytes (%) (Auto) 26.2 % (20.0-45.0) Monocytes (%) (Auto) 10.5 % (1.0-10.0) H Eosinophils (%) (Auto) 6.3 % (0.0-3.0) H Basophils (%) (Auto) 0.7 % (0.0-2.0) Sodium Level 139 MMOL/L (136-145) Potassium Level 4.4 MMOL/L (3.5-5.1) Chloride Level 108 MMOL/L (98-107) H Carbon Dioxide Level 25 MMOL/L (21-32) Anion Gap 6 mmol/L (5-15) Blood Urea Nitrogen 26 mg/dL (7-18) H Creatinine 1.5 MG/DL (0.55-1.30) H Estimat Glomerular Filtration Rate 33.5 mL/min (>60) Glucose Level 213 MG/DL (74-106) H Calcium Level 8.5 MG/DL (8.5-10.1) Total Bilirubin 0.3 MG/DL (0.2-1.0) Aspartate Amino Transf (AST/SGOT) 20 U/L (15-37) Alanine Aminotransferase (ALT/SGPT) 11 U/L (12-78) L Alkaline Phosphatase 94 U/L (46-116) Total Protein 6.0 G/DL (6.4-8.2) L Albumin 2.4 G/DL (3.4-5.0) L Globulin 3.6 g/dL Albumin/Globulin Ratio 0.7 (1.0-2.7) L Test 03/04/20 12:07 POC Whole Blood Glucose 250 MG/DL (74-106) H Plan Problems: (1) Head injury Assessment & Plan: ct negative aaox3 no complaints no lateralizing signs Brain: No acute hemorrhage, evidence of edema or mass-effect. Chronic atrophy with periventricular small vessel ischemic changes. Ventricles: No acute ventriculomegaly. Bones/joints: Unremarkable. No acute fracture. Soft tissues: Unremarkable. Sinuses: Polypoid sphenoid sinus disease and partially visualized left ethmoid and maxillary sinus disease. Mastoid air cells: No mastoid effusion. IMPRESSION: 1. No acute intracranial traumatic process or calvarial fracture. 2. Chronic appearing generalized atrophy with periventricular small vessel ischemic changes. 3. Paranasal sinus disease, as above. (2) Wrist fracture, left Assessment & Plan: Comminuted and displaced distal left ulnar and radial fractures. Radiocarpal alignment appears intact. Evaluation for subtle carpal fractures limited. Soft tissue edema of the left wrist is noted. ortho eval pending min pain splint okay no drainage sling okay cont current care plan (3) LUCY (acute kidney injury) (4) Hypertensive urgency (5) AMS (altered mental status) (6) Vomiting Assessment & Plan: nausea emesis s/p fall ct okay no brain bleed ?related to meds / bp trop elevated okay for diet as tolerated will monitor with exam DAILY ESTIMATED NEEDS: Needs based on Diabetes/ 48kg abw 25-30 kcals/kg 1667-5011 total kcals 1-1.5 g protein/kg 48-72 g total protein 25-30 mL/kg 5836-8146 total fluid mLs NUTRITION DIAGNOSIS: Altered nutrition related lab values R/T diabetes as evidenced by elev BG's (104-182), elev POC glu (110-164). CURRENT DIET: [facility] MED RECOMMEND: [facility] LOW/ LOW NA DIET (texture per [facility] [employer]) ADDITIONAL RECOMMENDATIONS: * Standing wt as able for accurate CBW * A1C for eval of glycemic control * Glucerna BID w/ continued 50% intake (7) NSTEMI (non-ST elevated myocardial infarction) (8) Dehydration (9) Hypomagnesemia (10) Gastrointestinal hemorrhage (11) Anemia (12) Contusion (13) Diverticulosis (14) Bright red blood per rectum (15) Abrasion (16) Fall (17) GI bleed (18) Lower GI bleed (19) Accelerated hypertension (20) CKD (chronic kidney disease) stage 2, GFR 60-89 ml/min (21) Yqhyd-si-kkfyvat renal failure (22) History of GI diverticular bleed (23) 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 (24) hypertension (25) hypertension Shaquille Cheatham Mar 04, 2020 14:13
[2020-03-04 16:00] VITALS: BP 123/61
[2020-03-04] MEDS ORDERED: LOSARTAN POTASS50 MG ORAL (16:04)
[2020-03-04] MEDS ORDERED: NORVASC5 MG ORAL (16:05)
[2020-03-04] MEDS ORDERED: NOVOLOG100 UNITS1 SUBQ (16:07)
[2020-03-04] MEDS ORDERED: GLIPIZIDE5 MG ORAL (16:07)
[2020-03-04] MEDS ORDERED: CARVEDILOL6.25 MG ORAL (16:09)
[2020-03-04] MEDS ORDERED: ZOFRAN4 M3 ORAL (16:11)
--- NOTE | 2020-03-04 21:14 | Discharge Summary ---
DATE OF ADMISSION: 02/24/2020 DATE OF DISCHARGE: 03/04/2020 ADMISSION DIAGNOSES: 1. Altered mental status. 2. Fall. 3. Left arm fracture. 4. History of anemia and GI bleed. 5. Hypertension. 6. Diabetes. 7. Dementia. 8. Acute renal failure. 9. Acute coronary syndrome. DISCHARGE DIAGNOSES: 1. Altered mental status. 2. Fall. 3. Left arm fracture. 4. History of anemia and GI bleed. 5. Hypertension. 6. Diabetes. 7. Dementia. 8. Acute renal failure. 9. Acute coronary syndrome. HOSPITAL COURSE: This is a pleasant female admitted with complaints of altered mental status and dehydration. She had recently sustained a fall and a left arm fracture. She was diagnosed with concussion as well as mild acute renal failure and dehydration. She was hydrated. PT/OT evaluations were obtained. It was recommended the patient go to a penitentiary facility. She was in agreement. The patient was gently hydrated. Cardiology evaluation was obtained. She had a mild troponin leak that was felt to be clinically insignificant. The patient will be discharged to a penitentiary facility and follow up there in one to two days. DISCHARGE MEDICATIONS: Please see discharge medication list for discharge medications. DIET: Cardiac and diabetic diet. ACTIVITIES: Ad-nika. Ariel Gonzalez M.D. DR: CL JOB#: [id number] CC:
== END 2020-03-04 17:55 | DRG 682 ==
LOC: EMR 18:22 → 2E 18:28 → EDBEDREQ 21:47 → 3E 02-27 10:04
DX: N17.9 Acute kidney failure, unspecified (principal); G93.41 Metabolic encephalopathy; I21.4 Non-ST elevation (NSTEMI) myocardial infarction; K57.91 Diverticulosis of intestine, part unspecified, without perforation or abscess with bleeding; S06.0X9A Concussion with loss of consciousness of unspecified duration, initial encounter; I16.0 Hypertensive urgency; F01.50 Vascular dementia, unspecified severity, without behavioral disturbance, psychotic disturbance, mood disturbance, and anxiety; S52.502D Unspecified fracture of the lower end of left radius, subsequent encounter for closed fracture with routine healing; S52.602D Unspecified fracture of lower end of left ulna, subsequent encounter for closed fracture with routine healing; W19.XXXD Unspecified fall, subsequent encounter; Z88.6 Allergy status to analgesic agent; Z88.0 Allergy status to penicillin; Z88.2 Allergy status to sulfonamides; Z88.8 Allergy status to other drugs, medicaments and biological substances; E03.9 Hypothyroidism, unspecified; E86.1 Hypovolemia; E86.0 Dehydration; R26.81 Unsteadiness on feet; E87.6 Hypokalemia; E83.42 Hypomagnesemia; D64.9 Anemia, unspecified; N18.2 Chronic kidney disease, stage 2 (mild); E11.65 Type 2 diabetes mellitus with hyperglycemia
CPT/HCPCS: 36415; 70450; 71045; 80048; 80053; 80061; 82150; 82962; 83690; 83735; 83880; 84443; 84484; 85025; 85610; 85651; 85730; 86140; 93005; 93306; 96361; 96374; 96375; 99285; J1815; J2405; J7030; J8499; U0002

== ENCOUNTER 2020-05-17 14:02 | Inpatient (IN) | payer MEDICARE, OTHER ==
[~2020-05-17] VITALS: Ht 157.5 cm; Wt 40.4 kg
[~2020-05-17 14:02] MED LIST changes: +CARVEDILOL6.25 MG ORAL; +LOSARTAN POTASS50 MG ORAL; +ZOFRAN4 M3 ORAL
--- NOTE | 2020-05-17 14:39 | Emergency Room Report ---
History of Present Illness General Chief Complaint: vaginal bleeding Source: Patient Present Illness HPI Patient is a 79-year-old female presents for increased vaginal bleeding. Patient had recent fall from standing approximately 3 days ago. Had been treated in emergency facility and had been evaluated. Patient reportedly had a episode of syncope. She denies any current pain other than to her lower abdome n. Prior history of mild dementia as well as diverticulosis. Had been noted to have bright red blood from vaginal area into the diaper. Been complaining of difficulty with urination. History is obtained primarily from the patient's stepdaughter. Allergies: Coded Allergies: PENICILLINS (Verified Allergy, Mild, swelling, 05/17/20) ACETAMINOPHEN (Verified Allergy, Unknown, 05/17/20) CODEINE (Verified Allergy, Unknown, 05/17/20) HYDROCODONE (Verified Allergy, Unknown, 05/17/20) SULFA (SULFONAMIDE ANTIBIOTICS) (Verified Allergy, Unknown, 05/17/20) THIAMINE (VITAMIN B1) (Verified Adverse Reaction, Mild, syncope, 05/17/20) COVID-19 Screening Contact w/high risk pt: No Recent Travel to affected area: No Experienced COVID-19 symptoms?: Yes Patient History Past Medical History: see triage record Reviewed Nursing Documentation: PMH: Agreed; PSxH: Agreed Nursing Documentation-PMH Hx Cardiac Problems: Yes Hx Hypertension: Yes Hx Asthma: Yes Hx Diabetes: Yes Hx Cancer: No Hx Gastrointestinal Problems: Yes - rectal bleeding Hx Neurological Problems: Yes Hx Peripheral Neuropathy: Yes Hx Dizziness: Yes Hx Syncope: Yes Hx Weakness: Yes Physical Exam Sp02 EP Interpretation: reviewed, normal General Appearance: normal inspection, well appearing, no apparent distress, alert, GCS 15 Head: atraumatic ENT: normal ENT inspection, hearing grossly normal, normal voice Neck: normal inspection, full range of motion, supple, no bony tend Respiratory: normal inspection, lungs clear, normal breath sounds, no respiratory distress, no retraction, no wheezing Cardiovascular #1: regular rate, rhythm, no edema Gastrointestinal: normal inspection, normal bowel sounds, non tender, soft, no guarding, no hernia Genitourinary: no CVA tenderness Musculoskeletal: normal inspection, back normal, normal range of motion Neurologic: alert, motor strength/tone normal, gravity prospecting operator III-XII nml as tested, oriented x3, responsive, speech normal, normal inspection Psychiatric: normal inspection, judgement/insight normal, mood/affect normal Skin: no rash Medical Decision Making Diagnostic Impression: Primary Impression: Syncope Additional Impressions: Emphysematous cystitis Diverticulosis Sinusitis ER Course Patient presented after recent fall. Differential diagnosis include was not limited to anemia, urinary tract infection, sepsis, coagulopathy among others. Because of complexity of patient's case laboratory tests and imaging studies were ordered. Patient was noted to have recent falling episodes. Apparently she has had prior history of mild dementia. Patient apparently had previous wrist fracture from prior fall.CT imaging showed diverticulosis as well as emphysematous cystitis. CT of the head read by radiology showed significant sin us disease. See radiology report for full details patient was given IV antibiotics. Dr. Dex De La Torre was contacted for inpatient management. Labs Test 05/17/20 14:45 White Blood Count 8.7 K/UL (4.8-10.8) Red Blood Count 4.28 M/UL (4.20-5.40) Hemoglobin 12.9 G/DL (12.0-16.0) Hematocrit 40.2 % (37.0-47.0) Mean Corpuscular Volume 94 FL (80-99) Mean Corpuscular Hemoglobin 30.2 PG (27.0-31.0) Mean Corpuscular Hemoglobin Concent 32.1 G/DL (32.0-36.0) Red Cell Distribution Width 12.7 % (11.6-14.8) Platelet Count 251 K/UL (150-450) Mean Platelet Volume 6.1 FL (6.5-10.1) Neutrophils (%) (Auto) 79.1 % (45.0-75.0) Lymphocytes (%) (Auto) 12.3 % (20.0-45.0) Monocytes (%) (Auto) 5.8 % (1.0-10.0) Eosinophils (%) (Auto) 2.2 % (0.0-3.0) Basophils (%) (Auto) 0.5 % (0.0-2.0) Prothrombin Time 10.5 SEC (9.30-11.50) Prothromb Time International Ratio 0.9 (0.9-1.1) Activated Partial Thromboplast Time 25 SEC (23-33) Sodium Level 139 MMOL/L (136-145) Potassium Level 4.0 MMOL/L (3.5-5.1) Chloride Level 102 MMOL/L (98-107) Carbon Dioxide Level 29 MMOL/L (21-32) Anion Gap 8 mmol/L (5-15) Blood Urea Nitrogen 28 mg/dL (7-18) Creatinine 1.6 MG/DL (0.55-1.30) Estimat Glomerular Filtration Rate 31.1 mL/min (>60) Glucose Level 345 MG/DL (74-106) Lactic Acid Level 1.60 mmol/L (0.4-2.0) Calcium Level 8.9 MG/DL (8.5-10.1) Total Bilirubin 0.7 MG/DL (0.2-1.0) Aspartate Amino Transf (AST/SGOT) 23 U/L (15-37) Alanine Aminotransferase (ALT/SGPT) 16 U/L (12-78) Alkaline Phosphatase 124 U/L (46-116) Total Protein 6.6 G/DL (6.4-8.2) Albumin 3.2 G/DL (3.4-5.0) Globulin 3.4 g/dL Albumin/Globulin Ratio 0.9 (1.0-2.7) Status: unchanged Disposition: ADMITTED INPATIENT Condition: Stable Referrals: Dex De La Torre MD (PCP) Joaquim Cline MD May 17, 2020 14:39
[2020-05-17 14:55] LABS: BASOPHILS % (AUTO) 0.5 % (0.0-2.0); EOSINOPHILS % (AUTO) 2.2 % (0.0-3.0); HEMATOCRIT 40.2 % (37.0-47.0); HEMOGLOBIN 12.9 G/DL (12.0-16.0); LYMPHOCYTES % (AUTO) 12.3 % (20.0-45.0); MEAN CORPUSCULAR VOLUME 94 FL (80-99); MONOCYTES % (AUTO) 5.8 % (1.0-10.0); NEUTROPHILS % (AUTO) 79.1 % (45.0-75.0); PLATELET COUNT 251 K/UL (150-450); RED BLOOD COUNT 4.28 M/UL (4.20-5.40); RED CELL DISTRIBUTION WIDTH 12.7 % (11.6-14.8); WHITE BLOOD COUNT 8.7 K/UL (4.8-10.8)
[2020-05-17 15:05] LABS: INR 0.9 (0.9-1.1)
[2020-05-17 15:07] LABS: CALCIUM 8.9 MG/DL (8.5-10.1); CREATININE 1.6 MG/DL (0.55-1.30)
[2020-05-17 15:12] LABS: ALBUMIN 3.2 G/DL (3.4-5.0); ALBUMIN/GLOBULIN RATIO 0.9 (1.0-2.7); BILIRUBIN,TOTAL 0.7 MG/DL (0.2-1.0)
--- NOTE | 2020-05-17 15:40 | Diagnostic Imaging Report ---
Indications: Dementia, and altered mental status Technique: Spiral acquisitions obtained through the brain. Angled axial and coronal 5 x 5 mm slices were reconstructed. Total dose length product 992 mGycm. CTDI vol(s) 53 mGy. Dose reduction achieved using automated exposure control Comparison: 02/24/2020 Findings: Again demonstrated is age-related enlargement of the ventricles and extra axial CSF spaces. Again demonstrated is periventricular deep white matter low-attenuation, presumably chronic microvascular ischemic change. 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 Visualized is evidence of prior bilateral ocular surgery. There is extensive opacification of the left maxillary, sphenoid, and ethmoid sinuses. The calvarium is intact. The mastoids are clear. Impression: Fairly extensive chronic and age-related changes, stable since 02/24/2020. Negative for acute intracranial bleed or mass effect Extensive left-sided sinus disease The CT scanner at [facility] is accredited by the [employer] and the scans are performed using protocols designed to limit radiation exposure to as low as reasonably achievable to attain images of sufficient resolution adequate for diagnostic evaluation.
--- NOTE | 2020-05-17 15:49 | Diagnostic Imaging Report ---
Indication: Vaginal bleeding and painful urination Technique: Spiral acquisitions obtained through the abdomen and pelvis. No oral contrast utilized, per emergency room physician request No IV contrast utilized, per referring physician request.. Multiplanar reconstructions were generated. Total dose length product 194 mGycm. CTDIvol(s) 3 mGy. Dose reduction achieved using automated exposure control Comparison: 03/09/2016 Findings: There is wall thickening of the bladder. 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 Bladder luminal contents are somewhat high in attenuation, 21 Hounsfield units. These findings are new since the previous study. This critical value finding was phoned to Dr. Cline in the emergency room at the time of interpretation There is colonic diverticulosis. No evidence of diverticulitis, and fat planes between the bladder and the sigmoid colon are preserved. Note that the fat plane between the cervix and the bladder is blurred, but no intraluminal gas is seen within the uterus. There are some calcified uterine fibroids noted. Lack of IV contrast limits assessment of the kidneys. The kidneys are unremarkable. No focal abnormality demonstrated. There is mild ectasia of the proximal ureters, but no stone or downstream obstructive abnormality demonstrated. Lack of IV contrast limits assessment of the other solid organs. The liver, gallbladder, bile ducts, pancreas spleen, adrenals are all unremarkable. No retroperitoneal or mesenteric mass or adenopathy. No pelvic mass or adenopathy. Lack of enteric contrast limits assessment of the GI tract. The appendix is normal. As mentioned earlier, there is fairly extensive colonic diverticulosis. No evidence of acute diverticulitis. No small bowel distention. No free or loculated intraperitoneal gas or fluid is evident. The included lung bases demonstrate some mosaic attenuation, likely indicating atelectasis. The bones demonstrate degenerative spondylosis changes. 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 Colonic diverticulosis. No evidence of diverticulitis. No definite findings to suggest colovesical fistula as etiology of the bladder abnormality although impossible to completely exclude Old calcified uterine fibroids Pulmonary basilar mosaic attenuation pattern, likely indicating atelectatic changes. Degenerative spondylosis incidentally noted The CT scanner at [facility] is accredited by the [employer] and the scans are performed using protocols designed to limit radiation exposure to as low as reasonably achievable to attain images of sufficient resolution adequate for diagnostic evaluation.
[2020-05-17 17:30] VITALS: BP 167/82
--- NOTE | 2020-05-17 17:30 | NUR ---
Patient presents to the ER with c/o vaginal bleeding. Per daughter, patient sustained a fall from a syncopal episode approximately 3 days ago from standing after using bathroom. She was taken to an ER, evaluated and discharged. She presently denies pain to her abdomen but reports pain when urinating. Presents with mild dementia- as there are spurts of lapse of memory. Upon arrival to ER, no blood has been seen in vaginal area.
[2020-05-17] MEDS ORDERED: JANUVIA100 MG ORAL (17:40)
[2020-05-17] MEDS ORDERED: MORPHINE IR15 MG ORAL (17:42)
--- NOTE | 2020-05-17 17:42 | NUR ---
Patient cleaned. Bedding and gown changed.
--- NOTE | 2020-05-17 17:44 | NUR ---
Attempted to call report for patient transferring to [facility]. Nurse is currently passing medicstion and will return call upon completion of her med pass.
--- NOTE | 2020-05-17 18:10 | NUR ---
NURSE NOTES: Received pt from RAGMAN Aarti, Pt is awake and alert, pt is in RA, no SOB or acute respiratory distress noted. pt has intact iv access LAC 20G SL. Pt is on continues heart monitoring. V/S done and documented. skin is intact. all needs attended, bed is locked and is in the lowest position, call light within easy reach. will continue to close monitoring.
[2020-05-17 18:15] VITALS: BP 153/97
--- NOTE | 2020-05-17 19:32 | NUR ---
NURSE HAND-OFF REPORT: Important Events on Shift:pt is new addmision Patient Status: Diet: Pending Orders: Pending Results/Labs: Pending MD notification: Latest Vital Signs: Temperature 97.0 , Pulse 79 , B/P 153 /97 , Respiratory Rate 19 , O2 SAT 97 , Room Air, O2 Flow Rate . Vital Sign Comment: EKG Rhythm: Sinus Rhythm Rhythm change?: N MD Notified?: - MD Response: Latest Roa Fall Score: 85 Fall Risk: Safety Measures: Call light , Bed Alarm , Side Rails , Bed position . Fall Precautions: Report given to . pt is awake and stable, no stress noted. Endorsed plan of care, endorsed to start addmision process and F/U BS 345 with .
[2020-05-17 20:00] VITALS: BP_SYST 160; BP_SYST 190; BP_DIAS 103; BP_DIAS 89
[2020-05-17] MEDS: Atorvastatin 20mg tab ORAL SCH (21:12)
[2020-05-17] MEDS: Carvedilol 6.25mg Tab ORAL SCH (21:15)
[2020-05-17] MEDS: NovoLOG Insulin Flexpen SUBQ SCH (21:17)
--- NOTE | 2020-05-17 21:45 | NUR ---
NURSE NOTES: Assumed pt's care at 1900 from [facility]. Pt is aox4, forgetful & anxious, asking for . No acute distress noted, remains on room air satting 98%. Lt AC peripheral line patent & intact. BUE with ecchymosis, Rt wrist with brace. Coccyx hyperpigmented with Rt buttock scar wound. MD notified of new admission and new orders received. HS BS 222, HS snack provided. No S&S of hypo/hyperglycemia noted. Pt is incontinent of urine, purewick in placed. Safety and comfort measures maintained, call light within reach, bed locked and in low position.
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
[2020-05-18 00:44] VITALS: BP 143/78
[2020-05-18 04:00] VITALS: BP 167/88
--- NOTE | 2020-05-18 05:30 | NUR ---
NURSE NOTES: Urine specimen collected and sent to lab.
[2020-05-18] MEDS: GlipiZIDE 5mg tab ORAL SCH ×2 (06:13→16:31)
[2020-05-18] MEDS: NovoLOG Insulin Flexpen SUBQ SCH ×4 (06:19→20:34)
--- NOTE | 2020-05-18 06:39 | NUR ---
Pt rested throughout shift. No vaginal/rectal bleeding noted. Cont IVF NS @100c/hr, IV line to LT AC, remains patent & intact. AM BS 234 coverage given, denies any pain. Safety and comfort measures maintained, call light within reach.
[2020-05-18 07:19] LABS: APPEARANCE,URINE SLIGHTLY CLOUDY; BILIRUBIN, URINE NEGATIVE (NEGATIVE); COLOR,URINE PALE YELLOW; GLUCOSE, URINE (UA) 4+ (NEGATIVE); KETONES,URINE NEGATIVE (NEGATIVE); LEUKOCYTE ESTERASE ,URINE 2+ (NEGATIVE); NITRITE,URINE NEGATIVE (NEGATIVE); PH,URINE 7 (4.5-8.0); PROTEIN,URINE 3+ (NEGATIVE); UROBILINOGEN,URINE 1 MG/DL (0.0-1.0)
[2020-05-18 07:27] LABS: ALBUMIN 2.8 G/DL (3.4-5.0); ALBUMIN/GLOBULIN RATIO 0.8 (1.0-2.7); BILIRUBIN,TOTAL 0.8 MG/DL (0.2-1.0); CALCIUM 8.8 MG/DL (8.5-10.1); CREATININE 1.4 MG/DL (0.55-1.30); POTASSIUM 3.3 MMOL/L (3.5-5.1)
--- NOTE | 2020-05-18 07:44 | NUR ---
RD ASSESSMENT & RECOMMENDATIONS SEE CARE ACTIVITY FOR COMPLETE ASSESSMENT DAILY ESTIMATED NEEDS: Needs based on Cardiac, DM/ 47.6kg 25-30 kcals/kg 2835-0669 total kcals 1-1.5 g protein/kg 48-71 g total protein 25-30 mL/kg 5904-3502 total fluid mLs NUTRITION DIAGNOSIS: Altered nutrition related lab values R/T diabetes as evidenced by elev BG's (345), elev POC glu (222-234). CURRENT DIET: CCHO MED/ CARDIAC- ms chopped, ground, soft PO DIET RECOMMENDATIONS-->>> CCHO LOW/ LOW NA - texture as tolerated ADDITIONAL RECOMMENDATIONS: * Maintain calibrated bed scale wts * A1C for eval of glycemic control * Glucerna BID * Texture upgrade as able/ [employer] eval if appropriate
[2020-05-18 08:00] VITALS: BP 165/106
[2020-05-18] MEDS ORDERED: Losartan 25mg tab ORAL SCH (09:00)
[2020-05-18 09:18] LABS: BASOPHILS % (AUTO) 0.8 % (0.0-2.0); EOSINOPHILS % (AUTO) 3.1 % (0.0-3.0); HEMATOCRIT 37.1 % (37.0-47.0); HEMOGLOBIN 12.3 G/DL (12.0-16.0); LYMPHOCYTES % (AUTO) 12.1 % (20.0-45.0); MEAN CORPUSCULAR VOLUME 93 FL (80-99); MONOCYTES % (AUTO) 6.9 % (1.0-10.0); NEUTROPHILS % (AUTO) 77.2 % (45.0-75.0); PLATELET COUNT 165 K/UL (150-450); RED BLOOD COUNT 4.01 M/UL (4.20-5.40); RED CELL DISTRIBUTION WIDTH 12.6 % (11.6-14.8); WHITE BLOOD COUNT 8.4 K/UL (4.8-10.8)
[2020-05-18] MEDS: Aspirin Baby 81mg ORAL SCH (09:26)
[2020-05-18] MEDS: Os-Cal (Oyster Shell) 500mg tab ORAL SCH ×2 (09:26→16:31)
[2020-05-18] MEDS: Losartan 50mg tab ORAL SCH (09:26)
[2020-05-18] MEDS: cefTRIAXone 1 GM in D5W 55 ML IVPB SCH (09:26)
[2020-05-18] MEDS: Vitamin D 1000 units Tab ORAL SCH (09:27)
[2020-05-18] MEDS: Carvedilol 6.25mg Tab ORAL SCH ×2 (09:27→20:32)
[2020-05-18 12:00] VITALS: BP 177/86
--- NOTE | 2020-05-18 14:53 | Diagnostic Imaging Report ---
Indication: Vaginal bleeding Technique: Transabdominal and transvaginal images of the pelvis. Doppler interrogation of the ovaries Comparison: No comparison sonogram. Reference made to abdomen pelvis CT 05/17/2020 Findings: Exam is limited as patient on the exam very painful. The uterus is atrophic, demonstrates multiple calcifications. It measures 5.6 cm in length by 2.3 cm AP. Neither ovary could be identified. There is no free cul-de-sac fluid relationship between the bladder and the uterus is indeterminate on the transabdominal images. Impression: Atrophic uterus. Extensive uterine calcifications likely indicates fibroid changes, also described on recent CT scan. Nonvisualization, presumably atrophic
[2020-05-18 16:00] VITALS: BP 145/73
--- NOTE | 2020-05-18 16:23 | NUR ---
*-*DISCHARGE PLANNING*-* [facility] P: [phone] ROOM# 4.B
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
[2020-05-18 20:00] VITALS: BP 156/75
[2020-05-18] MEDS: Atorvastatin 20mg tab ORAL SCH (20:32)
[2020-05-19 00:24] VITALS: BP 145/73
--- NOTE | 2020-05-19 03:28 | NUR ---
NURSE NOTES: Assumed pt's care at 1900 from KAYLA Rachel. No acute distress noted, remains on room air, respirations even and unlabored. No signs of hypo/hyperglycemia noted. Pt is able to verbalize needs. Safety and comfort measures maintained, call light within reach, bed locked and in low position.
[2020-05-19 04:00] VITALS: BP 124/81
[2020-05-19] MEDS: NovoLOG Insulin Flexpen SUBQ SCH ×4 (06:30→20:50)
[2020-05-19] MEDS: GlipiZIDE 5mg tab ORAL SCH ×2 (06:35→17:09)
--- NOTE | 2020-05-19 07:25 | General Progress Note ---
Subjective ROS Limited/Unobtainable: No Constitutional: Reports: malaise, weakness HEENT: Reports: no symptoms Cardiovascular: Reports: no symptoms Respiratory: Reports: no symptoms Gastrointestinal/Abdominal: Reports: no symptoms Genitourinary: Reports: no symptoms Neurologic/Psychiatric: Reports: depressed Endocrine: Reports: no symptoms Hematologic/Lymphatic: Reports: no symptoms Allergies: Coded Allergies: PENICILLINS (Verified Allergy, Mild, swelling, 05/17/20) ACETAMINOPHEN (Verified Allergy, Unknown, 05/17/20) CODEINE (Verified Allergy, Unknown, 05/17/20) HYDROCODONE (Verified Allergy, Unknown, 05/17/20) SULFA (SULFONAMIDE ANTIBIOTICS) (Verified Allergy, Unknown, 05/17/20) THIAMINE (VITAMIN B1) (Verified Adverse Reaction, Mild, syncope, 05/17/20) All Systems: reviewed and negative except above Subjective no complaints. worried about her . no bleeding. vaginal US shows atrophic uterus. Objective Last 24 Hour Vital Signs Date Time Temp Pulse Resp B/P (MAP) Pulse Ox O2 Delivery O2 Flow Rate FiO2 05/19/20 04:00 64 05/19/20 04:00 98.5 69 18 124/81 (95) 97 05/19/20 00:24 98.5 72 18 145/73 (97) 95 05/19/20 00:13 64 05/18/20 20:32 73 156/75 05/18/20 20:00 66 05/18/20 20:00 98.6 73 18 156/75 (102) 94 05/18/20 16:31 73 177/86 05/18/20 16:00 64 05/18/20 16:00 97.0 72 20 145/73 (97) 97 05/18/20 12:00 97.2 74 20 177/86 (116) 97 05/18/20 12:00 73 05/18/20 11:24 165/106 05/18/20 09:27 74 165/106 05/18/20 09:27 74 165/106 05/18/20 09:26 165/106 05/18/20 08:00 97.9 74 20 165/106 (125) 97 05/18/20 08:00 69 Intake and Output 05/18/20 05/19/20 19:00 07:00 Intake Total 360 ml 900 ml Output Total 350 ml 100 ml Balance 10 ml 800 ml Intake Oral 360 ml IV Total 900 ml Output Urine Total 350 ml 100 ml # Voids 1 1 # Bowel Movements 1 Height (Feet): 5 Height (Inches): 2.00 Weight (Pounds): 89 General Appearance: WD/WN, alert EENT: normal ENT inspection Neck: non-tender, normal alignment Cardiovascular: normal peripheral pulses, normal rate, regular rhythm Respiratory/Chest: chest wall non-tender, lungs clear, normal breath sounds, no respiratory distress Abdomen: normal bowel sounds, non tender, soft, no organomegaly, no mass Edema: no edema noted Arm (L), no edema noted Arm (R), no edema noted Leg (L), no edema noted Leg (R) Neurologic: furnace tender II-XII grossly normal, no motor/sensory deficits, alert, oriented x 3, responsive Skin: normal pigmentation Assessment/Plan Problem List: (1) Wrist fracture, left ICD Codes: S62.102A - Fracture of unspecified carpal bone, left wrist, initial encounter for closed fracture SNOMED: 867307019, 928912373 (2) Hypertensive urgency ICD Codes: I16.0 - Hypertensive urgency SNOMED: 534322880 (3) Gastrointestinal hemorrhage ICD Codes: K92.2 - Gastrointestinal hemorrhage, unspecified SNOMED: 81316266 (4) Anemia ICD Codes: D64.9 - Anemia, unspecified SNOMED: 169807379 (5) CKD (chronic kidney disease) stage 2, GFR 60-89 ml/min ICD Codes: N18.2 - Chronic kidney disease, stage 2 (mild) SNOMED: 056977457 (6) 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 ICD Codes: E11.9 - Type 2 diabetes mellitus without complications; Z79.4 - MCFP (current) use of insulin SNOMED: 87136432, 691430819 Status: stable, progressing Assessment/Plan: replace K monitor for bleeding orthopedics consult pending BP rx per cards monitor BS thyroid replacement Ariel Gonzalez MD May 19, 2020 07:25
--- NOTE | 2020-05-19 07:25 | NUR ---
NURSE HAND-OFF REPORT: Important Events on Shift: AM BS 124, urine sent yesterday. Patient Status: Diet: Pending Orders: Pending Results/Labs: Pending MD notification: Latest Vital Signs: Temperature 98.5 , Pulse 64 , B/P 124 /81 , Respiratory Rate 18 , O2 SAT 97 , Room Air, O2 Flow Rate . Vital Sign Comment: EKG Rhythm: Sinus Rhythm Rhythm change?: N MD Notified?: - MD Response: Latest Roa Fall Score: 110 Fall Risk: High Risk Safety Measures: Call light Within Reach, Bed Alarm Zone 2, Side Rails Side Rails x2, Bed position Low and Locked. Fall Precautions: Yellow Socks Report given to .
[2020-05-19 08:00] VITALS: BP 165/106
[2020-05-19] MEDS: Os-Cal (Oyster Shell) 500mg tab ORAL SCH ×2 (08:46→17:09)
[2020-05-19] MEDS: Carvedilol 6.25mg Tab ORAL SCH ×2 (08:46→20:52)
[2020-05-19] MEDS: cefTRIAXone 1 GM in D5W 55 ML IVPB SCH (08:46)
[2020-05-19] MEDS: Losartan 50mg tab ORAL SCH (08:46)
[2020-05-19] MEDS: Vitamin D 1000 units Tab ORAL SCH (08:46)
[2020-05-19] MEDS: Aspirin Baby 81mg ORAL SCH (08:46)
--- NOTE | 2020-05-19 09:02 | NUR ---
NURSE NOTES: Dr. Gonzalez paged for agitation and Anxiety. Noted hyperventilation with RR 30/min. Ativan 1mg TID PRN ordered for agitation and Anxiety. Order carried out.
[2020-05-19] MEDS: LORazepam 1mg tab ORAL PRN ×3 (09:09→21:19)
[2020-05-19 11:34] VITALS: BP 170/91
--- NOTE | 2020-05-19 12:22 | NUR ---
NURSE NOTES: Report received report from KAYLA Dolan. Pt in bed awake and forgetful. Asking to call her and her step daughter. Called multiple time to connect but no one answered the phone which made her agitated. Will contact Dr. Gonzalez for intervention IV in right wrist 20G patent and running NS @100ml/hr. Pt on room air. Bed in lowest position and locked. On bed alarm for safety. Call light within reach. HOB elevated with 30 degree. Will continue plan of care.
--- NOTE | 2020-05-19 13:49 | Cardiology Progress Note ---
Subjective DATE OF SERVICE: May 18, 2020 Xrays from [facility] reviewed with Dr Cota (ortho) - he feels that it's high risk and due to time lag, is best done by hand specialist , Dr Angela. Patient is more alert. Renal fxn improved with hydration. No new bleeding noted. Objective Last 24 Hour Vital Signs Date Time Temp Pulse Resp B/P (MAP) Pulse Ox O2 Delivery O2 Flow Rate FiO2 05/19/20 13:36 73 20 170/91 97 05/19/20 12:00 73 05/19/20 11:34 97.2 70 20 170/91 (117) 97 05/19/20 09:39 78 20 165/106 98 05/19/20 09:09 78 20 165/106 98 05/19/20 08:46 165/106 05/19/20 08:46 78 165/106 05/19/20 08:46 78 165/106 05/19/20 08:00 78 05/19/20 08:00 97.9 74 20 165/106 (125) 98 05/19/20 04:00 64 05/19/20 04:00 98.5 69 18 124/81 (95) 97 05/19/20 00:24 98.5 72 18 145/73 (97) 95 05/19/20 00:13 64 05/18/20 20:32 73 156/75 05/18/20 20:00 66 05/18/20 20:00 98.6 73 18 156/75 (102) 94 05/18/20 16:31 73 177/86 05/18/20 16:00 64 05/18/20 16:00 97.0 72 20 145/73 (97) 97 HEENT: normal ENT inspection RHYTHM: NSR, PACs LUNGS: lungs clear bilaterally, normal breath sounds CARDIAC: normal rate, regular rhythm, normal S1 and S2, gallop/S4 ABDOMEN: normal bowel sounds, non tender, soft, no organomegaly EXTREMITIES: normal range of motion, No edema, other - Neuro non focal Microbiology Date/Time Source Procedure Growth Status 05/17/20 16:30 Blood Blood Culture - Preliminary NO GROWTH AFTER 24 HOURS Resulted Assessment/Plan Assessment/Plan UTi Prob hemorrhagic cystitis Hx divertic LUE Fx HHD with labile BP Hypovolemia/dehydration Ac/chr kidney injury Hypothyroid due to medx non-compliance Abx IVF Defer ortho surgery Up-titrate antiHTN Dex Dias MD May 19, 2020 13:49
--- NOTE | 2020-05-19 13:52 | Cardiology Progress Note ---
Subjective DATE OF SERVICE: May 19, 2020 Xrays from [facility] reviewed with Dr Cota (ortho) - he feels that it's high risk and due to time lag, is best done by hand specialist , Dr Angela. BP parameters labile and elevated. Renal fxn improving with hydration. No new bleeding noted. Objective Last 24 Hour Vital Signs Date Time Temp Pulse Resp B/P (MAP) Pulse Ox O2 Delivery O2 Flow Rate FiO2 05/19/20 13:36 73 20 170/91 97 05/19/20 12:00 73 05/19/20 11:34 97.2 70 20 170/91 (117) 97 05/19/20 09:39 78 20 165/106 98 05/19/20 09:09 78 20 165/106 98 05/19/20 08:46 165/106 05/19/20 08:46 78 165/106 05/19/20 08:46 78 165/106 05/19/20 08:00 78 05/19/20 08:00 97.9 74 20 165/106 (125) 98 05/19/20 04:00 64 05/19/20 04:00 98.5 69 18 124/81 (95) 97 05/19/20 00:24 98.5 72 18 145/73 (97) 95 05/19/20 00:13 64 05/18/20 20:32 73 156/75 05/18/20 20:00 66 05/18/20 20:00 98.6 73 18 156/75 (102) 94 05/18/20 16:31 73 177/86 05/18/20 16:00 64 05/18/20 16:00 97.0 72 20 145/73 (97) 97 HEENT: normal ENT inspection RHYTHM: NSR, PACs LUNGS: lungs clear bilaterally, normal breath sounds CARDIAC: normal rate, regular rhythm, normal S1 and S2, gallop/S4 ABDOMEN: normal bowel sounds, non tender, soft, no organomegaly EXTREMITIES: normal range of motion, No edema, other - Neuro non focal Microbiology Date/Time Source Procedure Growth Status 05/17/20 16:30 Blood Blood Culture - Preliminary NO GROWTH AFTER 24 HOURS Resulted Assessment/Plan Assessment/Plan UTi Prob hemorrhagic cystitis Hx divertic LUE Fx HHD with labile BP Hypovolemia/dehydration Ac/chr kidney injury Hypothyroid due to medx non-compliance Hypokalemia Abx IVF Defer ortho surgery Up-titrate antiHTN meds Thyroid repl advanced on admit DC plan to SNF once off IV therapies Dex De La Torre MD May 19, 2020 13:52
[2020-05-19 16:00] VITALS: BP 154/72
--- NOTE | 2020-05-19 19:15 | NUR ---
NURSE NOTES: Pt rested throughout shift. No vaginal/rectal bleeding noted. Cont IVF NS @100c/hr, IV line to RT AC, remains patent & intact. BS 208 insulin given, Safety and comfort measures maintained, call light within reach.
--- NOTE | 2020-05-19 19:31 | NUR ---
NURSE HAND-OFF REPORT: Important Events on Shift: agitation Patient Status: stable Diet: cardiac, CCHO medium soft easy chew Pending Orders: n/a Pending Results/Labs:n/a Pending MD notification:n/a Latest Vital Signs: Temperature 97.4 , Pulse 66 , B/P 154 /72 , Respiratory Rate 20 , O2 SAT 99 , Room Air, O2 Flow Rate . Vital Sign Comment: stable EKG Rhythm: Sinus Rhythm Rhythm change?: N MD Notified?: - MD Response: Latest Roa Fall Score: 90 Fall Risk: High Risk Safety Measures: Call light Within Reach, Bed Alarm Zone 2, Side Rails Side Rails x2, Bed position Low and Locked. Fall Precautions: Yellow Socks Report given to KAYLA Delgado
[2020-05-19 20:00] VITALS: BP 153/78
[2020-05-19] MEDS: Atorvastatin 20mg tab ORAL SCH (20:53)
--- NOTE | 2020-05-19 21:00 | NUR ---
NURSE NOTES: patient Asking to call her and her step daughter. Called multiple time to connect but no one answered the phone which made her agitated. ativan given P.O. Pt on room air. Bed in lowest position and locked. On bed alarm for safety. Call light within reach. HOB elevated with 30 degree. Will continue plan of care.
--- NOTE | 2020-05-19 22:00 | NUR ---
NURSE NOTES: patient sleeping
[2020-05-20] VITALS: BP 120/70
[2020-05-20 04:00] VITALS: BP 153/80
[2020-05-20] MEDS: GlipiZIDE 5mg tab ORAL SCH ×2 (06:28→17:11)
[2020-05-20] MEDS: NovoLOG Insulin Flexpen SUBQ SCH ×4 (06:28→21:34)
--- NOTE | 2020-05-20 06:55 | NUR ---
NURSE NOTES: patient just awake very agitate, eating breakfast and DR. SCHAFER at bedside
--- NOTE | 2020-05-20 07:15 | General Progress Note ---
Subjective ROS Limited/Unobtainable: No Constitutional: Reports: malaise, weakness HEENT: Reports: no symptoms Cardiovascular: Reports: no symptoms Respiratory: Reports: cough Gastrointestinal/Abdominal: Reports: no symptoms Genitourinary: Reports: no symptoms Neurologic/Psychiatric: Reports: anxiety, depressed Endocrine: Reports: no symptoms Hematologic/Lymphatic: Reports: no symptoms Allergies: Coded Allergies: PENICILLINS (Verified Allergy, Mild, swelling, 05/17/20) ACETAMINOPHEN (Verified Allergy, Unknown, 05/17/20) CODEINE (Verified Allergy, Unknown, 05/17/20) HYDROCODONE (Verified Allergy, Unknown, 05/17/20) SULFA (SULFONAMIDE ANTIBIOTICS) (Verified Allergy, Unknown, 05/17/20) THIAMINE (VITAMIN B1) (Verified Adverse Reaction, Mild, syncope, 05/17/20) All Systems: reviewed and negative except above Subjective anxious, agitated and depressed. asking about her . no bleeding no fevers or chills. no sob. no cough Objective Last 24 Hour Vital Signs Date Time Temp Pulse Resp B/P (MAP) Pulse Ox O2 Delivery O2 Flow Rate FiO2 05/20/20 04:00 76 05/20/20 04:00 97.5 72 18 153/80 (104) 97 05/20/20 00:00 76 05/20/20 00:00 97.7 72 18 120/70 (87) 97 05/19/20 21:19 74 20 153/78 97 05/19/20 20:52 74 153/78 05/19/20 20:00 72 05/19/20 20:00 97.7 74 20 153/78 (103) 97 05/19/20 17:09 66 154/72 05/19/20 16:00 66 05/19/20 16:00 97.4 65 20 154/72 (99) 99 05/19/20 14:06 73 20 161/89 97 05/19/20 13:36 73 20 170/91 97 05/19/20 12:00 73 05/19/20 11:34 97.2 70 20 170/91 (117) 97 05/19/20 09:39 78 20 165/106 98 05/19/20 09:09 78 20 165/106 98 05/19/20 08:46 165/106 05/19/20 08:46 78 165/106 05/19/20 08:46 78 165/106 05/19/20 08:00 78 05/19/20 08:00 97.9 74 20 165/106 (125) 98 Intake and Output 05/19/20 05/20/20 19:00 07:00 Intake Total 1565 ml 600 ml Balance 1565 ml 600 ml Intake Oral 360 ml 600 ml IV Total 1205 ml # Voids 4 2 # Bowel Movements 2 Height (Feet): 5 Height (Inches): 2.00 Weight (Pounds): 89 General Appearance: WD/WN, alert EENT: normal ENT inspection Neck: normal alignment, supple Cardiovascular: normal rate, regular rhythm Respiratory/Chest: chest wall non-tender, lungs clear, normal breath sounds Abdomen: normal bowel sounds, non tender, soft, no organomegaly Edema: no edema noted Arm (L), no edema noted Arm (R), no edema noted Leg (L), no edema noted Leg (R) Neurologic: director community health nursing II-XII grossly normal, no motor/sensory deficits, alert, oriented x 3, responsive Lymphatic: normal anterior cervical (L), normal anterior cervical (R), normal posterior cervical (L), normal posterior cervical (R) Assessment/Plan Problem List: (1) Wrist fracture, left ICD Codes: S62.102A - Fracture of unspecified carpal bone, left wrist, initial encounter for closed fracture SNOMED: 565238249, 701087688 (2) Hypertensive urgency ICD Codes: I16.0 - Hypertensive urgency SNOMED: 412689170 (3) Gastrointestinal hemorrhage ICD Codes: K92.2 - Gastrointestinal hemorrhage, unspecified SNOMED: 25552516 (4) Anemia ICD Codes: D64.9 - Anemia, unspecified SNOMED: 231598713 (5) CKD (chronic kidney disease) stage 2, GFR 60-89 ml/min ICD Codes: N18.2 - Chronic kidney disease, stage 2 (mild) SNOMED: 978668220 (6) 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 ICD Codes: E11.9 - Type 2 diabetes mellitus without complications; Z79.4 - residential (current) use of insulin SNOMED: 54778211, 152360614 Status: stable, progressing Assessment/Plan: anxiolytics as needed monitor for bleeding orthopedics consult pending BP rx per cards monitor BS thyroid replacement pt/ot will try to get to call pts room Ariel Gonzalez MD May 20, 2020 07:15
[2020-05-20 07:23] LABS: BASOPHILS % (AUTO) 0.9 % (0.0-2.0); EOSINOPHILS % (AUTO) 6.5 % (0.0-3.0); HEMATOCRIT 39.7 % (37.0-47.0); HEMOGLOBIN 12.9 G/DL (12.0-16.0); LYMPHOCYTES % (AUTO) 21.6 % (20.0-45.0); MEAN CORPUSCULAR VOLUME 94 FL (80-99); MONOCYTES % (AUTO) 8.6 % (1.0-10.0); NEUTROPHILS % (AUTO) 62.5 % (45.0-75.0); PLATELET COUNT 246 K/UL (150-450); RED BLOOD COUNT 4.23 M/UL (4.20-5.40); RED CELL DISTRIBUTION WIDTH 12.7 % (11.6-14.8); WHITE BLOOD COUNT 5.9 K/UL (4.8-10.8)
--- NOTE | 2020-05-20 07:30 | NUR ---
NURSE NOTES: Received report from Sandy Ronquillo RN. Patient sitting up in bed, awake and alert, just finished eating breakfast, asking for her , she seems a bit nervous, side rails up x 3, bed in lowest position, wheels locked, call light within reach, no c/o pain, no SOB, in no apparent distress.
[2020-05-20 07:32] LABS: CALCIUM 9.4 MG/DL (8.5-10.1); CREATININE 1.2 MG/DL (0.55-1.30); POTASSIUM 3.8 MMOL/L (3.5-5.1)
[2020-05-20] MEDS ORDERED: Tubing IV Secondary IV ONE (08:12)
[2020-05-20 08:24] VITALS: BP 168/99
[2020-05-20] MEDS: Os-Cal (Oyster Shell) 500mg tab ORAL SCH ×2 (09:26→17:11)
[2020-05-20] MEDS: cefTRIAXone 1 GM in D5W 55 ML IVPB SCH (09:26)
[2020-05-20] MEDS: Losartan 50mg tab ORAL SCH (09:27)
[2020-05-20] MEDS: Aspirin Baby 81mg ORAL SCH (09:27)
[2020-05-20] MEDS: Vitamin D 1000 units Tab ORAL SCH (09:28)
[2020-05-20] MEDS: Carvedilol 6.25mg Tab ORAL SCH (09:28)
[2020-05-20] MEDS: LORazepam 1mg tab ORAL PRN ×2 (09:31→17:22)
--- NOTE | 2020-05-20 09:50 | NUR ---
PT EVALUATION NOTE Patient seen for initial evaluation and treatment initiated. Patient presents with weakness and decreased posture which impairs patient's ability to perform mobility skills safely. Patient requires min assist for bed mobility and transfers with FWW. Patient unsteady in standing and was unable to take any steps at this time. Patient will benefit from skilled inpatient PT intervention to increase strength and postural stability for improved level of functional mobility. Recommend discharge to SNF for further rehab once medically cleared by MD. Addendum: 05/20/20 at 1153 by AMALIA DUMONT PT Amended: Links added.
--- NOTE | 2020-05-20 11:04 | Cardiology Progress Note ---
Subjective DATE OF SERVICE: May 20, 2020 Xrays from [facility] reviewed with Dr Cota (ortho) - he feels that it's high risk and due to time lag, is best done by hand specialist , Dr Angela. BP parameters better but still elevated. Renal fxn normalizing with hydration. No new bleeding noted. Objective Last 24 Hour Vital Signs Date Time Temp Pulse Resp B/P (MAP) Pulse Ox O2 Delivery O2 Flow Rate FiO2 05/20/20 10:03 80 18 168/99 96 05/20/20 09:31 80 18 168/99 96 05/20/20 09:30 80 168/99 05/20/20 09:28 80 168/99 05/20/20 09:27 168/99 05/20/20 08:24 97.5 80 18 168/99 (122) 96 05/20/20 08:00 80 05/20/20 04:00 76 05/20/20 04:00 97.5 72 18 153/80 (104) 97 05/20/20 00:00 76 05/20/20 00:00 97.7 72 18 120/70 (87) 97 05/19/20 21:19 74 20 153/78 97 05/19/20 20:52 74 153/78 05/19/20 20:00 72 05/19/20 20:00 97.7 74 20 153/78 (103) 97 05/19/20 17:09 66 154/72 05/19/20 16:00 66 05/19/20 16:00 97.4 65 20 154/72 (99) 99 05/19/20 14:06 73 20 161/89 97 05/19/20 13:36 73 20 170/91 97 05/19/20 12:00 73 05/19/20 11:34 97.2 70 20 170/91 (117) 97 HEENT: normal ENT inspection RHYTHM: NSR, PACs LUNGS: lungs clear bilaterally, normal breath sounds CARDIAC: normal rate, regular rhythm, normal S1 and S2, gallop/S4 ABDOMEN: normal bowel sounds, non tender, soft, no organomegaly EXTREMITIES: normal range of motion, No edema, other - Neuro non focal Laboratory Tests Test 05/20/20 06:35 White Blood Count 5.9 K/UL (4.8-10.8) Red Blood Count 4.23 M/UL (4.20-5.40) Hemoglobin 12.9 G/DL (12.0-16.0) Hematocrit 39.7 % (37.0-47.0) Mean Corpuscular Volume 94 FL (80-99) Mean Corpuscular Hemoglobin 30.4 PG (27.0-31.0) Mean Corpuscular Hemoglobin Concent 32.5 G/DL (32.0-36.0) Red Cell Distribution Width 12.7 % (11.6-14.8) Platelet Count 246 K/UL (150-450) Mean Platelet Volume 5.5 FL (6.5-10.1) L Neutrophils (%) (Auto) 62.5 % (45.0-75.0) Lymphocytes (%) (Auto) 21.6 % (20.0-45.0) Monocytes (%) (Auto) 8.6 % (1.0-10.0) Eosinophils (%) (Auto) 6.5 % (0.0-3.0) H Basophils (%) (Auto) 0.9 % (0.0-2.0) Sodium Level 141 MMOL/L (136-145) Potassium Level 3.8 MMOL/L (3.5-5.1) Chloride Level 106 MMOL/L (98-107) Carbon Dioxide Level 26 MMOL/L (21-32) Anion Gap 9 mmol/L (5-15) Blood Urea Nitrogen 16 mg/dL (7-18) Creatinine 1.2 MG/DL (0.55-1.30) Estimat Glomerular Filtration Rate 43.3 mL/min (>60) Glucose Level 132 MG/DL (74-106) H Calcium Level 9.4 MG/DL (8.5-10.1) Magnesium Level 1.8 MG/DL (1.8-2.4) Microbiology Date/Time Source Procedure Growth Status 05/18/20 05:15 Straight Cath Urine Culture - Preliminary NO GROWTH AFTER 24 HOURS Resulted 05/17/20 16:57 Blood Blood Culture - Preliminary NO GROWTH AFTER 48 HOURS Resulted 05/17/20 16:30 Blood Blood Culture - Preliminary NO GROWTH AFTER 48 HOURS Resulted Assessment/Plan Assessment/Plan UTi Prob hemorrhagic cystitis Hx divertic LUE Fx HHD with labile BP Hypovolemia/dehydration Ac/chr kidney injury resolved Hypothyroid due to medx non-compliance Hypokalemia Abx IVF discont'd Defer ortho surgery Up-titrate antiHTN meds Thyroid repl advanced on admit DC plan to SNF tomorrow Dex De La Torre MD May 20, 2020 11:04
[2020-05-20 12:00] VITALS: BP 183/95
--- NOTE | 2020-05-20 14:59 | NUR ---
*-*DISCHARGE PLANNING*-* [facility] P: [phone] ROOM# 4.B
[2020-05-20 16:00] VITALS: BP 119/65
--- NOTE | 2020-05-20 20:08 | NUR ---
NURSE HAND-OFF REPORT: Important Events on Shift: Patient's blood pressure elevated, 183/95. Provided am blood pressure medications and 0.1 mg clonidine. Patient may dischage to SNF in am. Normal Saline discontinued. Patient Status: In no apparent distress. Diet: Cardiac CCHO Medium. Pending Orders: N/A Pending Results/Labs:N/A Pending MD notification:N/A Latest Vital Signs: Temperature 97.9 , Pulse 69 , B/P 118 /65 , Respiratory Rate 20 , O2 SAT 97 , Room Air, O2 Flow Rate . Vital Sign Comment: N/A (Improved.) EKG Rhythm: Sinus Rhythm Rhythm change?: N MD Notified?: - MD Response: Latest Roa Fall Score: 90 Fall Risk: High Risk Safety Measures: Call light Within Reach, Bed Alarm Zone 2, Side Rails Side Rails x2, Bed position Low and Locked. Fall Precautions: Yellow Socks Report given to Edda Talbot RN.
[2020-05-20 20:30] VITALS: BP 147/72
[2020-05-20] MEDS ORDERED: Carvedilol 12.5mg tab ORAL SCH (21:00)
[2020-05-20] MEDS: Atorvastatin 20mg tab ORAL SCH (21:34)
[2020-05-21 00:10] VITALS: BP 110/62
[2020-05-21] MEDS ORDERED: VITAMIN D325 MCG ORAL (00:52)
[2020-05-21] MEDS ORDERED: COREG12.5 MG ORAL (00:52)
[2020-05-21 04:09] VITALS: BP 109/53
[2020-05-21] MEDS: GlipiZIDE 5mg tab ORAL SCH (06:08)
[2020-05-21] MEDS: NovoLOG Insulin Flexpen SUBQ SCH (06:09)
[2020-05-21] MEDS: LORazepam 1mg tab ORAL PRN (06:26)
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
--- NOTE | 2020-05-21 07:10 | NUR ---
Patient slept well through out night, no acute distress noted. No signs of hypo/hyperglycemia noted. No bleeding noted. Medicated with prn ativan po for increased anxiety with positive effects. Safety and comfort measures maintained.
--- NOTE | 2020-05-21 07:13 | NUR ---
NURSE HAND-OFF REPORT: Important Events on Shift:No acute distress noted. [facility]. Patient Status: Diet: Pending Orders: Pending Results/Labs: Pending MD notification: Latest Vital Signs: Temperature 97.1 , Pulse 62 , B/P 109 /53 , Respiratory Rate 16 , O2 SAT 97 , Room Air, O2 Flow Rate . Vital Sign Comment: EKG Rhythm: Sinus Rhythm Rhythm change?: N MD Notified?: - MD Response: Latest Roa Fall Score: 90 Fall Risk: High Risk Safety Measures: Call light Within Reach, Bed Alarm Zone 2, Side Rails Side Rails x2, Bed position Low and Locked. Fall Precautions: Yellow Socks Report given to .
[2020-05-21 08:00] VITALS: BP 123/66
--- NOTE | 2020-05-21 08:44 | Discharge Summary ---
DATE OF ADMISSION: 05/17/2020 DATE OF DISCHARGE: 05/21/2020 ADMISSION DIAGNOSES: 1. Vaginal bleeding. 2. Severe hypothyroidism. 3. Diabetes. 4. Hypertension. 5. History of left wrist fracture. HOSPITAL COURSE: The patient is a pleasant female that was brought in by family members with complaints of vaginal bleeding. According to family members, she had several episodes of moderate amount of blood that is bleeding from the vagina. In the ER, though her exam was unremarkable. Her hemoglobin was stable. She was admitted for further evaluation. A transvaginal ultrasound was unremarkable. She had mild acute renal failure that responded to IV hydration. She was started on thyroid replacement therapy. She was also treated with antibiotics for urinary tract infection. On discharge, she was stable. She will go to a [facility] for [facility]. DISCHARGE MEDICATIONS: Please see discharge medication list for discharge medications. DIET: Cardiac diabetic diet. ACTIVITIES: Ad-nika. FOLLOWUP: The patient will follow up in one to two days at the [facility] facility. Ariel Gonzalez M.D. DR: SOL JOB#: [id number] CC:
[2020-05-21] MEDS ORDERED: Carvedilol 25mg Tab ORAL SCH (09:00)
--- NOTE | 2020-05-21 09:10 | NUR ---
PT NOTE Attempted to see patient for PT treatment. Patient sleeping, able to arouse however drowsy and unable to participate with PT at this time. Elyse GARZA notified.
[2020-05-21] MEDS: Aspirin Baby 81mg ORAL SCH (09:13)
[2020-05-21] MEDS: Os-Cal (Oyster Shell) 500mg tab ORAL SCH (09:13)
[2020-05-21] MEDS: cefTRIAXone 1 GM in D5W 55 ML IVPB SCH (09:13)
[2020-05-21] MEDS: Vitamin D 1000 units Tab ORAL SCH (09:14)
[2020-05-21 09:15] VITALS: BP 123/66
[2020-05-21] MEDS: Losartan 50mg tab ORAL SCH (09:15)
--- NOTE | 2020-05-21 10:00 | NUR ---
NURSE NOTES: Report given to KAYLA Zheng Document Control Assistant. Pt direct to room 4B.
--- NOTE | 2020-05-21 10:01 | NUR ---
*-*DISCHARGE PLAN*-* PATIENT HAS BEEN ACCEPTED AND WILL BE DISCHARGE TO: [facility] P: [phone] FOR NURSE TO NURSE REPORT ROOM# 4.B [facility] SET FOR 11AM S/W [id number]. S/P PATIENT STEP DAUGHTER, KENNY NYE, WHO IS IN AGREEMENT WITH DISCHARGE PLAN.
--- NOTE | 2020-05-21 11:00 | NUR ---
NURSE NOTES: Pt DC to [facility] via ambulance. D/w Iris, step daughter. No distress noted.
[2020-05-21] MEDS ORDERED: NS 275ml ONE (11:39)
--- NOTE | 2020-05-21 17:13 | Cardiology Progress Note ---
Subjective DATE OF SERVICE: May 21, 2020 Xrays from [facility] reviewed several days ago with Dr Cota (ortho) - he feels that it's high risk and due to time lag, is best done by hand specialist , Dr Angela. BP parameters improved. Renal fxn normalized to baseline with hydration. No new bleeding noted. Objective Last 24 Hour Vital Signs Date Time Temp Pulse Resp B/P (MAP) Pulse Ox O2 Delivery O2 Flow Rate FiO2 05/21/20 09:15 123/66 05/21/20 09:15 71 123/66 05/21/20 09:14 71 123/66 05/21/20 09:00 Room Air 05/21/20 08:00 79 05/21/20 08:00 98.3 73 20 123/66 (85) 95 05/21/20 04:21 62 05/21/20 04:09 97.1 66 16 109/53 (71) 97 05/21/20 00:10 97.9 67 16 110/62 (78) 97 05/21/20 00:00 65 05/20/20 21:00 72 147/72 05/20/20 20:30 98.1 72 17 147/72 (97) 96 05/20/20 20:00 66 05/20/20 17:52 69 20 118/65 97 05/20/20 17:22 69 20 119/65 96 HEENT: normal ENT inspection RHYTHM: NSR, PACs LUNGS: lungs clear bilaterally, normal breath sounds CARDIAC: normal rate, regular rhythm, normal S1 and S2, gallop/S4 ABDOMEN: normal bowel sounds, non tender, soft, no organomegaly EXTREMITIES: normal range of motion, No edema, other - Neuro non focal Assessment/Plan Assessment/Plan UTi Prob hemorrhagic cystitis Hx divertic LUE Fx HHD with labile BP Hypovolemia/dehydration Ac/chr kidney injury resolved Hypothyroid due to medx non-compliance Hypokalemia Off antibiotics after today's dose. Defer ortho surgery Maintain current antiHTN meds Thyroid repl advanced on admit - to continue. DC plan to SNF today Dex De La Torre MD May 21, 2020 17:13
[2020-05-22] MEDS ORDERED: Losartan 25mg tab ORAL SCH (09:00)
== END 2020-05-21 11:40 | DRG 690 ==
LOC: EMR 14:21 → 2E 15:08 → EDBEDREQ 17:32 → 2E 17:59
DX: N30.91 Cystitis, unspecified with hematuria (principal); N17.9 Acute kidney failure, unspecified; I16.0 Hypertensive urgency; I12.9 Hypertensive chronic kidney disease with stage 1 through stage 4 chronic kidney disease, or unspecified chronic kidney disease; J01.90 Acute sinusitis, unspecified; E86.0 Dehydration; F03.90 Unspecified dementia, unspecified severity, without behavioral disturbance, psychotic disturbance, mood disturbance, and anxiety; E03.9 Hypothyroidism, unspecified; E11.9 Type 2 diabetes mellitus without complications; Z91.81 History of falling; N18.2 Chronic kidney disease, stage 2 (mild); Z88.6 Allergy status to analgesic agent; Z88.0 Allergy status to penicillin; Z88.2 Allergy status to sulfonamides; Z88.8 Allergy status to other drugs, medicaments and biological substances; J01.80 Other acute sinusitis; Z79.4 Long term (current) use of insulin; E86.1 Hypovolemia; S62.102G Fracture of unspecified carpal bone, left wrist, subsequent encounter for fracture with delayed healing; V89.2XXD Person injured in unspecified motor-vehicle accident, traffic, subsequent encounter; Z91.14 Patient's other noncompliance with medication regimen; E87.6 Hypokalemia; K57.90 Diverticulosis of intestine, part unspecified, without perforation or abscess without bleeding
CPT/HCPCS: 36415; 70450; 74176; 76830; 76856; 80048; 80053; 81001; 83605; 83735; 84443; 85025; 85610; 85730; 86850; 86900; 86901; 87040; 87086; 93005; 96365; 99285; J1815; J7030; J8499